=== PATIENT | female | born 1935 | race Caucasian/White ===

== ENCOUNTER 2021-06-10 14:29 | Inpatient (IN) | payer MEDICARE, BC, SELFPAY ==
[2021-06-10] VITALS (9 sets, daily range): BP systolic 130–144; BP diastolic 76–87; PULSE 69–85; RESP 14–18; TEMP 36.4–36.7; O2SAT 89–95; BMI 28.2
--- NOTE | 2021-06-10 14:34 | XR_ITS ---
WS: [id number] Exam: XR hip RT 2-3V wo/w pel* [id number] Date/Time of Exam: 06/10/2021 2:34 PM Reason For Exam: r hip pain There is a comminuted intertrochanteric fracture of the right hip. There is avulsion and medial separ ation of the lesser trochanter. No other fractures. Moderate DJD of the joint compartment. XR/XR hip RT 2-3V wo/w pel* [id number] IMPRESSION: 1. Comminuted intertrochanteric fracture of the right hip. Degenerative changes .
--- NOTE | 2021-06-10 14:45 | ED_ITS ---
HPI - Extremity Problem General: Chief complaint: Fall Stated complaint: FALL R HIP DEFORMITY Time Seen by Provider: 06/10/21 14:34 Source: patient Mode of arrival: EMS Limitations: no limitations History of Present Illness: 86-year-old female presents emergency room after falling at home. She gotten up to get a remote control and fell and she has severe right hip pain is unable to stand EMS was called she has externally rotated right leg. She denies any other injuries at the time of the fall she is on Eliquis for atrial fibrillation and last took it earlier today. She denies any chest pain or shortness of breath she is otherwise awake and alert and oriented. MD Complaint: joint pain Onset (ago): minute(s) Pain Consistency: constant Location: right and upper extremity (Hip) Quality: sharp Radiation: distal Relieving factors: immobilization Exacerbating factors: palpation Associated symptoms: Deny arthralgias, chest pain, fever(s), myalgias, rash or short of breath Review of Systems Const: Denies: fever(s) or chills ENMT: Denies: throat pain, ear or mastoid pain, nasal discharge or nasal congestion Card: Denies: chest pain or palpitations Resp: Denies: dyspnea, productive cough or non-productive cough GI: Denies: abdominal pain, nausea, vomiting, hematemesis, coffee ground emesis, diarrhea, constipation, bloating, hematochezia or melena : Denies: flank pain, difficulty voiding, dysuria, urinary frequency or urinary urgency Skin/Breast: Denies: rash or pruritus [facility] ED PFSH: Medical History (Updated 06/10/21 @ 15:50 by Aristides Alfaro DO) Afib Anemia ASHD (arteriosclerotic heart disease) Chronic anticoagulation COPD (chronic obstructive pulmonary disease) Depression First degree AV block Former smoker Hyperlipidemia Hypertension Hypothyroidism Insomnia Lung cancer Meningioma RLS (restless legs syndrome) Ventricular arrhythmia Surgical History History of lobectomy of lung Hx of CABG x 3 vessel 2010 Social History Smoking and tobacco status: former smoker Alcohol intake: current Alcohol intake frequency: 0-2 Drinks per Day Physical Exam Const: GENERAL APPEARANCE: cooperative ORIENTATION/CONSCIOUSNESS: Yes awake, Yes oriented to person, Yes oriented to place and Yes oriented to time HENMT: COMMON NORMALS: normocephalic, atraumatic and hearing grossly normal bilaterally HEAD & SCALP: normocephalic and atraumatic Neck/C-Spine: COMMON NORMALS: full ROM, no lymphadenopathy, supple and no JVD Resp: COMMON NORMALS: normal respiratory effort, No retractions, No use of accessory muscles and clear to auscultation bilaterally AUSCULTATION: clear to auscultation bilaterally Cardio: COMMON NORMALS: no JVD, regular rate, regular rhythm and No murmurs present (Cardio) RATE: regular rate RHYTHM: regular rhythm GI: COMMON NORMALS: Soft to palpation and No hepatosplenomegaly present AUSCULTATION: Yes normoactive bowel sounds PALPATION: Yes Soft to palpation, No Tenderness to palpation present (GI), No Guarding due to palpation present (GI) and Yes No hepatosplenomegaly present Extremity: OTHER: Right leg externally rotated consistent with hip fracture neurovascularly intact dorsalis pedis pulse easily palpable Neuro: SENSORIUM/ORIENTATION: Yes oriented to person, Yes oriented to place and Yes oriented to time Skin: COMMON NORMALS: no rashes or lesions noted GENERAL SKIN EXAM: no rashes or lesions noted Course Vital Signs: Vital signs: Vital Signs Temperature 98.1 F 06/10/21 14:32 Pulse Rate 73 06/10/21 14:32 Respiratory Rate 14 06/10/21 14:32 Blood Pressure 140/82 06/10/21 14:32 Pulse Oximetry 89 L 06/10/21 14:32 MDM - Extremity (Nontraumatic) Medical Decision Making Right intertrochanteric hip fracture. Patient is on Eliquis did take it this morning. She has a history of atrial fibrillation rate is well controlled this time no other symptoms currently in the emergency room. Discussed with Dr. Jay she will admit I did call Dr. Do he is in surgery message was relayed to him as to a patient without fracture who would be admitted to the hospitalist he would consult he will call back with any questions per the nurse in the OR. Medical Records I reviewed the patient's medical records. Lab Data I reviewed the patient's lab results. : 06/10/21 15:03 06/10/21 15:03 Laboratory Results WBC 7.2 10^3/uL (4.0-10.0) 06/10/21 15:03 RBC 4.60 10^6/uL (4.1-5.3) 06/10/21 15:03 Hgb 12.7 g/dL (11.5-15.3) 06/10/21 15:03 Hct 40.8 % (37.0-47.0) 06/10/21 15:03 MCV 88.7 fl (81-99) 06/10/21 15:03 MCH 27.6 pg (28.0-34.0) L 06/10/21 15:03 MCHC 31.1 g/dL (30.0-36.0) 06/10/21 15:03 RDW 15.4 % (12.1-15.1) H 06/10/21 15:03 Plt Count 148 10^3/cmm (130-400) 06/10/21 15:03 MPV 12.3 fL (7.4-10.4) H 06/10/21 15:03 Neut % (Auto) 77.4 % 06/10/21 15:03 Lymph % (Auto) 15.5 % 06/10/21 15:03 [place] % (Auto) 6.0 % 06/10/21 15:03 Eos % (Auto) 0.6 % 06/10/21 15:03 Baso % (Auto) 0.1 % 06/10/21 15:03 Neut # (Auto) 5.54 10^3/uL (1.8-7.7) 06/10/21 15:03 Lymph # (Auto) 1.1 10^3/uL (0.8-4.8) 06/10/21 15:03 [place] # (Auto) 0.4 10^3/uL (0.2-0.9) 06/10/21 15:03 Eos # (Auto) 0.0 10^3/uL (0.0-0.8) 06/10/21 15:03 Baso # (Auto) 0.0 10^3/uL (0.0-0.1) 06/10/21 15:03 Nucleated RBC % (auto) 0 % 06/10/21 15:03 Nucleated RBCs # 0.0 /100WBC 06/10/21 15:03 Sodium 144 mmol/L (136-145) 06/10/21 15:03 Chloride 102 mmol/L (98-107) 06/10/21 15:03 Anion Gap 13.3 (5-19) 06/10/21 15:03 BUN 15 mg/dL (8-23) 06/10/21 15:03 Creatinine 0.8 mg/dL (0.5-0.9) 06/10/21 15:03 GFR Calculation Not Reportable 06/10/21 15:03 Glucose 97 mg/dL (65-115) 06/10/21 15:03 Total Bilirubin 0.3 mg/dL (0.15-1.2) 06/10/21 15:03 AST 13 U/L (0-32) 06/10/21 15:03 ALT 10 U/L (0-33) 06/10/21 15:03 Alkaline Phosphatase 84 IU/L (35-105) 06/10/21 15:03 Albumin 4.2 g/dL (3.5-5.2) 06/10/21 15:03 Globulin 1.7 g/dL (1.3-4.6) 06/10/21 15:03 Discharge Plan Discharge Patient Disposition: Admitted As Inpatient Admit Provider: Che Ma Clinical Impression: Closed intertrochanteric fracture of right hip, Atrial fibrillation, COPD (chr onic obstructive pulmonary disease), Hyperlipidemia, Coronary artery disease Condition: Stable Coding Level of Care Code ED Academic Hospitalist for Chg Fwd Exam Detailed
--- NOTE | 2021-06-10 14:51 | ECG_ITS ---
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 Measurements Intervals [place] Rate: 79 P: AK: QRS: 161 QRSD: 140 T: 74 QT: 471 QTc: 542 Interpretive Statements ATRIAL FIBRILLATION INTRAVENTRICULAR CONDUCTION DELAY [130+ ms QRS DURATION] POSSIBLE RIGHT VENTRICULAR HYPERTROPHY Compared to ECG 08/24/2018 22:11:06 Intraventricular conduction delay now present ST (T wave) deviation no longer present Electronically Signed On 06-11-2021 7:26:59 CDT by Mariela Arguello M.D. [email or web address]
--- NOTE | 2021-06-10 14:51 | XR_ITS ---
WS: [id number] Exam: XR chest 1V portable [id number] Date/Time of Exam: 06/10/2021 2:51 PM Reason For Exam: dyspnea/cough Comparison 08/27/2018. There is increased density in the left retrocardiac region that may represent infiltrate in the left lower lobe. Prominent left cardiac silhouette noted. The heart is enlarged. Signs of the cardiac valv e replacement and CABG surgery. The right lung is clear. No pneumothorax. Bony structures are intact. Postoperative changes noted in the region of the aortic arch. XR/XR chest 1V portable [id number] IMPRESSION: 1. Increased density in the left retrocardiac region that may indicate infiltra te in the left lower lobe. Prominent left heart border. Pericardial effusion mi ght be of consideration. Cardiac enlargement. 2. Postoperative changes of the heart as noted above.
--- NOTE | 2021-06-10 14:54 | PM.HP ---
Providers/Chief Complaint Admitting Physician: Che Ma MD Primary Care Provider: Had previously seen Jake Bailey, has not established care since he retired though it looks like she has seen Dr. Ashlyn Paiz last January. Chief Complaint: FALL R HIP DEFORMITY History of Present Illness Arelis Abdi is a 86 year old female who presented to the emergency room with chief complaint of right hip pain. Patient had left hip fracture and surgical repair about 3 years ago. She has utilized a walker since that time. She lives at home with her who is currently on hospice. She was reaching to get the TV remote so she could turn up the volume for him. He is blind and relies on the sound from the TV. She leaned too far trying to get the hand gripper to grab the remote and simply lost her balance and fell over landing on a hardwood floor on her right hip. She instantly knew that something was likely broken. She denies any preceding symptoms. She does did not take enough steps to get where she needed to be. Her 's hospice nurse and her stepdaughter/'s daughter were at the house and an ambulance was called immediately. She was brought in. Right lower extremity was externally rotated and shortened. X-ray showed comminuted intratrochanteric fracture. Orthopedics has been consulted and hospitalist were contacted for admission. She reports appropriate discomfort in her right hip with any form of movement. In talking with her she has been a bit more tired lately. She has a stye developing in her right eye. She denies any fever or chills. She has been short of breath. She has a cough that has been intermittently productive but mostly nonproductive. No hemoptysis. She has known COPD. She is not on continuos oxygen at home, but does have nocturnal oxygen for known sleep apnea, did not tolerate that machine . She did receive a couple of doses of fentanyl in route and had some hypoxemia requiring oxygen at 2 L by nasal cannula in ambulance and here. 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 She is a former smoker. Additionally she does have a history of coronary artery disease with prior bypass surgery, 3 vessels back in 2009. At the same time she had a mitral valve repair. Specific details of the repair are not known but is is not a mechanical valve per her report. She is on chronic anticoagulation due to a history of atrial fibrillation. She takes Eliquis. Last dose of Eliquis was this morning not long after she awakened. She denies any recent chest pain. Her activity is limited due to gait instability. Occasionally she will have some lower extremity edema and she does describe nocturia 2-3 times per night. She has received 2 doses of Moderna. No history of known COVID. She recalls what all she went through after her prior hip surgery and is not looking forward to what is to come but knows what to expect. History is obtained from her and review of available records. She has followed with Dr Washington from cardiac standpoint, but not seen him for some time due to cancellations related to pandemic and/or personal/family non-covid illnesses. Review of Systems Const: Reports: fatigue and malaise; Denies: fever(s), chills, change in appetite or change in weight Eyes: Reports: other (Stye is developing on her lower lid on the right eye, increasing discomfort); Denies: change in vision ENMT: Reports: nasal congestion (Mild); Denies: throat pain or post nasal drip Card: Reports: palpitations, edema (Occasional, not currently), lightheadedness (Secondary to pain today but not previously or preceding fall) and dyspnea on exertion; Denies: chest pain or orthopnea Resp: Reports: dyspnea, productive cough and non-productive cough; Denies: pain on inspiration, hemoptysis or chest congestion GI: Reports: nausea (Quite significant after fall, associated with hip pain), heartburn (After taking all of her morning medications/vitamins every day) and other (Last bowel movement was yesterday); Denies: abdominal pain, vomiting, diarrhea, constipation, hematochezia or melena : Reports: dysuria (Sometimes, not currently), nocturia (2-3 times per night) and urinary incontinence; Denies: hematuria Musc: Reports: extremity pain (Right lower extremity) Skin/Breast: Reports: dry skin; Denies: rash or sores Neuro: Reports: weakness in extremities (Chronic, general rather than focal) and difficulty walking (Uses a walker chronically); Denies: headache(s), numbness in extremities, sensory changes or frequent falls Psych: Reports: anxiety and depression; Denies: suicidal ideation Endo: Reports: tired all the time Dain/Lymph: Reports: easy bruising and other (No recent gross bleeding) Medications/Allergies Home Medications Medication Instructions Recorded Confirmed Last Taken Type alprazolam 0.5 mg tablet 0.5 mg PO TID PRN 03/18/21 03/18/21 Unknown History apixaban 5 mg tablet (Eliquis) 5 mg PO BID 03/18/21 03/18/21 Unknown History buspirone 5 mg tablet 5 mg PO BID 03/18/21 03/18/21 Unknown History coenzyme Q10 10 mg capsule (Co 10 mg PO DAILY cap 03/18/21 03/18/21 Unknown History Q-10) gabapentin 100 mg capsule 100 mg PO TID 03/18/21 03/18/21 Unknown History levothyroxine 50 mcg tablet 50 mcg PO DAILY 03/18/21 03/18/21 Unknown History lisinopril 20 mg tablet 20 mg PO DAILY 03/18/21 03/18/21 Unknown History metoprolol succinate 25 mg 25 mg PO DAILY 03/18/21 03/18/21 Unknown History tablet,extended release 24 hr potassium chloride 10 mEq 10 meq PO DAILY 03/18/21 03/18/21 Unknown History tablet,extended release ropinirole 0.25 mg tablet 0.25 mg PO DAILY 03/18/21 03/18/21 Unknown History tiotropium 2.5 mcg-olodaterol 2.5 2 puff INHALATION DAILY 03/18/21 03/18/21 Unknown History mcg/actuation mist for inhalation (Stiolto Respimat) trazodone 50 mg tablet 50 mg PO DAILY 03/18/21 03/18/21 Unknown History acetaminophen 500 mg tablet 500 mg PO Q6H PRN 06/10/21 06/10/21 Unknown History amiodarone 200 mg tablet 200 mg PO DAILY 06/10/21 06/10/21 06/10/21 History amlodipine 10 mg tablet 10 mg PO DAILY 06/10/21 06/10/21 06/10/21 History ascorbic acid (vitamin C) 500 mg 500 mg PO DAILY 06/10/21 06/10/21 06/10/21 History capsule,extended release (Vitamin C) calcium carbonate 600 mg-vitamin 1 tab PO DAILY 06/10/21 06/10/21 06/10/21 History D3 10 mcg (400 unit) chewable tablet (Calcium 600 with Vitamin D3) glucosamine-chondroitin 250 mg-200 2 tab PO TID 06/10/21 06/10/21 06/10/21 History mg tablet (Osteo Bi-Flex) omega 6-fxa-kqo-fish oil 1,000 mg 1 cap PO DAILY 06/10/21 06/10/21 06/10/21 History (120 mg-180 mg) capsule (Fish Oil) sertraline 100 mg tablet 100 mg PO BID 06/10/21 06/10/21 06/10/21 History tumeric 100 mg-rach 150 mg-olive 1 cap PO DAILY 06/10/21 06/10/21 06/10/21 History 50 mg-oreg 150 mg-caprylate capsule Allergies Allergy/AdvReac Type Severity Reaction Status Date / Time Sulfa (Sulfonamide Allergy N/V Verified 05/02/21 09:29 Antibiotics) PFSH Acute PFSH: Medical History (Updated 06/10/21 @ 18:43 by Che Ma MD) Anemia Anxiety ASHD (arteriosclerotic heart disease) Atrial fibrillation CHF (congestive heart failure) Chronic anticoagulation COPD (chronic obstructive pulmonary disease) COVID-19 vaccine administered Moderna 2 doses Depression First degree AV block Former smoker Hyperlipidemia Had been on atorvastatin and zetia in past, last lipid panel in 2019 with HDL 70, LDL 81, total cholesterol 171, TG 176 Hypertension Hypothyroidism Insomnia 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) Meningioma Benign Mitral valve regurgitation Osteoarthritis Osteoporosis RLS (restless legs syndrome) Sleep apnea On nocturnal oxygen, intolerant of other therapies in past Tricuspid valve regurgitation Ventricular arrhythmia Surgical History (Updated 06/10/21 @ 18:35 by Che Ma MD) History of appendectomy History of hemiarthroplasty of left hip (~2019) History of hysterectomy History of lobectomy of lung Left upper lobe, 2007 History of mitral valve repair Per patient, done at time of CABG in 2009, details unknown History of tonsillectomy and adenoidectomy Hx of CABG x 3 vessel 2009 Family History (Updated 06/10/21 @ 16:36 by Che Ma MD) Family/Other Cancer multiple relatives Father Abdominal aneurysm Mother Abdominal aneurysm Denies family history of Clotting disorder Anesthesia complication Bleeding disorder Social History (Updated 06/10/21 @ 16:35 by Che Ma MD) Smoking and tobacco status: former smoker Alcohol intake: current Alcohol use comment: has a drink every 3-4 days, currently drinking [place] Honey Substance/Drug Use: never Household members: spouse and other Details: Spouse on Hospice Care Marital status: Number of children: 3 Female Reproductive History: : 5 Para: 3 Spontaneous abortions: Yes (x2) Vitals/I&O/Wt Last Vital Signs Temp 98.1 F 06/10/21 14:32 Pulse 73 06/10/21 14:32 Resp 14 06/10/21 14:32 BP 140/82 06/10/21 14:32 Pulse Ox 89 L 06/10/21 14:32 Weight last 48 hrs Weight 79.379 kg Physical Exam Narrative: Constitutional: Awake and alert after awakening, oriented to person place and situation, looks uncomfortable with any mild movement HEENT: Normocephalic, atraumatic, extraocular movements are intact, nasopharynx with some clear rhinorrhea, oropharynx with dry membranes Neck: Supple Respiratory: Clear to auscultation bilaterally had any rales rhonchi or wheezes noted Cardiovascular: Irregularly irregular rhythm, no murmurs appreciated Abdomen: Soft, nontender, positive bowel sounds : Normal external genitalia Extremities: Right lower extremity externally rotated and shortened, no bruising noted on visible portions of lateral leg on the right, no pitting edema, 1+ dorsalis pedis bilaterally Skin: Dry, no acute sores or bruising noted, no rashes Neuro: Speech clear, face symmetric, handgrip is equal, sensation is intact and equal to light touch both feet, wiggles toes bilaterally Psych: Normal affect Data : 06/10/21 15:03 06/10/21 15:03 Other Labs: Personal interpretation of right hip films shows comminuted intertrochanteric femur fracture Twelve-lead EKG per my personal interpretation shows atrial fibrillation at 79 bpm without any acute ST segment changes noted Chest x-ray per radiology interpretation shows increased density in the left retrocardiac region that may indicate an infiltrate in the left lower lobe with prominent left heart border. Pericardial effusion might be of consideration. Cardiac enlargement is also noted. Postoperative changes of the heart are noted including valve replacement and CABG surgery as well as postoperative changes in the region of the aortic arch. A&P Assessment and plan (1) Fall as cause of accidental injury in home as place of occurrence: Accidental, occurring while reaching too far while using her walker, landed on right hip Status: Acute Qualifiers: Encounter type: initial encounter Qualified Code(s): W19.XXXA - Unspecified fall, initial encounter; Y92.009 - Unspecified place in unspecified non-institutional (private) residence as the place of occurrence of the external cause (2) Closed intertrochanteric fracture of right hip: Comminuted Status: Acute Qualifiers: Encounter type: initial encounter Fracture alignment: displaced Qualified Code(s): S72.141A - Displaced intertrochanteric fracture of right femur, initial encounter for closed fracture (3) Osteoporosis: Chronically takes once daily calcium plus vitamin D, has had prior hip fracture Status: Chronic Qualifiers: Encounter type: initial encounter Osteoporosis type: age-related Presence of current pathological fracture: with current pathological fracture Qualified Code(s): M80.00XA - Age-related osteoporosis with current pathological fracture, unspecified site, initial encounter for fracture (4) Chronic anticoagulation: Chronically on Eliquis due to known history of atrial fibrillation, last dose was taken on the morning of 06/10/2021 Status: Chronic (5) Atrial fibrillation: Chronic, on beta-blockade and amiodarone Problem list indicates a history of ventricular arrhythmias as well though details unknown Status: Chronic Qualifiers: Atrial fibrillation type: permanent Qualified Code(s): I48.21 - Permanent atrial fibrillation (6) Coronary artery disease: Bypass surgery in 2009, 3 vessels with associated mitral valve repair Follows with Dr. Washington outpatient Status: Chronic Qualifiers: Associated angina: without angina Coronary Disease-Associated Artery/Lesion type: bypass graft [place] vs. transplanted heart: [place] heart Qualified Code(s): I25.810 - Atherosclerosis of coronary artery bypass graft(s) without angina pectoris (7) CHF (congestive heart failure): Last available echocardiogram from 2019 showed an ejection fraction estimated at 38% with mild pulmonary hypertension (right ventricular systolic pressure 43 mmHg), and moderate to severe mitral and tricuspid valve regurgitation. Severe left atrial enlargement was noted. Reports chronic nocturia and intermittent edema. Not on any chronic diuresis. Does take chronic LORNE inhibitor. Status: Chronic (8) Hypertension: Chronically on amlodipine and lisinopril in addition to beta-blockade Status: Chronic Qualifiers: Hypertension type: primary hypertension Qualified Code(s): I10 - Essential (primary) hypertension (9) COPD (chronic obstructive pulmonary disease): Related to former tobacco abuse, chronically on Stiolto Respimat, not on continuos oxygen for her COPD but does wear nocturnal oxygen for sleep apnea Status: Chronic Qualifiers: COPD type: COPD with acute exacerbation Qualified Code(s): J44.1 - Chronic obstructive pulmonary disease with (acute) exacerbation (10) Sleep apnea: Diagnosed via sleep study, intolerant of CPAP/BiPAP, on nocturnal oxygen though admits that she does not necessarily use it every single night Status: Chronic Qualifiers: Sleep apnea type: unspecified type Qualified Code(s): G47.30 - Sleep apnea, unspecified (11) Hypothyroidism: Chronically on levothyroxine with normal TSH levels when last checked by primary care provider Status: Chronic Qualifiers: Hypothyroidism type: acquired Qualified Code(s): E03.9 - Hypothyroidism, unspecified (12) Anxiety and depression: Chronically on sertraline and also takes BuSpar plus as needed alprazolam, admits to having some challenges with current being on hospice and functional decline since her hip fracture a few years ago but reports that medications help Status: Chronic (13) RLS (restless legs syndrome): Chronically on Requip Status: Chronic (14) Osteoarthritis: Status: Chronic Qualifiers: Osteoarthritis location: multiple joints Osteoarthritis type: primary Qualified Code(s): M15.9 - Polyosteoarthritis, unspecified Plan Mild hypokalemia, on chronic potassium History of hyperlipidemia, currently only on fish oil chronically Chronic gabapentin for unclear diagnosis, may have been on an adjunctive for pain after hip surgery a few years ago Increased density in the left retrocardiac region noted on chest x-ray of currently unclear significance in a patient with a known history of atypical carcinoid tumor of the lung status post left upper lobe lobectomy, no recent fever or chills or increase in respiratory symptoms though has not felt well Inpatient admission Orthopedic consultation for planned surgical repair -appreciate Dr. Do's assistance As per discussion with orthopedics, will hold Eliquis for 48 hours before surgery Calcium plus vitamin D at twice daily dosing Pain control Scheduled laxatives Will need to monitor for bleeding postoperatively and resume Eliquis a couple of days after surgery if remains hemodynamically stable Telemetry monitoring Continue home amiodarone and beta-blockade Will continue lisinopril for now although need to hold day of surgery Continue home amlodipine Monitor blood pressures for need to further adjust medication perioperatively Get baseline BNP and troponin level Echocardiogram to evaluate ejection fraction as we have no recent and will impact overall perioperative management Continue current home potassium dosing though may need to increase We will check magnesium and phosphorus Noriega catheter for close monitoring of urine output and volume status Limit IV fluids unless necessary and monitor need for addition of diuretics Check procalcitonin, currently low suspicion for infectious process as cause of density in left retrocardiac region Oxygen therapy with sleep and as needed; on at night at home, not continuously Monitor for apnea, reports history of sleep apnea but intolerant of therapy beyond oxygen Will order Spiriva and Advair plus as needed albuterol, usual inhaler nonformulary Encouraged use of incentive spirometer Continue home levothyroxine Continue home alprazolam and BuSpar along with sertraline Continue home Requip Continue home gabapentin as an adjunctive to pain control Lovenox for DVT prophylaxis with plan to hold prior to surgery Anticipate eventual resumption of Eliquis postoperatively which patient is on for atrial fibrillation SCDs/foot pumps Protonix for GI prophylaxis Urinalysis is pending Supportive care otherwise Anticipate discharge to skilled facility once medically stable for rehabilitation Patient's does have other family who can care for him in the interim, he is on hospice Need to hold Eliquis for couple of days prior to surgery was reviewed with patient as were other concerns and plans as noted above. Patient has familiarity with overall process as she broke her left hip a few years ago. She still uses a walker that she began using after that event. Other concerns and plans were reviewed with patient and she was given an opportunity to ask questions CODE STATUS: Limited resuscitation - patient would NOT want any CPR, defibrillation 1 or 2 times would be acceptable as she has required it in the past and temporary intubation would be acceptable if needed. ICU level care okay short-term. She would not want long-term intubation and in particular indicated that she would not want tracheostomy, feeding tube. Attestations Medical Necessity Statement*: Anticipated stay greater than two midnights and patient is status post an accidental fall with closed hip fracture that will require surgical repair. She is on chronic anticoagulation that will have to be held for at least 48 hours prior to surgery. Plans are as noted above. Coding Level of Care Code Acute [employer] for [employer] Srivastava Diagnoses Fall as cause of accidental injury in home as place of occurrence W19.XXXA; Y92.009 Encounter type: initial encounter Closed intertrochanteric fracture of right hip S72.141A Encounter type: initial encounter Fracture alignment: displaced Chronic anticoagulation Z79.01 Atrial fibrillation I48.21 Atrial fibrillation type: permanent Coronary artery disease I25.810 Associated angina: without angina Coronary Disease-Associated Artery/Lesion type: bypass graft [place] vs. transplanted heart: [place] heart Hypertension I10 Hypertension type: primary hypertension COPD (chronic obstructive pulmonary disease) J44.1 COPD type: COPD with acute exacerbation Hypothyroidism E03.9 Hypothyroidism type: acquired Anxiety and depression F41.9; F32.A CHF (congestive heart failure) I50.9 RLS (restless legs syndrome) G25.81 Osteoarthritis M15.9 Osteoarthritis location: multiple joints Osteoarthritis type: primary Osteoporosis M80.00XA Encounter type: initial encounter Osteoporosis type: age-related Presence of current pathological fracture: with current pathological fracture Sleep apnea G47.30 Sleep apnea type: unspecified type Perioperative Risk Evaluation Type of surgery Procedure risk: elevated risk procedure (intermediate risk procedure) Status of surgery Priority: urgent (neccessary within 6-24 hours) (Although will be delayed secondary to anticoagulation) Sepsis risk Infection criteria present: None SIRS criteria present: None Sepsis screen: No Definite Risk Risk factors Cardiovascular: compensated heart failure, CAD and arrhythmias Pulmonary: COPD/emphysema Medical history Medical history: reviewed and none apply Cardiac Studies: No Data to Display Functional capacity Exercise tolerance: < 4 METS Comment on Functional Capacity: limited by gait instability, use of walker since last hip fracture Medications High priority meds: LORNE inhibitors/ARBs, beta-blockers, anticoagulants and benzodiazepines Assessment Risk of cardiovascular perioperative events: Elevated At this time, there is an elevated risk for cardiovascular perioperative events associated with this urgent elevated risk procedure and the following patient characteristics: functional capacity of < 4 METS, compensated heart failure, CAD, arrhythmias Risk of noncardiovascular perioperative events: Elevated At this time, there is an elevated risk for noncardiovascular perioperative events associated with this urgent elevated risk procedure and the following patient characteristics: COPD/emphysema Recommendations Patient medically optimized for surgery: No Reason for delaying surgery: need to hold anticoagulation Interventions which may reduce cardiovascular risk: Yes echo and other (baseline troponin, bnp, ekg) Interventions which may reduce noncardiovascular risk: Yes Interventions that reduce non cardio risk: incentive spirometry and other (nocturnal and as needed oxygen) Mi-op med management: Currently, there are multiple high priority active medications: LORNE inhibitors/ARBs, beta-blockers, anticoagulants, benzodiazepines. The recommended actions are: Hold LORNE inhibitor day of surgery, continue beta-blockade, hold Eliquis at least 48 to 72 hours depending on planned surgery, continue benzodiazepines for as needed use given significance of anxiety issues chronically.
[2021-06-10 15:20] LABS: Basophils % 0.1 %; Eosinophils % 0.6 %; Hematocrit 40.8 % (37.0-47.0); Hemoglobin 12.7 g/dL (11.5-15.3); Lymphocytes # 1.1 10^3/uL (0.8-4.8); Lymphocytes % 15.5 %; Mean Corpuscular HGB Conc 31.1 g/dL (30.0-36.0); Mean Corpuscular Hemoglobin 27.6 pg (28.0-34.0); Mean Corpuscular Volume 88.7 fl (81-99); Mean Platelet Volume 12.3 fL (7.4-10.4); Monocytes # 0.4 10^3/uL (0.2-0.9); Neutrophils # 5.54 10^3/uL (1.8-7.7); Neutrophils % 77.4 %; Nucleated Red Blood Cells % 0 %; Platelet Count 148 10^3/cmm (130-400); Red Cell Distribution Width 15.4 % (12.1-15.1); White Blood Count 7.2 10^3/uL (4.0-10.0)
--- NOTE | 2021-06-10 15:25 | PC.PHAR ---
pt brought in med list from home. pt states she has atorvistatin and zetia but not sure when she took them last. These two medications are not on her external med list.
[2021-06-10 15:46] LABS: Alanine Aminotransferase 10 U/L (0-33); Albumin Level 4.2 g/dL (3.5-5.2); Alkaline Phosphatase 84 IU/L (35-105); Anion Gap 13.3 (5-19); Aspartate Amino Transferase 13 U/L (0-32); Blood Urea Nitrogen 15 mg/dL (8-23); Calcium 8.1 mg/dL (8.5-10.5); Carbon Dioxide 32 mmol/L (22-29); Chloride 102 mmol/L (98-107); Creatinine Clr Calc Pharmacy 55.6421; Globulin 1.7 g/dL (1.3-4.6); Glucose 97 mg/dL (65-115); Osmolality Calculated 299 mOsm/kg (285-295); Potassium 3.3 mmol/L (3.5-5.1); Sodium 144 mmol/L (136-145); Total Bilirubin 0.3 mg/dL (0.15-1.2); Total Protein 5.9 g/dL (6.6-8.7)
[2021-06-10 15:50] LABS: Partial Thromboplastin Time 31.9 SECONDS (23.9-36.7)
--- NOTE | 2021-06-10 15:53 | PC.NURSE ---
report called to may rn assumed care.
--- NOTE | 2021-06-10 16:26 | PC.NURSE ---
WHILE AT BEDSIDE PT IS IN NAD. PT DENIES ANY FURTHER NEEDS.
--- NOTE | 2021-06-10 17:13 | PM.CONSULT ---
Providers/Reason For Consult Consulting Physician/Specialty*: Esteban Do MD; orthopedic surgery Reason for Consult*: Right intratrochanteric hip fracture Attending Physician: Che Ma MD History of Present Illness History of Present Illness Arelis Abdi is a 86 year old female who sustained a mechanical fall when she is attempting to reach for the remote. She described immediate pain in the right lower extremity. She was transferred here to [facility] where radiographs revealed a right intertrochanteric hip fracture. She states she previously ambulated with a walker. She lives with her and her daughter. Her is on hospice for shortness of breath and is able to provide very little help around the home. She has a previous history of a left hip fracture treated at [facility] 2 years ago requiring residential. Medications/Allergies Home Medications Medication Instructions Recorded Confirmed Last Taken Type alprazolam 0.5 mg tablet 0.5 mg PO TID PRN 03/18/21 06/10/21 06/10/21 History apixaban 5 mg tablet (Eliquis) 5 mg PO BID 03/18/21 06/10/21 06/10/21 History buspirone 5 mg tablet 5 mg PO BID 03/18/21 06/10/21 06/10/21 History coenzyme Q10 10 mg capsule (Co 10 mg PO DAILY cap 03/18/21 06/10/21 06/10/21 History Q-10) gabapentin 100 mg capsule 100 mg PO TID 03/18/21 06/10/21 06/10/21 History levothyroxine 50 mcg tablet 50 mcg PO DAILY 03/18/21 06/10/21 06/10/21 History lisinopril 20 mg tablet 20 mg PO DAILY 03/18/21 06/10/21 06/10/21 History metoprolol succinate 25 mg 25 mg PO DAILY 03/18/21 06/10/21 06/10/21 History tablet,extended release 24 hr potassium chloride 10 mEq 10 meq PO DAILY 03/18/21 06/10/21 06/10/21 History tablet,extended release ropinirole 0.25 mg tablet 0.25 mg PO DAILY 03/18/21 06/10/21 06/10/21 History tiotropium 2.5 mcg-olodaterol 2.5 2 puff INHALATION DAILY 03/18/21 06/10/21 Unknown History mcg/actuation mist for inhalation (Stiolto Respimat) trazodone 50 mg tablet 50 mg PO DAILY 03/18/21 06/10/21 06/10/21 History acetaminophen 500 mg tablet 500 mg PO Q6H PRN 06/10/21 06/10/21 Unknown History amiodarone 200 mg tablet 200 mg PO DAILY 06/10/21 06/10/21 06/10/21 History amlodipine 10 mg tablet 10 mg PO DAILY 06/10/21 06/10/21 06/10/21 History ascorbic acid (vitamin C) 500 mg 500 mg PO DAILY 06/10/21 06/10/21 06/10/21 History capsule,extended release (Vitamin C) calcium carbonate 600 mg-vitamin 1 tab PO DAILY 06/10/21 06/10/21 06/10/21 History D3 10 mcg (400 unit) chewable tablet (Calcium 600 with Vitamin D3) glucosamine-chondroitin 250 mg-200 2 tab PO TID 06/10/21 06/10/21 06/10/21 History mg tablet (Osteo Bi-Flex) omega 8-mmn-rre-fish oil 1,000 mg 1 cap PO DAILY 06/10/21 06/10/21 06/10/21 History (120 mg-180 mg) capsule (Fish Oil) sertraline 100 mg tablet 100 mg PO BID 06/10/21 06/10/21 06/10/21 History tumeric 100 mg-rach 150 mg-olive 1 cap PO DAILY 06/10/21 06/10/21 06/10/21 History 50 mg-oreg 150 mg-caprylate capsule Allergies Allergy/AdvReac Type Severity Reaction Status Date / Time Sulfa (Sulfonamide Allergy N/V Verified 05/02/21 09:29 Antibiotics) PFSH Acute PFSH: Medical History (Updated 06/10/21 @ 17:00 by Che Ma MD) Anemia Anxiety ASHD (arteriosclerotic heart disease) Atrial fibrillation CHF (congestive heart failure) Chronic anticoagulation COPD (chronic obstructive pulmonary disease) Depression First degree AV block Former smoker Hyperlipidemia Had been on atorvastatin and zetia in past, last lipid panel in 2019 with HDL 70, LDL 81, total cholesterol 171, TG 176 Hypertension Hypothyroidism Insomnia 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) Meningioma Benign RLS (restless legs syndrome) Ventricular arrhythmia Surgical History (Updated 06/10/21 @ 16:32 by Che Ma MD) History of appendectomy History of hemiarthroplasty of left hip (~2019) History of hysterectomy History of lobectomy of lung Left upper lobe, 2007 History of mitral valve repair at time of CABG in 2009 History of tonsillectomy and adenoidectomy Hx of CABG x 3 vessel 2009 Family History (Updated 06/10/21 @ 16:36 by Che Ma MD) Family/Other Cancer multiple relatives Father Abdominal aneurysm Mother Abdominal aneurysm Denies family history of Clotting disorder Anesthesia complication Bleeding disorder Social History (Updated 06/10/21 @ 16:35 by Che Ma MD) Smoking and tobacco status: former smoker Alcohol intake: current Alcohol use comment: has a drink every 3-4 days, currently drinking [place] [address] [employer] Substance/Drug Use: never Household members: spouse and other Details: Spouse on Hospice Care Marital status: Number of children: 3 Female Reproductive History: : 5 Para: 3 Spontaneous abortions: Yes (x2) Vitals/I&O/Wt Last Vital Signs Temp 98.1 F 06/10/21 14:32 Pulse 79 06/10/21 16:49 Resp 16 06/10/21 16:49 BP 143/87 06/10/21 16:49 Pulse Ox 93 06/10/21 16:49 Weight last 48 hrs Weight 175 lb Physical Exam Narrative: Ms. Abdi has shortening and external rotation of the right hip. There is exquisite pain with motion of the hip. Palpable right dorsalis pedis pulse. She will flex and extend her toes on the right ankle and foot Right lower extremity sensation is intact to light touch. Data : 06/10/21 15:03 06/10/21 15:03 Xray Ortho: My impression: Radiographs of the right hip are reviewed showing a comminuted right intratrochanteric hip fracture with displacement. A&P Assessment and plan (1) Closed intertrochanteric fracture of right hip: The patient has an unstable right intratrochanteric hip fracture. I discussed options with the patient withher son and [id number] present.I told the patient we could treat this nonoperatively but certainly they would be at risk for medical problems without surgery. Theywould have problems with pain that would require narcotics for pain control. 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 I discussed surgical intervention with the patient. I told them with open reduction internal fixation they should be able to be mobilized and resume ambulatory status. We can eliminate the problems associated with prolonged bed rest and would have better control of pain. Certainly there would be inherent risk with surgery. These would would include the risk of cardiac complications, stroke, infection, and even . I discussed risk of any orthopedic implant including nonunion, malunion, a component failure. I discussed the possible need for component removal. I discussed risk of deep venous thromboses and pulmonary emboli that are present with any treatment and the importance of DVT prophylaxis. Patient is on Eliquis. Will hold it for 48 hours prior to surgery resume this postoperatively. The patient expressed good understanding of alternative treatments, seem to comprehend, and agrees to surgical intervention. He will require residential postoperatively. Status: Acute Qualifiers: Encounter type: initial encounter Fracture alignment: displaced Qualified Code(s): S72.141A - Displaced intertrochanteric fracture of right femur, initial encounter for closed fracture Coding Level of Care Code Acute Naphthalene Still Operator for [facility] Diagnoses Closed intertrochanteric fracture of right hip S72.141A Encounter type: initial encounter Fracture alignment: displaced
--- NOTE | 2021-06-10 17:49 | USCV_ITS ---
Arelis Abdi Age: 86 Gender: F : 1935 Exam Date: 06/10/2021 21:56 Ordering Phys: Che Ma MD Technologist: ANABELA [place] [facility] [place]: DYSPNEA, PREOP, HX CAD, CHF BP: / HR: 105 Rhythm: Sinus Technical Quality: Adequate MEASUREMENTS (Male / Female) Normal Values 2D ECHO LV Diastolic Diameter PLAX 4.5 cm 4.2 - 5.9 / 3.9 - 5.3 cm LV Systolic Diameter PLAX 3.5 cm IVS Diastolic Thickness 1.6 cm 0.6 - 1.0 / 0.6 - 0.9 cm IVS Systolic Thickness 1.9 cm LVPW Diastolic Thickness 2.1 cm 0.6 - 1.0 / 0.6 - 0.9 cm LVPW Systolic Thickness 2.1 cm LVOT Diameter 1.9 cm LV Ejection Fraction 2D Teich 46.7 % LV Ejection Fraction MOD 2C 48.9 % LV Ejection Fraction 2C AL 48.0 % LA Diameter 5.9 cm LA Width 6.5 cm LA Height 6.8 cm RA Width 7.5 cm RA Height 6.0 cm Aorta at Sinotubular Diameter 2.3 cm M-MODE Aortic Annulus Diameter 1.8 cm LA Ao Ratio MM 3.3 MV E Point Septal Separation 1.3 cm DOPPLER AV Peak Velocity 130.0 cm/s LVOT Peak Velocity 78.0 cm/s AV Area Cont Eq vti 1.7 cm squared AV Area Cont Eq pk 1.6 cm squared MV Peak Velocity 136.0 cm/s MV Area PHT 2.1 cm squared MV E' Velocity 136.0 cm/s TR Peak Velocity 209.0 cm/s TR Peak Gradient 17.5 mmHg TR Mean Velocity 139.8 cm/s TR Mean Gradient 10.4 mmHg TR Velocity Time Integral 68.1 cm Right Atrial Pressure 10.0 mmHg Pulmonary Artery Systolic Pressu 27.5 mmHg PV Peak Velocity 68.0 cm/s RV Acceleration Time 0.1 s RV Ejection Time 0.3 s RV AcT/ET 0.2 FINDINGS Left Ventricle Severe diffuse hypokinesia of the septum, anteroseptum and LV apex. LV ejection fraction around 30 to 35% Right Ventricle Diffuse hypokinesia of the right ventricle with moderately depressed ejection fraction Right Atrium Moderately increased right atrial size. Left Atrium Moderately increased left atrial size. Mitral Valve Thickened mitral valve. Moderate mitral annular calcification. Aortic Valve Thickened aortic valve. Tricuspid Valve Mild tricuspid valve regurgitation. Pulmonic Valve Trace pulmonary valve regurgitation. Pericardium No pericardial effusion. Aorta Plaque seen in the ascending aorta. CONCLUSIONS Severe diffuse hypokinesia of the septum, anteroseptum and LV apex. LV ejection fraction around 30 to 35%. Moderate concentric left tubular hypertrophy Moderate biatrial enlargement Thickened mitral valve. Moderate mitral annular calcification. Thickened aortic valve. Mild tricuspid valve regurgitation. Trace pulmonary valve regurgitation. Estimated pulmonary artery peak systolic pressure of 28 mm of Hg (Compared to the study from 08/26/2018, there is some worsening of the LV systolic function. The LVEF was 38% at that time. The RV systolic function has significantly reduced since 08/26/2018. The tricuspid rotation appears to be less severe, but it could be due to technical issues.) Dr Jimmy Washington MD [facility] (Electronically Signed) Final Date: 11 June 2021 16:07 S
--- NOTE | 2021-06-10 17:52 | PC.NURSE ---
Patient arrived to floor via stretcher, AAOx4, right hip pain not requesting medication at this time. Agreeable to repositioning as scheduled. Remains in home jocelyn agrees to change tomorrow. VSS, SCDS applied, will place david when one arrives to floor. No other needs at this time. Room clean and clutter free with call light in reach.
[2021-06-10] MEDS: calcium carb-vit d 600mg/400unit 1 Tablet 1 EACH PO (17:59)
[2021-06-10] MEDS: docusate sodium 100 mg Capsule PO (17:59)
[2021-06-10] MEDS: BuSPIRONE 10 mg Tablet 5 MG PO (17:59)
[2021-06-10] MEDS: sertraline 100 mg Tablet PO (17:59)
[2021-06-10 19:05] LABS: Procalcitonin 0.06 ng/mL (0-0.5)
[2021-06-10 19:09] LABS: Add Urine Culture? Yes; Add Urine Microscopic? YES; Bacteria Urine 4+ /hpf; Bilirubin Urine Neg (Negative); Blood Urine Neg (Negative); Glucose Urine UA Norm (Normal); Ketones Urine 1+ (Negative); Leukocyte Esterase Urine Negative (Negative); Nitrate Urine Negative (Negative); Protein Urine Neg (Negative); Squamous Epithelial Cell Urine RARE /hpf (0-5); Urine Appearance Cloudy (CLEAR); Urine Color Yellow (Yellow); Urobilinogen Urine 1 mg/dL (Negative); WBC Urine RARE /hpf (0-5); pH Urine 6 (5-7)
[2021-06-10] MEDS: gabapentin 100 mg Capsule PO (21:40)
[2021-06-10] MEDS: sennosides 8.6 mg Tablet 17.2 MG PO (21:40)
[2021-06-10] MEDS: ropinirole 0.25 mg Tablet PO (21:40)
[2021-06-11] VITALS (11 sets, daily range): BP systolic 95–144; BP diastolic 60–87; PULSE 71–103; RESP 15–18; TEMP 36.4–37.1; O2SAT 91–93
[2021-06-11 02:07] LABS: Basophils % 0.1 %; Eosinophils % 0.3 %; Hematocrit 39.5 % (37.0-47.0); Hemoglobin 12.2 g/dL (11.5-15.3); Lymphocytes # 0.8 10^3/uL (0.8-4.8); Lymphocytes % 9.3 %; Mean Corpuscular HGB Conc 30.9 g/dL (30.0-36.0); Mean Corpuscular Hemoglobin 27.3 pg (28.0-34.0); Mean Corpuscular Volume 88.4 fl (81-99); Mean Platelet Volume 12.8 fL (7.4-10.4); Monocytes # 0.6 10^3/uL (0.2-0.9); Monocytes % 6.6 %; Neutrophils # 7.24 10^3/uL (1.8-7.7); Neutrophils % 83.5 %; Nucleated Red Blood Cells % 0 %; Platelet Count 136 10^3/cmm (130-400); Red Blood Count 4.47 10^6/uL (4.1-5.3); Red Cell Distribution Width 15.4 % (12.1-15.1); White Blood Count 8.7 10^3/uL (4.0-10.0)
[2021-06-11 02:27] LABS: Troponin T (5th) Once 18 ng/L (0-10)
[2021-06-11 02:36] LABS: Anion Gap 11.8 (5-19); Blood Urea Nitrogen 17 mg/dL (8-23); Calcium 9.4 mg/dL (8.5-10.5); Carbon Dioxide 32 mmol/L (22-29); Chloride 101 mmol/L (98-107); Creatinine Clr Calc Pharmacy 55.6421; Glucose 126 mg/dL (65-115); NT Pro B Type Natriuretic Pept 3618 pg/mL (0-450); Osmolality Calculated 295 mOsm/kg (285-295); Phosphorus 4.9 mg/dL (2.5-4.5); Potassium 3.8 mmol/L (3.5-5.1); Sodium 141 mmol/L (136-145)
[2021-06-11] MEDS: enoxaparin 40 mg/0.4 mL Syringe SUBCUT (06:20)
[2021-06-11] MEDS: calcium carb-vit d 600mg/400unit 1 Tablet 1 EACH PO ×2 (08:41→17:08)
[2021-06-11] MEDS: levothyroxine 50 mcg Tablet PO (08:41)
[2021-06-11] MEDS: metoprolol succinate ER (24 HR) 25 mg Tablet PO (08:41)
[2021-06-11] MEDS: sertraline 100 mg Tablet PO ×2 (08:41→17:08)
[2021-06-11] MEDS: omega-3 fatty acids 1,000 mg Capsule 1000 MG PO (08:42)
[2021-06-11] MEDS: pantoprazole DR 40 mg Tablet PO (08:42)
[2021-06-11] MEDS: BuSPIRONE 10 mg Tablet 5 MG PO ×2 (08:42→17:08)
[2021-06-11] MEDS: amiodarone 200 mg Tablet PO (08:42)
[2021-06-11] MEDS: gabapentin 100 mg Capsule PO ×3 (08:42→20:45)
[2021-06-11] MEDS: potassium chloride ER 10 mEq Tablet PO (08:42)
[2021-06-11] MEDS: amlodipine 10 mg Tablet PO (08:43)
[2021-06-11] MEDS: docusate sodium 100 mg Capsule PO ×2 (08:43→17:08)
[2021-06-11] MEDS: lisinopril 20 mg Tablet PO (08:43)
[2021-06-11 12:20] LABS: Iron 47 ug/dL (37-145); Percent Saturation 14.2 % (20-50); Total Iron Binding Capacity 329 mcg/dl; Unsaturated Iron Binding 282 ug/dL (112-347)
[2021-06-11 12:30] LABS: Thyroid Stimulating Hormone 1.17 uIU/mL (0.27-4.20)
--- NOTE | 2021-06-11 13:44 | PM.PN ---
Subjective Subjective: Admitted yesterday. No acute events overnight. Denies any nausea vomiting, headache. Laying comfortably in bed. States pain is well controlled. Denies any chest pain or difficulty in breathing. Has remained hemodynamically stable and afebrile. Vitals/I&O/Wt Last Vital Signs Temp 97.8 F 06/11/21 11:43 Pulse 88 06/11/21 11:43 Resp 18 06/11/21 11:43 BP 125/77 06/11/21 11:43 Pulse Ox 91 06/11/21 11:43 06/10/21 06/11/21 06/11/21 22:59 06:59 14:59 Intake Total 240 / 240 240 / 240 Output Total 275 / 275 Balance 240 / 240 -275 / -35 240 / 240 Weight last 48 hrs Weight 79.379 kg Weight 79.379 kg Physical Exam Narrative: Constitutional: Awake and alert after awakening, oriented to person place and situation, no acute distress HEENT: Normocephalic, atraumatic, extraocular movements are intact, nasopharynx with some clear rhinorrhea, oropharynx with dry membranes Neck: Supple Respiratory: Clear to auscultation bilaterally had any rales rhonchi or wheezes noted Cardiovascular: Irregularly irregular rhythm, soft ejection systolic murmur at aortic area Abdomen: Soft, nontender, positive bowel sounds : Normal external genitalia Extremities: Right lower extremity externally rotated and shortened, no bruising noted on visible portions of lateral leg on the right, no pitting edema, 1+ dorsalis pedis bilaterally Skin: Dry, no acute sores or bruising noted, no rashes Neuro: Speech clear, face symmetric, handgrip is equal, sensation is intact and equal to light touch both feet, wiggles toes bilaterally Psych: Normal affect Urinary Catheter Management: Noriega: Cath Placed During This Visit: yes Reason for Continuing Indwelling Catheter: Perioperative Use in Selected Surgeries Urinary Catheter Date of Insertion: 06/10/21 Urinary Catheter Time of Insertion: 18:14 Data : 06/11/21 01:30 06/11/21 01:30 A&P Assessment and plan (1) Closed intertrochanteric fracture of right hip: Comminuted. Orthopedics has been consulted. Plan for ORIF tomorrow which is 48 hours since last Eliquis dose. N.p.o. after midnight. Status: Acute Qualifiers: Encounter type: initial encounter Fracture alignment: displaced Qualified Code(s): S72.141A - Displaced intertrochanteric fracture of right femur, initial encounter for closed fracture (2) Fall as cause of accidental injury in home as place of occurrence: Accidental, occurring while reaching too far while using her walker, landed on right hip. Status: Acute Qualifiers: Encounter type: initial encounter Qualified Code(s): W19.XXXA - Unspecified fall, initial encounter; Y92.009 - Unspecified place in unspecified non-institutional (private) residence as the place of occurrence of the external cause (3) Atrial fibrillation: Chronic, on beta-blockade and amiodarone. Currently rate controlled. For now continue with home dose of amiodarone and beta-kacie. Telemetry. Status: Chronic (4) Chronic anticoagulation: Chronically on Eliquis due to known history of atrial fibrillation, last dose was taken on the morning of 06/10/2021. Currently withheld for a possible ORIF tomorrow. Status: Chronic (5) Coronary artery disease: Bypass surgery in 2009, 3 vessels with associated mitral valve repair Follows with Dr. Washington outpatient. Denies any active chest pain. Check A1c, lipid panel. Not on statin as an outpatient. Status: Chronic (6) CHF (congestive heart failure): Last available echocardiogram from 2019 showed an ejection fraction estimated at 38% with mild pulmonary hypertension (right ventricular systolic pressure 43 mmHg), and moderate to severe mitral and tricuspid valve regurgitation. Severe left atrial enlargement was noted. Not on chronic diuretic. Repeat echocardiogram of awaited. Compensated for now. Continue to monitor. Status: Chronic (7) Hypertension: Chronically on amlodipine and lisinopril in addition to beta-blockade. Goal blood pressure less than 140/90 MAG. Blood pressure at goal. Continue with home dose of amlodipine, metoprolol, lisinopril. Status: Chronic (8) COPD (chronic obstructive pulmonary disease): Related to former tobacco abuse, chronically on Stiolto Respimat, not on continuos oxygen for her COPD but does wear nocturnal oxygen for sleep apnea. No acute exacerbation. . Saturation over 88%. Status: Chronic (9) Sleep apnea: Diagnosed via sleep study, intolerant of CPAP/BiPAP, on nocturnal oxygen though admits that she does not necessarily use it every single night Status: Chronic Qualifiers: Sleep apnea type: unspecified type Qualified Code(s): G47.30 - Sleep apnea, unspecified (10) Hypothyroidism: Continue on home dose of levothyroxine. Check TSH. Status: Chronic (11) Anxiety and depression: Chronically on sertraline and also takes BuSpar plus as needed alprazolam, admits to having some challenges with current being on hospice and functional decline since her hip fracture a few years ago but reports that medications help Status: Chronic (12) RLS (restless legs syndrome): Chronically on Requip Status: Chronic (13) Osteoarthritis: Status: Chronic Qualifiers: Osteoarthritis location: multiple joints Osteoarthritis type: primary Qualified Code(s): M15.9 - Polyosteoarthritis, unspecified (14) Osteoporosis: Chronically takes once daily calcium plus vitamin D, has had prior hip fracture. Will continue. Status: Chronic Qualifiers: Osteoporosis type: age-related Presence of current pathological fracture: with current pathological fracture Encounter type: initial encounter Qualified Code(s): M80.00XA - Age-related osteoporosis with current pathological fracture, unspecified site, initial encounter for fracture Plan CODE STATUS: Limited resuscitation - patient would NOT want any CPR, defibrillation 1 or 2 times would be acceptable as she has required it in the past and temporary intubation would be acceptable if needed. ICU level care okay short-term. She would not want long-term intubation and in particular indicated that she would not want tracheostomy, feeding tube. Cardiac diet. N.p.o. after midnight. Hold off anticoagulation for now given need to follow-up tomorrow, SCDs. Protonix for PUD prophylaxis. Attestations Medical Necessity Statement*: Requires further hospitalization for management of hip fracture requiring ORIF Time Spent in Patient Care: Greater than 35 minutes Coding Level of Care Code Acute Phlebotomy Specialist for [facility] Diagnoses Fall as cause of accidental injury in home as place of occurrence W19.XXXA; Y92.009 Encounter type: initial encounter Closed intertrochanteric fracture of right hip S72.141A Encounter type: initial encounter Fracture alignment: displaced Osteoporosis M80.00XA Osteoporosis type: age-related Presence of current pathological fracture: with current pathological fracture Encounter type: initial encounter Chronic anticoagulation Z79.01 Atrial fibrillation I48.91 Coronary artery disease I25.10 CHF (congestive heart failure) I50.9 Hypertension I10 COPD (chronic obstructive pulmonary disease) J44.9 Sleep apnea G47.30 Sleep apnea type: unspecified type Hypothyroidism E03.9 Anxiety and depression F41.9; F32.A RLS (restless legs syndrome) G25.81 Osteoarthritis M15.9 Osteoarthritis location: multiple joints Osteoarthritis type: primary
[2021-06-11] MEDS: ropinirole 0.25 mg Tablet PO (20:45)
[2021-06-11] MEDS: sennosides 8.6 mg Tablet 17.2 MG PO (20:45)
[2021-06-11] MEDS: HYDROcodone-acetaminophen 5-325 mg Tablet 1 TAB PO (20:47)
[2021-06-12] VITALS (50 sets, daily range): BP systolic 70–138; BP diastolic 46–80; PULSE 84–130; RESP 15–31; TEMP 36.4–37.7; O2SAT 73–98
--- NOTE | 2021-06-12 | SCC_ITS ---
Procedure done: Open reduction internal fixation right hip with intramedullary device 47.5 seconds of fluoroscopic guidance, for a cumulative dose of 6.10 mGy, was provided to Dr. Do by the radiology department. C-arm images of the RIGHT hip were saved for the patient's permanent record. [facility]
[2021-06-12 05:06] LABS: Basophils % 0.3 %; Eosinophils # 0.2 10^3/uL (0.0-0.8); Eosinophils % 2.3 %; Hematocrit 37.8 % (37.0-47.0); Hemoglobin 11.6 g/dL (11.5-15.3); Lymphocytes # 0.7 10^3/uL (0.8-4.8); Lymphocytes % 9.9 %; Mean Corpuscular HGB Conc 30.7 g/dL (30.0-36.0); Mean Corpuscular Hemoglobin 27.2 pg (28.0-34.0); Mean Corpuscular Volume 88.7 fl (81-99); Mean Platelet Volume 12.9 fL (7.4-10.4); Monocytes # 0.7 10^3/uL (0.2-0.9); Monocytes % 9.1 %; Neutrophils # 5.82 10^3/uL (1.8-7.7); Neutrophils % 78.1 %; Nucleated Red Blood Cells % 0 %; Platelet Count 138 10^3/cmm (130-400); Red Blood Count 4.26 10^6/uL (4.1-5.3); Red Cell Distribution Width 15.7 % (12.1-15.1); White Blood Count 7.5 10^3/uL (4.0-10.0)
[2021-06-12 05:23] LABS: Alanine Aminotransferase 7 U/L (0-33); Albumin Level 3.9 g/dL (3.5-5.2); Alkaline Phosphatase 68 IU/L (35-105); Anion Gap 13.7 (5-19); Aspartate Amino Transferase 11 U/L (0-32); Blood Urea Nitrogen 16 mg/dL (8-23); Calcium 9.1 mg/dL (8.5-10.5); Carbon Dioxide 30 mmol/L (22-29); Chloride 98 mmol/L (98-107); Chol HDL Ratio 4.02 mg/dL (0.0-4.40); Cholesterol 249 mg/dL (0-200); Creatinine Clr Calc Pharmacy 55.6421; Globulin 1.5 g/dL (1.3-4.6); Glucose 96 mg/dL (65-115); HDL Cholesterol 62 mg/dL (60-100); LDL Cholesterol Calculated 170 mg/dL (50-129); Osmolality Calculated 287 mOsm/kg (285-295); Potassium 3.7 mmol/L (3.5-5.1); Sodium 138 mmol/L (136-145); Total Bilirubin 0.5 mg/dL (0.15-1.2); Total Protein 5.4 g/dL (6.6-8.7); Triglycerides 83 mg/dL (0-150); VLDL Cholestrol Calculation 17 mg/dL (0-30)
[2021-06-12 06:03] LABS: Estmated Average Glucose 108; Hemoglobin A1C 5.4 % (4.0-6.0)
[2021-06-12] MEDS: sertraline 100 mg Tablet PO (08:39)
[2021-06-12] MEDS: calcium carb-vit d 600mg/400unit 1 Tablet 1 EACH PO (08:39)
[2021-06-12] MEDS: docusate sodium 100 mg Capsule PO (08:40)
[2021-06-12] MEDS: amiodarone 200 mg Tablet PO (08:40)
[2021-06-12] MEDS: gabapentin 100 mg Capsule PO ×2 (08:40→20:30)
[2021-06-12] MEDS: pantoprazole DR 40 mg Tablet PO (08:40)
[2021-06-12] MEDS: levothyroxine 50 mcg Tablet PO (08:40)
[2021-06-12] MEDS: potassium chloride ER 10 mEq Tablet PO (08:40)
[2021-06-12] MEDS: BuSPIRONE 10 mg Tablet 5 MG PO (08:41)
[2021-06-12] MEDS: amlodipine 10 mg Tablet PO (08:41)
[2021-06-12] MEDS: FUROsemide 20 mg Tablet PO (12:22)
--- NOTE | 2021-06-12 12:55 | ANES.PREANE2 ---
Pre-Anesthetic Assessment Height/Weight: Height 1.68 m Weight 83.461 kg Temp Pulse Resp BP Pulse Ox 98.2 F 105 H 16 138/78 92 06/12/21 12:00 06/12/21 12:00 06/12/21 12:00 06/12/21 12:00 06/12/21 12:00 Preop Diagnosis: Right intratrochanteric hip fracture Operation Date: 06/12/21 13:30 Proposed Procedures p Trochanteric Femoral Nail(Right) - Esteban Do MD Familial anesthetic complications: PONV in past, not with all surgeries Was Beta Maria De Jesus taken within 24 hours: Yes Was Clonidine taken within 24 hours: N/A Social No alcohol and No tobacco (Former smoker ) Exam alert, oriented x 3 and clear to auscultation bilaterally irregular rate and rhythm Airway Submandibular: within normal limits Cervical ROM: within normal limits Mallampati: Class II Dentition: chipped Pulmonary Exertional Dyspnea, Sleep Apnea and Shortness of Breath Uses O2 at night 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 ?LV ejection fraction around 30 to 35%. ?Moderate concentric left tubular hypertrophy ?Moderate biatrial enlargement ?Thickened mitral valve. Moderate mitral annular calcification. ?Thickened aortic valve. ?Mild tricuspid valve regurgitation. ?Trace pulmonary valve regurgitation. ?Estimated pulmonary artery peak systolic pressure of 28 mm of Hg ?(Compared to the study from 08/26/2018, there is some worsening of ?the LV systolic function.? The LVEF was 38% at that time.? The ?RV systolic function has significantly reduced since 08/26/2018.? ?The tricuspid rotation appears to be less severe, but it could ?be due to technical issues.) EKG 06/10/21 ? Interpretive Statements ATRIAL FIBRILLATION INTRAVENTRICULAR CONDUCTION DELAY? [130+ ms QRS DURATION] POSSIBLE RIGHT VENTRICULAR HYPERTROPHY Compared to ECG 08/24/2018 22:11:06 Intraventricular conduction delay now present ST (T wave) deviation no longer present Electronically Signed On 06-11-2021 7:26:59 CDT by Mariela Arguello M.D. [email or web address] None reported Hepatic None reported GI Gastroesophageal Reflux Disease (Poorly controlled. ) Metabolic Thyroid Disease Musc/sk Osteoarthritis/DJD Acute hip fx right without head injury of LOC Neuropsych RLS Anesthetic Plan ASA status: 4 (86 year old female with CHF, cardiomyopathy, afib on anticoagulation, CAD, s/p upper lobe resection for carcinoid tumor, ) Anesthesia: Anesthesia Evaluation and General Other: I discussed with the patient risks, goals, and benefits of MAC and general anesthesia. We discussed spectrum of MAC anesthesia including conversion to general as well as possibility of recall of intraoperative stimuli including discomfort/pain. Patient agrees to proceed with MAC. Risk of > 500 ml blood loss (7ml/kg in children): No Medications/Allergies Home Medications Medication Instructions Recorded Confirmed Last Taken Type alprazolam 0.5 mg tablet 0.5 mg PO TID PRN 03/18/21 06/10/21 06/10/21 History apixaban 5 mg tablet (Eliquis) 5 mg PO BID 03/18/21 06/10/21 06/10/21 History buspirone 5 mg tablet 5 mg PO BID 03/18/21 06/10/21 06/10/21 History coenzyme Q10 10 mg capsule (Co 10 mg PO DAILY cap 03/18/21 06/10/21 06/10/21 History Q-10) gabapentin 100 mg capsule 100 mg PO TID 03/18/21 06/10/21 06/10/21 History levothyroxine 50 mcg tablet 50 mcg PO DAILY 03/18/21 06/10/21 06/10/21 History lisinopril 20 mg tablet 20 mg PO DAILY 03/18/21 06/10/21 06/10/21 History metoprolol succinate 25 mg 25 mg PO DAILY 03/18/21 06/10/21 06/10/21 History tablet,extended release 24 hr potassium chloride 10 mEq 10 meq PO DAILY 03/18/21 06/10/21 06/10/21 History tablet,extended release ropinirole 0.25 mg tablet 0.25 mg PO DAILY 03/18/21 06/10/2106/09/22 History tiotropium 2.5 mcg-olodaterol 2.5 2 puff INHALATION DAILY 03/18/21 06/10/21 Unknown History mcg/actuation mist for inhalation (Stiolto Respimat) trazodone 50 mg tablet 50 mg PO DAILY 03/18/21 06/10/21 06/09/21 History acetaminophen 500 mg tablet 500 mg PO Q6H PRN 06/10/21 06/10/21 Unknown History amiodarone 200 mg tablet 200 mg PO DAILY 06/10/21 06/10/21 06/10/21 History amlodipine 10 mg tablet 10 mg PO DAILY 06/10/21 06/10/21 06/10/21 History ascorbic acid (vitamin C) 500 mg 500 mg PO DAILY 06/10/21 06/10/21 06/10/21 History capsule,extended release (Vitamin C) calcium carbonate 600 mg-vitamin 1 tab PO DAILY 06/10/21 06/10/21 06/10/21 History D3 10 mcg (400 unit) chewable tablet (Calcium 600 with Vitamin D3) glucosamine-chondroitin 250 mg-200 2 tab PO TID 06/10/21 06/10/21 06/10/21 History mg tablet (Osteo Bi-Flex) omega 2-bro-sjf-fish oil 1,000 mg 1 cap PO DAILY 06/10/21 06/10/21 06/10/21 History (120 mg-180 mg) capsule (Fish Oil) sertraline 100 mg tablet 100 mg PO BID 06/10/21 06/10/21 06/10/21 History tumeric 100 mg-rach 150 mg-olive 1 cap PO DAILY 06/10/21 06/10/21 06/10/21 History 50 mg-oreg 150 mg-caprylate capsule Allergies Allergy/AdvReac Type Severity Reaction Status Date / Time Sulfa (Sulfonamide Allergy N/V Verified 05/02/21 09:29 Antibiotics) Current Medications Generic Name Dose Route Start Last Admin Trade Name Freq PRN Reason Stop Dose Admin Hydrocodone Bitart/Acetaminophen 1 tab 06/10/21 15:54 06/11/21 20:47 Hydrocodone-Acetaminophen 5-325 Mg Tablet PO 1 tab Q4H PRN Administration MODERATE TO SEVERE PAIN Amiodarone HCl 200 mg 06/11/21 09:00 06/12/21 08:40 Amiodarone 200 Mg Tablet PO 200 mg DAILY MINA Administration Amlodipine Besylate 10 mg 06/11/21 09:00 06/12/21 08:41 Amlodipine 10 Mg Tablet PO 10 mg DAILY MINA Administration Buspirone HCl 5 mg 06/10/21 18:00 06/12/21 08:41 Buspirone 10 Mg Tablet PO 5 mg BID MINA Administration Calcium Carbonate 1 each 06/10/21 18:00 06/12/21 08:39 Calcium Carb-Vit D 600mg/400unit 1 Tablet PO 1 each BID MINA Administration Docusate Sodium 100 mg 06/10/21 18:00 06/12/21 08:40 Docusate Sodium 100 Mg Capsule PO 100 mg BID MINA Administration Gabapentin 100 mg 06/10/21 21:00 06/12/21 08:40 Gabapentin 100 Mg Capsule PO 100 mg TID MINA Administration Levothyroxine Sodium 50 mcg 06/11/21 09:00 06/12/21 08:40 Levothyroxine 50 Mcg Tablet PO 50 mcg DAILY MINA Administration Lisinopril 20 mg 06/11/21 09:00 06/11/21 08:43 Lisinopril 20 Mg Tablet PO 20 mg DAILY MINA Administration Metoprolol Succinate 25 mg 06/11/21 09:00 06/12/21 08:42 Metoprolol Succinate Er (24 Hr) 25 Mg Tablet PO Not Given DAILY MINA [place]ugil-3-Mgfz Ethyl Esters 1,000 mg 06/11/21 09:00 06/12/21 08:42 [place]-3 Fatty Acids 1,000 Mg Capsule PO Not Given DAILY MINA Pantoprazole Sodium 40 mg 06/11/21 09:00 06/12/21 08:[address] 40 Mg Tablet PO 40 mg DAILY MINA Administration Potassium Chloride 10 meq 06/11/21 09:00 06/12/21 08:40 Potassium Chloride Er 10 Meq Tablet PO 10 meq DAILY MINA Administration Ropinirole HCl 0.25 mg 06/10/21 21:00 06/11/21 20:45 Ropinirole 0.25 Mg Tablet PO 0.25 mg BEDTIME MINA Administration Fluticasone/Salmeterol 1 puff 06/10/21 20:00 06/12/21 10:24 Fluticasone-Salmeterol 250-50 Diskus INHALATION 1 inhalation BID.RESPIRATORY MINA Administration Senna 17.2 mg 06/10/21 21:00 06/11/21 20:45 Sennosides 8.6 Mg Tablet PO 17.2 mg BEDTIME MINA Administration Sertraline HCl 100 mg 06/10/21 18:00 06/12/21 08:39 Sertraline 100 Mg Tablet PO 100 mg BID MINA Administration Tiotropium [place] 18 mcg 06/11/21 08:00 06/12/21 10:24 Tiotropium 18 Mcg Mdi INHALATION 1 puff DAILY.RESPIRATORY MINA Administration Additional Medication Information Mrs. 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) Meningioma Benign Mitral valve regurgitation Osteoarthritis Osteoporosis RLS (restless legs syndrome) Sleep apnea On nocturnal oxygen, intolerant of other therapies in past Tricuspid valve regurgitation Ventricular arrhythmia Surgical History History of appendectomy History of hemiarthroplasty of left hip (~2019) History of hysterectomy History of lobectomy of lung Left upper lobe, 2007 History of mitral valve repair Per patient, done at time of CABG in 2009, details unknown History of tonsillectomy and adenoidectomy Hx of CABG x 3 vessel 2009 Family History Family/Other Cancer multiple relatives Father Abdominal aneurysm Mother Abdominal aneurysm Denies family history of Clotting disorder Anesthesia complication Bleeding disorder Social History Smoking and tobacco status: former smoker Alcohol intake: current Alcohol use comment: has a drink every 3-4 days, currently drinking [place] [employer] Substance/Drug Use: never Household members: spouse and other Details: Spouse on Hospice Care Marital status: Number of children: 3 Female Reproductive History : 5 Para: 3 Spontaneous abortions: Yes (x2) Data Anesthesia : 06/12/21 04:45 06/12/21 04:45 Short CBC 06/10/21 06/11/21 06/12/21 Range/Units 15:03 01:30 04:45 WBC 7.2 8.7 7.5 (4.0-10.0) 10^3/uL Hgb 12.7 12.2 11.6 (11.5-15.3) g/dL Hct 40.8 39.5 37.8 (37.0-47.0) % MCV 88.7 88.4 88.7 (81-99) fl Plt Count 148 136 138 (130-400) 10^3/cmm Neut % (Auto) 77.4 83.5 78.1 % Neut # (Auto) 5.54 7.24 5.82 (1.8-7.7) 10^3/uL BMP 06/10/21 06/11/21 06/12/21 15:03 01:30 04:45 Sodium 144 141 138 Potassium 3.3 L 3.8 3.7 Chloride 102 101 98 Carbon Dioxide 32 H 32 H 30 H BUN 15 17 16 Creatinine 0.8 0.8 0.8 Glucose 97 126 H 96 Calcium 8.1 L 9.4 9.1 Cardiac Enzymes 06/11/21 06/11/21 Range/Units 01:30 01:30 Troponin T Gen 5 ng/L 18 H (0-10) ng/L NT-Pro-B Natriuret Pep 3618 H (0-450) pg/mL Liver Function 06/10/21 06/12/21 Range/Units 15:03 04:45 Total Bilirubin 0.3 0.5 (0.15-1.2) mg/dL AST 13 11 (0-32) U/L ALT 10 7 (0-33) U/L Alkaline Phosphatase 84 68 (35-105) IU/L Albumin 4.2 3.9 (3.5-5.2) g/dL Urine 06/10/21 Range/Units 18:15 Urine Color Yellow (Yellow) Urine Appearance Cloudy (CLEAR) Urine pH 6 (5-7) Ur Specific [place] 1.030 (1.005-1.030) Urine Protein Neg (Negative) Urine Glucose (UA) Norm (Normal) Urine Ketones 1+ H (Negative) Urine Nitrate Negative (Negative) Urine Bilirubin Neg (Negative) Ur Leukocyte Esterase Negative (Negative) Urine RBC None (0-2) /hpf Urine WBC Rare (0-5) /hpf Coags 06/10/21 15:03 PT 15.60 H INR 1.20 APTT 31.9 Cardiac Studies: Echocardiogram 06/10/21
[2021-06-12] MEDS: sodium chloride 0.9% 1,000 ML 30 ML IV (13:19)
--- NOTE | 2021-06-12 13:21 | P.ANESASSM_ITS ---
Pre-Anesthetic Assessment Height/Weight: Height 1.68 m Weight 83.461 kg Temp Pulse Resp BP Pulse Ox 97.7 F 99 18 103/76 92 06/12/21 13:04 06/12/21 13:04 06/12/21 13:04 06/12/21 13:04 06/12/21 13:04 Preop Diagnosis: Right intratrochanteric hip fracture Operation Date: 06/12/21 13:30 Proposed Procedures p Trochanteric Femoral Nail(Right) - Esteban Do MD Last intake: Intake Last Liquid Date 06/11/21 Last Liquid Time 08:00 Last Solid Date 06/11/21 Last Solid Time 18:00 Medications/Allergies Home Medications Medication Instructions Recorded Confirmed Last Taken Type alprazolam 0.5 mg tablet 0.5 mg PO TID PRN 03/18/21 06/10/21 06/10/21 History apixaban 5 mg tablet (Eliquis) 5 mg PO BID 03/18/21 06/10/21 06/10/21 History buspirone 5 mg tablet 5 mg PO BID 03/18/21 06/10/21 06/10/21 History coenzyme Q10 10 mg capsule (Co 10 mg PO DAILY cap 03/18/21 06/10/21 06/10/21 History Q-10) gabapentin 100 mg capsule 100 mg PO TID 03/18/21 06/10/21 06/10/21 History levothyroxine 50 mcg tablet 50 mcg PO DAILY 03/18/21 06/10/21 06/10/21 History lisinopril 20 mg tablet 20 mg PO DAILY 03/18/21 06/10/21 06/10/21 History metoprolol succinate 25 mg 25 mg PO DAILY 03/18/21 06/10/21 06/10/21 History tablet,extended release 24 hr potassium chloride 10 mEq 10 meq PO DAILY 03/18/21 06/10/21 06/10/21 History tablet,extended release ropinirole 0.25 mg tablet 0.25 mg PO DAILY 03/18/21 06/10/21 06/09/21 History tiotropium 2.5 mcg-olodaterol 2.5 2 puff INHALATION DAILY 03/18/21 06/10/21 Unknown History mcg/actuation mist for inhalation (Stiolto Respimat) trazodone 50 mg tablet 50 mg PO DAILY 03/18/21 06/10/21 06/09/21 History acetaminophen 500 mg tablet 500 mg PO Q6H PRN 06/10/21 06/10/21 Unknown History amiodarone 200 mg tablet 200 mg PO DAILY 06/10/21 06/10/21 06/10/21 History amlodipine 10 mg tablet 10 mg PO DAILY 06/10/21 06/10/21 06/10/21 History ascorbic acid (vitamin C) 500 mg 500 mg PO DAILY 06/10/21 06/10/21 06/10/21 History capsule,extended release (Vitamin C) calcium carbonate 600 mg-vitamin 1 tab PO DAILY 06/10/21 06/10/21 06/10/21 History D3 10 mcg (400 unit) chewable tablet (Calcium 600 with Vitamin D3) glucosamine-chondroitin 250 mg-200 2 tab PO TID 06/10/21 06/10/21 06/10/21 History mg tablet (Osteo Bi-Flex) omega 8-eue-hnj-fish oil 1,000 mg 1 cap PO DAILY 06/10/21 06/10/21 06/10/21 History (120 mg-180 mg) capsule (Fish Oil) sertraline 100 mg tablet 100 mg PO BID 06/10/21 06/10/21 06/10/21 History tumeric 100 mg-rach 150 mg-olive 1 cap PO DAILY 06/10/21 06/10/21 06/10/21 History 50 mg-oreg 150 mg-caprylate capsule Allergies Allergy/AdvReac Type Severity Reaction Status Date / Time Sulfa (Sulfonamide Allergy N/V Verified 05/02/21 09:29 Antibiotics) Current Medications Generic Name Dose Route Start Last Admin Trade Name Freq PRN Reason Stop Dose Admin Hydrocodone Bitart/Acetaminophen 1 tab 06/10/21 15:54 06/11/21 20:47 Hydrocodone-Acetaminophen 5-325 Mg Tablet PO 1 tab Q4H PRN Administration MODERATE TO SEVERE PAIN Amiodarone HCl 200 mg 06/11/21 09:00 06/12/21 08:40 Amiodarone 200 Mg Tablet PO 200 mg DAILY MINA Administration Amlodipine Besylate 10 mg 06/11/21 09:00 06/12/21 08:41 Amlodipine 10 Mg Tablet PO 10 mg DAILY MINA Administration Buspirone HCl 5 mg 06/10/21 18:00 06/12/21 08:41 Buspirone 10 Mg Tablet PO 5 mg BID MINA Administration Calcium Carbonate 1 each 06/10/21 18:00 06/12/21 08:39 Calcium Carb-Vit D 600mg/400unit 1 Tablet PO 1 each BID MINA Administration Docusate Sodium 100 mg 06/10/21 18:00 06/12/21 08:40 Docusate Sodium 100 Mg Capsule PO 100 mg BID MINA Administration Gabapentin 100 mg 06/10/21 21:00 06/12/21 08:40 Gabapentin 100 Mg Capsule PO 100 mg TID MINA Administration Sodium Chloride 1,000 mls @ 30 mls/hr 06/12/21 13:15 06/12/21 13:19 Sodium Chloride 0.9% IV 06/13/21 13:14 30 mls/hr .Q24H MINA Administration Levothyroxine Sodium 50 mcg 06/11/21 09:00 06/12/21 08:40 Levothyroxine 50 Mcg Tablet PO 50 mcg DAILY MINA Administration Lisinopril 20 mg 06/11/21 09:00 06/11/21 08:43 Lisinopril 20 Mg Tablet PO 20 mg DAILY MINA Administration Metoprolol Succinate 25 mg 06/11/21 09:00 06/12/21 08:42 Metoprolol Succinate Er (24 Hr) 25 Mg Tablet PO Not Given DAILY MINA Uyhbn-9-Aohf Ethyl Esters 1,000 mg 06/11/21 09:00 06/12/21 08:42 [place]-3 Fatty Acids 1,000 Mg Capsule PO Not Given DAILY MINA Pantoprazole Sodium 40 mg 06/11/21 09:00 06/12/21 08:[address] 40 Mg Tablet PO 40 mg DAILY MINA Administration Potassium Chloride 10 meq 06/11/21 09:00 06/12/21 08:40 Potassium Chloride Er 10 Meq Tablet PO 10 meq DAILY MINA Administration Ropinirole HCl 0.25 mg 06/10/21 21:00 06/11/21 20:45 Ropinirole 0.25 Mg Tablet PO 0.25 mg BEDTIME MINA Administration Fluticasone/Salmeterol 1 puff 06/10/21 20:00 06/12/21 10:24 Fluticasone-Salmeterol 250-50 Diskus INHALATION 1 inhalation BID.RESPIRATORY MINA Administration Senna 17.2 mg 06/10/21 21:00 06/11/21 20:45 Sennosides 8.6 Mg Tablet PO 17.2 mg BEDTIME MINA Administration Sertraline HCl 100 mg 06/10/21 18:00 06/12/21 08:39 Sertraline 100 Mg Tablet PO 100 mg BID MINA Administration Tiotropium [place] 18 mcg 06/11/21 08:00 06/12/21 10:24 Tiotropium 18 Mcg Mdi INHALATION 1 puff DAILY.RESPIRATORY MINA Administration Additional Medication Information Mrs. 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) Meningioma Benign Mitral valve regurgitation Osteoarthritis Osteoporosis RLS (restless legs syndrome) Sleep apnea On nocturnal oxygen, intolerant of other therapies in past Tricuspid valve regurgitation Ventricular arrhythmia Surgical History History of appendectomy History of hemiarthroplasty of left hip (~2019) History of hysterectomy History of lobectomy of lung Left upper lobe, 2007 History of mitral valve repair Per patient, done at time of CABG in 2009, details unknown History of tonsillectomy and adenoidectomy Hx of CABG x 3 vessel 2009 Family History Family/Other Cancer multiple relatives Father Abdominal aneurysm Mother Abdominal aneurysm Denies family history of Clotting disorder Anesthesia complication Bleeding disorder Social History Smoking and tobacco status: former smoker Alcohol intake: current Alcohol use comment: has a drink every 3-4 days, currently drinking [employer] [place] Honey Substance/Drug Use: never Household members: spouse and other Details: Spouse on Hospice Care Marital status: Number of children: 3 Female Reproductive History : 5 Para: 3 Spontaneous abortions: Yes (x2) Data Anesthesia : 06/12/21 04:45 06/12/21 04:45 Short CBC 06/10/21 06/11/21 06/12/21 Range/Units 15:03 01:30 04:45 WBC 7.2 8.7 7.5 (4.0-10.0) 10^3/uL Hgb 12.7 12.2 11.6 (11.5-15.3) g/dL Hct 40.8 39.5 37.8 (37.0-47.0) % MCV 88.7 88.4 88.7 (81-99) fl Plt Count 148 136 138 (130-400) 10^3/cmm Neut % (Auto) 77.4 83.5 78.1 % Neut # (Auto) 5.54 7.24 5.82 (1.8-7.7) 10^3/uL BMP 06/10/21 06/11/21 06/12/21 15:03 01:30 04:45 Sodium 144 141 138 Potassium 3.3 L 3.8 3.7 Chloride 102 101 98 Carbon Dioxide 32 H 32 H 30 H BUN 15 17 16 Creatinine 0.8 0.8 0.8 Glucose 97 126 H 96 Calcium 8.1 L 9.4 9.1 Cardiac Enzymes 06/11/21 06/11/21 Range/Units 01:30 01:30 Troponin T Gen 5 ng/L 18 H (0-10) ng/L NT-Pro-B Natriuret Pep 3618 H (0-450) pg/mL Liver Function 06/10/21 06/12/21 Range/Units 15:03 04:45 Total Bilirubin 0.3 0.5 (0.15-1.2) mg/dL AST 13 11 (0-32) U/L ALT 10 7 (0-33) U/L Alkaline Phosphatase 84 68 (35-105) IU/L Albumin 4.2 3.9 (3.5-5.2) g/dL Urine 06/10/21 Range/Units 18:15 Urine Color Yellow (Yellow) Urine Appearance Cloudy (CLEAR) Urine pH 6 (5-7) Ur Specific [place] 1.030 (1.005-1.030) Urine Protein Neg (Negative) Urine Glucose (UA) Norm (Normal) Urine Ketones 1+ H (Negative) Urine Nitrate Negative (Negative) Urine Bilirubin Neg (Negative) Ur Leukocyte Esterase Negative (Negative) Urine RBC None (0-2) /hpf Urine WBC Rare (0-5) /hpf Coags 06/10/21 15:03 PT 15.60 H INR 1.20 APTT 31.9 Cardiac Studies: Echocardiogram 06/10/21
--- NOTE | 2021-06-12 13:27 | PC.NURSE ---
May RN notified of Positive MRSA culture of the nare at this time.
--- NOTE | 2021-06-12 15:04 | W.PM.OPSUD ---
Surgery/Procedure H&P Update DATE OF PROCEDURE: June 12, 2021 DATE H&P PERFORMED: 06/10/21 H&P UPDATE INFORMATION: I have reviewed H&P completed within last 30 days PREOP DIAGNOSIS: Right intratrochanteric hip fracture PLANNED PROCEDURE: Operation Date: 06/12/21 13:30 Proposed Procedures p Trochanteric Femoral Nail(Right) - Esteban Do MD
--- NOTE | 2021-06-12 15:49 | XR_ITS ---
WS: [id number] C-ARM RADIOGRAPHS RIGHT HIP; 5 IMAGES HISTORY: OR PICS RT. HIP COMPARISON: 06/10/2021 Intraoperative imaging post ORIF RIGHT hip. Long intramedullary femoral yazmin has been placed. Only an AP projection of the distal yazmin is submitted. XR/XR hip RT 1V wo/w pel [id number] IMPRESSION: Intraoperative imaging during RIGHT hip ORIF.
--- NOTE | 2021-06-12 15:55 | P.OP_ITS ---
Operative Report Date of procedure: June 12, 2021 Pre-op diagnosis: Preop Diagnosis Right intratrochanteric hip fracture Post-op diagnosis: same Post-op diagnosis: Same Procedure done: Open reduction internal fixation right hip with intramedullary device Implants: [place] Gamma nail 11 mm x 380 mm, 10.5mm by 100 lag screw Pathology: none sent Surgeon: Esteban Do Anesthesia: General Estimated blood loss (mL): 100 Findings: The patient had a comminuted right intratrochanteric hip fracture consisting of of 4 fragments with involvement of the greater and lesser trochanters. Condition: stable Disposition: PACU Brief History: Ms. Abdi sustained a fall at home with resulting right intratrochanteric hip fracture. She has significant osteopenia and comminution and open reduction internal fixation was chosen with intramedullary device to allow mobilization of the patient and improve pain Procedure: The patient was taken to the operating room. They were given 1 g of Ancef. They were positioned on the fracture table with the right lower extremity in gentle traction. A timeout was performed. A 2 cm long incision was made proximal to the greater trochanter scalpel blade. Dissection was carried down to tip the greater trochanter. A guidepin was passed manually from the tip of the trochanter down the shaft. The proximal reamer was utilized to open up the proximal canal. An 11 mm by 380 mm Jaimie gamma nail was passed down the canal without difficulty. Under visualization of fluoroscopy a guidepin was driven up into the head and neck at 125? angle. It was measured at 100 mm in length and a lag screw similar length was then placed and locked into place with the proximal locking screw. As there was a reasonable fit with the yazmin in the canal and fixation of the proximal locking bolt in the lateral cortex of the femur a distal locking screw was not placed. imaging was obtained verifying satisfactory position of the hardware and reduction of the fracture. Deep tissues were closed with 0 Vicryl as were subcutaneous tissues. The skin was closed with running 4-0 subcutaneous Monocryl suture. Sterile dressings were applied. The patient was extubated and taken to recovery room in stable condition.
--- NOTE | 2021-06-12 16:07 | P.PN_ITS ---
Subjective Subjective: No events overnight. Patient denies any nausea vomiting, headache. Today morning examination patient is on 4 L of oxygenation to keep saturation over 90%. Family at bedside. Plan for ORIF at 1:30 PM. States pain is well controlled. Vitals/I&O/Wt Last Vital Signs Temp 99.2 F 06/12/21 16:02 Pulse 110 H 06/12/21 16:02 Resp 17 06/12/21 16:02 BP 91/68 06/12/21 16:02 Pulse Ox 91 06/12/21 16:02 06/12/21 06/12/21 06/12/21 06:59 14:59 22:59 Intake Total 0 / 680 0 / 0 0 / 0 Output Total 400 / 400 500 / 500 Balance -400 / 280 0 / 0 -500 / -500 Weight last 48 hrs Weight 83.461 kg Weight 79.379 kg Physical Exam Narrative: Constitutional: Awake and alert after awakening, oriented to person place and situation, no acute distress HEENT: Normocephalic, atraumatic, extraocular movements are intact, nasopharynx with some clear rhinorrhea, oropharynx with dry membranes Neck: Supple Respiratory: Clear to auscultation bilaterally had any rales rhonchi or wheezes noted Cardiovascular: Irregularly irregular rhythm, soft ejection systolic murmur at aortic area Abdomen: Soft, nontender, positive bowel sounds : Normal external genitalia Extremities: Right lower extremity externally rotated and shortened, no bruising noted on visible portions of lateral leg on the right, no pitting edema, 1+ dorsalis pedis bilaterally Skin: Dry, no acute sores or bruising noted, no rashes Neuro: Speech clear, face symmetric, handgrip is equal, sensation is intact and equal to light touch both feet, wiggles toes bilaterally Psych: Normal affect Urinary Catheter Management: Noriega: Cath Placed During This Visit: yes Reason for Continuing Indwelling Catheter: Required Immobilization for Trauma or Surgery or Anesthesia Urinary Catheter Date of Insertion: 06/10/21 Urinary Catheter Time of Insertion: 18:14 Data : 06/12/21 04:45 06/12/21 04:45 Micro: Microbiology 06/10/21 18:15 Urine Culture - Preliminary Urine,Clean Catch Gram positive cocci 06/11/21 Unknown MRSA Culture - Final Nose A&P Assessment and plan (1) Closed intertrochanteric fracture of right hip: Comminuted. Orthopedics has been consulted. Plan for ORIF today. Anticoagulation, physical therapy, perioperative antibiotics as per orthopedics team. Pain medications as below. Monitor hemoglobin. Status: Acute Qualifiers: Encounter type: initial encounter Fracture alignment: displaced Qualified Code(s): S72.141A - Displaced intertrochanteric fracture of right femur, initial encounter for closed fracture (2) Fall as cause of accidental injury in home as place of occurrence: Accidental, occurring while reaching too far while using her walker, landed on right hip. Status: Acute Qualifiers: Encounter type: initial encounter Qualified Code(s): W19.XXXA - Unspecified fall, initial encounter; Y92.009 - Unspecified place in unspecified non-institutional (private) residence as the place of occurrence of the external cause (3) Atrial fibrillation: Chronic, on beta-blockade and amiodarone. Currently rate controlled. For now continue with home dose of amiodarone and beta-kacie. Telemetry. Status: Chronic (4) Chronic anticoagulation: Chronically on Eliquis due to known history of atrial fibrillation, last dose wa s taken on the morning of 06/10/2021. Currently withheld for a possible ORIF tomorrow. Status: Chronic (5) Coronary artery disease: Bypass surgery in 2009, 3 vessels with associated mitral valve repair Follows with Dr. Washington outpatient. Denies any active chest pain. A1c 5.4. Lipid panel appreciated. Will need to be on statin going forward. Atorvastatin 40 mg daily. Status: Chronic (6) CHF (congestive heart failure): Echocardiogram done shows an EF of 2044%, diffuse severe hypokinesis of septum, anteroseptum and LV apex, diffuse hypokinesia of right ventricle and moderate depression of ejection fraction, moderately increased LA and RA size. Looks in mild congestive heart failure today. Give 20 mg of oral Lasix. Status: Chronic (7) Hypertension: Chronically on amlodipine and lisinopril in addition to beta-blockade. Goal blood pressure less than 140/90 mmHg. Blood pressure slightly soft today. For now hold off on amlodipine and lisinopril. Continue with metoprolol 25 mg twice daily. Status: Chronic (8) COPD (chronic obstructive pulmonary disease): Related to former tobacco abuse, chronically on Stiolto Respimat, not on continuos oxygen for her COPD but does wear nocturnal oxygen for sleep apnea. No acute exacerbation. Keep saturation over 88%. Status: Chronic (9) Sleep apnea: Diagnosed via sleep study, intolerant of CPAP/BiPAP, on nocturnal oxygen though admits that she does not necessarily use it every single night Status: Chronic Qualifiers: Sleep apnea type: unspecified type Qualified Code(s): G47.30 - Sleep apnea, unspecified (10) Hypothyroidism: Continue on home dose of levothyroxine. Check TSH. Status: Chronic (11) Anxiety and depression: Chronically on sertraline and also takes BuSpar plus as needed alprazolam, admits to having some challenges with current being on hospice and functional decline since her hip fracture a few years ago but reports that medications help Status: Chronic (12) RLS (restless legs syndrome): Chronically on Requip Status: Chronic (13) Osteoarthritis: Status: Chronic Qualifiers: Osteoarthritis location: multiple joints Osteoarthritis type: primary Qualified Code(s): M15.9 - Polyosteoarthritis, unspecified (14) Osteoporosis: Chronically takes once daily calcium plus vitamin D, has had prior hip fracture. Will continue. Status: Chronic Qualifiers: Osteoporosis type: age-related Presence of current pathological fracture: with current pathological fracture Encounter type: initial encounter Qualified Code(s): M80.00XA - Age-related osteoporosis with current pathological fracture, unspecified site, initial encounter for fracture Plan CODE STATUS: Limited resuscitation - patient would NOT want any CPR, defibrillation 1 or 2 times would be acceptable as she has required it in the past and temporary intubation would be acceptable if needed. ICU level care ok ay short-term. She would not want long-term intubation and in particular indicated that she would not want tracheostomy, feeding tube. Cardiac diet. N.p.o. after midnight. Hold off anticoagulation for now given need to follow-up tomorrow, SCDs. Protonix for PUD prophylaxis. Attestations Medical Necessity Statement*: Requires further hospitalization for management of hip fracture requiring ORIF Time Spent in Patient Care: Greater than 35 minutes Coding Level of Care Code Acute Animal Treatment Investigator for [facility] Fwd Diagnoses Closed intertrochanteric fracture of right hip S72.141A Encounter type: initial encounter Fracture alignment: displaced Fall as cause of accidental injury in home as place of occurrence W19.XXXA; Y92.009 Encounter type: initial encounter Atrial fibrillation I48.91 Chronic anticoagulation Z79.01 Coronary artery disease I25.10 CHF (congestive heart failure) I50.9 Hypertension I10 COPD (chronic obstructive pulmonary disease) J44.9 Sleep apnea G47.30 Sleep apnea type: unspecified type Hypothyroidism E03.9 Anxiety and depression F41.9; F32.A RLS (restless legs syndrome) G25.81 Osteoarthritis M15.9 Osteoarthritis location: multiple joints Osteoarthritis type: primary Osteoporosis M80.00XA Osteoporosis type: age-related Presence of current pathological fracture: with current pathological fracture Encounter type: initial encounter
--- NOTE | 2021-06-12 16:07 | SUR.PHASEI ---
1600 PT TO PACU 5 PT GIVEN WARM BLANKETS, ID BRACELET TO RT WRIST , PT ID'D WITH 2 IDENTIFIERS, PT IV TO LT WRIST #20 WITH NS 300ML UP AT KVO RATE PER GRAVITY, RT HIP THIGH WITH 2 SITES WITH OPSITE ISLAND DRESSING D/I DISTAL RT FOOT COOL WITH CAP REFILL LESS THEN 3 SECONDS AND PULSE MARKED AND PALPATED A +1. BILAT FOOT PUMPS ON AND WORKING
--- NOTE | 2021-06-12 16:19 | SUR.PHASEI ---
PT HUGO CATHETER WITH YELLOW URINE TO TUBING AND BAG, SECURED WITH STATLOCK TO RT INNER THIGH, PT TAKING OCC ICE CHIPS, VSS.
--- NOTE | 2021-06-12 16:41 | SUR.PHASEI ---
1640 PT MUCH MORE ALERT, PT FOLLOWS COMMANDS, TAKING DEEP BREATHES AND COUGHING, LUNGS CLEAR WITH DIMINISHED BILAT BASES PT HAS HX OF COPD, PT ON NC INCREASED TO 6L O2 DR HERRERA AT BEDSIDE, PT STATES SHE USES ALBUTEROL AT HOME, ALBUTEROL NEB GIVEN IN PACU, PT TAKING DEEP BREATHES AND COUGH S T COMMAND, PT RT FOOT WARM PULSE UNCHANGED PT ABLE TO MOVE BILAT TOES TO [place].
--- NOTE | 2021-06-12 16:52 | SUR.PHASEI ---
LUNGS CLEAR BUT STILL DIMINISHED IN BASES, PT VERY AWAKE TALKATIVE PT TAKING ICE CHIPS SATS 90% ON 4LNC, MONITOR REMAINS AFIB, UJNCHANGED FROM ADMIT TO PACU. PT ORIENTED TO SELF , PLACE AND MONTH AND PRESIDENT, NOT YEAR. SATS REMAINS 88-90 DR HERRERA AT BEDSIDE. ORDERED PT TO HAVE INCINTIVE SPIROMETER IN PACU AND FLOOR NOTIFIED.
--- NOTE | 2021-06-12 17:16 | PM.MISC ---
Miscellaneous Note Note: Patient has had low saturations in the PACU. Attempted trial respiratory toilet with coughing, sitting up patient. Initiated incentive spirometry. No paralytic used in case. Sats coming up to 89-90 on 3 LPM NC. Blood gas drawn. Suspect residual atelectasis and weakened pulmonary reserve due to frail state. Will initiate CPAP in effort to promote alveoli opening and improve oxygenation.
--- NOTE | 2021-06-12 17:18 | SUR.PHASEI ---
DR HERRERA AT BEDSIDE, SAT STILL 88% ON 5 LITER NC PT USING INCENTIVE SPIROMETER PT PULLING 500-750 BUT UNABLE TO HOLD MORE THAN A SECOND. ABGS DRAWN FROM LT WRIST BY RESPIRATORY STAFF, DR HERRERA HERE AND ORDERED CPAP FOR PT IN PACU. PT PLACED ON 8L MASK SATS UP TO 92%
--- NOTE | 2021-06-12 17:20 | XRR_ITS ---
PROCEDURE INFORMATION: Exam: XR Chest Exam date and time: 06/12/2021 5:27 PM Age: 86 years old Clinical indication: Shortness of breath; Prior surgery; Surgery date: 6+ months; Surgery type: Open heart; Additional info: Desaturation post op TECHNIQUE: Imaging protocol: XR of the chest. Views: 1 view. COMPARISON: CR XR chest 1V portable [id number] 06/10/2021 2:56 PM FINDINGS: Lungs: Stable hazy opacity in the left lung base. The right lung is clear. Pleural spaces: Unremarkable. No pleural effusion. No pneumothorax. Heart/Mediastinum: Cardiomegaly. Bones/joints: Sternotomy wires. Heart valve prosthesis. XR/XR chest 1V portable [id number] IMPRESSION: Stable hazy opacity in the left lung base. This could represent pulmonary edema or pneumonia.
[2021-06-12 17:22] LABS: ABG PH Result 7.38 (7.35-7.45); Alveolar-Arterial Oxygen Gradi 18.7 mmHg (5-10); Arterial Blood Gas Hematocrit 35.3 % (37-47); Base Excess ABG 3.3 mmol/L (-2.0-2.0); Blood Gas Allen Test Pos; Blood Gas Operator Identificat MONRO; Blood Gas Sample Site Radial, left; Blood Gas Sample Type Arterial; Carboxyhemoglobin 0.9 %THgb (0.4-20.1); HCO3 ABG 29.1 mmol/L (22-26); HGB O2 Sat 83.2 % (95-100); Ionized Calcium Level - ABG 1.1 mmol/L (1.1-1.4); Methemoglobin 1.1 % (0.4-1.5); Oxygen Device NC; Oxygen Saturation ABG 84.8; PO2 ABG 52.2 mmHg (80.0-100.0); Potassium Level - ABG 3.6 mmol/L (3.5-5.0); Total Hemoglobin 11.5 g/dL (12-16)
--- NOTE | 2021-06-12 17:33 | SUR.PHASEI ---
DR HERRERA HERE, PT PLACED ON BIPAP PER RESP 10/12 60% PT SATS QUICKLY UP TO 92% MONITOR STILL AFIB, NO ECTOPY, PT ALERT , BUT OCCASIONLLAY SAYS THINGS OUT OF PLACE, SLIGHTLY CONFUSED BUT ORIENTED TO PLACE AND NAME. PT SMILING APPROPRIATE, ABGS SHOWN TO DR HERRERA EARLIER,PT RESTING QUIELTY WITH BI PAP IN PLACE, DR HERRERA AT BEDSIDE, OK WITH PT GOING TO ROOM ON BIPAP WITH ABOVE SETTING AND RESP TO MANAGE ON FLOOR. VSS.
--- NOTE | 2021-06-12 17:58 | ANE.PACU2 ---
Inpatient post-anesthesia follow up: Airway intact: Yes Vital signs: Temperature 99.8 F Pulse Rate 117 Respiratory Rate 18 Blood Pressure 93/69 Pulse Oximetry 93 Oxygen Delivery Me thod BiPAP Oxygen Flow Rate 60 Fraction of Inspir ed Oxygen 60 Hydration adequate: Yes Nausea and vomiting: No Pain level: 1 Mental status: Baseline Additional Comments: Patient brought to PACU on simple mask O2. In PACU patient continue to have sats in high 80s on NC despite encouraged coughing and pulmonary toilet, incentive spirometry, and albuterol treatement. B/L breath sounds diminished, soft systolic blood pressures, however MAPs > 65. Patient oriented to month, place, and president, but not to date and year. Blood gas shows hypoxia. Review of chart reveals patient sats 73% on RA this AM. CXR ordered. Patient placed on CPAP to BIPAP with improved sats. I discussed patient with Doctor Crum who had initiated diuretic this morning. In discussion with Doctor Crum we decided to transfer patient to ICU for closer observation and monitoring.
--- NOTE | 2021-06-12 18:07 | SUR.PHASEI ---
PT TO GO TO ICU PER DR HERRERA'S VERBAL ORDER AND HOSPITALIST AGREED, DR PORTER IN PACU AND INFORMED PT TO GO TO ICU, PT DAUGHTER KARIE CALLED AND UPDATED THAT PT IS TO GO TO ICU. HOUSE SUPERVISER NOTIFED FOR BED.
[2021-06-12 18:17] LABS: Basophils % 0.2 %; Eosinophils % 0.2 %; Hematocrit 36.5 % (37.0-47.0); Hemoglobin 11.3 g/dL (11.5-15.3); Lymphocytes # 0.4 10^3/uL (0.8-4.8); Lymphocytes % 3.3 %; Mean Corpuscular Hemoglobin 27.2 pg (28.0-34.0); Mean Platelet Volume 11.7 fL (7.4-10.4); Monocytes # 0.5 10^3/uL (0.2-0.9); Monocytes % 4.5 %; Neutrophils # 11.04 10^3/uL (1.8-7.7); Neutrophils % 91.3 %; Nucleated Red Blood Cells % 0 %; Platelet Count 116 10^3/cmm (130-400); Red Blood Count 4.15 10^6/uL (4.1-5.3); Red Cell Distribution Width 15.6 % (12.1-15.1); White Blood Count 12.1 10^3/uL (4.0-10.0)
--- NOTE | 2021-06-12 18:31 | SUR.PHASEI ---
PT AWAKE ALERT, FOLLOWS COMMANDS. RT FOOT PINK WARM CAP REFILL LESS THAN 3 SECONDS, PULSE UNCHANGED, RT HIP SITES X 2 D/I UNCHANGED PT ON BIPAP AT 60% PT MOVED TO ICU 5 PER BED, HANDOFF AT BEDSIDE TO ERMELINDA FOSTER.
--- NOTE | 2021-06-12 19:12 | PC.NURSE ---
To room via bed by OR staff. Patient on BiPAP 60% 16/10, VSS, AAOX4, equal pulses, surgical dressing to RIGHT leg is c/d/i. Belongings placed in drawer. Daughter to bedside.
[2021-06-12] MEDS: sennosides 8.6 mg Tablet 17.2 MG PO (20:30)
[2021-06-12] MEDS: ropinirole 0.25 mg Tablet PO (20:30)
[2021-06-12] MEDS: lactated ringers 1,000 ML 999 ML IV (22:35)
--- NOTE | 2021-06-12 22:49 | PC.NURSE ---
Upon entering room. Patient had gown off, O2 off, BP low, and O2 low. Patient was confused about where she was and what was happening. Placed her O2 back on. Noted she was sweaty. She was complaining it was hot in her room. Explained that she was also hot due to her taking off her O2 and her saturations were in the 70's. Once her O2 returned to normal she was oriented again. Brought her a fan to help her cool off. Called Dr. Nuno and got orders for a bolus and fluids for the hypotension. Orders received.
[2021-06-12] MEDS: sodium chloride 0.9% 1,000 ML 75 ML IV (23:38)
[2021-06-13] VITALS (25 sets, daily range): BP systolic 80–117; BP diastolic 56–77; PULSE 70–125; RESP 15–29; TEMP 36.3–37; O2SAT 73–95
[2021-06-13 03:53] LABS: Basophils % 0.1 %; Eosinophils % 0.1 %; Hematocrit 34.5 % (37.0-47.0); Hemoglobin 10.5 g/dL (11.5-15.3); Lymphocytes # 0.4 10^3/uL (0.8-4.8); Lymphocytes % 3.4 %; Mean Corpuscular HGB Conc 30.4 g/dL (30.0-36.0); Mean Corpuscular Hemoglobin 27.3 pg (28.0-34.0); Mean Corpuscular Volume 89.8 fl (81-99); Mean Platelet Volume 13.3 fL (7.4-10.4); Monocytes # 0.8 10^3/uL (0.2-0.9); Monocytes % 7.1 %; Neutrophils # 9.73 10^3/uL (1.8-7.7); Neutrophils % 88.9 %; Nucleated Red Blood Cells % 0 %; Platelet Count 115 10^3/cmm (130-400); Red Blood Count 3.84 10^6/uL (4.1-5.3); Red Cell Distribution Width 15.9 % (12.1-15.1); White Blood Count 10.9 10^3/uL (4.0-10.0)
[2021-06-13 04:17] LABS: Alanine Aminotransferase 9 U/L (0-33); Albumin Level 3.3 g/dL (3.5-5.2); Alkaline Phosphatase 59 IU/L (35-105); Anion Gap 14.6 (5-19); Aspartate Amino Transferase 16 U/L (0-32); Blood Urea Nitrogen 24 mg/dL (8-23); Calcium 7.9 mg/dL (8.5-10.5); Carbon Dioxide 26 mmol/L (22-29); Chloride 102 mmol/L (98-107); Globulin 2.8 g/dL (1.3-4.6); Glucose 150 mg/dL (65-115); Osmolality Calculated 295 mOsm/kg (285-295); Potassium 3.6 mmol/L (3.5-5.1); Sodium 139 mmol/L (136-145); Total Bilirubin 0.5 mg/dL (0.15-1.2); Total Protein 6.1 g/dL (6.6-8.7)
[2021-06-13 04:32] LABS: Slide Review Slide Review Perform
[2021-06-13] MEDS: apixaban 5 mg Tablet PO ×2 (06:03→17:57)
--- NOTE | 2021-06-13 09:17 | ECG_ITS ---
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 Measurements Intervals [place] Rate: 125 P: [place]: QRS: 147 QRSD: 132 T: -17 QT: 355 QTc: 512 Interpretive Statements ATRIAL FIBRILLATION WITH RAPID VENTRICULAR RESPONSE INTRAVENTRICULAR CONDUCTION DELAY [130+ ms QRS DURATION] POSSIBLE RIGHT VENTRICULAR HYPERTROPHY [SOME/ALL OF: PROMINENT R IN V1, LATE TRANSITION, RAD, TOYIN, SSS] Compared to ECG 06/10/2021 15:22:03 No significant changes Electronically Signed On 06-14-2021 23:30:35 CDT by Jimmy Washington M.D. [email or web address]
[2021-06-13 10:10] LABS: NT Pro B Type Natriuretic Pept 11690 pg/mL (0-450)
--- NOTE | 2021-06-13 10:19 | PC.SOCIAL ---
Pg 2 IMM Explained to pt Pg 2 IMM. No questions voiced. Provided pt a copy. Initialed, dated, & timed a copy & placed in chart.
[2021-06-13] MEDS: sertraline 100 mg Tablet PO ×2 (10:45→17:57)
[2021-06-13] MEDS: calcium carb-vit d 600mg/400unit 1 Tablet 1 EACH PO ×2 (10:45→17:57)
[2021-06-13] MEDS: pantoprazole DR 40 mg Tablet PO (10:45)
--- NOTE | 2021-06-13 10:46 | XR_ITS ---
WS: [id number] Exam: XR chest 1V portable [id number] Date/Time of Exam: 06/13/2021 10:48 AM Reason For Exam: chf Comparison 06/12/2021. Again noted is a left retrocardiac density unchanged. This may represent atelec tasis and/or infiltrate. There is also mild infiltrate in the right lower lung zone. The heart is sli ghtly enlarged. Signs of previous CABG surgery. No pneumothorax. Cardiac valve replacement. Bony stru ctures are intact. XR/XR chest 1V portable [id number] IMPRESSION: 1. Left retrocardiac density that may represent infiltrate or rub atelectasis. No significant change. 2. Mild interstitial infiltrate in the right lower lung zone. 3. Mild cardiac enlargement with postoperative changes.
[2021-06-13] MEDS: gabapentin 100 mg Capsule PO ×3 (10:47→20:52)
[2021-06-13] MEDS: docusate sodium 100 mg Capsule PO ×2 (10:48→17:57)
[2021-06-13] MEDS: levothyroxine 50 mcg Tablet PO (10:49)
[2021-06-13] MEDS: omega-3 fatty acids 1,000 mg Capsule 1000 MG PO (10:51)
[2021-06-13] MEDS: BuSPIRONE 10 mg Tablet 5 MG PO ×2 (10:51→17:57)
[2021-06-13] MEDS: potassium chloride ER 10 mEq Tablet PO (10:52)
[2021-06-13] MEDS: amiodarone 200 mg Tablet PO (10:53)
[2021-06-13] MEDS: metoprolol tartrate 25 mg Tablet PO (10:58)
--- NOTE | 2021-06-13 12:13 | PC.OT ---
OT order received. OT heike held this date d/t low blood pressure and high heart rate. Will attempt tomorrow.
[2021-06-13] MEDS: sodium chloride 0.9% 250 ML 999 ML IV (12:55)
--- NOTE | 2021-06-13 14:04 | PC.OT ---
OT evaluation withheld this date per nursing request. Patient's blood pressure is staying in 70's and 80's. To attempt OT evaluation on a later date.
--- NOTE | 2021-06-13 15:48 | PM.PN ---
Subjective Subjective: Patient underwent ORIF yesterday. Postoperatively patient had mild hypotension and tachycardia so was transferred to ICU. Overnight patient mean arterial pressures have remained between 60-65. Today morning examination heart rate running in the 115's. Patient denies any nausea vomiting, headache. She is on 5 to 6 L of nasal cannula to maintain saturation over 90%. Denies any chest pain. Vitals/I&O/Wt Last Vital Signs Temp 98.6 F 06/13/21 12:00 Pulse 110 H 06/13/21 14:00 Resp 19 H 06/13/21 12:00 BP 90/69 06/13/21 12:00 Pulse Ox 92 06/13/21 08:00 06/13/21 06/13/21 06/13/21 06:59 14:59 22:59 Intake Total 1240 / 1240 1356.75 / 1356.75 60 / 1416.75 Output Total 200 / 850 0 / 0 Balance 1040 / 390 1356.75 / 1356.75 60 / 1416.75 Weight last 48 hrs Weight 83.053 kg Weight 83.461 kg Physical Exam Narrative: Constitutional: Awake and alert after awakening, oriented to person place and situation, no acute distress, sick appearing, pallor present HEENT: Normocephalic, atraumatic, extraocular movements are intact, nasopharynx with some clear rhinorrhea, oropharynx with dry membranes Neck: Supple Respiratory: Bilateral normal Giurgius of breath sounds, fine crackles present in lower zones bilaterally Cardiovascular: Irregularly irregular rhythm, tachycardia, soft ejection systolic murmur at aortic area Abdomen: Soft, nontender, positive bowel sounds : Normal external genitalia Extremities: Right lower extremity externally rotated and shortened, no bruising noted on visible portions of lateral leg on the right, no pitting edema, 1+ dorsalis pedis bilaterally Skin: Dry, no acute sores or bruising noted, no rashes Neuro: Speech clear, face symmetric, handgrip is equal, sensation is intact and equal to light touch both feet, wiggles toes bilaterally Psych: Normal affect Urinary Catheter Management: Noriega: Cath Placed During This Visit: yes Reason for Continuing Indwelling Catheter: Accurate Measurement of Urinary Output in Critically Ill Patients Urinary Catheter Date of Insertion: 06/10/21 Urinary Catheter Time of Insertion: 18:14 Data : 06/13/21 03:21 06/13/21 03:21 Micro: Microbiology 06/10/21 18:15 Urine Culture - Final Urine,Clean Catch Aerococcus urinae 06/11/21 Unknown MRSA Culture - Final Nose A&P Assessment and plan (1) Closed intertrochanteric fracture of right hip: Comminuted. Postoperative day 1. Restarted Eliquis as per orthopedic service. Hold off on physical therapy today given tachycardia and low blood pressure. Pain medication with [place] every 8 hours as needed. Monitor hemoglobin. Status: Acute Qualifiers: Encounter type: initial encounter Fracture alignment: displaced Qualified Code(s): S72.141A - Displaced intertrochanteric fracture of right femur, initial encounter for closed fracture (2) Fall as cause of accidental injury in home as place of occurrence: Accidental, occurring while reaching too far while using her walker, landed on right hip. Status: Acute Qualifiers: Encounter type: initial encounter Qualified Code(s): W19.XXXA - Unspecified fall, initial encounter; Y92.009 - Unspecified place in unspecified non-institutional (private) residence as the place of occurrence of the external cause (3) Atrial fibrillation: Rapid ventricular response currently. Continue with home dose of amiodarone. Beta-kacie with metoprolol at 25 mg twice daily. As patient continues to have rapid ventricular response for now we will start patient on amiodarone drip. If does not improve will start on digoxin load. Status: Chronic (4) Chronic anticoagulation: Started back on Eliquis 5 mg twice daily. Status: Chronic (5) Coronary artery disease: Bypass surgery in 2009, 3 vessels with associated mitral valve repair Follows with Dr. Washington outpatient. Denies any active chest pain. A1c 5.4. Lipid panel appreciated. Will need to be on statin going forward. Atorvastatin 40 mg daily. Status: Chronic (6) CHF (congestive heart failure): Echocardiogram done shows an EF of 30-35%, diffuse severe hypokinesis of septum, anteroseptum and LV apex, diffuse hypokinesia of right ventricle and moderate depression of ejection fraction, moderately increased LA and RA size. proBNP, chest x-ray. Given soft blood pressures for now hold off on diuresis. Status: Chronic (7) Hypertension: Chronically on amlodipine and lisinopril in addition to beta-blockade. Goal blood pressure less than 140/90 mmHg. Blood pressure slightly soft today. For now hold off on amlodipine and lisinopril. Continue with metoprolol 25 mg twice daily. Status: Chronic (8) COPD (chronic obstructive pulmonary disease): Related to former tobacco abuse, chronically on Stiolto Respimat, not on continuos oxygen for her COPD but does wear nocturnal oxygen for sleep apnea. No acute exacerbation. Keep saturation over 88%. Status: Chronic (9) Sleep apnea: Diagnosed via sleep study, intolerant of CPAP/BiPAP, on nocturnal oxygen though admits that she does not necessarily use it every single night Status: Chronic Qualifiers: Sleep apnea type: unspecified type Qualified Code(s): G47.30 - Sleep apnea, unspecified (10) Hypothyroidism: Continue on home dose of levothyroxine. Check TSH. Status: Chronic (11) Anxiety and depression: Chronically on sertraline and also takes BuSpar plus as needed alprazolam, admits to having some challenges with current being on hospice and functional decline since her hip fracture a few years ago but reports that medications help Status: Chronic (12) RLS (restless legs syndrome): Chronically on Requip Status: Chronic (13) Osteoarthritis: Status: Chronic Qualifiers: Osteoarthritis location: multiple joints Osteoarthritis type: primary Qualified Code(s): M15.9 - Polyosteoarthritis, unspecified (14) Osteoporosis: Chronically takes once daily calcium plus vitamin D, has had prior hip fracture. Will continue. Status: Chronic Qualifiers: Osteoporosis type: age-related Presence of current pathological fracture: with current pathological fracture Encounter type: initial encounter Qualified Code(s): M80.00XA - Age-related osteoporosis with current pathological fracture, unspecified site, initial encounter for fracture Plan Hypotension: Most likely postoperative blood loss along with atrial fibrillation with rapid ventricular response. Goal blood pressure less than 140/90 mmHg with mean over 65. Continue to hold off on antihypertensives for now other than beta-kacie. Continue to monitor. If needed will start on Levophed. Given the frailty of the patient with a EF of 30-35 %, age postoperative status will consult cardiology. Continue with ICU care for now. CODE STATUS: Limited resuscitation - patient would NOT want any CPR, defibrillation 1 or 2 times would be acceptable as she has required it in the past and temporary intubation would be acceptable if needed. ICU level care okay short-term. She would not want long-term intubation and in particular indicated that she would not want tracheostomy, feeding tube. Cardiac diet. Eliquis suffice for DVT prophylaxis. Protonix for PUD prophylaxis. Attestations Medical Necessity Statement*: Requires further hospitalization for postoperative care for ORIF, atrial fibrillation with rapid ventricular response, congestive heart failure Coding Level of Care Code Acute Felt Hanger for [facility] Fwd Diagnoses Closed intertrochanteric fracture of right hip S72.141A Encounter type: initial encounter Fracture alignment: displaced Fall as cause of accidental injury in home as place of occurrence W19.XXXA; Y92.009 Encounter type: initial encounter Atrial fibrillation I48.91 Chronic anticoagulation Z79.01 Coronary artery disease I25.10 CHF (congestive heart failure) I50.9 Hypertension I10 COPD (chronic obstructive pulmonary disease) J44.9 Sleep apnea G47.30 Sleep apnea type: unspecified type Hypothyroidism E03.9 Anxiety and depression F41.9; F32.A RLS (restless legs syndrome) G25.81 Osteoarthritis M15.9 Osteoarthritis location: multiple joints Osteoarthritis type: primary Osteoporosis M80.00XA Osteoporosis type: age-related Presence of current pathological fracture: with current pathological fracture Encounter type: initial encounter
[2021-06-13] MEDS: digoxin 250 mcg/ml INJ 2 mL 500 MCG IVP (15:53)
[2021-06-13 16:43] LABS: Basophils % 0.1 %; Eosinophils % 0.1 %; Hematocrit 33.8 % (37.0-47.0); Hemoglobin 10.6 g/dL (11.5-15.3); Lymphocytes # 0.5 10^3/uL (0.8-4.8); Lymphocytes % 2.9 %; Mean Corpuscular HGB Conc 31.4 g/dL (30.0-36.0); Mean Corpuscular Hemoglobin 27.8 pg (28.0-34.0); Mean Corpuscular Volume 88.7 fl (81-99); Mean Platelet Volume 13.6 fL (7.4-10.4); Monocytes # 1.3 10^3/uL (0.2-0.9); Monocytes % 7.3 %; Neutrophils # 16.27 10^3/uL (1.8-7.7); Neutrophils % 88.9 %; Nucleated Red Blood Cells % 0 %; Platelet Count 124 10^3/cmm (130-400); Red Blood Count 3.81 10^6/uL (4.1-5.3); White Blood Count 18.3 10^3/uL (4.0-10.0)
[2021-06-13] MEDS: piperacillin-tazobactam 3.375 GM in sodium chloride 0.9% (plus) 50 ML IV (17:57)
--- NOTE | 2021-06-13 19:07 | PM.CONSULT ---
Providers/Reason For Consult Consulting Physician/Specialty*: BLACK Washington MD/cardiology Reason for Consult*: Patient with atrial fibrillation rapid ventricular rate not responding to amiodarone/AV blocking agents. History of ASHD and open heart surgery Requesting Physician: Dr. Chavis Attending Physician: Micky Crum MD History of Present Illness History of Present Illness Arelis Abdi is a 86 year old female with a history of high risk coronary heart disease, chronic atrial fibrillation, status post three-vessel coronary bypass surgery and mitral valve repair, was admitted to the hospital on the of this month with a right hip fracture. She underwent open reduction and internal fixation of the right hip with intramedullary device. Postoperatively, she went into atrial fibrillation with rapid ventricular rate. She was started on IV amiodarone. She also was given IV metoprolol. The heart rate still remains uncontrolled. Cardiology consult is requested for further cardiac evaluation recommendations. This patient is being followed by Dr. Perez at the [facility] in [place]. Since he is retired, he was trying to get established with our cardiac services. But she had to cancel many of the appointments because of her home situations and also COVID-19. According to the patient, she has been compliant with her medications. She has been on long-term oral anticoagulation with Eliquis. She has not had any chest pain or any specific cardiac symptoms. She had a three-vessel coronary artery bypass surgery at the [facility] in 2009. Since the surgery, she has not had any cardiac catheterization or PCI. She had an echocardiogram done during this hospital admission which revealed an LV ejection fraction of 30 to 35%. Her previous LV ejection fraction is not known. She apparently had a fall while reaching to get a TV remote control at home. She never had any loss of consciousness. No chest pain or palpitations in the recent past. Currently she seems to have no chest pain with a rapid heart rate. Has some shortness of breath. She also has an audible wheeze. No fever or chills. She developed a diarrhea since hospital admission. Etiology is not clear. Review of Systems Narrative: CONSTITUTIONAL: No fever or chills. EYES: No blurring of vision or other visual disturbances lately. ENT: No hoarseness of voice, auditory disturbances or sore throat. CARDIOVASCULAR: As mentioned above. RESPIRATORY: COPD, on bronchodilators GASTROINTESTINAL: Diarrhea in the hospital GENITOURINARY: No dysuria or hematuria. INTEGUMENTARY: No skin rashes or history of skin cancer. NEURO: Remittent confusion PSYCHIATRIC: No history of psychosis or major depression. HEMATOLOGIC: On long-term oral anticoagulation ENDOCRINE: History of hypothyroidism MUSCULOSKELETAL: No recent joint pain or swelling. ALLERGY/IMMUNOLOGY: As mentioned above. Medications/Allergies Home Medications Medication Instructions Recorded Confirmed Last Taken Type alprazolam 0.5 mg tablet 0.5 mg PO TID PRN 03/18/21 06/10/21 06/10/21 History apixaban 5 mg tablet (Eliquis) 5 mg PO BID 03/18/21 06/10/21 06/10/21 History buspirone 5 mg tablet 5 mg PO BID 03/18/21 06/10/21 06/10/21 History coenzyme Q10 10 mg capsule (Co 10 mg PO DAILY cap 03/18/21 06/10/21 06/10/21 History Q-10) gabapentin 100 mg capsule 100 mg PO TID 03/18/21 06/10/21 06/10/21 History levothyroxine 50 mcg tablet 50 mcg PO DAILY 03/18/21 06/10/21 06/10/21 History lisinopril 20 mg tablet 20 mg PO DAILY 03/18/21 06/10/21 06/10/21 History metoprolol succinate 25 mg 25 mg PO DAILY 03/18/21 06/10/21 06/10/21 History tablet,extended release 24 hr potassium chloride 10 mEq 10 meq PO DAILY 03/18/21 06/10/21 06/10/21 History tablet,extended release ropinirole 0.25 mg tablet 0.25 mg PO DAILY 03/18/21 06/10/21 06/09/21 History tiotropium 2.5 mcg-olodaterol 2.5 2 puff INHALATION DAILY 03/18/21 06/10/21 Unknown History mcg/actuation mist for inhalation (Stiolto Respimat) trazodone 50 mg tablet 50 mg PO DAILY 03/18/21 06/10/21 06/09/21 History acetaminophen 500 mg tablet 500 mg PO Q6H PRN 06/10/21 06/10/21 Unknown History amiodarone 200 mg tablet 200 mg PO DAILY 06/10/21 06/10/21 06/10/21 History amlodipine 10 mg tablet 10 mg PO DAILY 06/10/21 06/10/21 06/10/21 History ascorbic acid (vitamin C) 500 mg 500 mg PO DAILY 06/10/21 06/10/21 06/10/21 History capsule,extended release (Vitamin C) calcium carbonate 600 mg-vitamin 1 tab PO DAILY 06/10/21 06/10/21 06/10/21 History D3 10 mcg (400 unit) chewable tablet (Calcium 600 with Vitamin D3) glucosamine-chondroitin 250 mg-200 2 tab PO TID 06/10/21 06/10/21 06/10/21 History mg tablet (Osteo Bi-Flex) omega 5-vyu-epg-fish oil 1,000 mg 1 cap PO DAILY 06/10/21 06/10/21 06/10/21 History (120 mg-180 mg) capsule (Fish Oil) sertraline 100 mg tablet 100 mg PO BID 06/10/21 06/10/21 06/10/21 History tumeric 100 mg-rach 150 mg-olive 1 cap PO DAILY 06/10/21 06/10/21 06/10/21 History 50 mg-oreg 150 mg-caprylate capsule Allergies Allergy/AdvReac Type Severity Reaction Status Date / Time Sulfa (Sulfonamide Allergy N/V Verified 05/02/21 09:29 Antibiotics) Current Medications Generic Name Dose Route Start Last Admin Trade Name Freq PRN Reason Stop Dose Admin Hydrocodone Bitart/Acetaminophen 1 tab 06/10/21 15:54 06/11/21 20:47 Hydrocodone-Acetaminophen 5-325 Mg Tablet PO 1 tab Q4H PRN Administration MODERATE TO SEVERE PAIN Amiodarone HCl 200 mg 06/11/21 09:00 06/13/21 10:53 Amiodarone 200 Mg Tablet PO 200 mg DAILY MINA Administration Apixaban 5 mg 06/13/21 06:10 06/13/21 17:57 Apixaban 5 Mg Tablet PO 5 mg BID MINA Administration Buspirone HCl 5 mg 06/10/21 18:00 06/13/21 17:57 Buspirone 10 Mg Tablet PO 5 mg BID MINA Administration Calcium Carbonate 1 each 06/10/21 18:00 06/13/21 17:57 Calcium Carb-Vit D 600mg/400unit 1 Tablet PO 1 each BID MINA Administration Docusate Sodium 100 mg 06/10/21 18:00 06/13/21 17:57 Docusate Sodium 100 Mg Capsule PO 100 mg BID MINA Administration Gabapentin 100 mg 06/10/21 21:00 06/13/21 15:42 Gabapentin 100 Mg Capsule PO 100 mg TID MINA Administration Amiodarone HCl 900 mg/ 518 mls @ 0 mls/hr 06/13/21 12:30 06/13/21 13:01 Dextrose/ IV Miscellaneous IV 1 mg/min Supplies .Q0M MINA 34.53 mls/hr Administration Protocol Per Protocol Albumin Human 25 gm in 100 mls @ 60 mls/hr 06/13/21 13:45 06/13/21 14:25 Albumin IV 06/14/21 16:00 Infused Q8H MINA Infusion Piperacillin Sod/Tazobactam 50 mls @ 12.5 mls/hr 06/13/21 17:30 06/13/21 17:57 Sod 3.375 gm/ Sodium Chloride IV 12.5 mls/hr Q8H MINA Administration Protocol Levothyroxine Sodium 50 mcg 06/11/21 09:00 06/13/21 10:49 Levothyroxine 50 Mcg Tablet PO 50 mcg DAILY MINA Administration Metoprolol Tartrate 25 mg 06/13/21 11:00 06/13/21 11:05 Metoprolol Tartrate 25 Mg Tablet PO Not Given BID@0900,2100 [facility] Sremk-6-[id number] Ethyl Esters 1,000 mg 06/11/21 09:00 06/13/21 10:51 [place]-3 Fatty Acids 1,000 Mg Capsule PO 1,000 mg DAILY MINA Administration Pantoprazole Sodium 40 mg 06/11/21 09:00 06/13/21 10:[address] 40 Mg Tablet PO 40 mg DAILY MINA Administration Potassium Chloride 10 meq 06/11/21 09:00 06/13/21 10:52 Potassium Chloride Er 10 Meq Tablet PO 10 meq DAILY MINA Administration Ropinirole HCl 0.25 mg 06/10/21 21:00 06/12/21 20:30 Ropinirole 0.25 Mg Tablet PO 0.25 mg BEDTIME MINA Administration Fluticasone/Salmeterol 1 puff 06/10/21 20:00 06/13/21 09:27 Fluticasone-Salmeterol 250-50 Diskus INHALATION 1 inhalation BID.RESPIRATORY MINA Administration Senna 17.2 mg 06/10/21 21:00 06/12/21 20:30 Sennosides 8.6 Mg Tablet PO 17.2 mg BEDTIME MINA Administration Sertraline HCl 100 mg 06/10/21 18:00 06/13/21 17:57 Sertraline 100 Mg Tablet PO 100 mg BID MINA Administration Tiotropium [place] 18 mcg 06/11/21 08:00 06/13/21 09:27 Tiotropium 18 Mcg Mdi INHALATION 1 puff DAILY.RESPIRATORY MINA Administration PFSH Acute PFSH: Medical History Anemia Anxiety ASHD (arteriosclerotic heart disease) Atrial fibrillation CHF (congestive heart failure) Chronic anticoagulation COPD (chronic obstructive pulmonary disease) COVID-19 vaccine administered Moderna 2 doses Depression First degree AV block Former smoker Hyperlipidemia Had been on atorvastatin and zetia in past, last lipid panel in 2019 with HDL 70, LDL 81, total cholesterol 171, TG 176 Hypertension Hypothyroidism Insomnia 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) Meningioma Benign Mitral valve regurgitation Osteoarthritis Osteoporosis RLS (restless legs syndrome) Sleep apnea On nocturnal oxygen, intolerant of other therapies in past Tricuspid valve regurgitation Ventricular arrhythmia Surgical History History of appendectomy History of hemiarthroplasty of left hip (~2019) History of hysterectomy History of lobectomy of lung Left upper lobe, 2007 History of mitral valve repair Per patient, done at time of CABG in 2009, details unknown History of tonsillectomy and adenoidectomy Hx of CABG x 3 vessel 2009 Family History Family/Other Cancer multiple relatives Father Abdominal aneurysm Mother Abdominal aneurysm Denies family history of Clotting disorder Anesthesia complication Bleeding disorder Social History Smoking and tobacco status: former smoker Alcohol intake: current Alcohol use comment: has a drink every 3-4 days, currently drinking [place] [employer] Substance/Drug Use: never Household members: spouse and other Details: Spouse on Hospice Care Marital status: Number of children: 3 Female Reproductive History: : 5 Para: 3 Spontaneous abortions: Yes (x2) Vitals/I&O/Wt Last Vital Signs Temp 98.1 F 06/13/21 18:00 Pulse 98 06/13/21 18:00 Resp 29 H 06/13/21 18:00 BP 97/77 06/13/21 18:00 Pulse Ox 92 06/13/21 18:00 06/13/21 06/13/21 06/13/21 06:59 14:59 22:59 Intake Total 1240 / 1240 1356.75 / 1356.75 120 / 1476.75 Output Total 200 / 850 0 / 0 Balance 1040 / 390 1356.75 / 1356.75 120 / 1476.75 Weight last 48 hrs Weight 183 lb 1.6 oz Weight 184 lb Physical Exam Narrative: GENERAL: The patient is alert and oriented to person and place. Seems to have intermittent confusion. Not in any acute distress. HEENT: Minimal pallor. No, icterus or lymphadenopathy. The pupils are symmetrical. Oral cavity: There are no mucous membrane lesions. Funduscopic examination: The disk margins appear to be sharp with no exudates or hemorrhages. NECK: Trachea appears to be central. No masses noted. No JVD or thyromegaly appreciated. No carotid bruit. RESPIRATORY: Chest is symmetrical. No intercostals muscle retraction or any accessory muscle activation. There is no chest wall tenderness. Breath sounds are heard bilaterally. Bilateral scattered expiratory wheeze. BREASTS: Deferred. HEART: The PMI could not be palpated.. No palpable precordial events. S1 and S2 are normal. No S3 or S4 heard. No pericardial rub or any click heard. ABDOMEN: No vessel pulsations or distention. No tenderness. No organomegaly appreciated. No abdominal bruit. Bowel sounds are normally heard. : Deferred. RECTAL: Deferred. LYMPHATIC: No lymphadenopathy noted in the neck. EXTREMITIES: No edema or cyanosis. No clubbing. The pulses are symmetrical bilaterally. The radial, femoral, dorsalis pedis and the posterior tibial pulses are palpated and found to be in good volume and amplitude. MUSCULOSKELETAL: The right hip mobility is restricted SKIN: There are no significant rashes NEUROPSYCHIATRIC: The patient is alert and oriented x2. No focal motor deficits. No tremors or rigidity noted. Urinary Catheter Management: Noriega: Cath Placed During This Visit: yes Reason for Continuing Indwelling Catheter: Accurate Measurement of Urinary Output in Critically Ill Patients Urinary Catheter Date of Insertion: 06/10/21 Urinary Catheter Time of Insertion: 18:14 Data : 06/13/21 16:12 06/13/21 03:21 Other Labs: Laboratory Last Values WBC 18.3 10^3/uL (4.0-10.0) H 06/13/21 16:12 RBC 3.81 10^6/uL (4.1-5.3) L 06/13/21 16:12 Hgb 10.6 g/dL (11.5-15.3) L 06/13/21 16:12 Hct 33.8 % (37.0-47.0) L 06/13/21 16:12 MCV 88.7 fl (81-99) 06/13/21 16:12 MCH 27.8 pg (28.0-34.0) L 06/13/21 16:12 MCHC 31.4 g/dL (30.0-36.0) 06/13/21 16:12 RDW 16.0 % (12.1-15.1) H 06/13/21 16:12 Plt Count 124 10^3/cmm (130-400) L 06/13/21 16:12 MPV 13.6 fL (7.4-10.4) H 06/13/21 16:12 Neut % (Auto) 88.9 % 06/13/21 16:12 Lymph % (Auto) 2.9 % 06/13/21 16:12 [place] % (Auto) 7.3 % 06/13/21 16:12 Eos % (Auto) 0.1 % 06/13/21 16:12 Baso % (Auto) 0.1 % 06/13/21 16:12 Neut # (Auto) 16.27 10^3/uL (1.8-7.7) H 06/13/21 16:12 Lymph # (Auto) 0.5 10^3/uL (0.8-4.8) L 06/13/21 16:12 [place] # (Auto) 1.3 10^3/uL (0.2-0.9) H 06/13/21 16:12 Eos # (Auto) 0.0 10^3/uL (0.0-0.8) 06/13/21 16:12 Baso # (Auto) 0.0 10^3/uL (0.0-0.1) 06/13/21 16:12 Nucleated RBC % (auto) 0 % 06/13/21 16:12 Nucleated RBCs # 0.0 /100WBC 06/13/21 16:12 PT 15.60 SECONDS (12.1-14.9) H 06/10/21 15:03 INR 1.20 (0.8-1.2) 06/10/21 15:03 APTT 31.9 SECONDS (23.9-36.7) 06/10/21 15:03 Specimen Type Arterial 06/12/21 17:09 Sample Site Radial, left 06/12/21 17:09 ABG pH 7.38 (7.35-7.45) 06/12/21 17:09 ABG pCO2 49.0 mmHg (35-45) H 06/12/21 17:09 ABG pO2 52.2 mmHg (80.0-100.0) L 06/12/21 17:09 ABG HCO3 29.1 mmol/L (22-26) H 06/12/21 17:09 ABG O2 Saturation 84.8 06/12/21 17:09 ABG Base Excess 3.3 mmol/L (-2.0-2.0) H 06/12/21 17:09 Tk Test Pos 06/12/21 17:09 A-a O2 Gradient 18.7 mmHg (5-10) H 06/12/21 17:09 Hematocrit 35.3 % (37-47) L 06/12/21 17:09 Hgb O2 Saturation 83.2 % (95-100) L 06/12/21 17:09 Carboxyhemoglobin 0.9 %THgb (0.4-20.1) 06/12/21 17:09 Methemoglobin 1.1 % (0.4-1.5) 06/12/21 17:09 Total Hemoglobin 11.5 g/dL (12-16) L 06/12/21 17:09 Sodium 141.0 mmol/L (131-143) 06/12/21 17:09 Potassium 3.6 mmol/L (3.5-5.0) 06/12/21 17:09 Glucose 127.0 mg/dL (70-115) H 06/12/21 17:09 Ionized Calcium 1.1 mmol/L (1.1-1.4) 06/12/21 17:09 O2 Delivery Device Nc 06/12/21 17:09 O2 Liters/Min 4.0 % 06/12/21 17:09 FiO2 36.0 % 06/12/21 17:09 Thermocouple Tester ID Fidel 06/12/21 17:09 Sodium 139 mmol/L (136-145) 06/13/21 03:21 Potassium 3.6 mmol/L (3.5-5.1) 06/13/21 03:21 Chloride 102 mmol/L (98-107) 06/13/21 03:21 Carbon Dioxide 26 mmol/L (22-29) 06/13/21 03:21 Anion Gap 14.6 (5-19) 06/13/21 03:21 BUN 24 mg/dL (8-23) H 06/13/21 03:21 Creatinine 1.0 mg/dL (0.5-0.9) H 06/13/21 03:21 GFR Calculation Not Reportable 06/13/21 03:21 Glucose 150 mg/dL (65-115) H 06/13/21 03:21 Estimat Average Glucose 108 06/12/21 04:45 Hemoglobin A1c 5.4 % (4.0-6.0) 06/12/21 04:45 Calculated Osmolality 295 mOsm/kg (285-295) 06/13/21 03:21 Calcium 7.9 mg/dL (8.5-10.5) L 06/13/21 03:21 Phosphorus 4.9 mg/dL (2.5-4.5) H 06/11/21 01:30 Magnesium 2.0 mg/dL (1.7-2.3) 06/11/21 01:30 Iron 47 ug/dL (37-145) 06/11/21 01:30 TIBC 329 mcg/dl 06/11/21 01:30 % Saturation 14.2 % (20-50) L 06/11/21 01:30 Unsat Iron Binding 282 ug/dL (112-347) 06/11/21 01:30 Total Bilirubin 0.5 mg/dL (0.15-1.2) 06/13/21 03:21 AST 16 U/L (0-32) 06/13/21 03:21 ALT 9 U/L (0-33) 06/13/21 03:21 Alkaline Phosphatase 59 IU/L (35-105) 06/13/21 03:21 Troponin T Gen 5 ng/L 18 ng/L (0-10) H 06/11/21 01:30 NT-Pro-B Natriuret Pep 76124 pg/mL (0-450) H 06/13/21 03:21 Total Protein 6.1 g/dL (6.6-8.7) L 06/13/21 03:21 Albumin 3.3 g/dL (3.5-5.2) L 06/13/21 03:21 Globulin 2.8 g/dL (1.3-4.6) 06/13/21 03:21 Triglycerides 83 mg/dL (0-150) 06/12/21 04:45 Cholesterol 249 mg/dL (0-200) H 06/12/21 04:45 LDL Cholesterol, Calc 170 mg/dL (50-129) H 06/12/21 04:45 Total VLDL Cholesterol 17 mg/dL (0-30) 06/12/21 04:45 HDL Cholesterol 62 mg/dL (60-100) 06/12/21 04:45 Cholesterol/HDL Ratio 4.02 mg/dL (0.0-4.40) 06/12/21 04:45 Procalcitonin 0.06 ng/mL (0-0.5) 06/10/21 15:03 TSH 1.17 uIU/mL (0.27-4.20) 06/11/21 01:30 Urine Color Yellow (Yellow) 06/10/21 18:15 Urine Appearance Cloudy (CLEAR) 06/10/21 18:15 Urine pH 6 (5-7) 06/10/21 18:15 Ur Specific [place] 1.030 (1.005-1.030) 06/10/21 18:15 Urine Protein Neg (Negative) 06/10/21 18:15 Urine Glucose (UA) Norm (Normal) 06/10/21 18:15 Urine Ketones 1+ (Negative) H 06/10/21 18:15 Urine Blood Neg (Negative) 06/10/21 18:15 Urine Nitrate Negative (Negative) 06/10/21 18:15 Urine Bilirubin Neg (Negative) 06/10/21 18:15 Urine Urobilinogen 1 mg/dL (Negative) H 06/10/21 18:15 Ur Leukocyte Esterase Negative (Negative) 06/10/21 18:15 Urine RBC None /hpf (0-2) 06/10/21 18:15 Urine WBC Rare /hpf (0-5) 06/10/21 18:15 Ur Squamous Epith Cells Rare /hpf (0-5) 06/10/21 18:15 Amorphous Sediment Not Reportable 06/10/21 18:15 Urine Bacteria 4+ /hpf (NONE) H 06/10/21 18:15 Micro: Microbiology 06/10/21 18:15 Urine Culture - Final Urine,Clean Catch Aerococcus urinae Echo: My impression: Severe diffuse hypokinesia of the septum, anteroseptum and LV ?apex.? ?LV ejection fraction around 30 to 35%. ?Moderate concentric left tubular hypertrophy ?Moderate biatrial enlargement ?Thickened mitral valve. Moderate mitral annular calcification. ?Thickened aortic valve. ?Mild tricuspid valve regurgitation. ?Trace pulmonary valve regurgitation. ?Estimated pulmonary artery peak systolic pressure of 28 mm of Hg ?(Compared to the study from 08/26/2018, there is some worsening of ?the LV systolic function.? The LVEF was 38% at that time.? The ?RV systolic function has significantly reduced since 08/26/2018.? ?The tricuspid rotation appears to be less severe, but it could ?be due to technical issues.) A&P Assessment and plan (1) Chronic atrial fibrillation with rapid ventricular response: I may increase the dose of metoprolol to 50 mg p.o. twice daily, if the blood pressure tolerates. May continue on the IV amiodarone. Because of the LV dysfunction, diarrhea and the postop state, it may be appropriate to keep the heart rate around 100. Status: Acute (2) Atherosclerosis of coronary artery of augustine heart without angina pectoris: Patient had a three-vessel coronary bypass surgery in 2009. The her previous LV ejection fraction is not known. May need to consider a myocardial perfusion imaging, to evaluate for any underlying coronary ischemia causing the LV dysfunction. Since he is stable at this point, we may consider at this point her medical condition is stable. Status: Acute (3) CHF (congestive heart failure): She may be carefully treated with IV diuretics. I may start her on IV Lasix 40 mg now along with potassium 20 mEq p.o. we will be closely monitoring her vitals. Status: Chronic (4) COPD (chronic obstructive pulmonary disease): Management as per the primary. Status: Chronic Plan Other problems are S/p open reduction internal fixation of the right hip Diarrhea Intermittent confusion Mild anemia Based on her clinical progress, further recommendations will be made. Thank for the opportunity to evaluate this patient and make these recommendations Consult Attestations Medical Necessity Statement: Patient requires continued hospital stay for close monitoring and further management Coding Level of Care Code Acute Automatic Fabric Cutter for Hannahg Fwd History Detailed Exam Detailed Medical Decision Making Moderate Complexity Diagnoses Chronic atrial fibrillation with rapid ventricular response I48.20 Atherosclerosis of coronary artery of augustine heart without angina pectoris I25.10 CHF (congestive heart failure) I50.9 COPD (chronic obstructive pulmonary disease) J44.9
--- NOTE | 2021-06-13 20:13 | XRR_ITS ---
PROCEDURE INFORMATION: Exam: XR Chest Exam date and time: 06/13/2021 8:33 PM Age: 86 years old Clinical indication: Other: Hypoxia TECHNIQUE: Imaging protocol: XR of the chest. Views: 1 view. COMPARISON: CR XR chest 1V portable [id number] 06/13/2021 10:51 AM FINDINGS: Lungs: The lung bases are suboptimally assessed due to technique however the upper lungs are clear of focal consolidation. Diffuse right-sided interstitial opacity and central peribronchial thickening is again noted with slight interval worsening and may be related to mild interstitial edema versus pneumonitis. Persistent left upper lung zone lucency may be related to emphysematous disease. Probable retrocardiac opacity suggesting atelectasis versus pneumonia and probable small left pleural effusion with slight interval improvement. Continued follow-up should be obtained. Pleural spaces: See Lungs finding. Heart/Mediastinum: Cardiac silhouette remains enlarged, stable.. No obvious vascular congestion. Bones/joints: Sternotomy wires and CABG clips. No acute osseous findings. Other findings: Single view was submitted. XR/XR chest 1V portable [id number] IMPRESSION: 1. Slight worsening of interstitial opacities throughout the right lung as described. 2. Probable slight interval improvement of retrocardiac opacity. Other findings as above. Continued follow-up should be obtained.
[2021-06-13] MEDS: FUROsemide 10 mg/mL SDV 4mL 40 MG IVP (20:52)
[2021-06-13] MEDS: potassium chloride ER 20 mEq Tablet PO (20:52)
[2021-06-13] MEDS: ropinirole 0.25 mg Tablet PO (20:52)
[2021-06-13 21:03] LABS: Arterial Blood Gas Hematocrit 35.9 % (37-47); Base Excess ABG 0.5 mmol/L (-2.0-2.0); Blood Gas Allen Test Pos; Blood Gas Operator Identificat JB; Blood Gas Sample Site Radial, right; Blood Gas Sample Type Arterial; HCO3 ABG 25.3 mmol/L (22-26); Oxygen Device BIPAP; PO2 ABG 70.4 mmHg (80.0-100.0)
[2021-06-13] MEDS: FUROsemide 10 mg/mL SDV 2mL 20 MG IVP (21:43)
[2021-06-13] MEDS: ALPRAZolam 0.5 mg Tablet PO (23:14)
[2021-06-14] VITALS (36 sets, daily range): BP systolic 86–128; BP diastolic 52–98; PULSE 83–142; RESP 20–31; TEMP 36.6–37.4; O2SAT 89–97; BMI 29.7
[2021-06-14] MEDS: ipratropium-albuterol 3 mL Neb INHALATION ×3 (00:13→15:12)
[2021-06-14] MEDS: acetylcysteine 200 mg/mL SDV 4 mL 100 MG INHALATION ×7 (00:13→23:39)
[2021-06-14] MEDS: piperacillin-tazobactam 3.375 GM in sodium chloride 0.9% (plus) 50 ML IV ×2 (01:40→09:06)
[2021-06-14 03:14] LABS: Basophils % 0.1 %; Hematocrit 36.8 % (37.0-47.0); Hemoglobin 11.1 g/dL (11.5-15.3); Lymphocytes # 0.6 10^3/uL (0.8-4.8); Lymphocytes % 4.2 %; Mean Corpuscular HGB Conc 30.2 g/dL (30.0-36.0); Mean Corpuscular Hemoglobin 28.2 pg (28.0-34.0); Mean Corpuscular Volume 93.4 fl (81-99); Mean Platelet Volume 13.4 fL (7.4-10.4); Monocytes % 6.4 %; Neutrophils # 13.25 10^3/uL (1.8-7.7); Neutrophils % 88.1 %; Nucleated Red Blood Cells % 0 %; Platelet Count 122 10^3/cmm (130-400); Red Blood Count 3.94 10^6/uL (4.1-5.3); Red Cell Distribution Width 15.9 % (12.1-15.1); White Blood Count 15.1 10^3/uL (4.0-10.0)
[2021-06-14 03:28] LABS: D Dimer 2.23 ug/mIFEU (0-0.59)
[2021-06-14 03:32] LABS: Slide Review Slide Review Perform
[2021-06-14 03:34] LABS: Alanine Aminotransferase 15 U/L (0-33); Albumin Level 3.6 g/dL (3.5-5.2); Alkaline Phosphatase 81 IU/L (35-105); Aspartate Amino Transferase 47 U/L (0-32); Blood Urea Nitrogen 38 mg/dL (8-23); Calcium 8.7 mg/dL (8.5-10.5); Carbon Dioxide 23 mmol/L (22-29); Chloride 100 mmol/L (98-107); Glucose 135 mg/dL (65-115); Osmolality Calculated 297 mOsm/kg (285-295); Sodium 138 mmol/L (136-145); Total Bilirubin 0.6 mg/dL (0.15-1.2); Total Protein 5.6 g/dL (6.6-8.7)
[2021-06-14 03:35] LABS: Anion Gap 18.7 (5-19); Potassium 3.7 mmol/L (3.5-5.1)
[2021-06-14 03:36] LABS: Digoxin 1.1 ng/mL (0.6-1.2)
--- NOTE | 2021-06-14 08:10 | PM.PN ---
Subjective Subjective: Still requiring bipap. No complaints of hip pain Vitals/I&O/Wt Last Vital Signs Temp 98 F 06/14/21 07:56 Pulse 86 06/14/21 07:56 Resp 23 H 06/14/21 07:56 BP 128/89 06/14/21 07:56 Pulse Ox 91 06/14/21 07:56 06/13/21 06/14/21 06/14/21 22:59 06:59 14:59 Intake Total 676.741 / 2033.491 150 / 150 Output Total 300 / 300 150 / 450 Balance 376.741 / 1733.491 -150 / 1583.491 150 / 150 Weight last 48 hrs Weight 184 lb Weight 183 lb 1.6 oz Physical Exam Narrative: R hip dressing clean and dry. Urinary Catheter Management: Noriega: Cath Placed During This Visit: yes Reason for Continuing Indwelling Catheter: Accurate Measurement of Urinary Output in Critically Ill Patients Urinary Catheter Date of Insertion: 06/10/21 Urinary Catheter Time of Insertion: 18:14 Data : 06/14/21 02:48 06/14/21 02:48 Micro: Microbiology 06/10/21 18:15 Urine Culture - Final Urine,Clean Catch Aerococcus urinae A&P Assessment and plan (1) Status post open reduction and internal fixation (ORIF) of fracture: Continue supportive care. No acute ortopedic issues. Status: Acute Attestations Medical Necessity Statement*: As per medicine Coding Level of Care Code Acute Route Delivery Manager for amara Srivastava Diagnoses Status post open reduction and internal fixation (ORIF) of fracture Z98.890; Z87.81
[2021-06-14] MEDS: omega-3 fatty acids 1,000 mg Capsule 1000 MG PO (08:57)
[2021-06-14] MEDS: pantoprazole DR 40 mg Tablet PO (08:57)
[2021-06-14] MEDS: sertraline 100 mg Tablet PO ×2 (08:59→18:30)
[2021-06-14] MEDS: potassium chloride ER 10 mEq Tablet PO (09:00)
[2021-06-14] MEDS: levothyroxine 50 mcg Tablet PO (09:00)
[2021-06-14] MEDS: amiodarone 200 mg Tablet PO ×2 (09:01→18:32)
[2021-06-14] MEDS: BuSPIRONE 10 mg Tablet 5 MG PO ×2 (09:02→18:31)
[2021-06-14] MEDS: metoprolol tartrate 25 mg Tablet PO ×2 (09:02→20:23)
[2021-06-14] MEDS: potassium chloride ER 20 mEq Tablet PO (09:04)
[2021-06-14] MEDS: gabapentin 100 mg Capsule PO ×3 (09:04→20:23)
[2021-06-14] MEDS: calcium carb-vit d 600mg/400unit 1 Tablet 1 EACH PO ×2 (09:08→18:30)
--- NOTE | 2021-06-14 09:17 | USCV_ITS ---
Arelis Abdi Age: 86 Gender: F : 1935 Exam Date: 06/14/2021 10:50 Ordering Phys: Micky Crum MD Technologist: FRANCISCO [place] [facility] [place]: Elevated d-dimer HISTORY: Lower extremity swelling. PROCEDURES: Venous duplex imaging was performed in bilateral lower extremities. The following venous structures were evaluated: common femoral vein, profunda vein, proximal portion of the greater saphenous vein, superficial femoral vein, and the popliteal vein. In addition, the posterior tibial and peroneal trunk were evaluated. FINDINGS: TDS pt unable to flex knees or roll legs to improve imaging. Small, nonobstructive thrombus present at the Rt GSV/CFV junction. All other veins appear compressible and free of thrombus at this time. No left DVT. CONCLUSIONS Nonocclusive DVT junction right CFV/GSV. No additional DVT. Dr. Jolynn Ray DO (Electronically Signed) Final Date: 14 June 2021 12:52 S
[2021-06-14 09:31] LABS: ABG PCO2 43.8 mmHg (35-45); ABG PH Result 7.38 (7.35-7.45); Arterial Blood Gas Hematocrit 32.7 % (37-47); Base Excess ABG 0.8 mmol/L (-2.0-2.0); Blood Gas Allen Test Pos; Blood Gas Sample Site Radial, left; Blood Gas Sample Type Arterial; HCO3 ABG 26.1 mmol/L (22-26); Oxygen Device BIPAP; PO2 ABG 60.2 mmHg (80.0-100.0)
--- NOTE | 2021-06-14 09:49 | PC.NURSE ---
Patient placed on Heated High-Flow and is tolerating well. sp02 holding 92-93%.
--- NOTE | 2021-06-14 10:04 | PC.CHAP ---
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 [] Patient/Family/Request visit [] Outpatient visit [] Follow-up visit [] Physician referral [] Code/Alert [x] Routine visit [] Staff referral [] Actively dying [x] Patient sleeping [] Family support [] [] Out of room [] Palliative care [] [] Receiving care in room [] Pre-surgical visit [] Trauma [] Long length of stay [x] ICU visit [x] Other: oxyg Relational/Emotional Strength [] Patient feels connected with others/family/visitors/staff [] Distress [] Loneliness/isolation [] Abandonment Spirituality of Patient [] Person of Dina [] Attends Roman Catholic of their Dina [] Believes in Prayer [] Reads Bible or Taoism materials [] There are Spiritual issues to be addressed Site Worker Interventions [x] Prayer [] Active listening [] Non-anxious presence [] Spiritual/emotional support [] Crisis/trauma care [] Spiritual counseling [] Bereavement support [] Provided bereavement packet [] Provided Bible/devotional materials [] Provided toy/stuffed animal, coloring book to patient or family member [] Provided Communion [] Anointing/[place] [] Salvation [x] Completed spiritual assessment [] Other: Impact on Illness or Injury [] Angry [] Fearful [] Anxious [] Often cries [] Exhaustion [] Unable to work [] Unable to attend oriental orthodox [] Unable to walk/stand [] Unable to read [] Unable to drive [] Unable to eat/drink [] Unable to sleep [] Unable to be with family [] Patient intubated [] Other: Summary Time spent with patient
[2021-06-14] MEDS: FUROsemide 40 mg Tablet PO (10:30)
[2021-06-14] MEDS: enoxaparin 80 mg/0.8 mL Syringe SUBCUT (10:31)
--- NOTE | 2021-06-14 10:31 | USCV_ITS ---
Arelis Abdi Age: 86 Gender: F : 1935 Exam Date: 06/14/2021 11:17 Ordering Phys: Jimmy Washington MD ([email or web address]) Technologist: FRANCISCO Exam Location: [facility] [place] Indication: Murmur BP: 105 / 62 HR: 88 Rhythm: Sinus Technical Quality: Adequate MEASUREMENTS (Male / Female) Normal Values 2D ECHO LV Diastolic Diameter PLAX 4.4 cm 4.2 - 5.9 / 3.9 - 5.3 cm LV Systolic Diameter PLAX 3.7 cm IVS Diastolic Thickness 1.8 cm 0.6 - 1.0 / 0.6 - 0.9 cm IVS Systolic Thickness 1.8 cm LVPW Diastolic Thickness 1.3 cm 0.6 - 1.0 / 0.6 - 0.9 cm LVPW Systolic Thickness 1.8 cm LVOT Diameter 1.3 cm LV Ejection Fraction 2D Teich 33.1 % LA Diameter 5.1 cm Aorta at Sinotubular Diameter 2.3 cm M-MODE Aortic Annulus Diameter 2.3 cm LA Ao Ratio MM 2.3 MV E Point Septal Separation 1.3 cm DOPPLER AV Peak Velocity 57.3 cm/s LVOT Peak Velocity 97.0 cm/s AV Area Cont Eq vti 1.8 cm squared AV Area Cont Eq pk 2.1 cm squared TR Peak Velocity 391.6 cm/s TR Peak Gradient 61.3 mmHg TR Mean Velocity 243.3 cm/s TR Mean Gradient 27.0 mmHg TR Velocity Time Integral 109.5 cm TV Peak E Velocity 243.0 cm/s FINDINGS Left Ventricle Normal LV size with diminished ejection fraction of around 35%. Dyskinetic interventricular septum. Right Ventricle Normal size and ejection fraction Right Atrium Moderately increased right atrial size. Left Atrium Moderately increased left atrial size. Mitral Valve Thickened mitral valve. Moderate mitral annular calcification. Aortic Valve Thickened aortic valve. Normal velocity across aortic valve Tricuspid Valve Moderately severe eccentric tricuspid regurgitation. Estimated pulmonary artery peak systolic pressure of 71 mmHg Pulmonic Valve No gross abnormalities noted Pericardium No pericardial effusion. Patient have moderate left pleural effusion Aorta Normal aortic annulus size. CONCLUSIONS This is a follow-up study to concentrate on the valve Doppler Normal LV size with diminished ejection fraction of around 35%. Dyskinetic interventricular septum. Moderately severe eccentric tricuspid regurgitation. Moderately severe pulmonary hypertension-estimated PA pressure of 71 mmHg. Thickened mitral valve. Moderate mitral annular calcification. Moderate left-sided pleural effusion. Moderate biatrial enlargement There is no pericardial effusion. There are no intracardiac masses. Dr Jimmy Washington MD [facility] (Electronically Signed) Final Date: 14 June 2021 15:33 S
--- NOTE | 2021-06-14 12:15 | P.PN_ITS ---
Subjective Subjective: Overnight patient has remained on BiPAP. With significant desaturation down to low 80s on removal of BiPAP. Today morning on examination patient is on 50% BiPAP. Awake and alert. Able to have complete conversation. Denies any nausea, vomiting, headache. Otherwise has remained hemodynamically stable and afebrile. Heart rate better controlled. Currently on amiodarone drip of 0.5. Vitals/I&O/Wt Last Vital Signs Temp 98 F 06/14/21 07:56 Pulse 89 06/14/21 11:35 Resp 20 H 06/14/21 11:14 BP 128/89 06/14/21 07:56 Pulse Ox 95 06/14/21 11:14 06/13/21 06/14/21 06/14/21 22:59 06:59 14:59 Intake Total 676.741 / 2033.491 601.259 / 601.259 Output Total 300 / 300 150 / 450 Balance 376.741 / 1733.491 -150 / 1583.491 601.259 / 601.259 Weight last 48 hrs Weight 83.461 kg Weight 83.053 kg Physical Exam Narrative: Constitutional: Awake and alert after awakening, oriented to person place and situation, no acute distress, sick appearing, pallor present HEENT: Normocephalic, atraumatic, extraocular movements are intact, nasopharynx with some clear rhinorrhea, oropharynx with dry membranes Neck: Supple Respiratory: Bilateral normal Giurgius of breath sounds, fine crackles present in lower zones bilaterally Cardiovascular: Irregularly irregular rhythm, tachycardia, soft ejection systolic murmur at aortic area Abdomen: Soft, nontender, positive bowel sounds : Normal external genitalia Extremities: Right lower extremity externally rotated and shortened, no bruising noted on visible portions of lateral leg on the right, no pitting edema, 1+ dorsalis pedis bilaterally Skin: Dry, no acute sores or bruising noted, no rashes Neuro: Speech clear, face symmetric, handgrip is equal, sensation is intact and equal to light touch both feet, wiggles toes bilaterally Psych: Normal affect Urinary Catheter Management: Noriega: Cath Placed During This Visit: yes Reason for Continuing Indwelling Catheter: Accurate Measurement of Urinary Output in Critically Ill Patients Urinary Catheter Date of Insertion: 06/10/21 Urinary Catheter Time of Insertion: 18:14 Data : 06/14/21 02:48 06/14/21 02:48 Micro: Microbiology 06/10/21 18:15 Urine Culture - Final Urine,Clean Catch Aerococcus urinae A&P Assessment and plan (1) Acute respiratory failure with hypoxia: Most likely secondary to a combination of decompensated congestive heart failure in setting of sleep apnea and COPD. Cannot rule out pulmonary embolism. D-dimer elevated. Cannot do CTA as creatinine elevated to 1.6 today. Lower limb Dopplers consistent with DVT. Check ABG. Switch from BiPAP to heated high flow. Ox supplementation keeping saturation over 88%. For COPD: Budesonide twice daily, DuoNebs every 6 hour. Prednisone 40 mg daily for 5 days. For congestive heart failure: Echocardiogram done shows an EF of 30 to 35%, severe diffuse hypokinesis of septum, anteroseptum and LV apex, diffuse hypokinesia of right ventricular and moderate depression of ejection fraction, moderately increased LA and RA size. Received 40 mg of IV Lasix yesterday. Creatinine elevated. Clinically looks dehydrated. Switch to oral Lasix. 40 mg once daily. Strict input output charting, daily weights. Status: Acute (2) DVT (deep venous thrombosis): Stop Eliquis. Switch to full dose Lovenox and 1 mg/kg body weight daily as per creatinine clearance. Will monitor hemoglobin. Status: Acute (3) Atrial fibrillation: Rate better controlled. Given amiodarone drip and digoxin 500 mcg IV yesterday. Continue with amiodarone drip and discontinue as per protocol. Increase amiodarone to 200 mg twice daily. Continue with metoprolol 25 mg twice daily for now. Digoxin levels appreciated. Rapid ventricular response currently. Appreciate cardiology recommendations. Status: Chronic (4) CHF (congestive heart failure): Treatment as above. Appreciate cardiology recommendations. Status: Chronic (5) Status post open reduction and internal fixation (ORIF) of fracture: Status: Acute (6) Closed intertrochanteric fracture of right hip: Comminuted. Postoperative day 2. Restarted Eliquis as per orthopedic service. Hold off on physical therapy today given tachycardia and low blood pressure. Pain medication with [place] every 8 hours as needed. Monitor hemoglobin. Status: Acute Qualifiers: Encounter type: initial encounter Fracture alignment: displaced Qualified Code(s): S72.141A - Displaced intertrochanteric fracture of right femur, initial encounter for closed fracture (7) Fall as cause of accidental injury in home as place of occurrence: Accidental, occurring while reaching too far while using her walker, landed on right hip. Status: Acute Qualifiers: Encounter type: initial encounter Qualified Code(s): W19.XXXA - Unspecified fall, initial encounter; Y92.009 - Unspecified place in unspecified non-institutional (private) residence as the place of occurrence of the external cause (8) Chronic anticoagulation: Hold off on Eliquis for now. Switched over to full dose Lovenox 1 mg/kg body weight daily as per creatinine clearance. Status: Chronic (9) Coronary artery disease: Bypass surgery in 2010, 3 vessels with associated mitral valve repair Follows with Dr. Felix lombardo. Denies any active chest pain. A1c 5.4. Lipid panel appreciated. Will need to be on statin going forward. Atorvastatin 40 mg daily. Status: Chronic (10) Hypertension: Chronically on amlodipine and lisinopril in addition to beta-blockade. Goal blood pressure less than 140/90 mmHg. Blood pressure slightly soft today. For now hold off on amlodipine and lisinopril. Continue with metoprolol 25 mg twice daily. Status: Chronic (11) COPD (chronic obstructive pulmonary disease): Related to former tobacco abuse, chronically on Stiolto Respimat, not on continuos oxygen for her COPD but does wear nocturnal oxygen for sleep apnea. No acute exacerbation. Keep saturation over 88%. Status: Chronic (12) Sleep apnea: Diagnosed via sleep study, intolerant of CPAP/BiPAP, on nocturnal oxygen though admits that she does not necessarily use it every single night Status: Chronic Qualifiers: Sleep apnea type: unspecified type Qualified Code(s): G47.30 - Sleep apnea, unspecified (13) Hypothyroidism: Continue on home dose of levothyroxine. Check TSH. Status: Chronic (14) Anxiety and depression: Chronically on sertraline and also takes BuSpar plus as needed alprazolam, admits to having some challenges with current being on hospice and functional decline since her hip fracture a few years ago but reports that medications help Status: Chronic (15) Osteoarthritis: Status: Chronic Qualifiers: Osteoarthritis location: multiple joints Osteoarthritis type: primary Qualified Code(s): M15.9 - Polyosteoarthritis, unspecified (16) Atherosclerosis of coronary artery of [place] heart without angina pectoris: Status: Acute Plan Hypotension: Resolved. Blood pressure is better. Continue to monitor. Appreciate cardiology recommendations. CODE STATUS: Limited resuscitation - patient would NOT want any CPR, defibrillation 1 or 2 times would be acceptable as she has required it in the past and temporary intubation would be acceptable if needed. ICU level care okay short-term. She would not want long-term intubation and in particular indicated that she would not want tracheostomy, feeding tube. Cardiac diet. Eliquis suffice for DVT prophylaxis. Protonix for PUD prophylaxis. Patient's care discussed in detail with daughter over the phone. All the questions were answered. Discharge planning: Plan to discharge to SNF once stable. Attestations Medical Necessity Statement*: Requires further hospitalization for management of A. fib with RVR, or hypoxic respiratory failure most likely secondary to pulmonary embolism, congestive heart failure and COPD exacerbation, pos toperative care for ORIF Critical Care Time: The high probability of a clinically significant, sudden or life threatening deterioration of the patient's [cardiac, pulmonary, orthopedic system(s) required my full and direct attention, intervention and personal management. The critical care time is as shown. 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[facility] Fwd Diagnoses Closed intertrochanteric fracture of right hip S72.141A Encounter type: initial encounter Fracture alignment: displaced Fall as cause of accidental injury in home as place of occurrence W19.XXXA; Y92.009 Encounter type: initial encounter Atrial fibrillation I48.91 Chronic anticoagulation Z79.01 Coronary artery disease I25.10 CHF (congestive heart failure) I50.9 Hypertension I10 COPD (chronic obstructive pulmonary disease) J44.9 Sleep apnea G47.30 Sleep apnea type: unspecified type Hypothyroidism E03.9 Anxiety and depression F41.9; F32.A Osteoarthritis M15.9 Osteoarthritis location: multiple joints Osteoarthritis type: primary Status post open reduction and internal fixation (ORIF) of fracture Z98.890; Z87.81 Atherosclerosis of coronary artery of [place] heart without angina pectoris I25.10 DVT (deep venous thrombosis) I82.409 Acute respiratory failure with hypoxia J96.01
[2021-06-14] MEDS: predniSONE 20 mg Tablet 40 MG PO (13:15)
--- NOTE | 2021-06-14 13:56 | P.PN_ITS ---
Subjective Subjective: Patient apparently developed respiratory distress last night. She was placed on a BiPAP. She was given diuretics. She seems to be improving. Currently she is on high flow oxygen. Oxygenation seems to be stable. Denies any chest pain. Remains afebrile. Medications: Medication Review Details: Current Medications Acetaminophen (Acetaminophen 325 Mg Tablet) 650 mg PO Q6H PRN PRN Reason: Mild/Mod Pain Or Temp >/= 101 Hydrocodone Bitart/Acetaminophen (Hydrocodone-Acetaminophen 5-325 Mg Tablet) 1 tab PO Q4H PRN PRN Reason: MODERATE TO SEVERE PAIN Last Admin: 06/11/21 20:47 Dose: 1 tab Documented by: Acetylcysteine (Acetylcysteine 200 Mg/Ml Sdv 4 Ml) 100 mg INHALATION Q4H.RESPIRATORY MINA Last Admin: 06/14/21 11:13 Dose: 100 mg Documented by: Albuterol Sulfate (Albuterol 2.5 Mg/0.5 Ml Neb) 2.5 mg INHALATION Q4H.RESPIRATORY PRN PRN Reason: SHORTNESS OF BREATH Last Admin: 06/14/21 11:13 Dose: 2.5 mg Documented by: Albuterol/Ipratropium (Ipratropium-Albuterol 3 Ml Neb) 3 ml INHALATION Q6H .RESPIRATORY MINA Alprazolam (Alprazolam 0.5 Mg Tablet) 0.5 mg PO TID PRN PRN Reason: anxiety Last Admin: 06/13/21 23:14 Dose: 0.5 mg Documented by: Amiodarone HCl (Amiodarone 200 Mg Tablet) 200 mg PO BID MINA Bisacodyl (Bisacodyl 5 Mg Tablet) 10 mg PO DAILY PRN; Protocol PRN Reason: Constipation (see protocol) Budesonide (Budesonide 0.5 Mg/2 Ml Neb) 0.5 mg INHALATION BID.RESPIRATORY MINA Buspirone HCl (Buspirone 10 Mg Tablet) 5 mg PO BID MINA Last Admin: 06/14/21 09:02 Dose: 5 mg Documented by: Calcium Carbonate (Calcium Carbonate 500 Mg Chew Tablet) 1,000 mg PO Q4H PRN PRN Reason: DYSPEPSI Calcium Carbonate (Calcium Carb-Vit D 600mg/400unit 1 Tablet) 1 each PO BID [facility] Last Admin: 06/14/21 09:08 Dose: 1 each Documented by: Docusate Sodium (Docusate Sodium 100 Mg Capsule) 100 mg PO BID [facility] Last Admin: 06/14/21 09:58 Dose: Not Given Documented by: Enoxaparin Sodium (Enoxaparin 80 Mg/0.8 Ml Syringe) 80 mg SUBCUT Q24H [facility] Last Admin: 06/14/21 10:31 Dose: 80 mg Documented by: Gabapentin (Gabapentin 100 Mg Capsule) 100 mg PO TID [facility] Last Admin: 06/14/21 09:04 Dose: 100 mg Documented by: Amiodarone HCl 900 mg/Dextrose/ IV Miscellaneous Supplies 518 mls @ 0 mls/hr IV .Q0M [facility]; Protocol Last Titration: 06/14/21 11:16 Dose: Infused Documented by: Albumin Human (Albumin) 25 gm in 100 mls @ 60 mls/hr IV Q8H [facility] Stop: 06/14/21 16:00 Last Admin: 06/14/21 13:16 Dose: 60 mls/hr Documented by: Piperacillin Sod/Tazobactam (Sod 3.375 gm/ Sodium Chloride) 50 mls @ 12.5 mls/hr IV Q8H [facility]; Protocol Last Admin: 06/14/21 09:06 Dose: 12.5 mls/hr Documented by: Levothyroxine Sodium (Levothyroxine 50 Mcg Tablet) 50 mcg PO DAILY [facility] Last Admin: 06/14/21 09:00 Dose: 50 mcg Documented by: Metoclopramide HCl (Metoclopramide 5 Mg/Ml Sdv 2 Ml) 10 mg IVP ONCE PRN PRN Reason: N/V unrelieved by ryan Metoprolol Tartrate (Metoprolol Tartrate 25 Mg Tablet) 25 mg PO BID@0900,2100 [facility] Last Admin: 06/14/21 09:02 Dose: 25 mg Documented by: Naloxone HCl (Naloxone 0.4 Mg/Ml Sdv) 0.1 mg IVP Q2M PRN PRN Reason: Respiratory rate less than 8. Atxpo-9-Xthy Ethyl Esters ([place]-3 Fatty Acids 1,000 Mg Capsule) 1,000 mg PO DAILY [facility] Last Admin: 06/14/21 08:57 Dose: 1,000 mg Documented by: Ondansetron HCl (Ondansetron 2 Mg/Ml Sdv 2 Ml) 4 mg IVP Q4H PRN PRN Reason: vomiting, or N/V if npo Pantoprazole Sodium (Pantoprazole Dr 40 Mg Tablet) 40 mg PO DAILY [facility] Last Admin: 06/14/21 08:57 Dose: 40 mg Documented by: Prednisone (Prednisone 20 Mg Tablet) 40 mg PO DAILY [facility] Stop: 06/19/21 12:29 Last Admin: 06/14/21 13:15 Dose: 40 mg Documented by: Ropinirole HCl (Ropinirole 0.25 Mg Tablet) 0.25 mg PO BEDTIME [facility] Last Admin: 06/13/21 20:52 Dose: 0.25 mg Documented by: Senna (Sennosides 8.6 Mg Tablet) 17.2 mg PO BEDTIME [facility] Last Admin: 06/13/21 20:51 Dose: Not Given Documented by: Sertraline HCl (Sertraline 100 Mg Tablet) 100 mg PO BID [facility] Last Admin: 06/14/21 08:59 Dose: 100 mg Documented by: Trazodone HCl (Trazodone 50 Mg Tablet) 50 mg PO BEDTIME PRN PRN Reason: INSOMNIA Vitals/I&O/Wt Last Vital Signs Temp 99.3 F 06/14/21 12:00 Pulse 105 H 06/14/21 12:00 Resp 20 H 06/14/21 12:00 BP 112/61 06/14/21 12:00 Pulse Ox 93 06/14/21 12:00 06/13/21 06/14/21 06/14/21 22:59 06:59 14:59 Intake Total 676.741 / 2033.491 901.259 / 901.259 Output Total 300 / 300 150 / 450 200 / 200 Balance 376.741 / 1733.491 -150 / 1583.491 701.259 / 701.259 Weight last 48 hrs Weight 184 lb Weight 183 lb 1.6 oz Physical Exam Narrative: GENERAL: The patient is alert and oriented to person and place.? Seems to have intermittent confusion. Not in any acute distress. HEENT: Minimal pallor.? No, icterus or lymphadenopathy. The pupils are symmetrical.? Oral cavity: There are no mucous membrane lesions. NECK: Trachea appears to be central. No masses noted. No JVD or thyromegaly appreciated. No carotid bruit. RESPIRATORY: Chest is symmetrical. No intercostals muscle retraction or any accessory muscle activation. There is no chest wall tenderness. Breath sounds are heard bilaterally.? Bilateral scattered expiratory wheeze. BREASTS: Deferred. HEART: The PMI could not be palpated.. No palpable precordial events. The first heart sound is variable. Second heart sound is normal. Pansystolic murmur in the left sternal border. No diastolic murmurs. ABDOMEN: No vessel pulsations or distention. No tenderness. No organomegaly appreciated. No abdominal bruit. Bowel sounds are normally heard. : Deferred. RECTAL: Deferred. LYMPHATIC: No lymphadenopathy noted in the neck. EXTREMITIES: No edema or cyanosis. No clubbing. The pulses are symmetrical bilaterally. The radial, femoral, dorsalis pedis and the posterior tibial pulses are palpated and found to be in good volume and amplitude. MUSCULOSKELETAL: The right hip mobility is restricted SKIN: There are no significant rashes NEUROPSYCHIATRIC: The patient is alert and oriented x2.? No focal motor deficits.? No tremors or rigidity noted. Urinary Catheter Management: Noriega: Cath Placed During This Visit: yes Reason for Continuing Indwelling Catheter: Accurate Measurement of Urinary Output in Critically Ill Patients Urinary Catheter Date of Insertion: 06/10/21 Urinary Catheter Time of Insertion: 18:14 Data : 06/14/21 02:48 06/14/21 02:48 Micro: Microbiology 06/10/21 18:15 Urine Culture - Final Urine,Clean Catch Aerococcus urinae EKG 1: My Interpretation: Atrial fibrillation rapid ventricular rate. EKG computer-generated impression: Hip/Pelvis X-Ray 06/10/21 14:34 IMPRESSION: 1. Comminuted intertrochanteric fracture of the right hip. Degenerative changes. Hip X-Ray 06/12/21 15:49 IMPRESSION: Intraoperative imaging during RIGHT hip ORIF. Chest X-Ray 06/13/21 20:13 IMPRESSION: 1. Slight worsening of interstitial opacities throughout the right lung as described. 2. Probable slight interval improvement of retrocardiac opacity. Other findings as above. Continued follow-up should be obtained. A&P Assessment and plan (1) Chronic atrial fibrillation with rapid ventricular response: The ventricular rate seems to be getting under control. At this point, I may continue on the current medication. Once the IV amiodarone is finished, may start on p.o. amiodarone 400 mg twice daily. Metoprolol dose may be continued at 25 twice daily Status: Acute (2) Atherosclerosis of coronary artery of [place] heart without angina pectoris: Patient had a three-vessel coronary bypass surgery in 2009. The her previous LV ejection fraction is not known. May need to consider a myocardial perfusion imaging, to evaluate for any underlying coronary ischemia causing the LV dysfunction. Since he is stable at this point, we may consider at this point her medical condition is stable. Status: Acute (3) CHF (congestive heart failure): She may be carefully treated with IV diuretics. I may start her on IV Lasix 40 mg now along with potassium 20 mEq p.o. we will be closely monitoring her vitals. Status: Chronic (4) COPD (chronic obstructive pulmonary disease): Management as per the primary. Status: Chronic (5) Heart murmur: She has a very prominent systolic murmur. I may repeat the Doppler exam of the valves Status: Acute Plan Other problems are S/p open reduction internal fixation of the right hip Diarrhea Intermittent confusion Mild anemia Status post hypertension, currently normotensive Patient may be closely monitored on the telemetry. 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
[2021-06-14] MEDS: FUROsemide 10 mg/mL SDV 4mL 40 MG IVP (15:46)
--- NOTE | 2021-06-14 15:46 | PC.OT ---
OT eval order received. Per RN, pt placed on biPAP. RN held OT eval this date. Will attempt tomorrow.
[2021-06-14] MEDS: piperacillin-tazobactam 3.375 GM in sodium chloride 0.9% (plus) 100 ML IV (18:59)
[2021-06-14] MEDS: budesonide 0.5 mg/2 mL Neb INHALATION (19:53)
[2021-06-14] MEDS: ropinirole 0.25 mg Tablet PO (20:23)
[2021-06-14] MEDS: HYDROcodone-acetaminophen 5-325 mg Tablet 1 TAB PO (22:23)
[2021-06-15] VITALS (61 sets, daily range): BP systolic 90–148; BP diastolic 58–98; PULSE 79–111; RESP 15–33; TEMP 36.2–37.1; O2SAT 79–97; BMI 29.7
[2021-06-15] MEDS: piperacillin-tazobactam 3.375 GM in sodium chloride 0.9% (plus) 100 ML IV ×3 (01:30→17:46)
[2021-06-15] MEDS: ipratropium-albuterol 3 mL Neb INHALATION ×4 (03:20→20:03)
[2021-06-15] MEDS: acetylcysteine 200 mg/mL SDV 4 mL 100 MG INHALATION ×5 (03:22→20:03)
[2021-06-15 04:59] LABS: Basophils % 0.1 %; Hematocrit 30.2 % (37.0-47.0); Hemoglobin 9.4 g/dL (11.5-15.3); Lymphocytes # 0.4 10^3/uL (0.8-4.8); Lymphocytes % 3.9 %; Mean Corpuscular HGB Conc 31.1 g/dL (30.0-36.0); Mean Corpuscular Hemoglobin 27.5 pg (28.0-34.0); Mean Corpuscular Volume 88.3 fl (81-99); Mean Platelet Volume 14.2 fL (7.4-10.4); Monocytes # 0.5 10^3/uL (0.2-0.9); Monocytes % 4.8 %; Neutrophils # 9.82 10^3/uL (1.8-7.7); Neutrophils % 90.6 %; Nucleated Red Blood Cells % 0 %; Platelet Count 110 10^3/cmm (130-400); Red Blood Count 3.42 10^6/uL (4.1-5.3); Red Cell Distribution Width 15.9 % (12.1-15.1); White Blood Count 10.8 10^3/uL (4.0-10.0)
[2021-06-15 05:16] LABS: Alanine Aminotransferase 6 U/L (0-33); Albumin Level 3.6 g/dL (3.5-5.2); Alkaline Phosphatase 62 IU/L (35-105); Anion Gap 16.2 (5-19); Aspartate Amino Transferase 23 U/L (0-32); Blood Urea Nitrogen 48 mg/dL (8-23); Calcium 8.1 mg/dL (8.5-10.5); Carbon Dioxide 24 mmol/L (22-29); Chloride 99 mmol/L (98-107); Glucose 150 mg/dL (65-115); Osmolality Calculated 297 mOsm/kg (285-295); Potassium 3.2 mmol/L (3.5-5.1); Sodium 136 mmol/L (136-145); Total Bilirubin 0.6 mg/dL (0.15-1.2); Total Protein 5.6 g/dL (6.6-8.7)
[2021-06-15] MEDS: HYDROcodone-acetaminophen 5-325 mg Tablet 1 TAB PO (06:06)
[2021-06-15] MEDS: budesonide 0.5 mg/2 mL Neb INHALATION ×2 (07:54→20:03)
--- NOTE | 2021-06-15 09:09 | PC.NURSE ---
[facility]. SVI change is +21.6%. NUrse alerted Dr leong
--- NOTE | 2021-06-15 09:16 | P.PN_ITS ---
Subjective Subjective: Patient is feeling better compared to yesterday. Still is short of breath. No chest pain Vitals/I&O/Wt Last Vital Signs Temp 98.2 F 06/15/21 04:00 Pulse 89 06/15/21 08:01 Resp 24 H 06/15/21 07:00 BP 111/71 06/15/21 06:30 Pulse Ox 95 06/15/21 07:59 06/14/21 06/15/21 06/15/21 22:59 06:59 14:59 Intake Total 475 / 1376.259 200 / 1576.259 Balance 475 / 1176.259 200 / 1376.259 Weight last 48 hrs Weight 184 lb Weight 184 lb Physical Exam Narrative: GENERAL: The patient is alert and oriented HEENT: Minimal pallor.? RESPIRATORY: Shallow breathing , no significant crackles. Has mild wheezing Breath sounds are heard bilaterally.? HEART: Regular, S1, S2, has holosystolic murmur, grade 4/6 EXTREMITIES: No edema MUSCULOSKELETAL: The right hip mobility is restricted SKIN: There are no significant rashes Urinary Catheter Management: Noriega: Cath Placed During This Visit: yes Reason for Continuing Indwelling Catheter: Accurate Measurement of Urinary Output in Critically Ill Patients Urinary Catheter Date of Insertion: 06/10/21 Urinary Catheter Time of Insertion: 18:14 Data : 06/15/21 03:45 06/15/21 03:45 Micro: Microbiology 06/14/21 10:25 C.difficile Toxin B Gene (PCR) - Final Stool A&P Assessment and plan (1) Chronic atrial fibrillation with rapid ventricular response: Heart rate is better controlled. Continue PO amiodarone and metoprolol Status: Acute (2) Atherosclerosis of coronary artery of [place] heart without angina pectoris: Patient had a three-vessel coronary bypass surgery in 2009. LV function is low with EF of 35%. May need to consider a myocardial perfusion imaging, to evaluate for any underlying coronary ischemia causing the LV dysfunction. Status: Acute (3) CHF (congestive heart failure): Creatinine worsening significantly, will hold off on diuretics for now as appears euvolemic today on exam. Respiratory distress is multifactorial with possiblity of PE as has DVT. However CTA can not be done because of renal dysfunction Status: Chronic (4) COPD (chronic obstructive pulmonary disease): Management as per the primary. Status: Chronic (5) Heart murmur: ECHO shows moderate to severe tricuspid regurgitation Status: Acute Plan Other problems are S/p open reduction internal fixation of the right hip Diarrhea Intermittent confusion Mild anemia Status post hypertension, currently normotensive Patient may be closely monitored on the telemetry. Based on the clinical progress, further management decisions will be made Attestations Medical Necessity Statement*: Care expected to cross 2 midnights. Coding Level of Care Code Acute Respiratory Therapy Director for g Fwd Diagnoses Chronic atrial fibrillation with rapid ventricular response I48.20 Atherosclerosis of coronary artery of [place] heart without angina pectoris I25.10 CHF (congestive heart failure) I50.9 COPD (chronic obstructive pulmonary disease) J44.9 Heart murmur R01.1
[2021-06-15] MEDS: BuSPIRONE 10 mg Tablet 5 MG PO ×2 (09:47→17:46)
[2021-06-15] MEDS: calcium carb-vit d 600mg/400unit 1 Tablet 1 EACH PO ×2 (10:01→17:44)
[2021-06-15] MEDS: levothyroxine 50 mcg Tablet PO (10:01)
[2021-06-15] MEDS: omega-3 fatty acids 1,000 mg Capsule 1000 MG PO (10:02)
[2021-06-15] MEDS: predniSONE 20 mg Tablet 40 MG PO (10:02)
[2021-06-15] MEDS: sertraline 100 mg Tablet PO ×2 (10:02→17:46)
[2021-06-15] MEDS: gabapentin 100 mg Capsule PO ×3 (10:03→20:34)
[2021-06-15] MEDS: amiodarone 200 mg Tablet PO ×2 (10:03→17:46)
[2021-06-15] MEDS: enoxaparin 80 mg/0.8 mL Syringe SUBCUT (10:04)
[2021-06-15] MEDS: pantoprazole DR 40 mg Tablet PO (10:06)
[2021-06-15] MEDS: potassium chloride ER 20 mEq Tablet 40 MEQ PO (10:19)
--- NOTE | 2021-06-15 10:20 | DCPLANNER ---
IMM completed on 06/15/21 @ 0047. Pt was given a copy of rights and stated she understood her rights.
[2021-06-15] MEDS: sodium chloride 0.9% 1,000 ML 50 ML IV (10:47)
[2021-06-15] MEDS: metoprolol tartrate 25 mg Tablet PO ×2 (10:56→20:34)
[2021-06-15 10:59] LABS: ABG PCO2 43.6 mmHg (35-45); ABG PH Result 7.37 (7.35-7.45); Alveolar-Arterial Oxygen Gradi 76.5 mmHg (5-10); Arterial Blood Gas Hematocrit 29.9 % (37-47); Base Excess ABG -0.3 mmol/L (-2.0-2.0); Blood Gas Allen Test Pos; Blood Gas Operator Identificat CAK; Blood Gas Sample Site Radial, left; Blood Gas Sample Type Arterial; Carboxyhemoglobin 0.2 %THgb (0.4-20.1); HCO3 ABG 25.1 mmol/L (22-26); HGB O2 Sat 88.8 % (95-100); Ionized Calcium Level - ABG 1.2 mmol/L (1.1-1.4); Methemoglobin 1.2 % (0.4-1.5); Oxygen Device HAG; Oxygen Saturation ABG 90.1; PO2 ABG 62.3 mmHg (80.0-100.0); Potassium Level - ABG 3.3 mmol/L (3.5-5.0); Total Hemoglobin 9.8 g/dL (12-16)
--- NOTE | 2021-06-15 12:16 | CTR_ITS ---
PROCEDURE INFORMATION: Exam: CT Chest Without Contrast; Diagnostic Exam date and time: 06/15/2021 4:19 PM Age: 86 years old Clinical indication: Shortness of breath; Prior surgery; Surgery date: 6+ months; Surgery type: Mitral valve/cabg beltran lobectomy shoulder; Patient HX: Worsening hypoxia post op hip surgery TECHNIQUE: Imaging protocol: Diagnostic computed tomography of the chest without contrast. Radiation optimization: All CT scans at this facility use at least one of these dose optimization techniques: automated exposure control; mA and/or kV adjustment per patient size (includes targeted exams where dose is matched to clinical indication); or iterative reconstruction. COMPARISON: CR (CHEST, ) 06/13/2021 8:33 PM RADIATION DOSE METRICS: Total DLP (mGy-cm): 765.81 FINDINGS: Tubes, catheters and devices: Mitral valve prosthesis. Thyroid: Subcentimeter nodules in the thyroid gland. No follow-up imaging is recommended. Lungs: Diffuse ground-glass opacities in all lobes of the right lung. Patchy ground-glass opacity in the posteroinferior left lung. Left partial pneumonectomy. Interlobular septal thickening in the right upper lobe. 3 mm left upper lung nodule. Pleural spaces: Small simple appearing right pleural effusion. Heart: Coronary artery calcifications. Cardiomegaly. Lymph nodes: Prominent mediastinal and hilar lymph nodes are most likely reactive. Aorta: Unremarkable. No aortic aneurysm. Diaphragm: Large hiatal hernia. Bones/joints: Median sternotomy changes. Mild degenerative changes of the thoracic spine. No fracture. Mild scoliosis. Soft tissues: Unremarkable. CT/CT chest [facility] [id number] IMPRESSION: 1. Ground-glass opacities throughout the right lung and in the inferior left lung. This could represent pneumonia, pulmonary edema, or hypersensitivity pneumonitis. 2. Small right pleural effusion. 3. Left partial pneumonectomy changes. 4. 3 mm left pulmonary nodule. For patients at low risk (minimal or absent history of smoking and of other known risk factors), no routine follow-up is indicated. For patients at high risk (history of smoking or of other known risk factors), consider optional CT Chest at 12 months. (Reference: Kevan) References: Kevan Umaña et al. Guidelines for Management of Incidental Pulmonary Nodules Detected on CT Images: From the Fleischner Society 2017. Radiology. 2017;284(1):228-243. COMMENTS: Consistent with the [employer]'s Incidental Findings Committee white paper (J Am Maria Luisa Radiol 2015): In patients aged 35 years and older with an incidental thyroid nodule equal to or greater than 1.[address], MRI or extrathyroidal US, further evaluation with dedicated thyroid US is recommended for patients with normal life expectancy and without comorbidities. For smaller nodules without suspicious features, no further evaluation or follow up is recommended.
--- NOTE | 2021-06-15 12:18 | P.PN_ITS ---
Subjective Subjective: No acute events overnight. Patient denies any nausea, vomiting, headache. Awake and alert sitting in bed. On heated high flow 100%. As per the patient she has not had any further diarrheal bowel movement since today morning. Reported that she is lactose intolerant after which the diet was bernadine nged accordingly. Vitals/I&O/Wt Last Vital Signs Temp 98.1 F 06/15/21 10:00 Pulse 80 06/15/21 12:06 Resp 18 06/15/21 12:06 BP 99/67 06/15/21 10:00 Pulse Ox 89 L 06/15/21 12:06 06/14/21 06/15/21 06/15/21 22:59 06:59 14:59 Intake Total 475 / 1376.259 200 / 1576.259 680 / 680 Balance 475 / 1176.259 200 / 1376.259 680 / 680 Weight last 48 hrs Weight 83.461 kg Weight 83.461 kg Physical Exam Narrative: Constitutional: Awake and alert after awakening, oriented to person place and situation, no acute distress, sick appearing, pallor present HEENT: Normocephalic, atraumatic, extraocular movements are intact, nasopharynx with some clear rhinorrhea, oropharynx with dry membranes Neck: Supple Respiratory: Bilateral normal Giurgius of breath sounds, fine crackles present in lower zones bilaterally Cardiovascular: Irregularly irregular rhythm, tachycardia, soft ejection systolic murmur at aortic area Abdomen: Soft, nontender, positive bowel sounds : Normal external genitalia Extremities: Right lower extremity externally rotated and shortened, no bruising noted on visible portions of lateral leg on the right, no pitting edema, 1+ dorsalis pedis bilaterally Skin: Dry, no acute sores or bruising noted, no rashes Neuro: Speech clear, face symmetric, handgrip is equal, sensation is intact and equal to light touch both feet, wiggles toes bilaterally Psych: Normal affect Urinary Catheter Management: Noriega: Cath Placed During This Visit: yes Reason for Continuing Indwelling Catheter: Accurate Measurement of Urinary Output in Critically Ill Patients Urinary Catheter Date of Insertion: 06/10/21 Urinary Catheter Time of Insertion: 18:14 Data : 06/15/21 03:45 06/15/21 03:45 Micro: Microbiology 06/14/21 10:25 C.difficile Toxin B Gene (PCR) - Final Stool A&P Assessment and plan (1) Acute respiratory failure with hypoxia: Most likely secondary to a combination of decompensated congestive heart failure in setting of sleep apnea and COPD. Cannot rule out pulmonary embolism. D-dimer elevated. Cannot do CTA as creatinine elevated to 1.6 today. Lower limb Dopplers consistent with DVT. Switch from BiPAP to heated high flow. Ox supplementation keeping saturation over 88%. For COPD: Budesonide twice daily, DuoNebs every 6 hour. Switch to Solu-Medrol 40 mg IV every 12 hourly. For congestive heart failure: Echocardiogram done shows an EF of 30 to 35%, severe diffuse hypokinesis of septum, anteroseptum and LV apex, diffuse hypokin esia of right ventricular and moderate depression of ejection fraction, moderately increased LA and RA size. Patient intravascularly depleted. Creatinine continues to worsen. Hold off on further dialysis. Start on gentle IV hydration with normal saline at 50 cc/h. Strict input output charting, daily weights. Check CT chest without contrast to evaluate for possible consolidation Check COVID-19 swab, flu swab. Sputum culture. Anticoagulation as below. Even though suspicion is low but because patient oxygenation is getting worse and is critically sick for now we will start patient on vancomycin as he is MRSA positive. Continue with Zosyn. Status: Acute (2) DVT (deep venous thrombosis): Given worsening oxygenation, slight drop in hemoglobin and persistent mild thrombocytopenia we will switch from full dose Lovenox to heparin drip. We will plan to start heparin drip by evening which will be 12 hours after her last dose of Lovenox. Status: Acute (3) Atrial fibrillation: Rate better controlled. Given amiodarone drip and digoxin 500 mcg IV yesterday. Continue with amiodarone 200 mg twice daily. Continue with metoprolol 25 mg twice daily for now. Digoxin levels appreciated. Rapid ventricular response currently. Appreciate cardiology recommendations. Status: Chronic (4) CHF (congestive heart failure): Treatment as above. Appreciate cardiology recommendations. Status: Chronic (5) Status post open reduction and internal fixation (ORIF) of fracture: Status: Acute (6) Closed intertrochanteric fracture of right hip: Comminuted. Postoperative day 3. Restarted Eliquis as per orthopedic service. Hold off on physical therapy today given tachycardia and low blood pressure. Pain medication with [place] every 8 hours as needed. Monitor hemoglobin. Status: Acute Qualifiers: Encounter type: initial encounter Fracture alignment: displaced Qualified Code(s): S72.141A - Displaced intertrochanteric fracture of right femur, initial encounter for closed fracture (7) Fall as cause of accidental injury in home as place of occurrence: Accidental, occurring while reaching too far while using her walker, landed on right hip. Status: Acute Qualifiers: Encounter type: initial encounter Qualified Code(s): W19.XXXA - Unspecified fall, initial encounter; Y92.009 - Unspecified place in unspecified non-institutional (private) residence as the place of occurrence of the external cause (8) Chronic anticoagulation: Hold off on Eliquis for now. Switched over to heparin drip. Status: Chronic (9) Coronary artery disease: Bypass surgery in 2009, 3 vessels with associated mitral valve repair Follows with Dr. Washington outpatient. Denies any active chest pain. A1c 5.4. Lipid panel appreciated. Will need to be on statin going forward. Atorvastatin 40 mg daily. Status: Chronic (10) Hypertension: Chronically on amlodipine and lisinopril in addition to beta-blockade. Goal blood pressure less than 140/90 mmHg. Blood pressure slightly soft today. For now hold off on amlodipine and lisinopril. Continue with metoprolol 25 mg twice daily. Status: Chronic (11) COPD (chronic obstructive pulmonary disease): Related to former tobacco abuse, chronically on Stiolto Respimat, not on continuos oxygen for her COPD but does wear nocturnal oxygen for sleep apnea. No acute exacerbation. Keep saturation over 88%. Status: Chronic (12) Sleep apnea: Diagnosed via sleep study, intolerant of CPAP/BiPAP, on nocturnal oxygen though admits that she does not necessarily use it every single night Status: Chronic Qualifiers: Sleep apnea type: unspecified type Qualified Code(s): G47.30 - Sleep apnea, unspecified (13) Hypothyroidism: Continue on home dose of levothyroxine. Check TSH. Status: Chronic (14) Anxiety and depression: Chronically on sertraline and also takes BuSpar plus as needed alprazolam, admits to having some challenges with current being on hospice and functional decline since her hip fracture a few years ago but reports that medications help Status: Chronic (15) Osteoarthritis: Status: Chronic Qualifiers: Osteoarthritis location: multiple joints Osteoarthritis type: primary Qualified Code(s): M15.9 - Polyosteoarthritis, unspecified (16) Atherosclerosis of coronary artery of [place] heart without angina pectoris: Status: Acute Plan Hypotension: Resolved. Blood pressure is better. Continue to monitor. Appreciate cardiology recommendations. CODE STATUS: With patient in detail. Patient would not want CPR or intubation. She is okay with ICU admission. CODE STATUS changed to DNR/DNI. Regular lactose-free diet. Heparin drip will suffice for DVT prophylaxis. Protonix for PUD prophylaxis. Patient's care discussed in detail with daughter over the phone. All the questions were answered. Discharge planning: Plan to discharge to SNF once stable. Attestations Medical Necessity Statement*: Requested hospitalization for management of acute hypoxic respiratory failure secondary to possible pulmonary embolism, congestive heart failure in post-ORIF patient. Critical Care Time: The high probability of a clinically significant, sudden or life threatening deterioration of the patient's [cardiac, pulmonary system(s) required my full and direct attention, intervention and personal management. The critical care time is as shown. This time is in addition to time spent performing any reported procedures but includes the following: [x] Data and vital sign review and interpretation [x] Patient assessment, examination and intervention [x] Documentation [x] Medication orders and management Coding Level of Care Code Acute Screen Making Technician for [facility] Fwd Diagnoses Acute respiratory failure with hypoxia J96.01 DVT (deep venous thrombosis) I82.409 Atrial fibrillation I48.91 CHF (congestive heart failure) I50.9 Status post open reduction and internal fixation (ORIF) of fracture Z98.890; Z87.81 Closed intertrochanteric fracture of right hip S72.141A Encounter type: initial encounter Fracture alignment: displaced Fall as cause of accidental injury in home as place of occurrence W19.XXXA; Y92.009 Encounter type: initial encounter Chronic anticoagulation Z79.01 Coronary artery disease I25.10 Hypertension I10 COPD (chronic obstructive pulmonary disease) J44.9 Sleep apnea G47.30 Sleep apnea type: unspecified type Hypothyroidism E03.9 Anxiety and depression F41.9; F32.A Osteoarthritis M15.9 Osteoarthritis location: multiple joints Osteoarthritis type: primary Atherosclerosis of coronary artery of [place] heart without angina pectoris I25. 10
[2021-06-15] MEDS: vancomycin 1,250 MG/250 ML PIGGYBACK 200 MG IV (13:59)
[2021-06-15 17:14] LABS: Adenovirus Not Detected (NOT DETECT); Chlamydia Pneumoniae Not Detected (NOT DETECT); Coronavirus 229E,HKU1,NL63,OC4 Not Detected (NOT DETECT); Human Metapneumovirus Not Detected (NOT DETECT); Human Rhinovirus/Enterovirus Not Detected (NOT DETECT); Influenza A Not Detected (NOT DETECT); Influenza A H1 Not Detected (NOT DETECT); Influenza A H1-2009 Not Detected (NOT DETECT); Influenza A H3 Not Detected (NOT DETECT); Influenza B Not Detected (NOT DETECT); Mycoplasma Pneumoniae Not Detected (NOT DETECT); Parainfluenza Virus Type 1 Not Detected (NOT DETECT); Parainfluenza Virus Type 2 Not Detected (NOT DETECT); Parainfluenza Virus Type 3 Not Detected (NOT DETECT); Parainfluenza Virus Type 4 Not Detected (NOT DETECT); Respiratory Syncytial Virus A Not Detected (NOT DETECT); Respiratory Syncytial Virus B Not Detected (NOT DETECT); SARS-COV-2 Not Detected (NOT DETECT)
[2021-06-15 17:19] LABS: Influenza A Not Detected (NOT DETECT); Influenza A H1 Not Detected (NOT DETECT); Influenza A H1-2009 Not Detected (NOT DETECT); Influenza A H3 Not Detected (NOT DETECT); Influenza B Not Detected (NOT DETECT); Results from Genmark
[2021-06-15] MEDS: docusate sodium 100 mg Capsule PO (17:43)
--- NOTE | 2021-06-15 19:13 | PC.NURSE ---
Shift Summary: Uneventful shift. Patient was in bed for most of the day, Did get up to the side of the bed with PT, but was very weak. Bipap is now at 90% and patient desaturates quickly when taken off. Urine output during day shift was 0.39mL/Kg/hr. no bowel movement.
[2021-06-15] MEDS: heparin drip 25,000 UNIT/500 ML PREMIX 23 UNIT IV (19:46)
[2021-06-15] MEDS: heparin 5,000 unit/mL INJ 1 mL IV (19:51)
--- NOTE | 2021-06-15 20:00 | PC.NURSE ---
Family at bedside Patient's daughters at bedside during nurse bedside shift report. Family stated had no questions.
[2021-06-15] MEDS: ropinirole 0.25 mg Tablet PO (20:34)
[2021-06-16] VITALS (59 sets, daily range): BP systolic 103–147; BP diastolic 56–100; PULSE 75–107; RESP 14–33; TEMP 36.4–37.1; O2SAT 70–98; BMI 30.3
[2021-06-16] MEDS: piperacillin-tazobactam 3.375 GM in sodium chloride 0.9% (plus) 100 ML IV ×3 (02:09→18:20)
[2021-06-16 02:34] LABS: Basophils % 0.1 %; Hematocrit 29.6 % (37.0-47.0); Hemoglobin 9.2 g/dL (11.5-15.3); Lymphocytes # 0.3 10^3/uL (0.8-4.8); Lymphocytes % 2.8 %; Mean Corpuscular HGB Conc 31.1 g/dL (30.0-36.0); Mean Corpuscular Hemoglobin 27.5 pg (28.0-34.0); Mean Corpuscular Volume 88.6 fl (81-99); Monocytes # 0.2 10^3/uL (0.2-0.9); Monocytes % 2.2 %; Neutrophils % 93.9 %; Nucleated Red Blood Cells % 0 %; Platelet Count 109 10^3/cmm (130-400); Red Blood Count 3.34 10^6/uL (4.1-5.3); Red Cell Distribution Width 16.1 % (12.1-15.1); White Blood Count 10.4 10^3/uL (4.0-10.0)
[2021-06-16 02:56] LABS: Alanine Aminotransferase 7 U/L (0-33); Albumin Level 3.5 g/dL (3.5-5.2); Alkaline Phosphatase 56 IU/L (35-105); Anion Gap 18.8 (5-19); Aspartate Amino Transferase 21 U/L (0-32); Blood Urea Nitrogen 56 mg/dL (8-23); Calcium 8.1 mg/dL (8.5-10.5); Carbon Dioxide 22 mmol/L (22-29); Chloride 102 mmol/L (98-107); Globulin 2.1 g/dL (1.3-4.6); Glucose 128 mg/dL (65-115); Osmolality Calculated 305 mOsm/kg (285-295); Potassium 3.8 mmol/L (3.5-5.1); Sodium 139 mmol/L (136-145); Total Bilirubin 0.6 mg/dL (0.15-1.2); Total Protein 5.6 g/dL (6.6-8.7)
[2021-06-16 02:58] LABS: Vancomycin Random 12.3 ug/mL (20.0-40.0)
[2021-06-16 03:03] LABS: Partial Thromboplastin Time 65.2 SECONDS (23.9-36.7)
[2021-06-16] MEDS: acetylcysteine 200 mg/mL SDV 4 mL 100 MG INHALATION ×4 (03:08→20:15)
[2021-06-16] MEDS: ipratropium-albuterol 3 mL Neb INHALATION ×4 (03:09→20:15)
[2021-06-16] MEDS: budesonide 0.5 mg/2 mL Neb INHALATION ×2 (07:20→20:16)
[2021-06-16] MEDS: pantoprazole DR 40 mg Tablet PO (08:57)
[2021-06-16] MEDS: levothyroxine 50 mcg Tablet PO (08:57)
[2021-06-16] MEDS: amiodarone 200 mg Tablet PO ×2 (08:57→18:20)
[2021-06-16] MEDS: BuSPIRONE 10 mg Tablet 5 MG PO ×2 (08:57→18:20)
[2021-06-16] MEDS: gabapentin 100 mg Capsule PO ×3 (08:57→20:17)
[2021-06-16] MEDS: sertraline 100 mg Tablet PO ×2 (08:57→18:20)
[2021-06-16] MEDS: docusate sodium 100 mg Capsule PO (08:58)
[2021-06-16] MEDS: metoprolol tartrate 25 mg Tablet PO ×2 (09:01→20:18)
[2021-06-16 09:06] LABS: Partial Thromboplastin Time 61.7 SECONDS (23.9-36.7)
--- NOTE | 2021-06-16 09:30 | P.PN_ITS ---
Subjective Subjective: Patient says feeling better. Vitals/I&O/Wt Last Vital Signs Temp 98.5 F 06/16/21 04:00 Pulse 80 06/16/21 07:23 Resp 17 06/16/21 07:00 BP 118/78 06/16/21 07:00 Pulse Ox 98 06/16/21 07:23 06/15/21 06/16/21 06/16/21 22:59 06:59 14:59 Intake Total 510 / 1690 222 / 1912 Output Total 325 / 325 650 / 975 Balance 185 / 1365 -428 / 937 Weight last 48 hrs Weight 187 lb 12.8 oz Weight 184 lb Physical Exam Narrative: GENERAL: The patient is alert and oriented HEENT: Minimal pallor.? RESPIRATORY: Shallow breathing , no significant crackles. Has mild wheezing Breath sounds are heard bilaterally.? HEART: Regular, S1, S2, has holosystolic murmur, grade 4/6 EXTREMITIES: No edema MUSCULOSKELETAL: The right hip mobility is restricted SKIN: There are no significant rashes Urinary Catheter Management: Noriega: Cath Placed During This Visit: yes Reason for Continuing Indwelling Catheter: Accurate Measurement of Urinary Output in Critically Ill Patients Urinary Catheter Date of Insertion: 06/10/21 Urinary Catheter Time of Insertion: 18:14 Data : 06/16/21 02:05 06/16/21 02:05 A&P Assessment and plan (1) Chronic atrial fibrillation with rapid ventricular response: Heart rate is better controlled. Continue PO amiodarone and metoprolol Status: Acute (2) Atherosclerosis of coronary artery of [place] heart without angina pectoris: Patient had a three-vessel coronary bypass surgery in 2009. LV function is low with EF of 35%. May need to consider a myocardial perfusion imaging, to evaluate for any underlying coronary ischemia causing the LV dysfunction. Status: Acute (3) CHF (congestive heart failure): Creatinine improving now. Off diuretics for now. Respiratory distress is multifactorial with possiblity of PE as has DVT. However CTA can not be done because of renal dysfunction. On anticoagulation Status: Chronic (4) COPD (chronic obstructive pulmonary disease): Management as per the primary. Status: Chronic (5) Heart murmur: ECHO shows moderate to severe tricuspid regurgitation Status: Acute Plan Other problems are S/p open reduction internal fixation of the right hip Diarrhea Intermittent confusion Mild anemia Status post hypertension, currently normotensive Patient may be closely monitored on the telemetry. Based on the clinical progress, further management decisions will be made Attestations Medical Necessity Statement*: Care expected to cross 2 midnights. Coding Level of Care Code Acute Machinist Brake for [facility] Fwd Diagnoses Chronic atrial fibrillation with rapid ventricular response I48.20 Atherosclerosis of coronary artery of [place] heart without angina pectoris I25.10 CHF (congestive heart failure) I50.9 COPD (chronic obstructive pulmonary disease) J44.9 Heart murmur R01.1
--- NOTE | 2021-06-16 09:40 | PC.NURSE ---
Nurse called patient's daughter named Enriqueta. Gave an update on patient condition. They will be in later today to visit.
[2021-06-16] MEDS: sodium chloride 0.9% 1,000 ML 50 ML IV (10:21)
[2021-06-16] MEDS: calcium carb-vit d 600mg/400unit 1 Tablet 1 EACH PO ×2 (12:01→18:20)
--- NOTE | 2021-06-16 13:13 | P.PN_ITS ---
Subjective Subjective: No acute vents overnight. Patient is awake and alert. Coming down slightly on FiO2 requirements on BiPAP. Currently on heated high flow. Able to have complete conversation. Denies any chest pain. States less short of breath. Hemodynamically has remained stable. Heart rate well controlled. Continues to remain on heated high flow currently. Medications: Medication Review Details: Mrs. Abdi previously took atorvastatin and Zetia but is no longer on these Vitals/I&O/Wt Last Vital Signs Temp 98.5 F 06/16/21 04:00 Pulse 89 06/16/21 11:25 Resp 18 06/16/21 11:25 BP 118/78 06/16/21 07:00 Pulse Ox 90 06/16/21 11:25 06/15/21 06/16/21 06/16/21 22:59 06:59 14:59 Intake Total 510 / 1690 2011 Output Total 325 / 325 650 / 975 Balance 185 / 1365 -328 / 1037 Weight last 48 hrs Weight 85.185 kg Weight 83.461 kg Physical Exam Narrative: Constitutional: Awake and alert after awakening, oriented to person place and situation, no acute distress, sick appearing, pallor present HEENT: Normocephalic, atraumatic, extraocular movements are intact, nasopharynx with some clear rhinorrhea, oropharynx with dry membranes Neck: Supple Respiratory: Bilateral normal Giurgius of breath sounds, fine crackles present in lower zones bilaterally Cardiovascular: Irregularly irregular rhythm, tachycardia, soft ejection systolic murmur at aortic area Abdomen: Soft, nontender, positive bowel sounds : Normal external genitalia Extremities: Right lower extremity externally rotated and shortened, no bruising noted on visible portions of lateral leg on the right, no pitting edema, 1+ dorsalis pedis bilaterally Skin: Dry, no acute sores or bruising noted, no rashes Neuro: Speech clear, face symmetric, handgrip is equal, sensation is intact and equal to light touch both feet, wiggles toes bilaterally Psych: Normal affect Urinary Catheter Management: Noriega: Cath Placed During This Visit: yes Reason for Continuing Indwelling Catheter: Accurate Measurement of Urinary Output in Critically Ill Patients Urinary Catheter Date of Insertion: 06/10/21 Urinary Catheter Time of Insertion: 18:14 Data : 06/16/21 02:05 06/16/21 02:05 A&P Assessment and plan (1) Acute respiratory failure with hypoxia: Most likely secondary to a combination of decompensated congestive heart failure in setting of sleep apnea and COPD. Cannot rule out pulmonary embolism. D-dimer elevated. Cannot do CTA as creatinine elevated to 1.6 today. Lower limb Dopplers consistent with DVT. Switch from BiPAP to heated high flow. Ox supplementation keeping saturation over 88%. For COPD: Budesonide twice daily, DuoNebs every 6 hour. Switch to Solu-Medrol 40 mg IV every 12 hourly. For congestive heart failure: Echocardiogram done shows an EF of 30 to 35%, se iglesia diffuse hypokinesis of septum, anteroseptum and LV apex, diffuse hypokinesia of right ventricular and moderate depression of ejection fraction, moderately increased LA and RA size. Patient intravascularly depleted. Creatinine continues to worsen. Hold off on further dialysis. Start on gentle IV hydration with normal saline at 50 cc/h. Strict input output charting, daily weights. CT chest results appreciated. Consistent with right-sided pneumonitis infectious versus allergic. Steroids as above. Continue vancomycin, Zosyn. Flu swab, COVID-19 antigen negative. Status: Acute (2) DVT (deep venous thrombosis): Given worsening oxygenation, slight drop in hemoglobin and persistent mild thrombocytopenia we will switch from full dose Lovenox to heparin drip. We will plan to start heparin drip by evening which will be 12 hours after her last dose of Lovenox. Status: Acute (3) Atrial fibrillation: Rate better controlled. Given amiodarone drip and digoxin 500 mcg IV yesterday. Continue with amiodarone 200 mg twice daily. Continue with metoprolol 25 mg twice daily for now. Digoxin levels appreciated. Rapid ventricular response currently. Appreciate cardiology recommendations. Status: Chronic (4) CHF (congestive heart failure): Treatment as above. Appreciate cardiology recommendations. Status: Chronic (5) Status post open reduction and internal fixation (ORIF) of fracture: Status: Acute (6) Closed intertrochanteric fracture of right hip: Comminuted. Postoperative day 3. Restarted Eliquis as per orthopedic service. Hold off on physical therapy today given tachycardia and low blood pressure. Pain medication with [place] every 8 hours as needed. Monitor hemoglobin. Status: Acute Qualifiers: Encounter type: initial encounter Fracture alignment: displaced Qualified Code(s): S72.141A - Displaced intertrochanteric fracture of right femur, initial encounter for closed fracture (7) Fall as cause of accidental injury in home as place of occurrence: Accidental, occurring while reaching too far while using her walker, landed on right hip. Status: Acute Qualifiers: Encounter type: initial encounter Qualified Code(s): W19.XXXA - Unspecified fall, initial encounter; Y92.009 - Unspecified place in unspecified non-institutional (private) residence as the place of occurrence of the external cause (8) Chronic anticoagulation: Hold off on Eliquis for now. Switched over to heparin drip. Status: Chronic (9) Coronary artery disease: Bypass surgery in 2009, 3 vessels with associated mitral valve repair Follows with Dr. Washington outpatient. Denies any active chest pain. A1c 5.4. Lipid panel appreciated. Will need to be on statin going forward. Atorvastatin 40 mg daily. Status: Chronic (10) Hypertension: Chronically on amlodipine and lisinopril in addition to beta-blockade. Goal blood pressure less than 140/90 mmHg. Blood pressure slightly soft today. For now hold off on amlodipine and lisinopril. Continue with metoprolol 25 mg twice daily. Status: Chronic (11) COPD (chronic obstructive pulmonary disease): Related to former tobacco abuse, chronically on Stiolto Respimat, not on continuos oxygen for her COPD but does wear nocturnal oxygen for sleep apnea. No acute exacerbation. Keep saturation over 88%. Status: Chronic (12) Sleep apnea: Diagnosed via sleep study, intolerant of CPAP/BiPAP, on nocturnal oxygen though admits that she does not necessarily use it every single night Status: Chronic Qualifiers: Sleep apnea type: unspecified type Qualified Code(s): G47.30 - Sleep apnea, unspecified (13) Hypothyroidism: Continue on home dose of levothyroxine. Check TSH. Status: Chronic (14) Anxiety and depression: Chronically on sertraline and also takes BuSpar plus as needed alprazolam, admits to having some challenges with current being on hospice and functional decline since her hip fracture a few years ago but reports that medications help Status: Chronic (15) Osteoarthritis: Status: Chronic Qualifiers: Osteoarthritis location: multiple joints Osteoarthritis type: primary Qualified Code(s): M15.9 - Polyosteoarthritis, unspecified (16) Atherosclerosis of coronary artery of [place] heart without angina pectoris: Status: Acute Plan Hypotension: Resolved. Blood pressure is better. Continue to monitor. Appreciate cardiology recommendations. CODE STATUS: With patient in detail. Patient would not want CPR or intubation. She is okay with ICU admission. CODE STATUS changed to DNR/DNI. Regular lactose-free diet. Heparin drip will suffice for DVT prophylaxis. Protonix for PUD prophylaxis. Plan for day: Continue vancomycin, Zosyn, steroids, heparin drip. Continue with normal saline 50 cc/h. Monitor BMP daily. Out of bed to chair. Physical therapy. Attestations Medical Necessity Statement*: Requires further hospitalization for acute hypoxic respiratory failure in setting of aspiration pneumonitis, possible pulmonary embolism, postoperative care for ORIF Critical Care Time: The high probability of a clinically significant, sudden or life threatening deterioration of the patient's [cardiac, pulmonary] system(s) required my full and direct attention, intervention and personal management. The critical care time is as shown. This time is in addition to time spent performing any reported procedures but includes the following: [x] Data and vital sign review and interpretation [x] Patient assessment, examination and intervention [x] Documentation [x] Medication orders and management Critical Care Time (min): 60 Coding Level of Care Code Acute Paraffiner for [facility] Fwd Diagnoses Acute respiratory failure with hypoxia J96.01 DVT (deep venous thrombosis) I82.409 Atrial fibrillation I48.91 CHF (congestive heart failure) I50.9 Status post open reduction and internal fixation (ORIF) of fracture Z98.890; Z87.81 Closed intertrochanteric fracture of right hip S72.141A Encounter type: initial encounter Fracture alignment: displaced Fall as cause of accidental injury in home as place of occurrence W19.XXXA; Y92.009 Encounter type: initial encounter Chronic anticoagulation Z79.01 Coronary artery disease I25.10 Hypertension I10 COPD (chronic obstructive pulmonary disease) J44.9 Sleep apnea G47.30 Sleep apnea type: unspecified type Hypothyroidism E03.9 Anxiety and depression F41.9; F32.A Osteoarthritis M15.9 Osteoarthritis location: multiple joints Osteoarthritis type: primary Atherosclerosis of coronary artery of [place] heart without angina pectoris I25 .10
[2021-06-16 16:04] LABS: Partial Thromboplastin Time 46.5 SECONDS (23.9-36.7)
[2021-06-16] MEDS: heparin 5,000 unit/mL INJ 1 mL IV (16:44)
--- NOTE | 2021-06-16 19:00 | PC.NURSE ---
Heparin Drip In bedside report, heparin drip reported to be running at 25 ml/hr; upon assessment of patient, Heparin noted to be administering at this rate, while MAR displayed 23 ml/hr. MAR updated to show actual administration at this time.
--- NOTE | 2021-06-16 19:26 | PC.NURSE ---
late note... Patient was up to the chair today, when getting her back from the chair to bed, using a sit to stand the patient lost consciousness for about 5 seconds shortly after straining to stand up. Vitals were within normal limits: BP: 119/89, heart rate of 72, Respiratory rate 20, O2 saturation was 84% during movement. Patient was unaware of event. Dr leong was notified. no new orders received.
--- NOTE | 2021-06-16 19:28 | PC.NURSE ---
Shift Summary: Besides patient briefly losing conciousness while up to the sit to stand, uneventful shift Patient was up to the chair for about 5 hours today and spent the rest of the time in bed. Patient is extremely weak when transferring and requires at least 2 nurses and a sit to stand to transfer. Patient was changed form Bipap to rneate flow at 90% and is oxygenating better oferall, frequently saturating in the low 90's. Patient is more compliant with the high flow than bi pap and is saturating better on it. patient has 1 bowel movement and a total of 525 mL of urine output (0.52mL/KG/hr).
[2021-06-16] MEDS: ropinirole 0.25 mg Tablet PO (20:18)
[2021-06-16] MEDS: heparin drip 25,000 UNIT/500 ML PREMIX 25 UNIT IV (21:56)
[2021-06-16 22:35] LABS: Partial Thromboplastin Time 73.3 SECONDS (23.9-36.7)
[2021-06-17] VITALS (54 sets, daily range): BP systolic 108–198; BP diastolic 61–154; PULSE 67–91; RESP 16–36; TEMP 36.8–37.1; O2SAT 62–99; BMI 31.1
[2021-06-17] MEDS: trazodone 50 mg Tablet PO ×2 (00:29→22:54)
[2021-06-17] MEDS: piperacillin-tazobactam 3.375 GM in sodium chloride 0.9% (plus) 100 ML IV ×2 (01:46→10:13)
[2021-06-17] MEDS: ipratropium-albuterol 3 mL Neb INHALATION ×4 (03:07→20:04)
[2021-06-17] MEDS: acetylcysteine 200 mg/mL SDV 4 mL 100 MG INHALATION ×3 (03:07→20:03)
[2021-06-17 05:04] LABS: Hematocrit 28.9 % (37.0-47.0); Hemoglobin 8.9 g/dL (11.5-15.3); Lymphocytes # 0.3 10^3/uL (0.8-4.8); Mean Corpuscular HGB Conc 30.8 g/dL (30.0-36.0); Mean Corpuscular Hemoglobin 27.6 pg (28.0-34.0); Mean Corpuscular Volume 89.5 fl (81-99); Mean Platelet Volume 13.6 fL (7.4-10.4); Monocytes # 0.4 10^3/uL (0.2-0.9); Monocytes % 4.5 %; Neutrophils # 8.84 10^3/uL (1.8-7.7); Neutrophils % 90.9 %; Nucleated Red Blood Cells % 0.4 %; Platelet Count 149 10^3/cmm (130-400); Red Blood Count 3.23 10^6/uL (4.1-5.3); Red Cell Distribution Width 16.1 % (12.1-15.1); White Blood Count 9.7 10^3/uL (4.0-10.0)
[2021-06-17 05:21] LABS: Vancomycin Random 6.2 ug/mL (20.0-40.0)
[2021-06-17 05:26] LABS: Alanine Aminotransferase 9 U/L (0-33); Albumin Level 3.2 g/dL (3.5-5.2); Alkaline Phosphatase 62 IU/L (35-105); Anion Gap 17.5 (5-19); Aspartate Amino Transferase 18 U/L (0-32); Blood Urea Nitrogen 66 mg/dL (8-23); Calcium 8.1 mg/dL (8.5-10.5); Carbon Dioxide 21 mmol/L (22-29); Chloride 104 mmol/L (98-107); Globulin 2.5 g/dL (1.3-4.6); Glucose 144 mg/dL (65-115); Osmolality Calculated 310 mOsm/kg (285-295); Potassium 3.5 mmol/L (3.5-5.1); Sodium 139 mmol/L (136-145); Total Bilirubin 0.4 mg/dL (0.15-1.2); Total Protein 5.7 g/dL (6.6-8.7)
[2021-06-17 05:28] LABS: Partial Thromboplastin Time 77.2 SECONDS (23.9-36.7)
[2021-06-17] MEDS: budesonide 0.5 mg/2 mL Neb INHALATION ×2 (07:48→20:04)
--- NOTE | 2021-06-17 08:41 | PC.NURSE ---
patient keeps taking oxygen out of nose, o2 sat drops to 50s
--- NOTE | 2021-06-17 09:08 | PC.NURSE ---
physician rounding Dr. Yusuf at bedside and is to place orders to stop fluids, stop heparin and switch to Lovenox
[2021-06-17] MEDS: metoprolol tartrate 25 mg Tablet PO ×3 (09:25→22:53)
[2021-06-17] MEDS: sertraline 100 mg Tablet PO (09:26)
--- NOTE | 2021-06-17 09:27 | PC.CHAP ---
Pastoral Care Encounter/Spiritual Assessment Type of Contact [] Declined swimmer visit [] Patient/Family/Request visit [] Outpatient visit [] Follow-up visit [] Physician referral [] Code/Alert [x] Routine visit [] Staff referral [] Actively dying [] Patient sleeping [] Family support [] [] Out of room [] Palliative care [] [x] Receiving care in room [] Pre-surgical visit [] Trauma [] Long length of stay [x] ICU visit [] Other: Relational/Emotional Strength [] Patient feels connected with others/family/visitors/staff [] Distress [] Loneliness/isolation [] Abandonment Spirituality of Patient [] Person of Dina [] Attends Yarsanism of their Dina [] Believes in Prayer [] Reads Bible or Bahai materials [] There are Spiritual issues to be addressed Topography Technician Interventions [x] Prayer [] Active listening [] Non-anxious presence [] Spiritual/emotional support [] Crisis/trauma care [] Spiritual counseling [] Bereavement support [] Provided bereavement packet [] Provided Bible/devotional materials [] Provided toy/stuffed animal, coloring book to patient or family member [] Provided Communion [] Anointing/[place] [] Salvation [x] Completed spiritual assessment [] Other: Impact on Illness or Injury [] Angry [] Fearful [] Anxious [] Often cries [] Exhaustion [] Unable to work [] Unable to attend christian [] Unable to walk/stand [] Unable to read [] Unable to drive [] Unable to eat/drink [] Unable to sleep [] Unable to be with family [] Patient intubated [] Other: Summary Time spent with patient
--- NOTE | 2021-06-17 09:52 | PC.NURSE ---
this nurse notified Dr. Yusuf that patient is still taking out HHF and is refusing medicine, Dr. Yusuf gave t.o. for medical restraints and precedex david
[2021-06-17] MEDS: dexmedeTOMIDine 0.9 % NaCL 400 MCG/100 ML PREMIX IV ×2 (10:13→19:04)
--- NOTE | 2021-06-17 10:20 | PC.NURSE ---
patient using mouth to take HHF tubing off since hands are restrained. patient reported understanding that o2 sat drops dangerously low but reported not caring. family notified and is to come in
--- NOTE | 2021-06-17 10:36 | PC.NURSE ---
Family at bedside at this time
--- NOTE | 2021-06-17 10:38 | XR_ITS ---
WS: [id number] PORTABLE CHEST HISTORY: SOB COMPARISON: 06/13/2021 and 06/12/2021 Volume loss and lucency in the LEFT lung. Status post partial LEFT pneumonectomy. Increased consolida tion posterior to the LEFT heart probably an area of atelectasis and pneumonia. Mild improvement in t he opacification since 06/12/2021. Worsening interstitial thickening throughout the entire RIGHT lung over the past several days. Very s mall bilateral pleural effusions. No pneumothorax. Cardiac size: Moderately enlarged. Heart is partially obscured by the consolidation in the LEFT lower lung. Mediastinum/Aorta: No mediastinal shift. Atherosclerotic changes within the aorta. Pulmonary artery s ize is enlarged. Prior CABG. Osteopenia. XR/XR chest 1V portable [id number] IMPRESSION: 1. Worsening of opacification throughout the RIGHT lung over the past several days. Most likely due to unilateral CHF or pneumonitis. 2. Partial LEFT pneumonectomy. The consolidation posterior to LEFT heart has s lightly improved since 06/12/2021.
--- NOTE | 2021-06-17 10:45 | PM.PN ---
Subjective Medications: Medication Review Details: Generic Name Dose Route Start Last Admin Trade Name Freq PRN Reason Stop Dose Admin Hydrocodone Bitart /Acetaminophen 1 tab 06/10/21 15:54 06/15/21 06:06 Hydrocodone-Acet aminophen 5-325 Mg Tablet PO 1 tab Q4H PRN Administration MODERATE TO SEVER E PAIN Acetylcysteine 100 mg 06/14/21 00:00 06/17/21 07:48 Acetylcysteine 2 00 Mg/Ml Sdv 4 Ml INHALATION 100 mg Q4H.RESPIRATORY S CH Administration Albuterol Sulfate 2.5 mg 06/10/21 17:04 06/15/21 12:10 Albuterol 2.5 Mg /0.5 Ml Neb INHALATION 2.5 mg Q4H.RESPIRATORY P RN Administration SHORTNESS OF [place] TH Albuterol/Ipratrop ium 3 ml 06/14/21 15:00 06/17/21 08:00 Ipratropium-Albu terol 3 Ml Neb INHALATION 3 ml Q6H.RESPIRATORY S CH Administration Alprazolam 0.5 mg 06/10/21 17:02 06/13/21 23:14 Alprazolam 0.5 M g Tablet PO 0.5 mg TID PRN Administration anxiety Amiodarone HCl 200 mg 06/14/21 18:00 06/17/21 09:39 Amiodarone 200 M g Tablet PO Not Given BID MINA Budesonide 0.5 mg 06/14/21 20:00 06/17/21 07:48 Budesonide 0.5 M g/2 Ml Neb INHALATION 0.5 mg BID.RESPIRATORY S CH Administration Buspirone HCl 5 mg 06/10/21 18:00 06/17/21 09:38 Buspirone 10 Mg Tablet PO Not Given BID MINA Calcium Carbonate 1 each 06/10/21 18:00 06/17/21 09:39 Calcium Carb-Vit D 600mg/400unit 1 Tablet PO Not Given BID MINA Gabapentin 100 mg 06/10/21 21:00 06/17/21 09:39 Gabapentin 100 M g Capsule PO Not Given TID MINA Heparin Sodium (Po rcine) 0 unit 06/15/21 18:00 06/16/21 16:44 Heparin 5,000 Un it/Ml Inj 1 Ml IV 1,700 unit PRN PRN Administration Heparin weight-ba se protocol Protocol Vancomycin/PEG/NAD A/Lysine/Water 1,250 mg in 250 m ls @ 200 mls/hr 06/15/21 13:30 06/15/21 13:59 Vancocin IV 200 mls/hr Q48H MINA Administration dexmedeTOMIDine 0. 9 % NaCL 400 mcg in 100 ml s @ 0 mls/hr 06/17/21 10:00 06/17/21 10:13 Precedex IV 0.1 mcg/kg/hr .Q0M MINA 2.19 mls/hr Administration Protocol Per Protocol Imipenem/Cilastati n Sodium 250 100 mls @ 200 mls /hr 06/17/21 11:00 06/17/21 10:45 mg/ Sodium Chlor prasad IV 200 mls/hr Q6H MINA Administration Protocol Levothyroxine Sodi um 50 mcg 06/11/21 09:00 06/17/21 09:39 Levothyroxine 50 Mcg Tablet PO Not Given DAILY MINA Metoprolol Tartrat e 25 mg 06/13/21 11:00 06/17/21 09:25 Metoprolol Tartr ate 25 Mg Tablet PO 25 mg BID@0900,2100 MINA Administration Sorts-9-Dkej Ethyl Esters 1,000 mg 06/11/21 09:00 06/17/21 09:39 [place]-3 Fatty Ac ids 1,000 Mg Capsu le PO Not Given DAILY MINA Pantoprazole Sodiu m 40 mg 06/11/21 09:00 06/17/21 09:[address] 40 Mg Tablet PO Not Given DAILY MINA Pantoprazole Sodiu m 40 mg 06/17/21 10:45 06/17/21 10:46 Pantoprazole 40 Mg Sdv IVP 40 mg DAILY MINA Administration Ropinirole HCl 0.25 mg 06/10/21 21:00 06/16/21 20:18 Ropinirole 0.25 Mg Tablet PO 0.25 mg BEDTIME MINA Administration Senna 17.2 mg 06/10/21 21:00 06/16/21 20:26 Sennosides 8.6 M g Tablet PO Not Given BEDTIME MINA Sertraline HCl 100 mg 06/10/21 18:00 06/17/21 09:26 Sertraline 100 M g Tablet PO 100 mg BID MINA Administration Trazodone HCl 50 mg 06/10/21 17:02 06/17/21 00:29 Trazodone 50 Mg Tablet PO 50 mg BEDTIME PRN Administration INSOMNIA Vitals/I&O/Wt Last Vital Signs Temp 98.2 F 06/17/21 04:00 Pulse 73 06/17/21 10:00 Resp 18 06/17/21 07:55 BP 179/154 06/17/21 10:00 Pulse Ox 99 06/17/21 10:00 06/16/21 06/17/21 06/17/21 22:59 06:59 14:59 Intake Total 1000 / 1500 1215.833 / 2715.833 109.633 / 109.633 Output Total 525 / 850 525 / 1375 Balance 475 / 650 690.833 / 1340.833 109.633 / 109.633 Weight last 48 hrs Weight 87.543 kg Weight 85.185 kg Physical Exam HENMT: COMMON NORMALS: normocephalic and atraumatic HEAD & SCALP: normocephalic and atraumatic Chest: COMMONS NORMALS: normal inspection of the chest and normal palpation of entire chest wall CHEST: Yes Symmetrical chest wall rise Resp: EFFORT & INSPECTION: Yes symmetric chest movement OTHER: Coarse Breath Sound with b/l crackles present in both lungs connelly Cardio: COMMON NORMALS: regular rate, regular rhythm, S1 normal heart sound present, S2 normal heart sound present, No gallops present (Cardio), No murmurs present (Cardio), No rub (Cardio) and Peripheral pulses 2+ throughout RATE: regular rate RHYTHM: regular rhythm HEART SOUNDS: S1 normal heart sound present and S2 normal heart sound present PERIPHERAL PULSES: Peripheral pulses 2+ throughout GI: COMMON NORMALS: Normal to inspection, nondistended, normoactive bowel sounds present, Soft to palpation, non-tender, No hepatosplenomegaly present and no masses AUSCULTATION: Yes normoactive bowel sounds PALPATION: Yes Soft to palpation and Yes No hepatosplenomegaly present RECTAL EXAM: deferred Extremity: COMMON NORMALS: no clubbing, cyanosis or edema and no pedal edema Urinary Catheter Management: Noriega: Cath Placed During This Visit: yes Reason for Continuing Indwelling Catheter: Accurate Measurement of Urinary Output in Critically Ill Patients Urinary Catheter Date of Insertion: 06/10/21 Urinary Catheter Time of Insertion: 18:14 Data : 06/17/21 04:45 04/25/22 04:45 A&P Assessment and plan (1) Acute respiratory failure with hypoxia: Assessment Status: Acute (2) DVT (deep venous thrombosis): Given worsening oxygenation, slight drop in hemoglobin and persistent mild thrombocytopenia we will switch from full dose Lovenox to heparin drip. We will plan to start heparin drip by evening which will be 12 hours after her last dose of Lovenox. Status: Acute (3) Atrial fibrillation: Rate better controlled. Given amiodarone drip and digoxin 500 mcg IV yesterday. Continue with amiodarone 200 mg twice daily. Continue with metoprolol 25 mg twice daily for now. Digoxin levels appreciated. Rapid ventricular response currently. Appreciate cardiology recommendations. Status: Chronic (4) CHF (congestive heart failure): Treatment as above. Appreciate cardiology recommendations. Status: Chronic (5) Status post open reduction and internal fixation (ORIF) of fracture: Status: Acute (6) Closed intertrochanteric fracture of right hip: Comminuted. Postoperative day 3. Restarted Eliquis as per orthopedic service. Hold off on physical therapy today given tachycardia and low blood pressure. Pain medication with [place] every 8 hours as needed. Monitor hemoglobin. Status: Acute Qualifiers: Encounter type: initial encounter Fracture alignment: displaced Qualified Code(s): S72.141A - Displaced intertrochanteric fracture of right femur, initial encounter for closed fracture (7) Fall as cause of accidental injury in home as place of occurrence: Accidental, occurring while reaching too far while using her walker, landed on right hip. Status: Acute Qualifiers: Encounter type: initial encounter Qualified Code(s): W19.XXXA - Unspecified fall, initial encounter; Y92.009 - Unspecified place in unspecified non-institutional (private) residence as the place of occurrence of the external cause (8) Chronic anticoagulation: Hold off on Eliquis for now. Switched over to heparin drip. Status: Chronic (9) Coronary artery disease: Bypass surgery in 2009, 3 vessels with associated mitral valve repair Follows with Dr. Felix lombardo. Denies any active chest pain. A1c 5.4. Lipid panel appreciated. Will need to be on statin going forward. Atorvastatin 40 mg daily. Status: Chronic (10) Hypertension: Chronically on amlodipine and lisinopril in addition to beta-blockade. Goal blood pressure less than 140/90 mmHg. Blood pressure slightly soft today. For now hold off on amlodipine and lisinopril. Continue with metoprolol 25 mg twice daily. Status: Chronic (11) COPD (chronic obstructive pulmonary disease): Related to former tobacco abuse, chronically on Stiolto Respimat, not on continuos oxygen for her COPD but does wear nocturnal oxygen for sleep apnea. No acute exacerbation. Keep saturation over 88%. Status: Chronic (12) Sleep apnea: Diagnosed via sleep study, intolerant of CPAP/BiPAP, on nocturnal oxygen though admits that she does not necessarily use it every single night Status: Chronic Qualifiers: Sleep apnea type: unspecified type Qualified Code(s): G47.30 - Sleep apnea, unspecified (13) Hypothyroidism: Continue on home dose of levothyroxine. Check TSH. Status: Chronic (14) Anxiety and depression: Chronically on sertraline and also takes BuSpar plus as needed alprazolam, admits to having some challenges with current being on hospice and functional decline since her hip fracture a few years ago but reports that medications help Status: Chronic (15) Osteoarthritis: Status: Chronic Qualifiers: Osteoarthritis location: multiple joints Osteoarthritis type: primary Qualified Code(s): M15.9 - Polyosteoarthritis, unspecified (16) Atherosclerosis of coronary artery of [place] heart without angina pectoris: Status: Acute Plan Acute hypoxic respiratory failure likely secondary to: Pneumonia decompensated heart failure COPD, cannot conclusively rule out possible PE. CT chest without contrast: Ground-glass opacities throughout the right lung and in the inferior left lung.?? Small right pleural effusion. X-ray chest: D-dimer: elevated. Blood culture Gram stain and culture MRSA PCR positive Flu swab, COVID-19 antigen negative. Continue vancomycin She was on Zosyn, given worsening x-ray chest, has been switched to Primaxin. Continue Precedex #Newly diagnosed HFrEF : Currently compensated 2D echo: EF of 30 to 35%, severe diffuse hypokinesis of septum, anteroseptum and LV apex, diffuse hypokinesia of right ventricular.moderately increased LA and RA size. Currently compensated Continue to hold Lasix Intake output charting Daily weight K>4,MG>2 Continue HHFONC #Right lower extremity DVT: Continue Lovenox #COPD: Continue Solu-Medrol Budesonide inhaler DuoNebs #History of atrial fibrillation: Continue amiodarone as well as metoprolol On therapeutic Lovenox #Hypothyroidism: TSH : 1.17 Continue levothyroxine #Closed intertrochanteric fracture of right hip: S/p ORIF #CODE STATUS:AND #DVT prophylaxis on Lovenox Attestations Medical Necessity Statement*: Patient is still in hospital for management of acute hypoxic respiratory failure. Time Spent in Patient Care: Greater than 35 minutes (>than 50% of time spent in counselling and/or direct pt care on unit). Critical Care Time: The high probability of a clinically significant, sudden or life threatening deterioration of the patient's [] system(s) required my full and direct attention, intervention and personal management. The critical care time is as shown. 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 [facility] Fwd Exam Detailed Diagnoses Acute respiratory failure with hypoxia J96.01 DVT (deep venous thrombosis) I82.409 Atrial fibrillation I48.91 CHF (congestive heart failure) I50.9 Status post open reduction and internal fixation (ORIF) of fracture Z98.890; Z87.81 Closed intertrochanteric fracture of right hip S72.141A Encounter type: initial encounter Fracture alignment: displaced Fall as cause of accidental injury in home as place of occurrence W19.XXXA; Y92.009 Encounter type: initial encounter Chronic anticoagulation Z79.01 Coronary artery disease I25.10 Hypertension I10 COPD (chronic obstructive pulmonary disease) J44.9 Sleep apnea G47.30 Sleep apnea type: unspecified type Hypothyroidism E03.9 Anxiety and depression F41.9; F32.A Osteoarthritis M15.9 Osteoarthritis location: multiple joints Osteoarthritis type: primary Atherosclerosis of coronary artery of [place] heart without angina pectoris I25.10
[2021-06-17] MEDS: pantoprazole 40 mg SDV IVP (10:46)
[2021-06-17] MEDS: amiodarone 200 mg Tablet PO (11:10)
[2021-06-17 11:56] LABS: ABG PCO2 45.7 mmHg (35-45); ABG PH Result 7.32 (7.35-7.45); Arterial Blood Gas Hematocrit 28.6 % (37-47); Base Excess ABG -2.5 mmol/L (-2.0-2.0); Blood Gas Allen Test Pos; Blood Gas Sample Type Arterial; Carboxyhemoglobin 0.8 %THgb (0.4-20.1); HCO3 ABG 23.6 mmol/L (22-26); HGB O2 Sat 94.1 % (95-100); Ionized Calcium Level - ABG 1.3 mmol/L (1.1-1.4); Methemoglobin 1.4 % (0.4-1.5); Oxygen Saturation ABG 96.3; PO2 ABG 87.5 mmHg (80.0-100.0); Potassium Level - ABG 3.3 mmol/L (3.5-5.0); Total Hemoglobin 9.3 g/dL (12-16)
[2021-06-17 11:57] LABS: Alveolar-Arterial Oxygen Gradi 74.4 mmHg (5-10); Blood Gas Operator Identificat BD
[2021-06-17] MEDS: vancomycin 1,250 MG/250 ML PIGGYBACK 200 MG IV (14:00)
--- NOTE | 2021-06-17 14:52 | PC.SOCIAL ---
IMM update IMM updated with patient. Verbalized an understanding. Copy Pg 2 provided. Initialled, dated, timed, and placed in chart.
--- NOTE | 2021-06-17 15:08 | PM.PN ---
Subjective Subjective: Patient was put on precedex today. Still has high O2 requirement Vitals/I&O/Wt Last Vital Signs Temp 98.2 F 06/17/21 04:00 Pulse 70 06/17/21 14:42 Resp 16 06/17/21 14:42 BP 179/154 06/17/21 10:00 Pulse Ox 91 06/17/21 14:42 06/17/21 06/17/21 06/17/21 06:59 14:59 22:59 Intake Total 1215.833 / 2715.833 109.633 / 109.633 Output Total 525 / 1375 Balance 690.833 / 1340.833 109.633 / 109.633 Weight last 48 hrs Weight 193 lb Weight 187 lb 12.8 oz Physical Exam Narrative: GENERAL: Patient is drowsy, on precedex HEENT: Minimal pallor.? RESPIRATORY: Shallow breathing , no significant crackles. Has mild wheezing Breath sounds are heard bilaterally.? HEART: Regular, S1, S2, has holosystolic murmur, grade 4/6 EXTREMITIES: No edema MUSCULOSKELETAL: The right hip mobility is restricted SKIN: There are no significant rashes Urinary Catheter Management: Noriega: Cath Placed During This Visit: yes Reason for Continuing Indwelling Catheter: Accurate Measurement of Urinary Output in Critically Ill Patients Urinary Catheter Date of Insertion: 06/10/21 Urinary Catheter Time of Insertion: 18:14 Data : 06/17/21 04:45 06/17/21 04:45 Micro: Microbiology 06/17/21 11:35 Blood Culture - Preliminary Blood SPECIMEN COLLECTED 06/17/21 11:34 Blood Culture - Preliminary Blood SPECIMEN COLLECTED A&P Assessment and plan (1) Chronic atrial fibrillation with rapid ventricular response: Heart rate is better controlled. Continue PO amiodarone and metoprolol Status: Acute (2) Atherosclerosis of coronary artery of [place] heart without angina pectoris: Patient had a three-vessel coronary bypass surgery in 2009. LV function is low with EF of 35%. May need to consider a myocardial perfusion imaging, to evaluate for any underlying coronary ischemia causing the LV dysfunction however patient is not stable at this time. Status: Acute (3) CHF (congestive heart failure): Creatinine improving now. Off diuretics for now. Respiratory distress is multifactorial with possiblity of PE as has DVT. However CTA can not be done because of renal dysfunction. On anticoagulation Status: Chronic (4) COPD (chronic obstructive pulmonary disease): Management as per the primary. Status: Chronic (5) Heart murmur: ECHO shows moderate to severe tricuspid regurgitation Status: Acute Plan Other problems are S/p open reduction internal fixation of the right hip Diarrhea Intermittent confusion Mild anemia Status post hypertension, currently normotensive Patient may be closely monitored on the telemetry. Based on the clinical progress, further management decisions will be made Attestations Medical Necessity Statement*: Care expected to cross 2 midnights. Coding Level of Care Code Acute Route Delivery Supervisor for [facility] Fwd Diagnoses Chronic atrial fibrillation with rapid ventricular response I48.20 Atherosclerosis of coronary artery of [place] heart without angina pectoris I25.10 CHF (congestive heart failure) I50.9 COPD (chronic obstructive pulmonary disease) J44.9 Heart murmur R01.1
[2021-06-17] MEDS: enoxaparin 80 mg/0.8 mL Syringe SUBCUT (17:05)
[2021-06-17] MEDS: gabapentin 100 mg Capsule PO (22:53)
[2021-06-17] MEDS: ropinirole 0.25 mg Tablet PO (22:54)
[2021-06-18] VITALS (56 sets, daily range): BP systolic 99–165; BP diastolic 53–119; PULSE 66–87; RESP 16–37; TEMP 37.1; O2SAT 86–97
[2021-06-18] MEDS: ipratropium-albuterol 3 mL Neb INHALATION ×4 (03:19→20:04)
[2021-06-18] MEDS: acetylcysteine 200 mg/mL SDV 4 mL 100 MG INHALATION ×2 (03:19→07:46)
[2021-06-18 03:39] LABS: Basophils % 0.1 %; Hematocrit 31.9 % (37.0-47.0); Hemoglobin 9.8 g/dL (11.5-15.3); Lymphocytes # 0.3 10^3/uL (0.8-4.8); Lymphocytes % 3.1 %; Mean Corpuscular HGB Conc 30.7 g/dL (30.0-36.0); Mean Corpuscular Hemoglobin 27.4 pg (28.0-34.0); Mean Corpuscular Volume 89.1 fl (81-99); Mean Platelet Volume 13.8 fL (7.4-10.4); Monocytes # 0.5 10^3/uL (0.2-0.9); Monocytes % 6.1 %; Neutrophils # 7.72 10^3/uL (1.8-7.7); Neutrophils % 88.7 %; Nucleated Red Blood Cells % 0.2 %; Platelet Count 162 10^3/cmm (130-400); Red Blood Count 3.58 10^6/uL (4.1-5.3); Red Cell Distribution Width 15.7 % (12.1-15.1); White Blood Count 8.7 10^3/uL (4.0-10.0)
[2021-06-18 03:56] LABS: Slide Review Slide Review Perform
[2021-06-18 04:00] LABS: Vancomycin Random 5.3 ug/mL (20.0-40.0)
[2021-06-18 04:02] LABS: Anion Gap 15.4 (5-19); Blood Urea Nitrogen 62 mg/dL (8-23); Calcium 8.5 mg/dL (8.5-10.5); Carbon Dioxide 23 mmol/L (22-29); Chloride 107 mmol/L (98-107); Glucose 137 mg/dL (65-115); Osmolality Calculated 314 mOsm/kg (285-295); Potassium 3.4 mmol/L (3.5-5.1); Sodium 142 mmol/L (136-145)
[2021-06-18] MEDS: enoxaparin 80 mg/0.8 mL Syringe SUBCUT ×2 (06:25→17:27)
[2021-06-18] MEDS: dexmedeTOMIDine 0.9 % NaCL 400 MCG/100 ML PREMIX IV (06:32)
[2021-06-18] MEDS: budesonide 0.5 mg/2 mL Neb INHALATION ×2 (07:46→20:04)
[2021-06-18] MEDS: metoprolol tartrate 25 mg Tablet PO ×2 (08:58→20:41)
[2021-06-18] MEDS: levothyroxine 50 mcg Tablet PO (08:58)
[2021-06-18] MEDS: gabapentin 100 mg Capsule PO ×3 (08:58→20:41)
[2021-06-18] MEDS: pantoprazole 40 mg SDV IVP (08:59)
[2021-06-18] MEDS: BuSPIRONE 10 mg Tablet 5 MG PO ×2 (08:59→17:27)
[2021-06-18] MEDS: sertraline 100 mg Tablet PO ×2 (08:59→17:27)
[2021-06-18] MEDS: amiodarone 200 mg Tablet PO ×2 (08:59→17:27)
[2021-06-18] MEDS: lidocaine 1% 5 ML in potassium chloride premix 100 ML 50 ML IV (11:11)
--- NOTE | 2021-06-18 12:44 | P.PN_ITS ---
Subjective Subjective: Patient was seen and examined this morning, serum creatinine is improving, continue to have good urine output, supplemental oxygen requirement slowly going down, continues to require Precedex, Speech and swallow evaluation done, currently good for dysphagia diet. Medications: Medication Review Details: Generic Name Dose Route Start Last Admin Trade Name Freq PRN Reason Stop Dose Admin Hydrocodone Bitart /Acetaminophen 1 tab 06/10/21 15:54 06/15/21 06:06 Hydrocodone-Acet aminophen 5-325 Mg Tablet PO 1 tab Q4H PRN Administration MODERATE TO SEVER E PAIN Acetylcysteine 100 mg 06/14/21 00:00 06/17/21 07:48 Acetylcysteine 2 00 Mg/Ml Sdv 4 Ml INHALATION 100 mg Q4H.RESPIRATORY S CH Administration Albuterol Sulfate 2.5 mg 06/10/21 17:04 06/15/21 12:10 Albuterol 2.5 Mg /0.5 Ml Neb INHALATION 2.5 mg Q4H.RESPIRATORY P RN Administration SHORTNESS OF GUA[place] TH Albuterol/Ipratrop ium 3 ml 06/14/21 15:00 06/17/21 08:00 Ipratropium-Albu terol 3 Ml Neb INHALATION 3 ml Q6H.RESPIRATORY S CH Administration Alprazolam 0.5 mg 06/10/21 17:02 06/13/21 23:14 Alprazolam 0.5 M g Tablet PO 0.5 mg TID PRN Administration anxiety Amiodarone HCl 200 mg 06/14/21 18:00 06/17/21 09:39 Amiodarone 200 M g Tablet PO Not Given BID MINA Budesonide 0.5 mg 06/14/21 20:00 06/17/21 07:48 Budesonide 0.5 M g/2 Ml Neb INHALATION 0.5 mg BID.RESPIRATORY S CH Administration Buspirone HCl 5 mg 06/10/21 18:00 06/17/21 09:38 Buspirone 10 Mg Tablet PO Not Given BID [facility] Calcium Carbonate 1 each 06/10/21 18:00 06/17/21 09:39 Calcium Carb-Vit D 600mg/400unit 1 Tablet PO Not Given BID MINA Gabapentin 100 mg 06/10/21 21:00 06/17/21 09:39 Gabapentin 100 M g Capsule PO Not Given TID MINA Heparin Sodium (Po rcine) 0 unit 06/15/21 18:00 06/16/21 16:44 Heparin 5,000 Un it/Ml Inj 1 Ml IV 1,700 unit PRN PRN Administration Heparin weight-ba se protocol Protocol Vancomycin/PEG/NAD A/Lysine/Water 1,250 mg in 250 m ls @ 200 mls/hr 06/15/21 13:30 06/15/21 13:59 Vancocin IV 200 mls/hr Q48H MINA Administration dexmedeTOMIDine 0. 9 % NaCL 400 mcg in 100 ml s @ 0 mls/hr 06/17/21 10:00 06/17/21 10:13 Precedex IV 0.1 mcg/kg/hr .Q0M MINA 2.19 mls/hr Administration Protocol Per Protocol Imipenem/Cilastati n Sodium 250 100 mls @ 200 mls /hr 06/17/21 11:00 06/17/21 10:45 mg/ Sodium Chlor prasad IV 200 mls/hr Q6H MINA Administration Protocol Levothyroxine Sodi um 50 mcg 06/11/21 09:00 06/17/21 09:39 Levothyroxine 50 Mcg Tablet PO Not Given DAILY MINA Metoprolol Tartrat e 25 mg 06/13/21 11:00 06/17/21 09:25 Metoprolol Tartr ate 25 Mg Tablet PO 25 mg BID@0900,2100 MINA Administration Lqsvw-2-Clre Ethyl Esters 1,000 mg 06/11/21 09:00 06/17/21 09:39 [place]-3 Fatty Ac ids 1,000 Mg Capsu le PO Not Given DAILY MINA Pantoprazole Sodiu m 40 mg 06/11/21 09:00 06/17/21 09:[address] 40 Mg Tablet PO Not Given DAILY MINA Pantoprazole Sodiu m 40 mg 06/17/21 10:45 06/17/21 10:46 Pantoprazole 40 Mg Sdv IVP 40 mg DAILY MINA Administration Ropinirole HCl 0.25 mg 06/10/21 21:00 06/16/21 20:18 Ropinirole 0.25 Mg Tablet PO 0.25 mg BEDTIME MINA Administration Senna 17.2 mg 06/10/21 21:00 06/16/21 20:26 Sennosides 8.6 M g Tablet PO Not Given BEDTIME MINA Sertraline HCl 100 mg 06/10/21 18:00 06/17/21 09:26 Sertraline 100 M g Tablet PO 100 mg BID MINA Administration Trazodone HCl 50 mg 06/10/21 17:02 06/17/21 00:29 Trazodone 50 Mg Tablet PO 50 mg BEDTIME PRN Administration INSOMNIA Vitals/I&O/Wt Last Vital Signs Temp 98.7 F 06/18/21 07:00 Pulse 84 06/18/21 12:00 Resp 19 H 06/18/21 12:00 BP 142/84 06/18/21 12:00 Pulse Ox 96 06/18/21 12:00 06/17/21 06/18/21 06/18/21 22:59 06:59 14:59 Intake Total 1469.382 / 1679.015 207.568 / 1886.583 100 / 100 Output Total 600 / 600 825 / 1425 Balance 869.382 / 1079.015 -617.432 / 461.583 100 / 100 Weight last 48 hrs Weight 87.679 kg Weight 87.543 kg Physical Exam Narrative: Not in acute distress HENMT: COMMON NORMALS: normocephalic and atraumatic HEAD & SCALP: normocephalic and atraumatic Chest: COMMONS NORMALS: normal inspection of the chest and normal palpation of entire chest wall CHEST: Yes Symmetrical chest wall rise Resp: EFFORT & INSPECTION: Yes symmetric chest movement OTHER: Coarse Breath Sound with b/l crackles present in both lungs connelly Cardio: COMMON NORMALS: regular rate, regular rhythm, S1 normal heart sound present, S2 normal heart sound present, No gallops present (Cardio), No murmurs present (Cardio), No rub (Cardio) and Peripheral pulses 2+ throughout RATE: regular rate RHYTHM: regular rhythm HEART SOUNDS: S1 normal heart sound present and S2 normal heart sound present PERIPHERAL PULSES: Peripheral pulses 2+ throughout GI: COMMON NORMALS: Normal to inspection, nondistended, normoactive bowel sounds present, Soft to palpation, non-tender, No hepatosplenomegaly present and no masses AUSCULTATION: Yes normoactive bowel sounds PALPATION: Yes Soft to palpation and Yes No hepatosplenomegaly present RECTAL EXAM: deferred Extremity: COMMON NORMALS: no clubbing, cyanosis or edema and no pedal edema Urinary Catheter Management: Noriega: Cath Placed During This Visit: yes Reason for Continuing Indwelling Catheter: Accurate Measurement of Urinary Output in Critically Ill Patients Urinary Catheter Date of Insertion: 06/10/21 Urinary Catheter Time of Insertion: 18:14 Data : 06/18/21 03:07 06/18/21 03:07 Micro: Microbiology 06/17/21 11:35 Blood Culture - Preliminary Blood NEGATIVE TO DATE 06/17/21 11:34 Blood Culture - Preliminary Blood NEGATIVE TO DATE A&P Assessment and plan (1) Acute respiratory failure with hypoxia: Assessment Status: Acute (2) DVT (deep venous thrombosis): Given worsening oxygenation, slight drop in hemoglobin and persistent mild thrombocytopenia we will switch from full dose Lovenox to heparin drip. We will plan to start heparin drip by evening which will be 12 hours after her last dose of Lovenox. Status: Acute (3) Atrial fibrillation: Rate better controlled. Given amiodarone drip and digoxin 500 mcg IV yesterday. Continue with amiodarone 200 mg twice daily. Continue with metoprolol 25 mg tw ice daily for now. Digoxin levels appreciated. Rapid ventricular response currently. Appreciate cardiology recommendations. Status: Chronic (4) CHF (congestive heart failure): Treatment as above. Appreciate cardiology recommendations. Status: Chronic (5) Status post open reduction and internal fixation (ORIF) of fracture: Status: Acute (6) Closed intertrochanteric fracture of right hip: Comminuted. Postoperative day 3. Restarted Eliquis as per orthopedic service. Hold off on physical therapy today given tachycardia and low blood pressure. Pain medication with Aldrich every 8 hours as needed. Monitor hemoglobin. Status: Acute Qualifiers: Encounter type: initial encounter Fracture alignment: displaced Qualified Code(s): S72.141A - Displaced intertrochanteric fracture of right femur, initial encounter for closed fracture (7) Fall as cause of accidental injury in home as place of occurrence: Accidental, occurring while reaching too far while using her walker, landed on right hip. Status: Acute Qualifiers: Encounter type: initial encounter Qualified Code(s): W19.XXXA - Unspecified fall, initial encounter; Y92.009 - Unspecified place in unspecified non-institutional (private) residence as the place of occurrence of the external cause (8) Chronic anticoagulation: Hold off on Eliquis for now. Switched over to heparin drip. Status: Chronic (9) Coronary artery disease: Bypass surgery in 2010, 3 vessels with associated mitral valve repair Follows with Dr. Washington outpatient. Denies any active chest pain. A1c 5.4. Lipid panel appreciated. Will need to be on statin going forward. Atorvastatin 40 mg daily. Status: Chronic (10) Hypertension: Chronically on amlodipine and lisinopril in addition to beta-blockade. Goal blood pressure less than 140/90 mmHg. Blood pressure slightly soft today. For now hold off on amlodipine and lisinopril. Continue with metoprolol 25 mg twice daily. Status: Chronic (11) COPD (chronic obstructive pulmonary disease): Related to former tobacco abuse, chronically on Stiolto Respimat, not on continuos oxygen for her COPD but does wear nocturnal oxygen for sleep apnea. No acute exacerbation. Keep saturation over 88%. Status: Chronic (12) Sleep apnea: Diagnosed via sleep study, intolerant of CPAP/BiPAP, on nocturnal oxygen though admits that she does not necessarily use it every single night Status: Chronic Qualifiers: Sleep apnea type: unspecified type Qualified Code(s): G47.30 - Sleep apnea, unspecified (13) Hypothyroidism: Continue on home dose of levothyroxine. Check TSH. Status: Chronic (14) Anxiety and depression: Chronically on sertraline and also takes BuSpar plus as needed alprazolam, admits to having some challenges with current being on hospice and functional decline since her hip fracture a few years ago but reports that medications help Status: Chronic (15) Osteoarthritis: Status: Chronic Qualifiers: Osteoarthritis location: multiple joints Osteoarthritis type: primary Qualified Code(s): M15.9 - Polyosteoarthritis, unspecified (16) Atherosclerosis of coronary artery of [place] heart without angina pectoris: Status: Acute Plan Acute hypoxic respiratory failure likely secondary to: Pneumonia decompensated heart failure COPD, cannot conclusively rule out possible PE. CT chest without contrast: Ground-glass opacities throughout the right lung and in the inferior left lung.?? Small right pleural effusion. X-ray chest: D-dimer: elevated. Blood culture Gram stain and culture MRSA PCR positive Flu swab, COVID-19 antigen negative. Continue vancomycin She was on Zosyn, given worsening x-ray chest, has been switched to Primaxin. Continue Precedex #Newly diagnosed HFrEF : Currently compensated 2D echo: EF of 30 to 35%, severe diffuse hypokinesis of septum, anteroseptum and LV apex, diffuse hypokinesia of right ventricular.moderately increased LA and RA size. Currently compensated Continue to hold Lasix Intake output charting Daily weight K>4,MG>2 Continue HHFONC #PENG on CKD stage III: Likely secondary to overdiuresis Baseline serum creatinine 0.8-1 Random urine sodium Random urine creatinine FENA/FEUREA Monitor intake output charting Avoid nephrotoxic Continue to monitor BMP #Right lower extremity DVT: Continue Lovenox #COPD: Continue Solu-Medrol Budesonide inhaler DuoNebs #History of atrial fibrillation: Continue amiodarone as well as metoprolol On therapeutic Lovenox #Hypothyroidism: TSH : 1.17 Continue levothyroxine #Closed intertrochanteric fracture of right hip: S/p ORIF #CODE STATUS:AND #DVT prophylaxis on Lovenox Attestations Medical Necessity Statement*: Patient is still in hospital for management of hypoxic respiratory failure, PENG. Time Spent in Patient Care: Greater than 35 minutes (>than 50% of time spent in counselling and/or direct pt care on unit) . Critical Care Time: The high probability of a clinically significant, sudden or life threatening deterioration of the patient's [] system(s) required my full and direct attention, intervention and personal management. The critical care time is as shown. This time is in addition to time spent performing any reported procedures but includes the following: [x] Data and vital sign review and interpretation [x] Patient assessment, examination and intervention [x] Documentation [x] Medication orders and management Critical Care Time (min): 40 Coding Level of Care Code Acute [employer] for [facility] Fwd Diagnoses Acute respiratory failure with hypoxia J96.01 DVT (deep venous thrombosis) I82.409 Atrial fibrillation I48.91 CHF (congestive heart failure) I50.9 Status post open reduction and internal fixation (ORIF) of fracture Z98.890; Z87.81 Closed intertrochanteric fracture of right hip S72.141A Encounter type: initial encounter Fracture alignment: displaced Fall as cause of accidental injury in home as place of occurrence W19.XXXA; Y92.009 Encounter type: initial encounter Chronic anticoagulation Z79.01 Coronary artery disease I25.10 Hypertension I10 COPD (chronic obstructive pulmonary disease) J44.9 Sleep apnea G47.30 Sleep apnea type: unspecified type Hypothyroidism E03.9 Anxiety and depression F41.9; F32.A Osteoarthritis M15.9 Osteoarthritis location: multiple joints Osteoarthritis type: primary Atherosclerosis of coronary artery of [place] heart without angina pectoris I25.10
--- NOTE | 2021-06-18 14:09 | P.PN_ITS ---
Subjective Subjective: Patient is sleepy and drowsy. On Precedex Vitals/I&O/Wt Last Vital Signs Temp 98.7 F 06/18/21 07:00 Pulse 84 06/18/21 12:00 Resp 19 H 06/18/21 12:00 BP 142/84 06/18/21 12:00 Pulse Ox 96 06/18/21 12:00 06/17/21 06/18/21 06/18/21 22:59 06:59 14:59 Intake Total 1469.382 / 1679.015 207.568 / 1886.583 209.477 / 209.477 Output Total 600 / 600 825 / 1425 Balance 869.382 / 1079.015 -617.432 / 461.583 209.477 / 209.477 Weight last 48 hrs Weight 193 lb 4.8 oz Weight 193 lb Physical Exam Narrative: GENERAL: Patient is drowsy, on precedex HEENT: Minimal pallor.? RESPIRATORY: Shallow breathing , no significant crackles. Has mild wheezing Breath sounds are heard bilaterally.? HEART: Regular, S1, S2, has holosystolic murmur, grade 4/6 EXTREMITIES: No edema MUSCULOSKELETAL: The right hip mobility is restricted SKIN: There are no significant rashes Urinary Catheter Management: Noriega: Cath Placed During This Visit: yes Reason for Continuing Indwelling Catheter: Accurate Measurement of Urinary Output in Critically Ill Patients Urinary Catheter Date of Insertion: 06/10/21 Urinary Catheter Time of Insertion: 18:14 Data : 06/20/21 04:28 06/20/21 04:28 Micro: Microbiology 06/17/21 11:35 Blood Culture - Preliminary Blood NEGATIVE TO DATE 06/17/21 11:34 Blood Culture - Preliminary Blood NEGATIVE TO DATE A&P Assessment and plan (1) Chronic atrial fibrillation with rapid ventricular response: Heart rate is better controlled. Continue PO amiodarone and metoprolol Status: Acute (2) Atherosclerosis of coronary artery of [place] heart without angina pectoris: Patient had a three-vessel coronary bypass surgery in 2009. LV function is low with EF of 35%. May need to consider a myocardial perfusion imaging, to evaluate for any underlying coronary ischemia causing the LV dysfunction however patient is not stable at this time. Can be considered as outpatient Status: Acute (3) CHF (congestive heart failure): Creatinine improving now. Off diuretics for now. Respiratory distress is multifactorial with penumonia and possiblity of PE as has DVT. On anticoagu lation Status: Chronic (4) COPD (chronic obstructive pulmonary disease): Management as per the primary. Status: Chronic (5) Heart murmur: ECHO shows moderate to severe tricuspid regurgitation Status: Acute Plan Other problems are S/p open reduction internal fixation of the right hip Diarrhea Intermittent confusion Mild anemia Status post hypertension, currently normotensive Patient may be closely monitored on the telemetry. Based on the clinical progress, further management decisions will be made Attestations Medical Necessity Statement*: Care expected to cross 2 midnights. Coding Level of Care Code Acute [employer] for [facility] Fwd Diagnoses Chronic atrial fibrillation with rapid ventricular response I48.20 Atherosclerosis of coronary artery of [place] heart without angina pectoris I25. 10 CHF (congestive heart failure) I50.9 COPD (chronic obstructive pulmonary disease) J44.9 Heart murmur R01.1
[2021-06-18] MEDS: calcium carb-vit d 600mg/400unit 1 Tablet 1 EACH PO (17:29)
[2021-06-18] MEDS: trazodone 50 mg Tablet PO (20:40)
[2021-06-18] MEDS: dexmedeTOMIDine 0.9 % NaCL 400 MCG/100 ML PREMIX 8.75 MCG IV (20:40)
[2021-06-18] MEDS: sennosides 8.6 mg Tablet 17.2 MG PO (20:40)
[2021-06-18] MEDS: ropinirole 0.25 mg Tablet PO (20:41)
[2021-06-19] VITALS (52 sets, daily range): BP systolic 109–161; BP diastolic 69–116; PULSE 68–89; RESP 16–36; TEMP 36.8–37.2; O2SAT 85–94
[2021-06-19] MEDS: ipratropium-albuterol 3 mL Neb INHALATION ×4 (03:32→20:25)
[2021-06-19 03:46] LABS: Basophils % 0.2 %; Hematocrit 32.7 % (37.0-47.0); Lymphocytes # 0.3 10^3/uL (0.8-4.8); Lymphocytes % 2.5 %; Mean Corpuscular HGB Conc 30.6 g/dL (30.0-36.0); Mean Corpuscular Hemoglobin 27.2 pg (28.0-34.0); Mean Corpuscular Volume 89.1 fl (81-99); Mean Platelet Volume 13.2 fL (7.4-10.4); Monocytes # 0.6 10^3/uL (0.2-0.9); Monocytes % 5.8 %; Neutrophils # 9.18 10^3/uL (1.8-7.7); Neutrophils % 88.5 %; Nucleated Red Blood Cells % 0.2 %; Platelet Count 178 10^3/cmm (130-400); Red Blood Count 3.67 10^6/uL (4.1-5.3); Red Cell Distribution Width 15.9 % (12.1-15.1); White Blood Count 10.4 10^3/uL (4.0-10.0)
[2021-06-19 04:05] LABS: Anion Gap 12.8 (5-19); Blood Urea Nitrogen 51 mg/dL (8-23); Calcium 8.5 mg/dL (8.5-10.5); Carbon Dioxide 25 mmol/L (22-29); Chloride 109 mmol/L (98-107); Glucose 141 mg/dL (65-115); Osmolality Calculated 312 mOsm/kg (285-295); Potassium 3.8 mmol/L (3.5-5.1); Sodium 143 mmol/L (136-145)
[2021-06-19 04:17] LABS: Slide Review Slide Review Perform
[2021-06-19] MEDS: enoxaparin 80 mg/0.8 mL Syringe SUBCUT ×2 (05:06→17:05)
[2021-06-19] MEDS: dexmedeTOMIDine 0.9 % NaCL 400 MCG/100 ML PREMIX 8.75 MCG IV ×2 (06:52→18:23)
[2021-06-19] MEDS: budesonide 0.5 mg/2 mL Neb INHALATION ×2 (08:20→20:25)
[2021-06-19] MEDS: levothyroxine 50 mcg Tablet PO (08:32)
[2021-06-19] MEDS: BuSPIRONE 10 mg Tablet 5 MG PO ×2 (08:32→17:06)
[2021-06-19] MEDS: amiodarone 200 mg Tablet PO ×2 (08:32→17:05)
[2021-06-19] MEDS: pantoprazole 40 mg SDV IVP (08:32)
[2021-06-19] MEDS: sertraline 100 mg Tablet PO ×2 (08:32→17:05)
[2021-06-19] MEDS: calcium carb-vit d 600mg/400unit 1 Tablet 1 EACH PO ×2 (08:32→17:05)
[2021-06-19] MEDS: gabapentin 100 mg Capsule PO ×3 (08:32→20:38)
[2021-06-19] MEDS: metoprolol tartrate 25 mg Tablet PO ×2 (08:34→20:38)
--- NOTE | 2021-06-19 08:55 | PM.PN ---
Subjective Subjective: Patient was seen and examined this morning, serum creatinine is improving, continue to have good urine output. Working with physical therapy, still requiring 60 % fio2 @ 40Ls/min Flow. Medications: Medication Review Details: Generic Name Dose Route Start Last Admin Trade Name Freq PRN Reason Stop Dose Admin Hydrocodone Bitart /Acetaminophen 1 tab 06/10/21 15:54 06/15/21 06:06 Hydrocodone-Acet aminophen 5-325 Mg Tablet PO 1 tab Q4H PRN Administration MODERATE TO SEVER E PAIN Acetylcysteine 100 mg 06/14/21 00:00 06/17/21 07:48 Acetylcysteine 2 00 Mg/Ml Sdv 4 Ml INHALATION 100 mg Q4H.RESPIRATORY S CH Administration Albuterol Sulfate 2.5 mg 06/10/21 17:04 06/15/21 12:10 Albuterol 2.5 Mg /0.5 Ml Neb INHALATION 2.5 mg Q4H.RESPIRATORY P RN Administration SHORTNESS OF [place] TH Albuterol/Ipratrop ium 3 ml 06/14/21 15:00 06/17/21 08:00 Ipratropium-Albu terol 3 Ml Neb INHALATION 3 ml Q6H.RESPIRATORY S CH Administration Alprazolam 0.5 mg 06/10/21 17:02 06/13/21 23:14 Alprazolam 0.5 M g Tablet PO 0.5 mg TID PRN Administration anxiety Amiodarone HCl 200 mg 06/14/21 18:00 06/17/21 09:39 Amiodarone 200 M g Tablet PO Not Given BID MINA Budesonide 0.5 mg 06/14/21 20:00 06/17/21 07:48 Budesonide 0.5 M g/2 Ml Neb INHALATION 0.5 mg BID.RESPIRATORY S CH Administration Buspirone HCl 5 mg 06/10/21 18:00 06/17/21 09:38 Buspirone 10 Mg Tablet PO Not Given BID [facility] Calcium Carbonate 1 each 06/10/21 18:00 06/17/21 09:39 Calcium Carb-Vit D 600mg/400unit 1 Tablet PO Not Given BID MINA Gabapentin 100 mg 06/10/21 21:00 06/17/21 09:39 Gabapentin 100 M g Capsule PO Not Given TID MINA Heparin Sodium (Po rcine) 0 unit 06/15/21 18:00 06/16/21 16:44 Heparin 5,000 Un it/Ml Inj 1 Ml IV 1,700 unit PRN PRN Administration Heparin weight-ba se protocol Protocol Vancomycin/PEG/NAD A/Lysine/Water 1,250 mg in 250 m ls @ 200 mls/hr 06/15/21 13:30 06/15/21 13:59 Vancocin IV 200 mls/hr Q48H MINA Administration dexmedeTOMIDine 0. 9 % NaCL 400 mcg in 100 ml s @ 0 mls/hr 06/17/21 10:00 06/17/21 10:13 Precedex IV 0.1 mcg/kg/hr .Q0M MINA 2.19 mls/hr Administration Protocol Per Protocol Imipenem/Cilastati n Sodium 250 100 mls @ 200 mls /hr 06/17/21 11:00 06/17/21 10:45 mg/ Sodium Chlor prasad IV 200 mls/hr Q6H MINA Administration Protocol Levothyroxine Sodi um 50 mcg 06/11/21 09:00 06/17/21 09:39 Levothyroxine 50 Mcg Tablet PO Not Given DAILY MINA Metoprolol Tartrat e 25 mg 06/13/21 11:00 06/17/21 09:25 Metoprolol Tartr ate 25 Mg Tablet PO 25 mg BID@0900,2100 MINA Administration [id number] Ethyl Esters 1,000 mg 06/11/21 09:00 06/17/21 09:39 Polaris-3 Fatty Ac ids 1,000 Mg Capsu le PO Not Given DAILY MINA Pantoprazole Sodiu m 40 mg 06/11/21 09:00 06/17/21 09:[address] 40 Mg Tablet PO Not Given DAILY MINA Pantoprazole Sodiu m 40 mg 06/17/21 10:45 06/17/21 10:46 Pantoprazole 40 Mg Sdv IVP 40 mg DAILY MINA Administration Ropinirole HCl 0.25 mg 06/10/21 21:00 06/16/21 20:18 Ropinirole 0.25 Mg Tablet PO 0.25 mg BEDTIME MINA Administration Senna 17.2 mg 06/10/21 21:00 06/16/21 20:26 Sennosides 8.6 M g Tablet PO Not Given BEDTIME MINA Sertraline HCl 100 mg 06/10/21 18:00 06/17/21 09:26 Sertraline 100 M g Tablet PO 100 mg BID MINA Administration Trazodone HCl 50 mg 06/10/21 17:02 06/17/21 00:29 Trazodone 50 Mg Tablet PO 50 mg BEDTIME PRN Administration INSOMNIA Vitals/I&O/Wt Last Vital Signs Temp 98.7 F 06/19/21 07:47 Pulse 89 06/19/21 08:00 Resp 21 H 06/19/21 08:00 BP 151/91 06/19/21 07:47 Pulse Ox 92 06/19/21 08:00 06/18/21 06/19/21 06/19/21 22:59 06:59 14:59 Intake Total 622.048 / 839.838 289.25 / 1129.088 Output Total 875 / 875 275 / 1150 Balance -252.952 / -35.162 14.25 / -20.912 Weight last 48 hrs Weight 88.632 kg Weight 87.679 kg Physical Exam Narrative: Not in acute distress Const: COMMON NORMALS: patient oriented x3 HENMT: COMMON NORMALS: normocephalic and atraumatic HEAD & SCALP: normocephalic and atraumatic Chest: COMMONS NORMALS: normal inspection of the chest and normal palpation of entire chest wall CHEST: Yes Symmetrical chest wall rise Resp: EFFORT & INSPECTION: Yes symmetric chest movement OTHER: Coarse Breath Sound with b/l crackles present in both lungs connelly Cardio: COMMON NORMALS: regular rate, regular rhythm, S1 normal heart sound present, S2 normal heart sound present, No gallops present (Cardio), No murmurs present (Cardio), No rub (Cardio) and Peripheral pulses 2+ throughout RATE: regular rate RHYTHM: regular rhythm HEART SOUNDS: S1 normal heart sound present and S2 normal heart sound present PERIPHERAL PULSES: Peripheral pulses 2+ throughout GI: COMMON NORMALS: Normal to inspection, nondistended, normoactive bowel sounds present, Soft to palpation, non-tender, No hepatosplenomegaly present and no masses AUSCULTATION: Yes normoactive bowel sounds PALPATION: Yes Soft to palpation and Yes No hepatosplenomegaly present RECTAL EXAM: deferred Extremity: COMMON NORMALS: no clubbing, cyanosis or edema and no pedal edema Neuro: COMMON NORMALS: patient oriented x3 Urinary Catheter Management: Noriega: Cath Placed During This Visit: yes Reason for Continuing Indwelling Catheter: Accurate Measurement of Urinary Output in Critically Ill Patients Urinary Catheter Date of Insertion: 06/10/21 Urinary Catheter Time of Insertion: 18:14 Data : 06/19/21 03:17 06/19/21 03:17 Micro: Microbiology 06/17/21 11:35 Blood Culture - Preliminary Blood NEGATIVE TO DATE 06/17/21 11:34 Blood Culture - Preliminary Blood NEGATIVE TO DATE A&P Assessment and plan (1) Acute respiratory failure with hypoxia: Assessment Status: Acute (2) DVT (deep venous thrombosis): Given worsening oxygenation, slight drop in hemoglobin and persistent mild thrombocytopenia we will switch from full dose Lovenox to heparin drip. We will plan to start heparin drip by evening which will be 12 hours after her last dose of Lovenox. Status: Acute (3) Atrial fibrillation: Rate better controlled. Given amiodarone drip and digoxin 500 mcg IV yesterday. Continue with amiodarone 200 mg twice daily. Continue with metoprolol 25 mg twice daily for now. Digoxin levels appreciated. Rapid ventricular response currently. Appreciate cardiology recommendations. Status: Chronic (4) CHF (congestive heart failure): Treatment as above. Appreciate cardiology recommendations. Status: Chronic (5) Status post open reduction and internal fixation (ORIF) of fracture: Status: Acute (6) Closed intertrochanteric fracture of right hip: Comminuted. Postoperative day 3. Restarted Eliquis as per orthopedic service. Hold off on physical therapy today given tachycardia and low blood pressure. Pain medication with [place] every 8 hours as needed. Monitor hemoglobin. Status: Acute Qualifiers: Encounter type: initial encounter Fracture alignment: displaced Qualified Code(s): S72.141A - Displaced intertrochanteric fracture of right femur, initial encounter for closed fracture (7) Fall as cause of accidental injury in home as place of occurrence: Accidental, occurring while reaching too far while using her walker, landed on right hip. Status: Acute Qualifiers: Encounter type: initial encounter Qualified Code(s): W19.XXXA - Unspecified fall, initial encounter; Y92.009 - Unspecified place in unspecified non-institutional (private) residence as the place of occurrence of the external cause (8) Chronic anticoagulation: Hold off on Eliquis for now. Switched over to heparin drip. Status: Chronic (9) Coronary artery disease: Bypass surgery in 2010, 3 vessels with associated mitral valve repair Follows with Dr. [place] outpatient. Denies any active chest pain. A1c 5.4. Lipid panel appreciated. Will need to be on statin going forward. Atorvastatin 40 mg daily. Status: Chronic (10) Hypertension: Chronically on amlodipine and lisinopril in addition to beta-blockade. Goal blood pressure less than 140/90 mmHg. Blood pressure slightly soft today. For now hold off on amlodipine and lisinopril. Continue with metoprolol 25 mg twice daily. Status: Chronic (11) COPD (chronic obstructive pulmonary disease): Related to former tobacco abuse, chronically on Stiolto Respimat, not on continuos oxygen for her COPD but does wear nocturnal oxygen for sleep apnea. No acute exacerbation. Keep saturation over 88%. Status: Chronic (12) Sleep apnea: Diagnosed via sleep study, intolerant of CPAP/BiPAP, on nocturnal oxygen though admits that she does not necessarily use it every single night Status: Chronic Qualifiers: Sleep apnea type: unspecified type Qualified Code(s): G47.30 - Sleep apnea, unspecified (13) Hypothyroidism: Continue on home dose of levothyroxine. Check TSH. Status: Chronic (14) Anxiety and depression: Chronically on sertraline and also takes BuSpar plus as needed alprazolam, admits to having some challenges with current being on hospice and functional decline since her hip fracture a few years ago but reports that medications help Status: Chronic (15) Osteoarthritis: Status: Chronic Qualifiers: Osteoarthritis location: multiple joints Osteoarthritis type: primary Qualified Code(s): M15.9 - Polyosteoarthritis, unspecified (16) Atherosclerosis of coronary artery of [place] heart without angina pectoris: Status: Acute Plan Acute hypoxic respiratory failure likely secondary to: Pneumonia decompensated heart failure COPD, cannot conclusively rule out possible PE. CT chest without contrast: Ground-glass opacities throughout the right lung and in the inferior left lung.?? Small right pleural effusion. X-ray chest: D-dimer: elevated. Blood culture: NTD Sputum Gram stain and culture MRSA PCR positive Flu swab, COVID-19 antigen negative. Continue vancomycin She was on Zosyn, given worsening x-ray chest, has been switched to Primaxin. Continue Precedex #Newly diagnosed HFrEF : Currently compensated 2D echo: EF of 30 to 35%, severe diffuse hypokinesis of septum, anteroseptum and LV apex, diffuse hypokinesia of right ventricular.moderately increased LA and RA size. Currently compensated Continue to hold Lasix Intake output charting Daily weight K>4,MG>2 Continue HHFONC #PENG on CKD stage III: Likely secondary to overdiuresis Baseline serum creatinine 0.8-1 Random urine sodium Random urine creatinine FENA/FEUREA Monitor intake output charting Avoid nephrotoxic Continue to monitor BMP #Right lower extremity DVT: Continue Lovenox #COPD: Continue Solu-Medrol Budesonide inhaler DuoNebs #History of atrial fibrillation: Continue amiodarone as well as metoprolol On therapeutic Lovenox #Hypothyroidism: TSH : 1.17 Continue levothyroxine #Closed intertrochanteric fracture of right hip: S/p ORIF #CODE STATUS:AND #DVT prophylaxis on Lovenox Attestations Medical Necessity Statement*: Patient needs to be in hospital for the management of respiratory failure. Time Spent in Patient Care: Greater than 35 minutes (>than 50% of time spent in counselling and/or direct pt care on unit). Critical Care Time: The high probability of a clinically significant, sudden or life threatening deterioration of the patient's [] system(s) required my full and direct attention, intervention and personal management. The critical care time is as shown. This time is in addition to time spent performing any reported procedures but includes the following: [x] Data and vital sign review and interpretation [x] Patient assessment, examination and intervention [x] Documentation [x] Medication orders and management Critical Care Time (min): 35 Coding Level of Care Code Acute Masticator for [facility] Fwd Exam Detailed Diagnoses Acute respiratory failure with hypoxia J96.01 DVT (deep venous thrombosis) I82.409 Atrial fibrillation I48.91 CHF (congestive heart failure) I50.9 Status post open reduction and internal fixation (ORIF) of fracture Z98.890; Z87.81 Closed intertrochanteric fracture of right hip S72.141A Encounter type: initial encounter Fracture alignment: displaced Fall as cause of accidental injury in home as place of occurrence W19.XXXA; Y92.009 Encounter type: initial encounter Chronic anticoagulation Z79.01 Coronary artery disease I25.10 Hypertension I10 COPD (chronic obstructive pulmonary disease) J44.9 Sleep apnea G47.30 Sleep apnea type: unspecified type Hypothyroidism E03.9 Anxiety and depression F41.9; F32.A Osteoarthritis M15.9 Osteoarthritis location: multiple joints Osteoarthritis type: primary Atherosclerosis of coronary artery of [place] heart without angina pectoris I25.10
--- NOTE | 2021-06-19 09:56 | PC.CHAP ---
Pastoral Care Encounter/Spiritual Assessment Type of Contact [] Declined senior investigator visit [] Patient/Family/Request visit [] Outpatient visit [] Follow-up visit [] Physician referral [] Code/Alert [x] Routine visit [] Staff referral [] Actively dying [] Patient sleeping [] Family support [] [] Out of room [] Palliative care [] [] Receiving care in room [] Pre-surgical visit [] Trauma [] Long length of stay [x] ICU visit [] Other: Relational/Emotional Strength [] Patient feels connected with others/family/visitors/staff [] Distress [] Loneliness/isolation [] Abandonment Spirituality of Patient [] Person of Dina [] Attends Gnosticist of their Dina [] Believes in Prayer [] Reads Bible or Jehovah'S Witness materials [] There are Spiritual issues to be addressed Personnel Director Interventions [x] Prayer [x] Active listening [x] Non-anxious presence [x] Spiritual/emotional support [] Crisis/trauma care [] Spiritual counseling [] Bereavement support [] Provided bereavement packet [] Provided Bible/devotional materials [] Provided toy/stuffed animal, coloring book to patient or family member [] Provided Communion [] Anointing/[place] [] Salvation [x] Completed spiritual assessment [] Other: Impact on Illness or Injury [] Angry [] Fearful [] Anxious [] Often cries [] Exhaustion [] Unable to work [] Unable to attend advent [] Unable to walk/stand [] Unable to read [] Unable to drive [] Unable to eat/drink [] Unable to sleep [] Unable to be with family [] Patient intubated [] Other: Summary patient has arm restraints... has to be fed... there is improvement Time spent with patient 5 min
--- NOTE | 2021-06-19 11:02 | PC.SOCIAL ---
IMM update IMM updated with patient. Copy Pg 2 provided. Initialled, dated, timed, and placed in chart.
--- NOTE | 2021-06-19 12:23 | XR_ITS ---
WS: [id number] Portable AP upright chest, 06/19/2021 Clinical Data: sob Comparison: Portable chest, 06/17/2021. Findings: The patchy opacity throughout the right lung and also in the retrocardiac region has not ch anged. There is relative lucency in the left upper lobe in the patient's head a lobectomy on the left . The heart remains enlarged. The patient's head cardiac surgery with valve replacement. There may be small bilateral pleural effusions. Monitor leads are on the chest wall. XR/XR chest 1V portable [id number] Impression: 1. Bilateral patchy opacity which may represent pulmonary edema, diffuse pneumo nel or interstitial fibrosis remains the same. 2. Lucent left upper thorax unchanged. 3. Cardiomegaly and artificial heart valve replacement.
[2021-06-19] MEDS: vancomycin 1,250 MG/250 ML PIGGYBACK 200 MG IV (14:15)
[2021-06-19] MEDS: lanolin oint 7 gm 1 APPLIC TOPICAL (15:59)
--- NOTE | 2021-06-19 17:35 | PM.PN ---
Subjective Subjective: Patient is sleepy. However says feeling well. Still on high flow NC Vitals/I&O/Wt Last Vital Signs Temp 98.7 F 06/19/21 07:47 Pulse 73 06/19/21 16:00 Resp 18 06/19/21 16:00 BP 156/101 06/19/21 16:00 Pulse Ox 90 06/19/21 16:00 06/19/21 06/19/21 06/19/21 06:59 14:59 22:59 Intake Total 289.25 / 1129.088 820 / 820 250 / 1070 Output Total 275 / 1150 Balance 14.25 / -20.912 820 / 820 250 / 1070 Weight last 48 hrs Weight 195 lb 6.4 oz Weight 193 lb 4.8 oz Physical Exam Narrative: GENERAL: Patient is drowsy, on precedex HEENT: Minimal pallor.? RESPIRATORY: Shallow breathing , no significant crackles. Has mild wheezing Breath sounds are heard bilaterally.? HEART: Regular, S1, S2, has holosystolic murmur, grade 4/6 EXTREMITIES: No edema MUSCULOSKELETAL: The right hip mobility is restricted SKIN: There are no significant rashes Urinary Catheter Management: Noriega: Cath Placed During This Visit: yes Reason for Continuing Indwelling Catheter: Accurate Measurement of Urinary Output in Critically Ill Patients Urinary Catheter Date of Insertion: 06/10/21 Urinary Catheter Time of Insertion: 18:14 Data : 06/20/21 04:28 06/20/21 04:28 A&P Assessment and plan (1) Chronic atrial fibrillation with rapid ventricular response: Heart rate is controlled. Continue PO amiodarone and metoprolol. Status: Acute (2) Atherosclerosis of coronary artery of [place] heart without angina pectoris: Patient had a three-vessel coronary bypass surgery in 2009. LV function is low with EF of 35%. May need to consider a myocardial perfusion imaging, to evaluate for any underlying coronary ischemia causing the LV dysfunction however patient is not stable at this time. Can be considered as outpatient Blood pressure has been staying elevated. Can uptitrate metoprolol and add lisinopril 5 mg daily. Status: Acute (3) CHF (congestive heart failure): Creatinine improving now. Off diuretics for now. Respiratory distress is multifactorial with penumonia and possiblity of PE as has DVT. On anticoagulation Status: Chronic (4) COPD (chronic obstructive pulmonary disease): Management as per the primary. Status: Chronic (5) Heart murmur: ECHO shows moderate to severe tricuspid regurgitation Status: Acute Plan Other problems are S/p open reduction internal fixation of the right hip Diarrhea Intermittent confusion Mild anemia Status post hypertension, currently normotensive Patient may be closely monitored on the telemetry. Based on the clinical progress, further management decisions will be made Attestations Medical Necessity Statement*: Care expected to cross 2 midnights Coding Level of Care Code Acute Filter Bed Placer for [facility] Fwd Diagnoses Chronic atrial fibrillation with rapid ventricular response I48.20 Atherosclerosis of coronary artery of [place] heart without angina pectoris I25.10 CHF (congestive heart failure) I50.9 COPD (chronic obstructive pulmonary disease) J44.9 Heart murmur R01.1
[2021-06-19] MEDS: ropinirole 0.25 mg Tablet PO (20:38)
[2021-06-19] MEDS: sennosides 8.6 mg Tablet 17.2 MG PO (20:38)
[2021-06-20] VITALS (38 sets, daily range): BP systolic 111–182; BP diastolic 73–116; PULSE 68–113; RESP 16–35; TEMP 36.1–36.9; O2SAT 85–97
[2021-06-20] MEDS: ipratropium-albuterol 3 mL Neb INHALATION ×4 (02:38→20:02)
[2021-06-20 04:35] LABS: Basophils % 0.2 %; Eosinophils % 0.1 %; Hematocrit 32.9 % (37.0-47.0); Hemoglobin 10.1 g/dL (11.5-15.3); Lymphocytes # 0.5 10^3/uL (0.8-4.8); Lymphocytes % 3.5 %; Mean Corpuscular HGB Conc 30.7 g/dL (30.0-36.0); Mean Corpuscular Hemoglobin 27.1 pg (28.0-34.0); Mean Corpuscular Volume 88.2 fl (81-99); Mean Platelet Volume 13.2 fL (7.4-10.4); Monocytes # 0.6 10^3/uL (0.2-0.9); Monocytes % 4.5 %; Neutrophils # 11.27 10^3/uL (1.8-7.7); Neutrophils % 86.9 %; Nucleated Red Blood Cells % 0.2 %; Platelet Count 180 10^3/cmm (130-400); Red Blood Count 3.73 10^6/uL (4.1-5.3); Red Cell Distribution Width 15.9 % (12.1-15.1)
[2021-06-20 04:49] LABS: Slide Review Slide Review Perform
[2021-06-20 04:55] LABS: Anion Gap 12.8 (5-19); Blood Urea Nitrogen 34 mg/dL (8-23); Calcium 8.5 mg/dL (8.5-10.5); Carbon Dioxide 26 mmol/L (22-29); Chloride 106 mmol/L (98-107); Glucose 120 mg/dL (65-115); Osmolality Calculated 301 mOsm/kg (285-295); Potassium 3.8 mmol/L (3.5-5.1); Sodium 141 mmol/L (136-145)
[2021-06-20] MEDS: enoxaparin 80 mg/0.8 mL Syringe SUBCUT ×2 (05:45→17:27)
[2021-06-20] MEDS: dexmedeTOMIDine 0.9 % NaCL 400 MCG/100 ML PREMIX 8.75 MCG IV (06:43)
[2021-06-20] MEDS: calcium carb-vit d 600mg/400unit 1 Tablet 1 EACH PO ×2 (08:47→17:32)
[2021-06-20] MEDS: gabapentin 100 mg Capsule PO ×3 (08:47→21:47)
[2021-06-20] MEDS: amiodarone 200 mg Tablet PO ×2 (08:47→17:32)
[2021-06-20] MEDS: BuSPIRONE 10 mg Tablet 5 MG PO ×2 (08:47→17:32)
[2021-06-20] MEDS: sertraline 100 mg Tablet PO ×2 (08:47→17:32)
[2021-06-20] MEDS: levothyroxine 50 mcg Tablet PO (08:47)
[2021-06-20] MEDS: amlodipine 5 mg Tablet PO (08:47)
[2021-06-20] MEDS: acetaminophen 325 mg Tablet 650 MG PO (08:48)
[2021-06-20] MEDS: FUROsemide 10 mg/mL SDV 2mL 20 MG IVP (08:48)
[2021-06-20] MEDS: pantoprazole 40 mg SDV IVP (08:48)
[2021-06-20] MEDS: metoprolol tartrate 25 mg Tablet PO ×2 (08:50→21:47)
[2021-06-20] MEDS: budesonide 0.5 mg/2 mL Neb INHALATION ×2 (09:14→20:02)
--- NOTE | 2021-06-20 10:56 | PM.PN ---
Subjective Subjective: Patient was seen and examined this morning, kidney function has normalized.Continue to be on HHFONC Xray chest done yesterday has shown some improvement rt lung patchy opacity. Currently Her LOS is + 7ls will give her lasix 20 mg I.V Today, as well as try BIPAP, as well as alternating HHFONC as tolerated. Medications: Medication Review Details: Generic Name Dose Route Start Last Admin Trade Name Freq PRN Reason Stop Dose Admin Hydrocodone Bitart /Acetaminophen 1 tab 06/10/21 15:54 06/15/21 06:06 Hydrocodone-Acet aminophen 5-325 Mg Tablet PO 1 tab Q4H PRN Administration MODERATE TO SEVER E PAIN Acetylcysteine 100 mg 06/14/21 00:00 06/17/21 07:48 Acetylcysteine 2 00 Mg/Ml Sdv 4 Ml INHALATION 100 mg Q4H.RESPIRATORY S CH Administration Albuterol Sulfate 2.5 mg 06/10/21 17:04 06/15/21 12:10 Albuterol 2.5 Mg /0.5 Ml Neb INHALATION 2.5 mg Q4H.RESPIRATORY P RN Administration SHORTNESS OF GUA[place] TH Albuterol/Ipratrop ium 3 ml 06/14/21 15:00 06/17/21 08:00 Ipratropium-Albu terol 3 Ml Neb INHALATION 3 ml Q6H.RESPIRATORY S CH Administration Alprazolam 0.5 mg 06/10/21 17:02 06/13/21 23:14 Alprazolam 0.5 M g Tablet PO 0.5 mg TID PRN Administration anxiety Amiodarone HCl 200 mg 06/14/21 18:00 06/17/21 09:39 Amiodarone 200 M g Tablet PO Not Given BID MINA Budesonide 0.5 mg 06/14/21 20:00 06/17/21 07:48 Budesonide 0.5 M g/2 Ml Neb INHALATION 0.5 mg BID.RESPIRATORY S CH Administration Buspirone HCl 5 mg 06/10/21 18:00 06/17/21 09:38 Buspirone 10 Mg Tablet PO Not Given BID MINA Calcium Carbonate 1 each 06/10/21 18:00 06/17/21 09:39 Calcium Carb-Vit D 600mg/400unit 1 Tablet PO Not Given BID MINA Gabapentin 100 mg 06/10/21 21:00 06/17/21 09:39 Gabapentin 100 M g Capsule PO Not Given TID MINA Heparin Sodium (Po rcine) 0 unit 06/15/21 18:00 06/16/21 16:44 Heparin 5,000 Un it/Ml Inj 1 Ml IV 1,700 unit PRN PRN Administration Heparin weight-ba se protocol Protocol Vancomycin/PEG/NAD A/Lysine/Water 1,250 mg in 250 m ls @ 200 mls/hr 06/15/21 13:30 06/15/21 13:59 Vancocin IV 200 mls/hr Q48H MINA Administration dexmedeTOMIDine 0. 9 % NaCL 400 mcg in 100 ml s @ 0 mls/hr 06/17/21 10:00 06/17/21 10:13 Precedex IV 0.1 mcg/kg/hr .Q0M MINA 2.19 mls/hr Administration Protocol Per Protocol Imipenem/Cilastati n Sodium 250 100 mls @ 200 mls /hr 06/17/21 11:00 06/17/21 10:45 mg/ Sodium Chlor prasad IV 200 mls/hr Q6H MINA Administration Protocol Levothyroxine Sodi um 50 mcg 06/11/21 09:00 06/17/21 09:39 Levothyroxine 50 Mcg Tablet PO Not Given DAILY MINA Metoprolol Tartrat e 25 mg 06/13/21 11:00 06/17/21 09:25 Metoprolol Tartr ate 25 Mg Tablet PO 25 mg BID@0900,2100 MINA Administration Bxxxt-6-Lpec Ethyl Esters 1,000 mg 06/11/21 09:00 06/17/21 09:39 [place]-3 Fatty Ac ids 1,000 Mg Capsu le PO Not Given DAILY MINA Pantoprazole Sodiu m 40 mg 06/11/21 09:00 06/17/21 09:[address] 40 Mg Tablet PO Not Given DAILY MINA Pantoprazole Sodiu m 40 mg 06/17/21 10:45 06/17/21 10:46 Pantoprazole 40 Mg Sdv IVP 40 mg DAILY MINA Administration Ropinirole HCl 0.25 mg 06/10/21 21:00 06/16/21 20:18 Ropinirole 0.25 Mg Tablet PO 0.25 mg BEDTIME MINA Administration Senna 17.2 mg 06/10/21 21:00 06/16/21 20:26 Sennosides 8.6 M g Tablet PO Not Given BEDTIME MINA Sertraline HCl 100 mg 06/10/21 18:00 06/17/21 09:26 Sertraline 100 M g Tablet PO 100 mg BID MINA Administration Trazodone HCl 50 mg 06/10/21 17:02 06/17/21 00:29 Trazodone 50 Mg Tablet PO 50 mg BEDTIME PRN Administration INSOMNIA Vitals/I&O/Wt Last Vital Signs Temp 98.5 F 06/20/21 08:00 Pulse 82 06/20/21 09:21 Resp 23 H 06/20/21 09:21 BP 156/88 06/20/21 09:00 Pulse Ox 93 06/20/21 09:21 06/19/21 06/20/21 06/20/21 22:59 06:59 14:59 Intake Total 672 / 1492 300 / 1792 390 / 390 Output Total 1100 / 1100 300 / 1400 Balance -428 / 392 0 / 392 390 / 390 Weight last 48 hrs Weight 91.036 kg Weight 88.632 kg Physical Exam Narrative: Not in acute distress Const: COMMON NORMALS: patient oriented x3 HENMT: COMMON NORMALS: normocephalic and atraumatic HEAD & SCALP: normocephalic and atraumatic Chest: COMMONS NORMALS: normal inspection of the chest and normal palpation of entire chest wall CHEST: Yes Symmetrical chest wall rise Resp: EFFORT & INSPECTION: Yes symmetric chest movement OTHER: Coarse Breath Sound with b/l crackles present in both lungs connelly Cardio: COMMON NORMALS: regular rate, regular rhythm, S1 normal heart sound present, S2 normal heart sound present, No gallops present (Cardio), No murmurs present (Cardio), No rub (Cardio) and Peripheral pulses 2+ throughout RATE: regular rate RHYTHM: regular rhythm HEART SOUNDS: S1 normal heart sound present and S2 normal heart sound present PERIPHERAL PULSES: Peripheral pulses 2+ throughout GI: COMMON NORMALS: Normal to inspection, nondistended, normoactive bowel sounds present, Soft to palpation, non-tender, No hepatosplenomegaly present and no masses AUSCULTATION: Yes normoactive bowel sounds PALPATION: Yes Soft to palpation and Yes No hepatosplenomegaly present RECTAL EXAM: deferred Extremity: COMMON NORMALS: no clubbing, cyanosis or edema and no pedal edema Neuro: COMMON NORMALS: patient oriented x3 Urinary Catheter Management: Noriega: Cath Placed During This Visit: yes Reason for Continuing Indwelling Catheter: Accurate Measurement of Urinary Output in Critically Ill Patients Urinary Catheter Date of Insertion: 06/10/21 Urinary Catheter Time of Insertion: 18:14 Data : 06/20/21 04:28 06/20/21 04:28 A&P Assessment and plan (1) Acute respiratory failure with hypoxia: Assessment Status: Acute (2) DVT (deep venous thrombosis): Given worsening oxygenation, slight drop in hemoglobin and persistent mild thrombocytopenia we will switch from full dose Lovenox to heparin drip. We will plan to start heparin drip by evening which will be 12 hours after her last dose of Lovenox. Status: Acute (3) Atrial fibrillation: Rate better controlled. Given amiodarone drip and digoxin 500 mcg IV yesterday. Continue with amiodarone 200 mg twice daily. Continue with metoprolol 25 mg twice daily for now. Digoxin levels appreciated. Rapid ventricular response currently. Appreciate cardiology recommendations. Status: Chronic (4) CHF (congestive heart failure): Treatment as above. Appreciate cardiology recommendations. Status: Chronic (5) Status post open reduction and internal fixation (ORIF) of fracture: Status: Acute (6) Closed intertrochanteric fracture of right hip: Comminuted. Postoperative day 3. Restarted Eliquis as per orthopedic service. Hold off on physical therapy today given tachycardia and low blood pressure. Pain medication with [place] every 8 hours as needed. Monitor hemoglobin. Status: Acute Qualifiers: Encounter type: initial encounter Fracture alignment: displaced Qualified Code(s): S72.141A - Displaced intertrochanteric fracture of right femur, initial encounter for closed fracture (7) Fall as cause of accidental injury in home as place of occurrence: Accidental, occurring while reaching too far while using her walker, landed on right hip. Status: Acute Qualifiers: Encounter type: initial encounter Qualified Code(s): W19.XXXA - Unspecified fall, initial encounter; Y92.009 - Unspecified place in unspecified non-institutional (private) residence as the place of occurrence of the external cause (8) Chronic anticoagulation: Hold off on Eliquis for now. Switched over to heparin drip. Status: Chronic (9) Coronary artery disease: Bypass surgery in 2009, 3 vessels with associated mitral valve repair Follows with Dr. [place] outpatient. Denies any active chest pain. A1c 5.4. Lipid panel appreciated. Will need to be on statin going forward. Atorvastatin 40 mg daily. Status: Chronic (10) Hypertension: Chronically on amlodipine and lisinopril in addition to beta-blockade. Goal blood pressure less than 140/90 mmHg. Blood pressure slightly soft today. For now hold off on amlodipine and lisinopril. Continue with metoprolol 25 mg twice daily. Status: Chronic (11) COPD (chronic obstructive pulmonary disease): Related to former tobacco abuse, chronically on Stiolto Respimat, not on continuos oxygen for her COPD but does wear nocturnal oxygen for sleep apnea. No acute exacerbation. Keep saturation over 88%. Status: Chronic (12) Sleep apnea: Diagnosed via sleep study, intolerant of CPAP/BiPAP, on nocturnal oxygen though admits that she does not necessarily use it every single night Status: Chronic Qualifiers: Sleep apnea type: unspecified type Qualified Code(s): G47.30 - Sleep apnea, unspecified (13) Hypothyroidism: Continue on home dose of levothyroxine. Check TSH. Status: Chronic (14) Anxiety and depression: Chronically on sertraline and also takes BuSpar plus as needed alprazolam, admits to having some challenges with current being on hospice and functional decline since her hip fracture a few years ago but reports that medications help Status: Chronic (15) Osteoarthritis: Status: Chronic Qualifiers: Osteoarthritis location: multiple joints Osteoarthritis type: primary Qualified Code(s): M15.9 - Polyosteoarthritis, unspecified (16) Atherosclerosis of coronary artery of [place] heart without angina pectoris: Status: Acute Plan Acute hypoxic respiratory failure likely secondary to: Pneumonia decompensated heart failure COPD, cannot conclusively rule out possible PE. CT chest without contrast: Ground-glass opacities throughout the right lung and in the inferior left lung.?? Small right pleural effusion. X-ray chest: D-dimer: elevated. Blood culture: NTD Sputum Gram stain and culture MRSA PCR positive Flu swab, COVID-19 antigen negative. Continue vancomycin She was on Zosyn, given worsening x-ray chest, has been switched to Primaxin. Continue Precedex #Newly diagnosed HFrEF : Currently compensated 2D echo: EF of 30 to 35%, severe diffuse hypokinesis of septum, anteroseptum and LV apex, diffuse hypokinesia of right ventricular.moderately increased LA and RA size. Currently compensated Continue to hold Lasix Intake output charting Daily weight K>4,MG>2 Continue HHFONC #PENG on CKD stage III: Likely secondary to overdiuresis Baseline serum creatinine 0.8-1 Random urine sodium Random urine creatinine FENA/FEUREA Monitor intake output charting Avoid nephrotoxic Continue to monitor BMP #Right lower extremity DVT: Continue Lovenox #COPD: Continue Solu-Medrol Budesonide inhaler DuoNebs #History of atrial fibrillation: Continue amiodarone as well as metoprolol On therapeutic Lovenox #Hypertension : Amlodipine 5 Mg po daily #Hypothyroidism: TSH : 1.17 Continue levothyroxine #Closed intertrochanteric fracture of right hip: S/p ORIF #CODE STATUS:AND #DVT prophylaxis on Lovenox Attestations Medical Necessity Statement*: Patient needs to be in hospital for the management of respiratory failure. Time Spent in Patient Care: Greater than 35 minutes (>than 50% of time spent in counselling and/or direct pt care on unit). Critical Care Time: The high probability of a clinically significant, sudden or life threatening deterioration of the patient's [] system(s) required my full and direct attention, intervention and personal management. The critical care time is as shown. This time is in addition to time spent performing any reported procedures but includes the following: [x] Data and vital sign review and interpretation [x] Patient assessment, examination and intervention [x] Documentation [x] Medication orders and management Critical Care Time (min): 30 Coding Level of Care Code Acute Data Systems Manager for [facility] Fwd Diagnoses Acute respiratory failure with hypoxia J96.01 DVT (deep venous thrombosis) I82.409 Atrial fibrillation I48.91 CHF (congestive heart failure) I50.9 Status post open reduction and internal fixation (ORIF) of fracture Z98.890; Z87.81 Closed intertrochanteric fracture of right hip S72.141A Encounter type: initial encounter Fracture alignment: displaced Fall as cause of accidental injury in home as place of occurrence W19.XXXA; Y92.009 Encounter type: initial encounter Chronic anticoagulation Z79.01 Coronary artery disease I25.10 Hypertension I10 COPD (chronic obstructive pulmonary disease) J44.9 Sleep apnea G47.30 Sleep apnea type: unspecified type Hypothyroidism E03.9 Anxiety and depression F41.9; F32.A Osteoarthritis M15.9 Osteoarthritis location: multiple joints Osteoarthritis type: primary Atherosclerosis of coronary artery of [place] heart without angina pectoris I25.10
--- NOTE | 2021-06-20 11:20 | PC.NURSE ---
Pt out of bed with PT, [id number] assistive device utilized. Patient tolerated very well.
--- NOTE | 2021-06-20 13:59 | PC.NURSE ---
Pt stated she wanted to stay in chair. Reclined chair fully back at this time.
[2021-06-20] MEDS: vancomycin 1,250 MG/250 ML PIGGYBACK 200 MG IV (14:42)
--- NOTE | 2021-06-20 15:56 | P.PN_ITS ---
Subjective Subjective: Patient has shortness of breath. No chest pain Vitals/I&O/Wt Last Vital Signs Temp 97 F L 06/20/21 14:00 Pulse 75 06/20/21 15:07 Resp 20 H 06/20/21 15:05 BP 140/86 06/20/21 14:00 Pulse Ox 92 06/20/21 15:07 06/20/21 06/20/21 06/20/21 06:59 14:59 22:59 Intake Total 300 / 1792 767.771 / 767.771 Output Total 300 / 1400 Balance 0 / 392 767.771 / 767.771 Weight last 48 hrs Weight 200 lb 11.2 oz Weight 195 lb 6.4 oz Physical Exam Narrative: GENERAL: Patient is drowsy, on precedex HEENT: Minimal pallor.? RESPIRATORY: Shallow breathing , no significant crackles. Has mild wheezing Breath sounds are heard bilaterally.? HEART: Regular, S1, S2, has holosystolic murmur, grade 4/6 EXTREMITIES: No edema MUSCULOSKELETAL: The right hip mobility is restricted SKIN: There are no significant rashes Urinary Catheter Management: Noriega: Cath Placed During This Visit: yes Reason for Continuing Indwelling Catheter: Accurate Measurement of Urinary Output in Critically Ill Patients Urinary Catheter Date of Insertion: 06/10/21 Urinary Catheter Time of Insertion: 18:14 Data : 06/21/21 03:41 06/21/21 03:41 A&P Assessment and plan (1) Chronic atrial fibrillation with rapid ventricular response: Heart rate is controlled. Continue PO amiodarone and metoprolol. Status: Acute (2) Atherosclerosis of coronary artery of [place] heart without angina pectoris: Patient had a three-vessel coronary bypass surgery in 2009. LV function is low with EF of 35%. May need to consider a myocardial perfusion imaging, to evaluate for any underlying coronary ischemia causing the LV dysfunction however patient is not stable at this time. Can be considered as outpatient Blood pressure has been staying elevated. Uptitrate metoprolol to 50mg BID Status: Acute (3) CHF (congestive heart failure): Creatinine normal now. Can be started back on low dose lasix. Respiratory d istress is multifactorial with penumonia and possiblity of PE as has DVT. On anticoagulation Status: Chronic (4) COPD (chronic obstructive pulmonary disease): Management as per the primary. Status: Chronic (5) Heart murmur: ECHO shows moderate to severe tricuspid regurgitation Status: Acute Plan Other problems are S/p open reduction internal fixation of the right hip Diarrhea Intermittent confusion Mild anemia Status post hypertension, currently normotensive Patient may be closely monitored on the telemetry. Based on the clinical progress, further management decisions will be made Attestations Medical Necessity Statement*: Care expected to cross 2 midnights. Coding Level of Care Code Acute Inpatient Nursing Aide for [facility] Fwd Diagnoses Chronic atrial fibrillation with rapid ventricular response I48.20 Atherosclerosis of coronary artery of [place] heart without angina pectoris I25.10 CHF (congestive heart failure) I50.9 COPD (chronic obstructive pulmonary disease) J44.9 Heart murmur R01.1
--- NOTE | 2021-06-20 16:12 | PC.NURSE ---
Bedside report completed with KRISTIN Garcia.
[2021-06-20] MEDS: ropinirole 0.25 mg Tablet PO (21:47)
[2021-06-21] VITALS (38 sets, daily range): BP systolic 130–165; BP diastolic 66–113; PULSE 73–97; RESP 10–43; TEMP 36.6; O2SAT 86–97
[2021-06-21] MEDS: ipratropium-albuterol 3 mL Neb INHALATION ×5 (02:27→20:07)
[2021-06-21 04:08] LABS: Anion Gap 13.3 (5-19); Blood Urea Nitrogen 28 mg/dL (8-23); Calcium 8.8 mg/dL (8.5-10.5); Carbon Dioxide 27 mmol/L (22-29); Chloride 106 mmol/L (98-107); Glucose 103 mg/dL (65-115); Osmolality Calculated 302 mOsm/kg (285-295); Potassium 3.3 mmol/L (3.5-5.1); Sodium 143 mmol/L (136-145)
[2021-06-21 04:22] LABS: Basophils % 0.2 %; Eosinophils % 0.1 %; Hematocrit 32.4 % (37.0-47.0); Hemoglobin 9.9 g/dL (11.5-15.3); Lymphocytes # 0.4 10^3/uL (0.8-4.8); Lymphocytes % 2.5 %; Mean Corpuscular HGB Conc 30.6 g/dL (30.0-36.0); Mean Corpuscular Hemoglobin 26.9 pg (28.0-34.0); Mean Platelet Volume 12.8 fL (7.4-10.4); Monocytes # 0.6 10^3/uL (0.2-0.9); Monocytes % 3.4 %; Neutrophils # 15.32 10^3/uL (1.8-7.7); Neutrophils % 88.8 %; Nucleated Red Blood Cells % 0.1 %; Platelet Count 225 10^3/cmm (130-400); Red Blood Count 3.68 10^6/uL (4.1-5.3); Red Cell Distribution Width 16.2 % (12.1-15.1); White Blood Count 17.2 10^3/uL (4.0-10.0)
[2021-06-21] MEDS: enoxaparin 80 mg/0.8 mL Syringe SUBCUT ×2 (06:27→17:15)
[2021-06-21] MEDS: budesonide 0.5 mg/2 mL Neb INHALATION ×2 (08:16→20:07)
--- NOTE | 2021-06-21 08:57 | P.PN_ITS ---
Subjective Subjective: Patient is still short of breath. On BiPAP today Vitals/I&O/Wt Last Vital Signs Temp 97.8 F 06/21/21 04:00 Pulse 81 06/21/21 08:12 Resp 27 H 06/21/21 08:12 BP 149/92 06/21/21 08:00 Pulse Ox 88 L 06/21/21 08:12 06/20/21 06/21/21 06/21/21 22:59 06:59 14:59 Intake Total 520.699 / 1788.470 100 / 100 Output Total 500 / 1600 900 / 2500 Balance 20.699 / 188.470 -900 / -711.530 100 / 100 Weight last 48 hrs Weight 196 lb Weight 200 lb 11.2 oz Physical Exam Narrative: GENERAL: Patient is awake and alert HEENT: Minimal pallor.? RESPIRATORY: Shallow breathing , no significant crackles. Has mild wheezing Breath sounds are heard bilaterally.? HEART: Regular, S1, S2, has holosystolic murmur, grade 4/6 EXTREMITIES: No edema MUSCULOSKELETAL: The right hip mobility is restricted SKIN: There are no significant rashes Urinary Catheter Management: Noriega: Cath Placed During This Visit: yes Reason for Continuing Indwelling Catheter: Accurate Measurement of Urinary Output in Critically Ill Patients Urinary Catheter Date of Insertion: 06/10/21 Urinary Catheter Time of Insertion: 18:14 Data : 06/21/21 03:41 06/21/21 03:41 A&P Assessment and plan (1) Chronic atrial fibrillation with rapid ventricular response: Heart rate is controlled. Continue PO amiodarone and metoprolol. Status: Acute (2) Atherosclerosis of coronary artery of [place] heart without angina pectoris: Patient had a three-vessel coronary bypass surgery in 2009. LV function is low with EF of 35%. May need to consider a myocardial perfusion imaging, to evaluate for any underlying coronary ischemia causing the LV dysfunction however patient is not stable at this time. Can be considered as outpatient Blood pressure has been staying elevated. We are uptitrating metoprolol to 50mg BID as patient is tachycardic this AM and blood pressure is elevated Status: Acute (3) CHF (congestive heart failure): Creatinine normal now. Can be started back on low dose lasix. Respiratory d istress is multifactorial with penumonia and possiblity of PE as has DVT. On anticoagulation Status: Chronic (4) COPD (chronic obstructive pulmonary disease): Management as per the primary. Status: Chronic (5) Heart murmur: ECHO shows moderate to severe tricuspid regurgitation Status: Acute Plan Other problems are S/p open reduction internal fixation of the right hip Diarrhea Intermittent confusion Mild anemia Status post hypertension, currently normotensive Patient may be closely monitored on the telemetry. Based on the clinical progress, further management decisions will be made Attestations Medical Necessity Statement*: Care expected to cross 2 midnights. Coding Level of Care Code Acute Monotype Keyboard Operator for g Fwd Diagnoses Chronic atrial fibrillation with rapid ventricular response I48.20 Atherosclerosis of coronary artery of [place] heart without angina pectoris I25.10 CHF (congestive heart failure) I50.9 COPD (chronic obstructive pulmonary disease) J44.9 Heart murmur R01.1
[2021-06-21] MEDS: calcium carb-vit d 600mg/400unit 1 Tablet 1 EACH PO ×2 (09:04→17:32)
[2021-06-21] MEDS: metoprolol tartrate 50 mg Tablet PO ×2 (09:04→21:22)
[2021-06-21] MEDS: amiodarone 200 mg Tablet PO ×2 (09:04→17:18)
[2021-06-21] MEDS: sertraline 100 mg Tablet PO ×2 (09:04→17:18)
[2021-06-21] MEDS: levothyroxine 50 mcg Tablet PO (09:04)
[2021-06-21] MEDS: amlodipine 5 mg Tablet PO (09:05)
[2021-06-21] MEDS: gabapentin 100 mg Capsule PO ×3 (09:05→21:22)
[2021-06-21] MEDS: BuSPIRONE 10 mg Tablet 5 MG PO ×2 (09:05→17:18)
[2021-06-21] MEDS: pantoprazole 40 mg SDV IVP (09:06)
--- NOTE | 2021-06-21 09:10 | PC.OT ---
OT tx attempted at this time. Student nurse and nurse attempting to give pt her medications. Will attempt at later time if possible.
--- NOTE | 2021-06-21 09:28 | PC.CHAP ---
Pastoral Care Encounter/Spiritual Assessment Type of Contact [] Declined home care and home health aides teacher visit [] Patient/Family/Request visit [] Outpatient visit [] Follow-up visit [] Physician referral [] Code/Alert [x] Routine visit [] Staff referral [] Actively dying [] Patient sleeping [] Family support [] [] Out of room [] Palliative care [] [x] Receiving care in room [] Pre-surgical visit [] Trauma [] Long length of stay [x] ICU visit [x] Other: oxy Relational/Emotional Strength [] Patient feels connected with others/family/visitors/staff [] Distress [] Loneliness/isolation [] Abandonment Spirituality of Patient [] Person of Dina [] Attends Taoist of their Dina [] Believes in Prayer [] Reads Bible or Alevism materials [] There are Spiritual issues to be addressed Employment Interviewer Interventions [x] Prayer [] Active listening [] Non-anxious presence [] Spiritual/emotional support [] Crisis/trauma care [] Spiritual counseling [] Bereavement support [] Provided bereavement packet [] Provided Bible/devotional materials [] Provided toy/stuffed animal, coloring book to patient or family member [] Provided Communion [] Anointing/[place] [] Salvation [x] Completed spiritual assessment [] Other: Impact on Illness or Injury [] Angry [] Fearful [] Anxious [] Often cries [] Exhaustion [] Unable to work [] Unable to attend episcopalian [] Unable to walk/stand [] Unable to read [] Unable to drive [] Unable to eat/drink [] Unable to sleep [] Unable to be with family [] Patient intubated [] Other: Summary Time spent with patient
[2021-06-21] MEDS: lidocaine 1% 5 ML in potassium chloride premix 100 ML 25 ML IV (10:54)
[2021-06-21] MEDS: guaiFENesin-dextromethorphan UDC 10 mL PO (10:55)
[2021-06-21] MEDS: FUROsemide 10 mg/mL SDV 2mL 20 MG IVP (10:55)
--- NOTE | 2021-06-21 11:22 | PC.SOCIAL ---
IMM update IMM not updated as patient is expected to dc in the next 24-48 hours.
[2021-06-21 13:14] LABS: Vancomycin Trough 8.9 ug/mL (10-15)
[2021-06-21] MEDS: vancomycin 1,250 MG/250 ML PIGGYBACK 200 MG IV (15:12)
--- NOTE | 2021-06-21 15:39 | PM.PN ---
Subjective Subjective: Patient was seen and examined this morning, currently she is requiring 50% FiO2 on BiPAP, Good urine output overnight. Her other vitals and labs have been reviewed. Will give Lasix 20 IV one-time dose today. Medications: Medication Review Details: Generic Name Dose Route Start Last Admin Trade Name [place] PRN Reason Stop Dose Admin Hydrocodone Bitart /Acetaminophen 1 tab 06/10/21 15:54 06/15/21 06:06 Hydrocodone-Acet aminophen 5-325 Mg Tablet PO 1 tab Q4H PRN Administration MODERATE TO SEVER E PAIN Acetylcysteine 100 mg 06/14/21 00:00 06/17/21 07:48 Acetylcysteine 2 00 Mg/Ml Sdv 4 Ml INHALATION 100 mg Q4H.RESPIRATORY S CH Administration Albuterol Sulfate 2.5 mg 06/10/21 17:04 06/15/21 12:10 Albuterol 2.5 Mg /0.5 Ml Neb INHALATION 2.5 mg Q4H.RESPIRATORY P RN Administration SHORTNESS OF [place] TH Albuterol/Ipratrop ium 3 ml 06/14/21 15:00 06/17/21 08:00 Ipratropium-Albu terol 3 Ml Neb INHALATION 3 ml Q6H.RESPIRATORY S CH Administration Alprazolam 0.5 mg 06/10/21 17:02 06/13/21 23:14 Alprazolam 0.5 M g Tablet PO 0.5 mg TID PRN Administration anxiety Amiodarone HCl 200 mg 06/14/21 18:00 06/17/21 09:39 Amiodarone 200 M g Tablet PO Not Given BID MINA Budesonide 0.5 mg 06/14/21 20:00 06/17/21 07:48 Budesonide 0.5 M g/2 Ml Neb INHALATION 0.5 mg BID.RESPIRATORY S CH Administration Buspirone HCl 5 mg 06/10/21 18:00 06/17/21 09:38 Buspirone 10 Mg Tablet PO Not Given BID [facility] Calcium Carbonate 1 each 06/10/21 18:00 06/17/21 09:39 Calcium Carb-Vit D 600mg/400unit 1 Tablet PO Not Given BID MINA Gabapentin 100 mg 06/10/21 21:00 06/17/21 09:39 Gabapentin 100 M g Capsule PO Not Given TID MINA Heparin Sodium (Po rcine) 0 unit 06/15/21 18:00 06/16/21 16:44 Heparin 5,000 Un it/Ml Inj 1 Ml IV 1,700 unit PRN PRN Administration Heparin weight-ba se protocol Protocol Vancomycin/PEG/NAD A/Lysine/Water 1,250 mg in 250 m ls @ 200 mls/hr 06/15/21 13:30 06/15/21 13:59 Vancocin IV 200 mls/hr Q48H MINA Administration dexmedeTOMIDine 0. 9 % NaCL 400 mcg in 100 ml s @ 0 mls/hr 06/17/21 10:00 06/17/21 10:13 Precedex IV 0.1 mcg/kg/hr .Q0M MINA 2.19 mls/hr Administration Protocol Per Protocol Imipenem/Cilastati n Sodium 250 100 mls @ 200 mls /hr 06/17/21 11:00 06/17/21 10:45 mg/ Sodium Chlor prasad IV 200 mls/hr Q6H MINA Administration Protocol Levothyroxine Sodi um 50 mcg 06/11/21 09:00 06/17/21 09:39 Levothyroxine 50 Mcg Tablet PO Not Given DAILY MINA Metoprolol Tartrat e 25 mg 06/13/21 11:00 06/17/21 09:25 Metoprolol Tartr ate 25 Mg Tablet PO 25 mg BID@0900,2100 MINA Administration [id number] Ethyl Esters 1,000 mg 06/11/21 09:00 06/17/21 09:39 [place]-3 Fatty Ac ids 1,000 Mg Capsu le PO Not Given DAILY MINA Pantoprazole Sodiu m 40 mg 06/11/21 09:00 06/17/21 09:[address] 40 Mg Tablet PO Not Given DAILY MINA Pantoprazole Sodiu m 40 mg 06/17/21 10:45 06/17/21 10:46 Pantoprazole 40 Mg Sdv IVP 40 mg DAILY MINA Administration Ropinirole HCl 0.25 mg 06/10/21 21:00 06/16/21 20:18 Ropinirole 0.25 Mg Tablet PO 0.25 mg BEDTIME MINA Administration Senna 17.2 mg 06/10/21 21:00 06/16/21 20:26 Sennosides 8.6 M g Tablet PO Not Given BEDTIME MINA Sertraline HCl 100 mg 06/10/21 18:00 06/17/21 09:26 Sertraline 100 M g Tablet PO 100 mg BID MINA Administration Trazodone HCl 50 mg 06/10/21 17:02 06/17/21 00:29 Trazodone 50 Mg Tablet PO 50 mg BEDTIME PRN Administration INSOMNIA Vitals/I&O/Wt Last Vital Signs Temp 97.8 F 06/21/21 04:00 Pulse 84 06/21/21 15:30 Resp 22 H 06/21/21 15:30 BP 142/89 06/21/21 15:00 Pulse Ox 91 06/21/21 15:30 06/21/21 06/21/21 06/21/21 06:59 14:59 22:59 Intake Total 200 / 200 Output Total 900 / 2500 1000 / 1000 Balance -900 / -711.530 200 / 200 -1000 / -800 Weight last 48 hrs Weight 88.904 kg Weight 91.036 kg Physical Exam Const: COMMON NORMALS: patient oriented x3 HENMT: COMMON NORMALS: normocephalic and atraumatic HEAD & SCALP: normocephalic and atraumatic Chest: COMMONS NORMALS: normal inspection of the chest and normal palpation of entire chest wall CHEST: Yes Symmetrical chest wall rise Resp: EFFORT & INSPECTION: Yes symmetric chest movement OTHER: Coarse Breath Sound with b/l crackles present in both lungs connelly Cardio: COMMON NORMALS: regular rate, regular rhythm, S1 normal heart sound present, S2 normal heart sound present, No gallops present (Cardio), No murmurs present (Cardio), No rub (Cardio) and Peripheral pulses 2+ throughout RATE: regular rate RHYTHM: regular rhythm HEART SOUNDS: S1 normal heart sound present and S2 normal heart sound present PERIPHERAL PULSES: Peripheral pulses 2+ throughout GI: COMMON NORMALS: Normal to inspection, nondistended, normoactive bowel sounds present, Soft to palpation, non-tender, No hepatosplenomegaly present and no masses AUSCULTATION: Yes normoactive bowel sounds PALPATION: Yes Soft to palpation and Yes No hepatosplenomegaly present RECTAL EXAM: deferred Extremity: COMMON NORMALS: no clubbing, cyanosis or edema and no pedal edema Neuro: COMMON NORMALS: patient oriented x3 Urinary Catheter Management: Noriega: Cath Placed During This Visit: yes Reason for Continuing Indwelling Catheter: Accurate Measurement of Urinary Output in Critically Ill Patients Urinary Catheter Date of Insertion: 06/10/21 Urinary Catheter Time of Insertion: 18:14 Data : 06/21/21 03:41 06/21/21 03:41 A&P Assessment and plan (1) Acute respiratory failure with hypoxia: Assessment Status: Acute (2) DVT (deep venous thrombosis): Given worsening oxygenation, slight drop in hemoglobin and persistent mild thrombocytopenia we will switch from full dose Lovenox to heparin drip. We will plan to start heparin drip by evening which will be 12 hours after her last dose of Lovenox. Status: Acute (3) Atrial fibrillation: Rate better controlled. Given amiodarone drip and digoxin 500 mcg IV yesterday. Continue with amiodarone 200 mg twice daily. Continue with metoprolol 25 mg twice daily for now. Digoxin levels appreciated. Rapid ventricular response currently. Appreciate cardiology recommendations. Status: Chronic (4) CHF (congestive heart failure): Treatment as above. Appreciate cardiology recommendations. Status: Chronic (5) Status post open reduction and internal fixation (ORIF) of fracture: Status: Acute (6) Closed intertrochanteric fracture of right hip: Comminuted. Postoperative day 3. Restarted Eliquis as per orthopedic service. Hold off on physical therapy today given tachycardia and low blood pressure. Pain medication with Melba every 8 hours as needed. Monitor hemoglobin. Status: Acute Qualifiers: Encounter type: initial encounter Fracture alignment: displaced Qualified Code(s): S72.141A - Displaced intertrochanteric fracture of right femur, initial encounter for closed fracture (7) Fall as cause of accidental injury in home as place of occurrence: Accidental, occurring while reaching too far while using her walker, landed on right hip. Status: Acute Qualifiers: Encounter type: initial encounter Qualified Code(s): W19.XXXA - Unspecified fall, initial encounter; Y92.009 - Unspecified place in unspecified non-institutional (private) residence as the place of occurrence of the external cause (8) Chronic anticoagulation: Hold off on Eliquis for now. Switched over to heparin drip. Status: Chronic (9) Coronary artery disease: Bypass surgery in 2009, 3 vessels with associated mitral valve repair Follows with Dr. Washington outpatient. Denies any active chest pain. A1c 5.4. Lipid panel appreciated. Will need to be on statin going forward. Atorvastatin 40 mg daily. Status: Chronic (10) Hypertension: Chronically on amlodipine and lisinopril in addition to beta-blockade. Goal blood pressure less than 140/90 mmHg. Blood pressure slightly soft today. For now hold off on amlodipine and lisinopril. Continue with metoprolol 25 mg twice daily. Status: Chronic (11) COPD (chronic obstructive pulmonary disease): Related to former tobacco abuse, chronically on Stiolto Respimat, not on continuos oxygen for her COPD but does wear nocturnal oxygen for sleep apnea. No acute exacerbation. Keep saturation over 88%. Status: Chronic (12) Sleep apnea: Diagnosed via sleep study, intolerant of CPAP/BiPAP, on nocturnal oxygen though admits that she does not necessarily use it every single night Status: Chronic Qualifiers: Sleep apnea type: unspecified type Qualified Code(s): G47.30 - Sleep apnea, unspecified (13) Hypothyroidism: Continue on home dose of levothyroxine. Check TSH. Status: Chronic (14) Anxiety and depression: Chronically on sertraline and also takes BuSpar plus as needed alprazolam, admits to having some challenges with current being on hospice and functional decline since her hip fracture a few years ago but reports that medications help Status: Chronic (15) Osteoarthritis: Status: Chronic Qualifiers: Osteoarthritis location: multiple joints Osteoarthritis type: primary Qualified Code(s): M15.9 - Polyosteoarthritis, unspecified (16) Atherosclerosis of coronary artery of [place] heart without angina pectoris: Status: Acute Plan Acute hypoxic respiratory failure likely secondary to: Pneumonia decompensated heart failure COPD, cannot conclusively rule out possible PE. CT chest without contrast: Ground-glass opacities throughout the right lung and in the inferior left lung.?? Small right pleural effusion. X-ray chest: D-dimer: elevated. Blood culture: NTD Sputum Gram stain and culture MRSA PCR positive Flu swab, COVID-19 antigen negative. Was on vancomycin was discontinued on 06/21 She was on Zosyn, given worsening x-ray chest, has been switched to Primaxin. Continue Precedex as needed #Newly diagnosed HFrEF : Currently compensated 2D echo: EF of 30 to 35%, severe diffuse hypokinesis of septum, anteroseptum and LV apex, diffuse hypokinesia of right ventricular.moderately increased LA and RA size. Currently compensated Lasix as needed Intake output charting Daily weight K>4,MG>2 Continue HHFONC/BIPAP #PENG on CKD stage III: Likely secondary to overdiuresis Baseline serum creatinine 0.8-1 Random urine sodium Random urine creatinine FENA/FEUREA Monitor intake output charting Avoid nephrotoxic Continue to monitor BMP #Right lower extremity DVT: Continue Lovenox #COPD: Continue Solu-Medrol Budesonide inhaler DuoNebs #History of atrial fibrillation: Continue amiodarone as well as metoprolol On therapeutic Lovenox #Hypertension : Amlodipine 5 Mg po daily #Hypothyroidism: TSH : 1.17 Continue levothyroxine #Closed intertrochanteric fracture of right hip: S/p ORIF #CODE STATUS:AND #DVT prophylaxis on Lovenox Attestations Medical Necessity Statement*: Patient needs to be in hospital for management of hypoxic respiratory failure Time Spent in Patient Care: Greater than 35 minutes (>than 50% of time spent in counselling and/or direct pt care on unit). Coding Level of Care Code Acute [employer] Counterperson for Osiel Srivastava Diagnoses Acute respiratory failure with hypoxia J96.01 DVT (deep venous thrombosis) I82.409 Atrial fibrillation I48.91 CHF (congestive heart failure) I50.9 Status post open reduction and internal fixation (ORIF) of fracture Z98.890; Z87.81 Closed intertrochanteric fracture of right hip S72.141A Encounter type: initial encounter Fracture alignment: displaced Fall as cause of accidental injury in home as place of occurrence W19.XXXA; Y92.009 Encounter type: initial encounter Chronic anticoagulation Z79.01 Coronary artery disease I25.10 Hypertension I10 COPD (chronic obstructive pulmonary disease) J44.9 Sleep apnea G47.30 Sleep apnea type: unspecified type Hypothyroidism E03.9 Anxiety and depression F41.9; F32.A Osteoarthritis M15.9 Osteoarthritis location: multiple joints Osteoarthritis type: primary Atherosclerosis of coronary artery of [place] heart without angina pectoris I25.10
[2021-06-21] MEDS: trazodone 50 mg Tablet PO (21:22)
[2021-06-21] MEDS: ropinirole 0.25 mg Tablet PO (21:22)
[2021-06-22] VITALS (43 sets, daily range): BP systolic 121–168; BP diastolic 65–102; PULSE 72–104; RESP 15–32; TEMP 36.4–36.6; O2SAT 75–95
[2021-06-22] MEDS: ipratropium-albuterol 3 mL Neb INHALATION ×7 (00:48→23:15)
[2021-06-22 03:53] LABS: Basophils % 0.1 %; Eosinophils % 0.1 %; Hematocrit 32.6 % (37.0-47.0); Hemoglobin 9.9 g/dL (11.5-15.3); Lymphocytes # 0.4 10^3/uL (0.8-4.8); Lymphocytes % 2.6 %; Mean Corpuscular HGB Conc 30.4 g/dL (30.0-36.0); Mean Corpuscular Hemoglobin 27.5 pg (28.0-34.0); Mean Corpuscular Volume 90.6 fl (81-99); Mean Platelet Volume 12.7 fL (7.4-10.4); Monocytes # 0.5 10^3/uL (0.2-0.9); Monocytes % 3.2 %; Neutrophils # 12.65 10^3/uL (1.8-7.7); Neutrophils % 89.9 %; Nucleated Red Blood Cells % 0 %; Platelet Count 167 10^3/cmm (130-400); Red Cell Distribution Width 16.8 % (12.1-15.1); White Blood Count 14.1 10^3/uL (4.0-10.0)
[2021-06-22 04:08] LABS: Anion Gap 12.6 (5-19); Blood Urea Nitrogen 24 mg/dL (8-23); Calcium 8.1 mg/dL (8.5-10.5); Carbon Dioxide 29 mmol/L (22-29); Chloride 107 mmol/L (98-107); Glucose 118 mg/dL (65-115); Osmolality Calculated 305 mOsm/kg (285-295); Potassium 3.6 mmol/L (3.5-5.1); Sodium 145 mmol/L (136-145)
[2021-06-22] MEDS: enoxaparin 80 mg/0.8 mL Syringe SUBCUT ×2 (05:49→17:05)
[2021-06-22] MEDS: budesonide 0.5 mg/2 mL Neb INHALATION ×2 (07:34→20:00)
[2021-06-22] MEDS: pantoprazole 40 mg SDV IVP (08:12)
[2021-06-22] MEDS: gabapentin 100 mg Capsule PO ×3 (08:24→21:01)
[2021-06-22] MEDS: BuSPIRONE 10 mg Tablet 5 MG PO ×2 (08:24→17:04)
[2021-06-22] MEDS: omega-3 fatty acids 1,000 mg Capsule 1000 MG PO (08:24)
[2021-06-22] MEDS: amlodipine 5 mg Tablet PO (08:24)
[2021-06-22] MEDS: levothyroxine 50 mcg Tablet PO (08:24)
[2021-06-22] MEDS: amiodarone 200 mg Tablet PO ×2 (08:24→17:04)
[2021-06-22] MEDS: sertraline 100 mg Tablet PO ×2 (08:24→17:04)
[2021-06-22] MEDS: metoprolol tartrate 50 mg Tablet PO ×2 (08:27→21:01)
[2021-06-22] MEDS: calcium carb-vit d 600mg/400unit 1 Tablet 1 EACH PO ×2 (08:58→17:08)
--- NOTE | 2021-06-22 10:02 | XRR_ITS ---
PROCEDURE INFORMATION: Exam: XR Chest Exam date and time: 06/22/2021 11:49 AM Age: 86 years old Clinical indication: Shortness of breath; Additional info: SOB TECHNIQUE: Imaging protocol: XR of the chest. Views: 1 view. COMPARISON: CR XR chest 1V portable [id number] 06/19/2021 1:00 PM FINDINGS: Lungs: Bilateral perihilar and lower lobe interstitial congestion is seen these findings have increased since prior examination. No consolidation. Pleural spaces: Unremarkable. No pleural effusion. No pneumothorax. Heart/Mediastinum: There is moderate cardiomegaly for projection. A cardiac valve prosthesis is seen.. Bones/joints: Metallic sternotomy wires are present. XR/XR chest 1V portable [id number] IMPRESSION: 1. Bilateral perihilar and lower lobe interstitial congestion increased since prior 2. Cardiomegaly for projection 3. A cardiac valve prosthesis is in place 4. Status post sternotomy
--- NOTE | 2021-06-22 10:35 | P.PN_ITS ---
Subjective Subjective: Patient was seen and examined this morning, currently she is requiring 50% FiO2 on BiPAP, Good urine output overnight. Working with physical therapy, x-ray chest suggestive of: Interstitial congestion. Medications: Medication Review Details: Generic Name Dose Route Start Last Admin Trade Name Freq PRN Reason Stop Dose Admin Acetaminophen 650 mg 06/10/21 15:54 06/20/21 08:48 Acetaminophen 32 5 Mg Tablet PO 650 mg Q6H PRN Administration Mild/Mod Pain Or Temp >/= 101 Albuterol Sulfate 2.5 mg 06/10/21 17:04 06/18/21 07:46 Albuterol 2.5 Mg /0.5 Ml Neb INHALATION 2.5 mg Q4H.RESPIRATORY P RN Administration SHORTNESS OF [place] TH Albuterol/Ipratrop ium 3 ml 06/21/21 12:00 06/22/21 07:34 Ipratropium-Albu terol 3 Ml Neb INHALATION 3 ml Q4H.RESPIRATORY S CH Administration Amiodarone HCl 200 mg 06/14/21 18:00 06/22/21 08:24 Amiodarone 200 M g Tablet PO 200 mg BID MINA Administration Budesonide 0.5 mg 06/14/21 20:00 06/22/21 07:34 Budesonide 0.5 M g/2 Ml Neb INHALATION 0.5 mg BID.RESPIRATORY S CH Administration Buspirone HCl 5 mg 06/10/21 18:00 06/22/21 08:24 Buspirone 10 Mg Tablet PO 5 mg BID MINA Administration Calcium Carbonate 1 each 06/10/21 18:00 06/22/21 08:58 Calcium Carb-Vit D 600mg/400unit 1 Tablet PO 1 each BID MINA Administration Enoxaparin Sodium 80 mg 06/17/21 18:00 06/22/21 05:49 Enoxaparin 80 Mg /0.8 Ml Syringe SUBCUT 80 mg Q12H MINA Administration Gabapentin 100 mg 06/10/21 21:00 06/22/21 08:24 Gabapentin 100 M g Capsule PO 100 mg TID MINA Administration Guaifenesin/Dextro methorphan 10 ml 06/21/21 10:39 06/21/21 10:55 Guaifenesin-Dext romethorphan Udc 1 0 Ml PO 10 ml Q4H PRN Administration COUGH Heparin Sodium (Po rcine) 0 unit 06/15/21 18:00 06/16/21 16:44 Heparin 5,000 Un it/Ml Inj 1 Ml IV 1,700 unit PRN PRN Administration Heparin weight-ba se protocol Protocol dexmedeTOMIDine 0. 9 % NaCL 400 mcg in 100 ml s @ 0 mls/hr 06/17/21 10:00 06/20/21 18:45 Precedex IV 0 mcg/kg/hr .Q0M MINA 0 mls/hr Titration Protocol Per Protocol Imipenem/Cilastati n Sodium 500 100 mls @ 200 mls /hr 06/21/21 17:00 06/22/21 08:42 mg/ Sodium Chlor prasad IV Infused Q8H MINA Infusion Protocol Lanolin 1 applic 06/19/21 15:32 06/19/21 15:59 Lanolin Oint 7 G m TOPICAL 1 applic PRN PRN Administration DRYNESS Levothyroxine Sodi um 50 mcg 06/11/21 09:00 06/22/21 08:24 Levothyroxine 50 Mcg Tablet PO 50 mcg DAILY MINA Administration Methylprednisolone Sodium Succinate 40 mg 06/17/21 18:00 06/22/21 05:50 Methylprednisolo ne Sod Succ 40 Mg/ Ml Inj IVP 40 mg Q12H MINA Administration Metoprolol Tartrat e 50 mg 06/21/21 09:00 06/22/21 08:27 Metoprolol Tartr ate 50 Mg Tablet PO 50 mg BID@0900,2100 MINA Administration Dwsdy-2-Jvni Ethyl Esters 1,000 mg 06/11/21 09:00 06/22/21 08:24 [place]-3 Fatty Ac ids 1,000 Mg Capsu le PO 1,000 mg DAILY MINA Administration Pantoprazole Sodiu m 40 mg 06/17/21 10:45 06/22/21 08:12 Pantoprazole 40 Mg Sdv IVP 40 mg DAILY MINA Administration Ropinirole HCl 0.25 mg 06/10/21 21:00 06/21/21 21:22 Ropinirole 0.25 Mg Tablet PO 0.25 mg BEDTIME MINA Administration Senna 17.2 mg 06/10/21 21:00 06/21/21 21:22 Sennosides 8.6 M g Tablet PO Not Given BEDTIME MINA Sertraline HCl 100 mg 06/10/21 18:00 04/30/22 08:24 Sertraline 100 M g Tablet PO 100 mg BID MINA Administration Trazodone HCl 50 mg 06/10/21 17:02 06/21/21 21:22 Trazodone 50 Mg Tablet PO 50 mg BEDTIME PRN Administration INSOMNIA Vitals/I&O/Wt Last Vital Signs Temp 97.5 F L 06/22/21 08:00 Pulse 100 06/22/21 10:14 Resp 32 H 06/22/21 10:14 BP 163/97 06/22/21 08:00 Pulse Ox 89 L 06/22/21 10:14 06/21/21 06/22/21 06/22/21 22:59 06:59 14:59 Intake Total 695 / 895 100 / 995 460 / 460 Output Total 1550 / 1550 400 / 1950 Balance -855 / -655 -300 / -955 460 / 460 Weight last 48 hrs Weight 86.636 kg Weight 88.904 kg Physical Exam Narrative: Const: COMMON NORMALS: patient oriented x3 HENMT: COMMON NORMALS: normocephalic and atraumatic HEAD & SCALP: normocephalic and atraumatic Chest: COMMONS NORMALS: normal inspection of the chest and normal palpation of entire chest wall CHEST: Yes Symmetrical chest wall rise Resp: EFFORT & INSPECTION: Yes symmetric chest movement OTHER: Coarse Breath Sound Cardio: COMMON NORMALS: regular rate, regular rhythm, S1 normal heart sound present, S2 normal heart sound present, No gallops present (Cardio), No murmurs present (Cardio), No rub (Cardio) and Peripheral pulses 2+ throughout RATE: regular rate RHYTHM: regular rhythm HEART SOUNDS: S1 normal heart sound present and S2 normal heart sound present PERIPHERAL PULSES: Peripheral pulses 2+ throughout GI: COMMON NORMALS: Normal to inspection, nondistended, normoactive bowel sounds present, Soft to palpation, non-tender, No hepatosplenomegaly present and no masses AUSCULTATION: Yes normoactive bowel sounds PALPATION: Yes Soft to palpation and Yes No hepatosplenomegaly present RECTAL EXAM: deferred Extremity: COMMON NORMALS: no clubbing, cyanosis or edema and no pedal edema Neuro: COMMON NORMALS: patient oriented x3 Urinary Catheter Management: Noriega: Cath Placed During This Visit: yes Reason for Continuing Indwelling Catheter: Accurate Measurement of Urinary Output in Critically Ill Patients Urinary Catheter Date of Insertion: 06/10/21 Urinary Catheter Time of Insertion: 18:14 Data : 06/22/21 03:33 06/22/21 03:33 A&P Assessment and plan (1) Acute respiratory failure with hypoxia: Assessment Status: Acute (2) DVT (deep venous thrombosis): Given worsening oxygenation, slight drop in hemoglobin and persistent mild thrombocytopenia we will switch from full dose Lovenox to heparin drip. We will plan to start heparin drip by evening which will be 12 hours after her last dose of Lovenox. Status: Acute (3) Atrial fibrillation: Rate better controlled. Given amiodarone drip and digoxin 500 mcg IV yesterday. Continue with amiodarone 200 mg twice daily. Continue with metoprolol 25 mg twice daily for now. Digoxin levels appreciated. Rapid ventricular response currently. Appreciate cardiology recommendations. Status: Chronic (4) CHF (congestive heart failure): Treatment as above. Appreciate cardiology recommendations. Status: Chronic (5) Status post open reduction and internal fixation (ORIF) of fracture: Status: Acute (6) Closed intertrochanteric fracture of right hip: Comminuted. Postoperative day 3. Restarted Eliquis as per orthopedic service. Hold off on physical therapy today given tachycardia and low blood pressure. Pain medication with [place] every 8 hours as needed. Monitor hemoglobin. Status: Acute Qualifiers: Encounter type: initial encounter Fracture alignment: displaced Qualified Code(s): S72.141A - Displaced intertrochanteric fracture of right femur, initial encounter for closed fracture (7) Fall as cause of accidental injury in home as place of occurrence: Accidental, occurring while reaching too far while using her walker, landed on right hip. Status: Acute Qualifiers: Encounter type: initial encounter Qualified Code(s): W19.XXXA - Unspecified fall, initial encounter; Y92.009 - Unspecified place in unspecified non-institutional (private) residence as the place of occurrence of the external cause (8) Chronic anticoagulation: Hold off on Eliquis for now. Switched over to heparin drip. Status: Chronic (9) Coronary artery disease: Bypass surgery in 2009, 3 vessels with associated mitral valve repair Follows with Dr. Washington outpatient. Denies any active chest pain. A1c 5.4. Lipid panel appreciated. Will need to be on statin going forward. Atorvastatin 40 mg daily. Status: Chronic (10) Hypertension: Chronically on amlodipine and lisinopril in addition to beta-blockade. Goal blood pressure less than 140/90 mmHg. Blood pressure slightly soft today. For now hold off on amlodipine and lisinopril. Continue with metoprolol 25 mg twice daily. Status: Chronic (11) COPD (chronic obstructive pulmonary disease): Related to former tobacco abuse, chronically on Stiolto Respimat, not on continuos oxygen for her COPD but does wear nocturnal oxygen for sleep apnea. No acute exacerbation. Keep saturation over 88%. Status: Chronic (12) Sleep apnea: Diagnosed via sleep study, intolerant of CPAP/BiPAP, on nocturnal oxygen though admits that she does not necessarily use it every single night Status: Chronic Qualifiers: Sleep apnea type: unspecified type Qualified Code(s): G47.30 - Sleep apnea, unspecified (13) Hypothyroidism: Continue on home dose of levothyroxine. Check TSH. Status: Chronic (14) Anxiety and depression: Chronically on sertraline and also takes BuSpar plus as needed alprazolam, admits to having some challenges with current being on hospice and functional decline since her hip fracture a few years ago but reports that medications help Status: Chronic (15) Osteoarthritis: Status: Chronic Qualifiers: Osteoarthritis location: multiple joints Osteoarthritis type: primary Qualified Code(s): M15.9 - Polyosteoarthritis, unspecified (16) Atherosclerosis of coronary artery of [place] heart without angina pectoris: Status: Acute Plan Acute hypoxic respiratory failure likely secondary to: Pneumonia decompensated heart failure COPD, cannot conclusively rule out possible PE. CT chest without contrast: Ground-glass opacities throughout the right lung and in the inferior left lung.?? Small right pleural effusion. X-ray chest: D-dimer: elevated. Blood culture: NTD Sputum Gram stain and culture MRSA PCR positive Flu swab, COVID-19 antigen negative. Was on vancomycin was discontinued on 06/21 She was on Zosyn, given worsening x-ray chest, has been switched to Primaxin. Continue Precedex as needed #Newly diagnosed HFrEF : 2D echo: EF of 30 to 35%, severe diffuse hypokinesis of septum, anteroseptum and LV apex, diffuse hypokinesia of right ventricular.moderately increased LA and RA size. Currently compensated Lasix 20 mg IV twice daily Intake output charting Daily weight K>4,MG>2 Continue HHFONC/BIPAP #PENG on CKD stage III: Likely secondary to overdiuresis Baseline serum creatinine 0.8-1 Random urine sodium Random urine creatinine FENA/FEUREA Monitor intake output charting Avoid nephrotoxic Continue to monitor BMP #Right lower extremity DVT: Continue Lovenox #COPD: Continue Solu-Medrol Budesonide inhaler DuoNebs #History of atrial fibrillation: Continue amiodarone as well as metoprolol On therapeutic Lovenox #Hypertension : Amlodipine 5 Mg po daily #Hypothyroidism: TSH : 1.17 Continue levothyroxine #Closed intertrochanteric fracture of right hip: S/p ORIF #CODE STATUS:AND #DVT prophylaxis on Lovenox Attestations Medical Necessity Statement*: Patient is in hospital management acute hypoxic respiratory failure. Time Spent in Patient Care: Greater than 35 minutes (>than 50% of time spent in counselling and/or direct pt care on unit) . Critical Care Time: The high probability of a clinically significant, sudden or life threatening deterioration of the patient's [] system(s) required my full and direct attention, intervention and personal management. The critical care time is as shown. 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 Fwd Exam Detailed Diagnoses Acute respiratory failure with hypoxia J96.01 DVT (deep venous thrombosis) I82.409 Atrial fibrillation I48.91 CHF (congestive heart failure) I50.9 Status post open reduction and internal fixation (ORIF) of fracture Z98.890; Z87.81 Closed intertrochanteric fracture of right hip S72.141A Encounter type: initial encounter Fracture alignment: displaced Fall as cause of accidental injury in home as place of occurrence W19.XXXA; Y92.009 Encounter type: initial encounter Chronic anticoagulation Z79.01 Coronary artery disease I25.10 Hypertension I10 COPD (chronic obstructive pulmonary disease) J44.9 Sleep apnea G47.30 Sleep apnea type: unspecified type Hypothyroidism E03.9 Anxiety and depression F41.9; F32.A Osteoarthritis M15.9 Osteoarthritis location: multiple joints Osteoarthritis type: primary Atherosclerosis of coronary artery of [place] heart without angina pectoris I25.10
[2021-06-22] MEDS: ALPRAZolam 0.5 mg Tablet PO (11:00)
[2021-06-22] MEDS: FUROsemide 10 mg/mL SDV 2mL 20 MG IVP ×2 (13:08→23:59)
[2021-06-22] MEDS: ropinirole 0.25 mg Tablet PO (21:01)
[2021-06-22] MEDS: trazodone 50 mg Tablet PO (21:01)
[2021-06-23] VITALS (39 sets, daily range): BP systolic 116–168; BP diastolic 61–104; PULSE 64–106; RESP 15–32; TEMP 36.6–36.8; O2SAT 72–96
[2021-06-23] MEDS: ipratropium-albuterol 3 mL Neb INHALATION ×6 (03:07→23:12)
[2021-06-23 05:35] LABS: Basophils % 0.1 %; Eosinophils % 0.1 %; Hematocrit 32.4 % (37.0-47.0); Hemoglobin 9.8 g/dL (11.5-15.3); Lymphocytes # 0.3 10^3/uL (0.8-4.8); Lymphocytes % 2.3 %; Mean Corpuscular HGB Conc 30.2 g/dL (30.0-36.0); Mean Corpuscular Hemoglobin 26.9 pg (28.0-34.0); Mean Platelet Volume 12.2 fL (7.4-10.4); Monocytes # 0.5 10^3/uL (0.2-0.9); Monocytes % 3.4 %; Neutrophils # 13.36 10^3/uL (1.8-7.7); Neutrophils % 91.7 %; Nucleated Red Blood Cells % 0 %; Platelet Count 176 10^3/cmm (130-400); Red Blood Count 3.64 10^6/uL (4.1-5.3); Red Cell Distribution Width 16.9 % (12.1-15.1); White Blood Count 14.6 10^3/uL (4.0-10.0)
[2021-06-23 05:55] LABS: Alanine Aminotransferase 8 U/L (0-33); Albumin Level 3.1 g/dL (3.5-5.2); Alkaline Phosphatase 157 IU/L (35-105); Anion Gap 10.2 (5-19); Aspartate Amino Transferase 16 U/L (0-32); Blood Urea Nitrogen 27 mg/dL (8-23); Calcium 7.8 mg/dL (8.5-10.5); Carbon Dioxide 34 mmol/L (22-29); Chloride 106 mmol/L (98-107); Creatinine Clr Calc Pharmacy 58.0409; Globulin 1.8 g/dL (1.3-4.6); Glucose 114 mg/dL (65-115); Osmolality Calculated 310 mOsm/kg (285-295); Potassium 3.2 mmol/L (3.5-5.1); Sodium 147 mmol/L (136-145); Total Bilirubin 0.5 mg/dL (0.15-1.2); Total Protein 4.9 g/dL (6.6-8.7)
[2021-06-23] MEDS: enoxaparin 80 mg/0.8 mL Syringe SUBCUT ×2 (06:15→18:06)
[2021-06-23] MEDS: budesonide 0.5 mg/2 mL Neb INHALATION ×2 (07:30→20:13)
[2021-06-23] MEDS: metoprolol tartrate 50 mg Tablet PO ×2 (08:06→20:11)
[2021-06-23] MEDS: levothyroxine 50 mcg Tablet PO (08:06)
[2021-06-23] MEDS: omega-3 fatty acids 1,000 mg Capsule 1000 MG PO (08:06)
[2021-06-23] MEDS: sertraline 100 mg Tablet PO ×2 (08:06→18:05)
[2021-06-23] MEDS: gabapentin 100 mg Capsule PO ×3 (08:06→20:11)
[2021-06-23] MEDS: ALPRAZolam 0.5 mg Tablet PO (08:06)
[2021-06-23] MEDS: pantoprazole 40 mg SDV IVP (08:07)
[2021-06-23] MEDS: amlodipine 5 mg Tablet 10 MG PO (08:07)
[2021-06-23] MEDS: amiodarone 200 mg Tablet PO ×2 (08:07→18:05)
[2021-06-23] MEDS: BuSPIRONE 10 mg Tablet 5 MG PO ×2 (08:07→18:05)
[2021-06-23] MEDS: calcium carb-vit d 600mg/400unit 1 Tablet 1 EACH PO ×2 (08:08→18:05)
[2021-06-23] MEDS: lidocaine 1% 5 ML in potassium chloride premix 100 ML 25 ML IV (08:35)
[2021-06-23] MEDS: dexmedeTOMIDine 0.9 % NaCL 400 MCG/100 ML PREMIX IV (09:09)
[2021-06-23 09:47] LABS: ABG PCO2 48.5 mmHg (35-45); ABG PH Result 7.46 (7.35-7.45); Alveolar-Arterial Oxygen Gradi 62.8 mmHg (5-10); Arterial Blood Gas Hematocrit 33.2 % (37-47); Base Excess ABG 9.2 mmol/L (-2.0-2.0); Blood Gas Allen Test Pos; Blood Gas Operator Identificat MONRO; Blood Gas Sample Site Radial, left; Blood Gas Sample Type Arterial; Carboxyhemoglobin 0.4 %THgb (0.4-20.1); HCO3 ABG 34.3 mmol/L (22-26); HGB O2 Sat 90.9 % (95-100); Ionized Calcium Level - ABG 1.2 mmol/L (1.1-1.4); Methemoglobin 0.7 % (0.4-1.5); Oxygen Device NC; Oxygen Saturation ABG 91.8; PO2 ABG 64.3 mmHg (80.0-100.0); Potassium Level - ABG 3.2 mmol/L (3.5-5.0); Total Hemoglobin 10.8 g/dL (12-16)
--- NOTE | 2021-06-23 12:35 | PC.SOCIAL ---
IMM Updated Updated pt & family on IMM. No questions voiced. Provided pt a copy. Initialed, dated & timed copy in chart.
[2021-06-23] MEDS: FUROsemide 10 mg/mL SDV 2mL 20 MG IVP ×2 (12:57→22:51)
[2021-06-23] MEDS: dextrose 5% 1,000 ML 30 ML IV (12:58)
--- NOTE | 2021-06-23 14:36 | P.PN_ITS ---
Subjective Subjective: Patient was seen and examined this morning, patient has significant anxiety component, when she is compliant with noninvasive ventilation, she is saturating fine, given the fact that she continuously Try to remove nasal cannula, as well as BiPAP, she had to be placed on Precedex, as her antianxiety medicines currently are not helping a lot , post Precedex, she has been resting comfortably and is, Very compliant with noninvasive modes of ventilation, which is reflecting in her o2 saturations. daughter wants diet to be changed, from dysphagia level 1 diet, it is not possible to yield as the patient is at risk for aspiration. Medications: Medication Review Details: Generic Name Dose Route Start Last Admin Trade Name Freq PRN Reason Stop Dose Admin Acetaminophen 650 mg 06/10/21 15:54 06/20/21 08:48 Acetaminophen 32 5 Mg Tablet PO 650 mg Q6H PRN Administration Mild/Mod Pain Or Temp >/= 101 Albuterol Sulfate 2.5 mg 06/10/21 17:04 06/18/21 07:46 Albuterol 2.5 Mg /0.5 Ml Neb INHALATION 2.5 mg Q4H.RESPIRATORY P RN Administration SHORTNESS OF GUANA[place] TH Albuterol/Ipratrop ium 3 ml 06/21/21 12:00 06/23/21 11:16 Ipratropium-Albu terol 3 Ml Neb INHALATION 3 ml Q4H.RESPIRATORY S CH Administration Alprazolam 0.5 mg 06/22/21 11:00 06/23/21 08:06 Alprazolam 0.5 M g Tablet PO 0.5 mg TID PRN Administration ANXIETY Amiodarone HCl 200 mg 06/14/21 18:00 06/23/21 08:07 Amiodarone 200 M g Tablet PO 200 mg BID MINA Administration Amlodipine Besylat e 10 mg 06/23/21 09:00 06/23/21 08:07 Amlodipine 5 Mg Tablet PO 10 mg DAILY MINA Administration Budesonide 0.5 mg 06/14/21 20:00 06/23/21 07:30 Budesonide 0.5 M g/2 Ml Neb INHALATION 0.5 mg BID.RESPIRATORY S CH Administration Buspirone HCl 5 mg 06/10/21 18:00 06/23/21 08:07 Buspirone 10 Mg Tablet PO 5 mg BID MINA Administration Calcium Carbonate 1 each 06/10/21 18:00 06/23/21 08:08 Calcium Carb-Vit D 600mg/400unit 1 Tablet PO 1 each BID MINA Administration Enoxaparin Sodium 80 mg 06/17/21 18:00 06/23/21 06:15 Enoxaparin 80 Mg /0.8 Ml Syringe SUBCUT 80 mg Q12H MINA Administration Furosemide 20 mg 06/22/21 11:30 06/23/21 12:57 Furosemide 10 Mg /Ml Sdv 2ml IVP 20 mg Q12H MINA Administration Gabapentin 100 mg 06/10/21 21:00 06/23/21 08:06 Gabapentin 100 M g Capsule PO 100 mg TID MINA Administration Guaifenesin/Dextro methorphan 10 ml 06/21/21 10:39 06/21/21 10:55 Guaifenesin-Dext romethorphan Udc 1 0 Ml PO 10 ml Q4H PRN Administration COUGH Heparin Sodium (Po rcine) 0 unit 06/15/21 18:00 06/16/21 16:44 Heparin 5,000 Un it/Ml Inj 1 Ml IV 1,700 unit PRN PRN Administration Heparin weight-ba se protocol Protocol dexmedeTOMIDine 0. 9 % NaCL 400 mcg in 100 ml s @ 0 mls/hr 06/17/21 10:00 06/23/21 10:37 Precedex IV 0.2 mcg/kg/hr .Q0M MINA 4.38 mls/hr Titration Protocol Per Protocol Dextrose 1,000 mls @ 30 ml s/hr 06/23/21 08:00 06/23/21 12:58 D5w IV 30 mls/hr .Q24H MINA Administration Lanolin 1 applic 06/19/21 15:32 06/19/21 15:59 Lanolin Oint 7 G m TOPICAL 1 applic PRN PRN Administration DRYNESS Levothyroxine Sodi um 50 mcg 06/11/21 09:00 06/23/21 08:06 Levothyroxine 50 Mcg Tablet PO 50 mcg DAILY MINA Administration Methylprednisolone Sodium Succinate 40 mg 06/17/21 18:00 06/23/21 06:15 Methylprednisolo ne Sod Succ 40 Mg/ Ml Inj IVP 40 mg Q12H MINA Administration Metoprolol Tartrat e 50 mg 06/21/21 09:00 06/23/21 08:06 Metoprolol Tartr ate 50 Mg Tablet PO 50 mg BID@0900,2100 MINA Administration Redjg-4-Tbsc Ethyl Esters 1,000 mg 06/11/21 09:00 06/23/21 08:06 [place]-3 Fatty Ac ids 1,000 Mg Capsu le PO 1,000 mg DAILY MINA Administration Pantoprazole Sodiu m 40 mg 06/17/21 10:45 06/23/21 08:07 Pantoprazole 40 Mg Sdv IVP 40 mg DAILY MINA Administration Ropinirole HCl 0.25 mg 06/10/21 21:00 06/22/21 21:01 Ropinirole 0.25 Mg Tablet PO 0.25 mg BEDTIME MINA Administration Senna 17.2 mg 06/10/21 21:00 06/22/21 21:01 Sennosides 8.6 M g Tablet PO Not Given BEDTIME MINA Sertraline HCl 100 mg 06/10/21 18:00 06/23/21 08:06 Sertraline 100 M g Tablet PO 100 mg BID MINA Administration Trazodone HCl 50 mg 06/10/21 17:02 06/22/21 21:01 Trazodone 50 Mg Tablet PO 50 mg BEDTIME PRN Administration INSOMNIA Vitals/I&O/Wt Last Vital Signs Temp 98.3 F 06/23/21 09:00 Pulse 69 06/23/21 13:11 Resp 25 H 06/23/21 13:11 BP 129/75 06/23/21 12:00 Pulse Ox 94 06/23/21 13:11 06/22/21 06/23/21 06/23/21 22:59 06:59 14:59 Intake Total 100 / 800 100 / 900 348.212 / 348.212 Output Total 1100 / 1100 1500 / 2600 Balance -1000 / -300 -1400 / -1700 348.212 / 348.212 Weight last 48 hrs Weight 83.915 kg Weight 86.636 kg Physical Exam Narrative: Const: COMMON NORMALS: patient oriented x3 HENMT: COMMON NORMALS: normocephalic and atraumatic HEAD & SCALP: normocephalic and atraumatic Chest: COMMONS NORMALS: normal inspection of the chest and normal palpation of entire chest wall CHEST: Yes Symmetrical chest wall rise Resp: EFFORT & INSPECTION: Yes symmetric chest movement OTHER: Coarse Breath Sound Cardio: COMMON NORMALS: regular rate, regular rhythm, S1 normal heart sound present, S2 normal heart sound present, No gallops present (Cardio), No murmurs present (Cardio), No rub (Cardio) and Peripheral pulses 2+ throughout RATE: regular rate RHYTHM: regular rhythm HEART SOUNDS: S1 normal heart sound present and S2 normal heart sound present PERIPHERAL PULSES: Peripheral pulses 2+ throughout GI: COMMON NORMALS: Normal to inspection, nondistended, normoactive bowel sounds present, Soft to palpation, non-tender, No hepatosplenomegaly present and no masses AUSCULTATION: Yes normoactive bowel sounds PALPATION: Yes Soft to palpation and Yes No hepatosplenomegaly present RECTAL EXAM: deferred Extremity: COMMON NORMALS: no clubbing, cyanosis or edema and no pedal edema Neuro: COMMON NORMALS: patient oriented x3 Urinary Catheter Management: Noriega: Cath Placed During This Visit: yes Reason for Continuing Indwelling Catheter: Accurate Measurement of Urinary Output in Critically Ill Patients Urinary Catheter Date of Insertion: 06/10/21 Urinary Catheter Time of Insertion: 18:14 Data : 06/23/21 05:13 06/23/21 05:13 Micro: Microbiology 06/17/21 11:35 Blood Culture - Final Blood NO GROWTH AFTER 5 DAYS 06/17/21 11:34 Blood Culture - Final Blood NO GROWTH AFTER 5 DAYS A&P Assessment and plan (1) Acute respiratory failure with hypoxia: Assessment Status: Acute (2) DVT (deep venous thrombosis): Given worsening oxygenation, slight drop in hemoglobin and persistent mild thrombocytopenia we will switch from full dose Lovenox to heparin drip. We will plan to start heparin drip by evening which will be 12 hours after her last dose of Lovenox. Status: Acute (3) Atrial fibrillation: Rate better controlled. Given amiodarone drip and digoxin 500 mcg IV yesterday. Continue with amiodarone 200 mg twice daily. Continue with metoprolol 25 mg twice daily for now. Digoxin levels appreciated. Rapid ventricular response currently. Appreciate cardiology recommendations. Status: Chronic (4) CHF (congestive heart failure): Treatment as above. Appreciate cardiology recommendations. Status: Chronic (5) Status post open reduction and internal fixation (ORIF) of fracture: Status: Acute (6) Closed intertrochanteric fracture of right hip: Comminuted. Postoperative day 3. Restarted Eliquis as per orthopedic service. Hold off on physical therapy today given tachycardia and low blood pressure. Pain medication with [place] every 8 hours as needed. Monitor hemoglobin. Status: Acute Qualifiers: Encounter type: initial encounter Fracture alignment: displaced Qualified Code(s): S72.141A - Displaced intertrochanteric fracture of right femur, initial encounter for closed fracture (7) Fall as cause of accidental injury in home as place of occurrence: Accidental, occurring while reaching too far while using her walker, landed on right hip. Status: Acute Qualifiers: Encounter type: initial encounter Qualified Code(s): W19.XXXA - Unspecified fall, initial encounter; Y92.009 - Unspecified place in unspecified non-institutional (private) residence as the place of occurrence of the external cause (8) Chronic anticoagulation: Hold off on Eliquis for now. Switched over to heparin drip. Status: Chronic (9) Coronary artery disease: Bypass surgery in 2009, 3 vessels with associated mitral valve repair Follows with Dr. Felix lombardo. Denies any active chest pain. A1c 5.4. Lipid panel appreciated. Will need to be on statin going forward. Atorvastatin 40 mg daily. Status: Chronic (10) Hypertension: Chronically on amlodipine and lisinopril in addition to beta-blockade. Goal blood pressure less than 140/90 mmHg. Blood pressure slightly soft today. For now hold off on amlodipine and lisinopril. Continue with metoprolol 25 mg twice daily. Status: Chronic (11) COPD (chronic obstructive pulmonary disease): Related to former tobacco abuse, chronically on Stiolto Respimat, not on continuos oxygen for her COPD but does wear nocturnal oxygen for sleep apnea. No acute exacerbation. Keep saturation over 88%. Status: Chronic (12) Sleep apnea: Diagnosed via sleep study, intolerant of CPAP/BiPAP, on nocturnal oxygen though admits that she does not necessarily use it every single night Status: Chronic Qualifiers: Sleep apnea type: unspecified type Qualified Code(s): G47.30 - Sleep apnea, unspecified (13) Hypothyroidism: Continue on home dose of levothyroxine. Check TSH. Status: Chronic (14) Anxiety and depression: Chronically on sertraline and also takes BuSpar plus as needed alprazolam, admits to having some challenges with current being on hospice and functional decline since her hip fracture a few years ago but reports that me dications help Status: Chronic (15) Osteoarthritis: Status: Chronic Qualifiers: Osteoarthritis location: multiple joints Osteoarthritis type: primary Qualified Code(s): M15.9 - Polyosteoarthritis, unspecified (16) Atherosclerosis of coronary artery of [place] heart without angina pectoris: Status: Acute Plan Acute hypoxic respiratory failure likely secondary to: Pneumonia , heart failure COPD, cannot conclusively rule out possible PE. CT chest without contrast: Ground-glass opacities throughout the right lung and in the inferior left lung.?? Small right pleural effusion. X-ray chest: D-dimer: elevated. Blood culture: NTD Sputum Gram stain and culture: Was not able to be obtained. MRSA PCR positive Flu swab, COVID-19 antigen negative. Was on vancomycin was discontinued on 06/21 She has been on Zosyn as well as Primaxin and has completed the antibiotic course. Antibiotics has been discontinued. Continue Precedex as needed #Newly diagnosed HFrEF : 2D echo: EF of 30 to 35%, severe diffuse hypokinesis of septum, anteroseptum and LV apex, diffuse hypokinesia of right ventricular.moderately increased LA and RA size. Currently compensated Lasix 20 mg IV twice daily Intake output charting Daily weight K>4,MG>2 Continue HHFONC/BIPAP #PENG on CKD stage III: Likely secondary to overdiuresis: Resolved Baseline serum creatinine 0.8-1 Random urine sodium Random urine creatinine FENA/FEUREA Monitor intake output charting Avoid nephrotoxic Continue to monitor BMP #Right lower extremity DVT: Continue Lovenox #COPD: Continue Solu-Medrol Budesonide inhaler DuoNebs #Hypernatremia : Likely secondary intravascular depletion secondary to diuresis. D5 water 30 cc an hour Monitor BMP #History of atrial fibrillation: Continue amiodarone as well as metoprolol On therapeutic Lovenox #Hypertension : Amlodipine 5 Mg po daily Metoprolol #Hypothyroidism: TSH : 1.17 Continue levothyroxine #Closed intertrochanteric fracture of right hip: S/p ORIF #CODE STATUS:AND #DVT prophylaxis on Lovenox Attestations Medical Necessity Statement*: Patient is to be in hospital for management of above defined problems. Time Spent in Patient Care: Greater than 35 minutes (>than 50% of time spent in counselling and/or direct pt care on unit) . Critical Care Time: The high probability of a clinically significant, sudden or life threatening deterioration of the patient's [] system(s) required my full and direct attention, intervention and personal management. The critical care time is as shown. This time is in addition to time spent performing any reported procedures but includes the following: [x] Data and vital sign review and interpretation [x] Patient assessment, examination and intervention [x] Documentation [x] Medication orders and management Critical Care Time (min): 35 Coding Level of Care Code Acute Mat Inspector for [facility] Fwd Diagnoses Acute respiratory failure with hypoxia J96.01 DVT (deep venous thrombosis) I82.409 Atrial fibrillation I48.91 CHF (congestive heart failure) I50.9 Status post open reduction and internal fixation (ORIF) of fracture Z98.890; Z87.81 Closed intertrochanteric fracture of right hip S72.141A Encounter type: initial encounter Fracture alignment: displaced Fall as cause of accidental injury in home as place of occurrence W19.XXXA; Y92.009 Encounter type: initial encounter Chronic anticoagulation Z79.01 Coronary artery disease I25.10 Hypertension I10 COPD (chronic obstructive pulmonary disease) J44.9 Sleep apnea G47.30 Sleep apnea type: unspecified type Hypothyroidism E03.9 Anxiety and depression F41.9; F32.A Osteoarthritis M15.9 Osteoarthritis location: multiple joints Osteoarthritis type: primary Atherosclerosis of coronary artery of [place] heart without angina pectoris I25.10
[2021-06-23] MEDS: ropinirole 0.25 mg Tablet PO (20:10)
[2021-06-23] MEDS: sennosides 8.6 mg Tablet 17.2 MG PO (20:10)
[2021-06-24] VITALS (32 sets, daily range): BP systolic 99–140; BP diastolic 58–95; PULSE 71–102; RESP 9–44; TEMP 36.6–36.7; O2SAT 86–100
[2021-06-24] MEDS: ipratropium-albuterol 3 mL Neb INHALATION ×6 (03:45→23:19)
[2021-06-24 05:47] LABS: Eosinophils % 0.1 %; Hematocrit 32.8 % (37.0-47.0); Hemoglobin 10.2 g/dL (11.5-15.3); Lymphocytes # 0.3 10^3/uL (0.8-4.8); Lymphocytes % 2.3 %; Mean Corpuscular HGB Conc 31.1 g/dL (30.0-36.0); Mean Corpuscular Hemoglobin 27.6 pg (28.0-34.0); Mean Corpuscular Volume 88.9 fl (81-99); Mean Platelet Volume 12.3 fL (7.4-10.4); Monocytes # 0.3 10^3/uL (0.2-0.9); Neutrophils # 10.34 10^3/uL (1.8-7.7); Neutrophils % 93.2 %; Nucleated Red Blood Cells % 0 %; Platelet Count 157 10^3/cmm (130-400); Red Blood Count 3.69 10^6/uL (4.1-5.3); Red Cell Distribution Width 16.5 % (12.1-15.1); White Blood Count 11.1 10^3/uL (4.0-10.0)
[2021-06-24] MEDS: enoxaparin 80 mg/0.8 mL Syringe SUBCUT ×2 (06:05→17:40)
[2021-06-24 06:13] LABS: Alanine Aminotransferase 9 U/L (0-33); Albumin Level 3.3 g/dL (3.5-5.2); Alkaline Phosphatase 166 IU/L (35-105); Anion Gap 13.5 (5-19); Aspartate Amino Transferase 15 U/L (0-32); Blood Urea Nitrogen 25 mg/dL (8-23); Calcium 7.7 mg/dL (8.5-10.5); Carbon Dioxide 36 mmol/L (22-29); Chloride 101 mmol/L (98-107); Globulin 1.7 g/dL (1.3-4.6); Glucose 131 mg/dL (65-115); Osmolality Calculated 310 mOsm/kg (285-295); Potassium 3.5 mmol/L (3.5-5.1); Sodium 147 mmol/L (136-145); Total Bilirubin 0.5 mg/dL (0.15-1.2)
[2021-06-24] MEDS: budesonide 0.5 mg/2 mL Neb INHALATION ×2 (07:41→20:07)
[2021-06-24] MEDS: dextrose 5% 1,000 ML 30 ML IV ×2 (08:25→23:42)
[2021-06-24] MEDS: pantoprazole 40 mg SDV IVP (08:25)
[2021-06-24] MEDS: levothyroxine 50 mcg Tablet PO (08:26)
[2021-06-24] MEDS: gabapentin 100 mg Capsule PO ×3 (08:26→20:11)
[2021-06-24] MEDS: BuSPIRONE 10 mg Tablet 5 MG PO ×2 (08:26→17:40)
[2021-06-24] MEDS: amlodipine 5 mg Tablet 10 MG PO (08:26)
[2021-06-24] MEDS: sertraline 100 mg Tablet PO ×2 (08:26→17:40)
[2021-06-24] MEDS: calcium carb-vit d 600mg/400unit 1 Tablet 1 EACH PO ×2 (08:26→17:40)
[2021-06-24] MEDS: amiodarone 200 mg Tablet PO ×2 (08:26→17:40)
[2021-06-24] MEDS: metoprolol tartrate 50 mg Tablet PO ×2 (08:31→20:13)
--- NOTE | 2021-06-24 09:05 | PC.CHAP ---
Pastoral Care Encounter/Spiritual Assessment Type of Contact [] Declined rn support services visit [] Patient/Family/Request visit [] Outpatient visit [] Follow-up visit [] Physician referral [] Code/Alert [x] Routine visit [] Staff referral [] Actively dying [] Patient sleeping [] Family support [] [] Out of room [] Palliative care [] [] Receiving care in room [] Pre-surgical visit [] Trauma [] Long length of stay [x] ICU visit [] Other: Relational/Emotional Strength [] Patient feels connected with others/family/visitors/staff [] Distress [] Loneliness/isolation [] Abandonment Spirituality of Patient [] Person of Dina [] Attends Sabianism of their Dina [] Believes in Prayer [] Reads Bible or Holiness materials [] There are Spiritual issues to be addressed [employer] Vice President Interventions [x] Prayer [] Active listening [] Non-anxious presence [] Spiritual/emotional support [] Crisis/trauma care [] Spiritual counseling [] Bereavement support [] Provided bereavement packet [] Provided Bible/devotional materials [] Provided toy/stuffed animal, coloring book to patient or family member [] Provided Communion [] Anointing/[place] [] Salvation [x] Completed spiritual assessment [] Other: Impact on Illness or Injury [] Angry [] Fearful [] Anxious [] Often cries [] Exhaustion [] Unable to work [] Unable to attend adventism [] Unable to walk/stand [] Unable to read [] Unable to drive [] Unable to eat/drink [] Unable to sleep [] Unable to be with family [] Patient intubated [] Other: Summary Time spent with patient
--- NOTE | 2021-06-24 10:49 | CT_ITS ---
WS: [id number] CT CHEST TECHNIQUE: Noncontrast CT of the chest with coronal and sagittal reformatted images. CLINICAL INFORMATION: pna COMPARISON: CT June 15, 2021 DLP: 679.[address] scans at [facility] use at least one of these dose optimization techniques: automated e xposure control; mA and/or kV adjustment per patient size (includes targeted exams where dose is matc hed to clinical indication); or iterative reconstruction. FINDINGS: Diffuse hazy ground glass infiltrates throughout the RIGHT lung are slightly progressed compared to A pril 2021 with increased parenchymal density today. Small RIGHT pleural effusion appears stable. Similar-appearing groundglass infiltrates in the LEFT lower lobe appear slightly improved. New develo ping hazy groundglass infiltrates LEFT upper lobe along the fissure. Chronic emphysematous changes. Stable marked cardiomegaly. Aortic calcification. Coronary calcification. Normal caliber thoracic aor ta. Small thyroid nodules. A few reactive mediastinal and hilar lymph nodes. No axillary lymphadenopa thy. Moderate esophageal hiatal hernia. Adrenal glands are normal. Splenic artery calcification. Mild thor acic curve with thoracic kyphosis. IMPRESSION: 1. Diffuse hazy pulmonary infiltrates throughout the RIGHT lung are slightly progressed and slightly more dense today. Differential considerations are unchanged. 2. Small RIGHT pleural effusion is stable. 3. Groundglass infiltrates in the LEFT lower lobe are slightly improved. New developing groundglass infiltrates LEFT upper lobe along the fissure 4. Prior partial LEFT pneumonectomy 5. Unchanged moderate esophageal hiatal hernia. 6. Stable marked cardiomegaly.
[2021-06-24 11:55] LABS: D Dimer 2.63 ug/mIFEU (0-0.59)
[2021-06-24 12:15] LABS: Magnesium 1.9 mg/dL (1.7-2.3)
[2021-06-24] MEDS: FUROsemide 10 mg/mL SDV 2mL 20 MG IVP ×2 (12:55→23:43)
[2021-06-24] MEDS: piperacillin-tazobactam 3.375 GM in sodium chloride 0.9% (plus) 50 ML IV ×2 (12:55→20:11)
--- NOTE | 2021-06-24 13:11 | P.CONIM_ITS ---
Providers/Reason For Consult Consulting Physician/Specialty*: Yared Mccain MD/Pulmonary Critical care Reason for Consult*: Acute respiratory failure Requesting Physician: Micky Crum MD Attending Physician: Micky Crum MD History of Present Illness History of Present Illness Arelis Abdi is a 86 year old female with PMH hypertension, hyperlipidemia, hypothyroidism, atrial fibrillation on chronic anticoagulation, systolic CHF with EF 35%, moderate to severe pulmonary hypertension, COPD, KYLEE(cannot tolerate CPAP), former smoker, s/p left upper lobectomy for atypical carcinoid 2007, history of of arthroplasty of left hip 2018, history of mitral valve repair and CABG 2009, on 06/10/2021 for right hip pain due to sustained ?comminuted intratrochanteric fracture s/p mechanical fall underwent s/p open reduction internal fixation right hip with intramedullary device on 06/12/2021. Postoperatively-she was monitored in the ICU for worsening events-her oxygen requirements went up-initially requiring 2 to 3 L and gradually was placed on BiPAP-currently she is on high flow nasal cannula 40 L 70% saturating 92%. Due to PENG able to perform CTA but was started on heparin drip which was later transitioned to full dose Lovenox. Pulmonary requested for worsening advair to require history of COPD/CHF/KYLEE. Patient seen at bedside today morning Currently on high flow nasal cannula 40 L 95% No fever spikes. Net -2.4 L since admission on Lasix 20 mg twice daily MRSA nares were positive. Aspiration aspiration pneumonia. Recommended to start vancomycin and Zosyn Atrial fibrillation rate controlled with amiodarone and metoprolol -CT chest today showed diffuse hazy pulmonary infiltrates slightly more dense and slightly progressed; left lower lobe GGO's improved but new developing GGO's in her upper lobe along the fissure was noted -Other labs and imaging reviewed Medications/Allergies Home Medications Medication Instructions Recorded Confirmed Last Taken Type alprazolam 0.5 mg tablet 0.5 mg PO TID PRN 03/18/21 06/10/21 06/10/21 History apixaban 5 mg tablet (Eliquis) 5 mg PO BID 03/18/21 06/10/21 06/10/21 History buspirone 5 mg tablet 5 mg PO BID 03/18/21 06/10/21 06/10/21 History coenzyme Q10 10 mg capsule (Co 10 mg PO DAILY cap 03/18/21 06/10/21 06/10/21 History Q-10) gabapentin 100 mg capsule 100 mg PO TID 03/18/21 06/10/21 06/10/21 History levothyroxine 50 mcg tablet 50 mcg PO DAILY 03/18/21 06/10/21 06/10/21 History lisinopril 20 mg tablet 20 mg PO DAILY 03/18/21 06/10/21 06/10/21 History metoprolol succinate 25 mg 25 mg PO DAILY 03/18/21 06/10/21 06/10/21 History tablet,extended release 24 hr potassium chloride 10 mEq 10 meq PO DAILY 03/18/21 06/10/21 06/10/21 History tablet,extended release ropinirole 0.25 mg tablet 0.25 mg PO DAILY 03/18/21 06/10/21 06/09/21 History tiotropium 2.5 mcg-olodaterol 2.5 2 puff INHALATION DAILY 03/18/21 06/10/21 Unknown History mcg/actuation mist for inhalation (Stiolto Respimat) trazodone 50 mg tablet 50 mg PO DAILY 03/18/21 06/10/21 06/09/21 History acetaminophen 500 mg tablet 500 mg PO Q6H PRN 06/10/21 06/10/21 Unknown History amiodarone 200 mg tablet 200 mg PO DAILY 06/10/21 06/10/21 06/10/21 History amlodipine 10 mg tablet 10 mg PO DAILY 06/10/21 06/10/21 06/10/21 History ascorbic acid (vitamin C) 500 mg 500 mg PO DAILY 06/10/21 06/10/21 06/10/21 History capsule,extended release (Vitamin C) calcium carbonate 600 mg-vitamin 1 tab PO DAILY 06/10/21 06/10/21 06/10/21 History D3 10 mcg (400 unit) chewable tablet (Calcium 600 with Vitamin D3) glucosamine-chondroitin 250 mg-200 2 tab PO TID 06/10/21 06/10/21 06/10/21 H istory mg tablet (Osteo Bi-Flex) omega 6-ioe-yvq-fish oil 1,000 mg 1 cap PO DAILY 06/10/21 06/10/21 06/10/21 History (120 mg-180 mg) capsule (Fish Oil) sertraline 100 mg tablet 100 mg PO BID 06/10/21 06/10/21 06/10/21 History tumeric 100 mg-rach 150 mg-olive 1 cap PO DAILY 06/10/21 06/10/21 06/10/21 History 50 mg-oreg 150 mg-caprylate capsule Allergies Allergy/AdvReac Type Severity Reaction Status Date / Time Sulfa (Sulfonamide Allergy N/V Verified 05/02/21 09:29 Antibiotics) Current Medications Generic Name Dose Route Start Last Admin Trade Name Freq PRN Reason Stop Dose Admin Acetaminophen 650 mg 06/10/21 15:54 06/20/21 08:48 Acetaminophen 325 Mg Tablet PO 650 mg Q6H PRN Administration Mild/Mod Pain Or Temp >/= 101 Albuterol Sulfate 2.5 mg 06/10/21 17:04 06/18/21 07:46 Albuterol 2.5 Mg/0.5 Ml Neb INHALATION 2.5 mg Q4H.RESPIRATORY PRN Administration SHORTNESS OF BREATH Albuterol/Ipratropium 3 ml 06/21/21 12:00 06/24/21 11:33 Ipratropium-Albuterol 3 Ml Neb INHALATION 3 ml Q4H.RESPIRATORY MINA Administration Alprazolam 0.5 mg 06/22/21 11:00 06/23/21 08:06 Alprazolam 0.5 Mg Tablet PO 0.5 mg TID PRN Administration ANXIETY Amiodarone HCl 200 mg 06/14/21 18:00 06/24/21 08:26 Amiodarone 200 Mg Tablet PO 200 mg BID MINA Administration Amlodipine Besylate 10 mg 06/23/21 09:00 06/24/21 08:26 Amlodipine 5 Mg Tablet PO 10 mg DAILY MINA Administration Budesonide 0.5 mg 06/14/21 20:00 06/24/21 07:41 Budesonide 0.5 Mg/2 Ml Neb INHALATION 0.5 mg BID.RESPIRATORY MINA Administration Buspirone HCl 5 mg 06/10/21 18:00 06/24/21 08:26 Buspirone 10 Mg Tablet PO 5 mg BID MINA Administration Calcium Carbonate 1 each 06/10/21 18:00 06/24/21 08:26 Calcium Carb-Vit D 600mg/400unit 1 Tablet PO 1 each BID MINA Administration Enoxaparin Sodium 80 mg 06/17/21 18:00 06/24/21 06:05 Enoxaparin 80 Mg/0.8 Ml Syringe SUBCUT 80 mg Q12H MINA Administration Furosemide 20 mg 06/22/21 11:30 06/24/21 12:55 Furosemide 10 Mg/Ml Sdv 2ml IVP 20 mg Q12H MINA Administration Gabapentin 100 mg 06/10/21 21:00 06/24/21 08:26 Gabapentin 100 Mg Capsule PO 100 mg TID MINA Administration Guaifenesin/Dextromethorphan 10 ml 06/21/21 10:39 06/21/21 10:55 Guaifenesin-Dextromethorphan Udc 10 Ml PO 10 ml Q4H PRN Administration COUGH Heparin Sodium (Porcine) 0 unit 06/15/21 18:00 06/16/21 16:44 Heparin 5,000 Unit/Ml Inj 1 Ml IV 1,700 unit PRN PRN Administration Heparin weight-base protocol Protocol dexmedeTOMIDine 0.9 % NaCL 400 mcg in 100 mls @ 0 mls/hr 06/17/21 10:00 06/24/21 07:00 Precedex IV 0 mcg/kg/hr .Q0M MINA 0 mls/hr Titration Protocol Per Protocol Dextrose 1,000 mls @ 30 mls/hr 06/23/21 08:00 06/24/21 08:25 D5w IV 30 mls/hr .Q24H MINA Administration Piperacillin Sod/Tazobactam 50 mls @ 12.5 mls/hr 06/24/21 11:30 06/24/21 12:55 Sod 3.375 gm/ Sodium Chloride IV 12.5 mls/hr Q8H MINA Administration Protocol Lanolin 1 applic 06/19/21 15:32 06/19/21 15:59 Lanolin Oint 7 Gm TOPICAL 1 applic PRN PRN Administration DRYNESS Levothyroxine Sodium 50 mcg 06/11/21 09:00 06/24/21 08:26 Levothyroxine 50 Mcg Tablet PO 50 mcg DAILY MINA Administration Metoprolol Tartrate 50 mg 06/21/21 09:00 06/24/21 08:31 Metoprolol Tartrate 50 Mg Tablet PO 50 mg BID@0900,2100 MINA Administration [id number] Ethyl Esters 1,000 mg 06/11/21 09:00 06/24/21 08:27 [place]-3 Fatty Acids 1,000 Mg Capsule PO Not Given DAILY MINA Ropinirole HCl 0.25 mg 06/10/21 21:00 06/23/21 20:10 Ropinirole 0.25 Mg Tablet PO 0.25 mg BEDTIME MINA Administration Senna 17.2 mg 06/10/21 21:00 06/23/21 20:10 Sennosides 8.6 Mg Tablet PO 17.2 mg BEDTIME MINA Administration Sertraline HCl 100 mg 06/10/21 18:00 06/24/21 08:26 Sertraline 100 Mg Tablet PO 100 mg BID MINA Administration Trazodone HCl 50 mg 06/10/21 17:02 06/22/21 21:01 Trazodone 50 Mg Tablet PO 50 mg BEDTIME PRN Administration INSOMNIA PFSH Acute PFSH: Medical History (Updated 06/24/21 @ 15:54 by Yared Mccain MD) Adult night terrors Anemia Anxiety ASHD (arteriosclerotic heart disease) Atrial fibrillation CHF (congestive heart failure) Chronic anticoagulation COPD (chronic obstructive pulmonary disease) COVID-19 vaccine administered Moderna 2 doses Depression First degree AV block Former smoker Heart valve regurgitation Hyperlipidemia Had been on atorvastatin and zetia in past, last lipid panel in 2019 with HDL 70, LDL 81, total cholesterol 171, TG 176 Hypertension Hypothyroidism Insomnia 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) Meningioma Benign Mitral valve regurgitation Osteoarthritis Osteoporosis RLS (restless legs syndrome) Sleep apnea On nocturnal oxygen, intolerant of other therapies in past Tricuspid valve regurgitation Ventricular arrhythmia Surgical History (Updated 06/14/21 @ 08:10 by Esteban Do MD) History of appendectomy History of hemiarthroplasty of left hip (~2019) History of hysterectomy History of lobectomy of lung Left upper lobe, 2007 History of mitral valve repair Per patient, done at time of CABG in 2009, details unknown History of tonsillectomy and adenoidectomy Hx of CABG x 3 vessel 2009 Family History Family/Other Cancer multiple relatives Father Abdominal aneurysm Mother Abdominal aneurysm Denies family history of Clotting disorder Anesthesia complication Bleeding disorder Social History Smoking and tobacco status: former smoker Alcohol intake: current Alcohol use comment: has a drink every 3-4 days, currently drinking [place] [employer] Substance/Drug Use: never Household members: spouse and other Details: Spouse on [facility]osp[facility] Marital status: Number of children: 3 Female Reproductive History: : 5 Para: 3 Spontaneous abortions: Yes (x2) Vitals/I&O/Wt Last Vital Signs Temp 98.0 F 06/24/21 02:00 Pulse 82 06/24/21 11:33 Resp 18 06/24/21 11:33 BP 138/83 06/24/21 08:00 Pulse Ox 92 06/24/21 11:33 06/23/21 06/24/21 06/24/21 22:59 06:59 14:59 Intake Total 95.624 / 443.836 757.155 / 757.155 Output Total 1100 / 1100 1200 / 2300 Balance -1004.376 / -656.164 -1200 / -1856.164 757.155 / 757.155 Weight last 48 hrs Weight 180 lb Weight 185 lb Physical Exam Narrative: General: alert, NAD HEENT: conj clear, EOMI, PERRL, mmm, Neck: supple, no meningismus Heme: no cervical LAP Pulmonary: CTAB, no wheezing, rhonchi, crackles Cardiovascular: rrr, nl s1s2, no mrg Abdomen: soft, nt, nd, no r/g, bs+ Extremities: pulses +, no edema, no c/c : no CVA tenderness Skin: intact, no rash MSK: no back or neck pain Neurologic: grossly intact Urinary Catheter Management: Noriega: Cath Placed During This Visit: yes Reason for Continuing Indwelling Catheter: Accurate Measurement of Urinary Output in Critically Ill Patients Urinary Catheter Date of Insertion: 06/10/21 Urinary Catheter Time of Insertion: 18:14 Data : 06/24/21 05:00 06/24/21 05:00 Other Labs: Radiology Impressions Hip/Pelvis X-Ray 06/10/21 14:34 IMPRESSION: 1. Comminuted intertrochanteric fracture of the right hip. Degenerative changes. Hip X-Ray 06/12/21 15:49 IMPRESSION: Intraoperative imaging during RIGHT hip ORIF. Chest CT 06/15/21 12:16 IMPRESSION: 1. Ground-glass opacities throughout the right lung and in the inferior left lung. This could represent pneumonia, pulmonary edema, or hypersensitivity pneumonitis. 2. Small right pleural effusion. 3. Left partial pneumonectomy changes. 4. 3 mm left pulmonary nodule. For patients at low risk (minimal or absent history of smoking and of other known risk factors), no routine follow-up is indicated. For patients at high risk (history of smoking or of other known risk factors), consider optional CT Chest at 12 months. (Reference: Kevan) References: Kevan Umaña et al. Guidelines for Management of Incidental Pulmonary Nodules Detected on CT Images: From the Fleischner Society 2017. Radiology. 2017;284(1):228-243. COMMENTS: Consistent with the [employer] [employer]'s Incidental Findings Committee white paper (J Am Maria Luisa Radiol 2015): In patients aged 35 years and older with an incidental thyroid nodule equal to or greater than 1.[address], MRI or extrathyroidal US, further evaluation with dedicated thyroid US is recommended for patients with normal life expectancy and without comorbidities. For smaller nodules without suspicious features, no further evaluation or follow up is recommended. Chest X-Ray 06/22/21 10:02 IMPRESSION: 1. Bilateral perihilar and lower lobe interstitial congestion increased since prior 2. Cardiomegaly for projection 3. A cardiac valve prosthesis is in place 4. Status post sternotomy Laboratory Results WBC 11.1 10^3/uL (4.0-10.0) H 06/24/21 05:00 RBC 3.69 10^6/uL (4.1-5.3) L 06/24/21 05:00 Hgb 10.2 g/dL (11.5-15.3) L 06/24/21 05:00 Hct 32.8 % (37.0-47.0) L 06/24/21 05:00 MCV 88.9 fl (81-99) 06/24/21 05:00 MCH 27.6 pg (28.0-34.0) L 06/24/21 05:00 MCHC 31.1 g/dL (30.0-36.0) 06/24/21 05:00 RDW 16.5 % (12.1-15.1) H 06/24/21 05:00 Plt Count 157 10^3/cmm (130-400) 06/24/21 05:00 MPV 12.3 fL (7.4-10.4) H 06/24/21 05:00 Neut % (Auto) 93.2 % 06/24/21 05:00 Lymph % (Auto) 2.3 % 06/24/21 05:00 [place] % (Auto) 3.0 % 06/24/21 05:00 Eos % (Auto) 0.1 % 06/24/21 05:00 Baso % (Auto) 0.0 % 06/24/21 05:00 Neut # (Auto) 10.34 10^3/uL (1.8-7.7) H 06/24/21 05:00 Lymph # (Auto) 0.3 10^3/uL (0.8-4.8) L 06/24/21 05:00 [place] # (Auto) 0.3 10^3/uL (0.2-0.9) 06/24/21 05:00 Eos # (Auto) 0.0 10^3/uL (0.0-0.8) 06/24/21 05:00 Baso # (Auto) 0.0 10^3/uL (0.0-0.1) 06/24/21 05:00 Nucleated RBC % (auto) 0 % 06/24/21 05:00 Nucleated RBCs # 0.0 /100WBC 06/24/21 05:00 PT 15.60 SECONDS (12.1-14.9) H 06/10/21 15:03 INR 1.20 (0.8-1.2) 06/10/21 15:03 APTT 44.0 SECONDS (23.9-36.7) H 06/17/21 11:34 D-Dimer 2.63 ug/mIFEU (0-0.59) H 06/24/21 11:25 Specimen Type Arterial 06/23/21 09:34 Sample Site Radial, left 06/23/21 09:34 ABG pH 7.46 (7.35-7.45) H 06/23/21 09:34 ABG pCO2 48.5 mmHg (35-45) H 06/23/21 09:34 ABG pO2 64.3 mmHg (80.0-100.0) L 06/23/21 09:34 ABG HCO3 34.3 mmol/L (22-26) H 06/23/21 09:34 ABG O2 Saturation 91.8 06/23/21 09:34 ABG Base Excess 9.2 mmol/L (-2.0-2.0) H 06/23/21 09:34 Tk Test Pos 06/23/21 09:34 A-a O2 Gradient 62.8 mmHg (5-10) H 06/23/21 09:34 Hematocrit 33.2 % (37-47) L 06/23/21 09:34 Hgb O2 Saturation 90.9 % (95-100) L 06/23/21 09:34 Carboxyhemoglobin 0.4 %THgb (0.4-20.1) 06/23/21 09:34 Methemoglobin 0.7 % (0.4-1.5) 06/23/21 09:34 Total Hemoglobin 10.8 g/dL (12-16) L 06/23/21 09:34 Sodium 148.0 mmol/L (131-143) H 06/23/21 09:34 Potassium 3.2 mmol/L (3.5-5.0) L 06/23/21 09:34 Glucose 152.0 mg/dL (70-115) H 06/23/21 09:34 Ionized Calcium 1.2 mmol/L (1.1-1.4) 06/23/21 09:34 O2 Delivery Device Nc 06/23/21 09:34 O2 Liters/Min 50.0 % 06/23/21 09:34 FiO2 85.0 % 06/23/21 09:34 Account Development Representative ID Monro 06/23/21 09:34 Sodium 147 mmol/L (136-145) H 06/24/21 05:00 Potassium 3.5 mmol/L (3.5-5.1) 06/24/21 05:00 Chloride 101 mmol/L (98-107) 06/24/21 05:00 Carbon Dioxide 36 mmol/L (22-29) H 06/24/21 05:00 Anion Gap 13.5 (5-19) 06/24/21 05:00 BUN 25 mg/dL (8-23) H 06/24/21 05:00 Creatinine 0.7 mg/dL (0.5-0.9) 06/24/21 05:00 GFR Calculation Not Reportable 06/24/21 05:00 Glucose 131 mg/dL (65-115) H 06/24/21 05:00 Estimat Average Glucose 108 06/12/21 04:45 Hemoglobin A1c 5.4 % (4.0-6.0) 06/12/21 04:45 Calculated Osmolality 310 mOsm/kg (285-295) H 06/24/21 05:00 Calcium 7.7 mg/dL (8.5-10.5) L 06/24/21 05:00 Phosphorus 4.9 mg/dL (2.5-4.5) H 06/11/21 01:30 Magnesium 1.9 mg/dL (1.7-2.3) 06/24/21 11:25 Iron 47 ug/dL (37-145) 06/11/21 01:30 TIBC 329 mcg/dl 06/11/21 01:30 % Saturation 14.2 % (20-50) L 06/11/21 01:30 Unsat Iron Binding 282 ug/dL (112-347) 06/11/21 01:30 Total Bilirubin 0.5 mg/dL (0.15-1.2) 06/24/21 05:00 AST 15 U/L (0-32) 06/24/21 05:00 ALT 9 U/L (0-33) 06/24/21 05:00 Alkaline Phosphatase 166 IU/L (35-105) H 06/24/21 05:00 Troponin T Gen 5 ng/L 18 ng/L (0-10) H 06/11/21 01:30 NT-Pro-B Natriuret Pep 86125 pg/mL (0-450) H 06/13/21 03:21 Total Protein 5.0 g/dL (6.6-8.7) L 06/24/21 05:00 Albumin 3.3 g/dL (3.5-5.2) L 06/24/21 05:00 Globulin 1.7 g/dL (1.3-4.6) 06/24/21 05:00 Triglycerides 83 mg/dL (0-150) 06/12/21 04:45 Cholesterol 249 mg/dL (0-200) H 06/12/21 04:45 LDL Cholesterol, Calc 170 mg/dL (50-129) H 06/12/21 04:45 Total VLDL Cholesterol 17 mg/dL (0-30) 06/12/21 04:45 HDL Cholesterol 62 mg/dL (60-100) 06/12/21 04:45 Cholesterol/HDL Ratio 4.02 mg/dL (0.0-4.40) 06/12/21 04:45 Procalcitonin 0.06 ng/mL (0-0.5) 06/10/21 15:03 TSH 1.17 uIU/mL (0.27-4.20) 06/11/21 01:30 Urine Color Yellow (Yellow) 06/10/21 18:15 Urine Appearance Cloudy (CLEAR) 06/10/21 18:15 Urine pH 6 (5-7) 06/10/21 18:15 Ur Specific [place] 1.030 (1.005-1.030) 06/10/21 18:15 Urine Protein Neg (Negative) 06/10/21 18:15 Urine Glucose (UA) Norm (Normal) 06/10/21 18:15 Urine Ketones 1+ (Negative) H 06/10/21 18:15 Urine Blood Neg (Negative) 06/10/21 18:15 Urine Nitrate Negative (Negative) 06/10/21 18:15 Urine Bilirubin Neg (Negative) 06/10/21 18:15 Urine Urobilinogen 1 mg/dL (Negative) H 06/10/21 18:15 Ur Leukocyte Esterase Negative (Negative) 06/10/21 18:15 Urine RBC None /hpf (0-2) 06/10/21 18:15 Urine WBC Rare /hpf (0-5) 06/10/21 18:15 Ur Squamous Epith Cells Rare /hpf (0-5) 06/10/21 18:15 Amorphous Sediment Not Reportable 06/10/21 18:15 Urine Bacteria 4+ /hpf (NONE) H 06/10/21 18:15 Nasal Influ A H1 2008 PCR Not detected (NOT DETECT) 06/15/21 15:15 Vancomycin Trough 8.9 ug/mL (10-15) L 06/21/21 12:28 Random Vancomycin 5.3 ug/mL (20.0-40.0) L 06/18/21 03:07 Digoxin 1.1 ng/mL (0.6-1.2) 06/14/21 02:48 Coronavirus 229E (PCR) Not detected (NOT DETECT) 06/15/21 15:15 Influenza A (H1) PCR Not detected (NOT DETECT) 06/15/21 15:15 Influenza A (H3) PCR Not detected (NOT DETECT) 06/15/21 15:15 Influenza Type A Ag Cancelled 06/15/21 15:15 Influenza Type A (PCR) Not detected (NOT DETECT) 06/15/21 15:15 Influenza Type B Ag Cancelled 06/15/21 15:15 Influenza Type B (PCR) Not detected (NOT DETECT) 06/15/21 15:15 SARS-CoV-2 (PCR) Not detected (NOT DETECT) 06/15/21 15:15 Echo: My impression: Severe diffuse hypokinesia of the septum, anteroseptum and LV ?apex.? ?LV ejection fraction around 30 to 35%. ?Moderate concentric left tubular hypertrophy ?Moderate biatrial enlargement ?Thickened mitral valve. Moderate mitral annular calcification. ?Thickened aortic valve. ?Mild tricuspid valve regurgitation. ?Trace pulmonary valve regurgitation. ?Estimated pulmonary artery peak systolic pressure of 28 mm of Hg ?(Compared to the study from 08/26/2018, there is some worsening of ?the LV systolic function.? The LVEF was 38% at that time.? The ?RV systolic function has significantly reduced since 08/26/2018.? ?The tricuspid rotation appears to be less severe, but it could ?be due to technical issues.) A&P Assessment and plan (1) Acute respiratory failure with hypoxia: Status: Acute (2) DVT (deep venous thrombosis): Status: Acute (3) Chronic anticoagulation: Status: Chronic (4) Chronic atrial fibrillation with rapid ventricular response: Status: Acute (5) COPD (chronic obstructive pulmonary disease): Status: Chronic (6) Coronary artery disease: Status: Chronic (7) Sleep apnea: Status: Chronic Qualifiers: Sleep apnea type: unspecified type Qualified Code(s): G47.30 - Sleep apnea, unspecified (8) Closed intertrochanteric fracture of right hip: Status: Acute Qualifiers: Encounter type: initial encounter Fracture alignment: displaced Qualified Code(s): S72.141A - Displaced intertrochanteric fracture of right femur, initial encounter for closed fracture (9) Aspiration pneumonia: Status: Acute (10) Nose colonized with MRSA: Status: Acute (11) Pulmonary hyperinflation: Status: Acute (12) Goals of care, counseling/discussion: Status: Acute Plan # Acute hypoxic respiratory failure-postoperatively patient with with history of COPD/systolic CHF/KYLEE #CHF-patient with underlying CAD s/p three-vessel CABG and mitral valve repair in 2009 #Chronic atrial fibrillation #Group 2 and group 3 pulmonary hypertension #history of left upper lobectomy for carcinoid in 2018 #COPD and former smoker #KYLEE-intolerant to therapies #MRSA nares positive & suspect Aspiration pneumonia -Currently on high flow nasal cannula requiring 70 to 80% FiO2; desaturates even on slight movement -Scheduled DuoNeb every 4 hours and IV steroids for COPD; PFTs as outpatient and discharged with Trelegy 1 puff daily -Patient at risk for aspiration pneumonia-started on Zosyn and continue aspiration precautions and dysphagia diet;-MRSA nares positive-started on vancomycin -Encouraged incentive spirometry/pulmonary toileting/Physical therapy as tolerated -On amiodarone and metoprolol for atrial fibrillation -Recommended CPAP at nighttime for KYLEE -Maintain net negative to even fluid balance; Lasix 20 mg twice daily monitor renal functions and electrolytes -Sodium 147-on D5@ 30 cc -Venous Doppler 06/14/2021: Nonocclusive DVT junction? right CFV/GSV.on Lovenox- monitor signs and symptoms of bleeding Medical condition, imaging, labs-everything explained in detail with the patient and her daughter at bedside. Answered all the questions patient's daughter had. She verbalized understanding that currently patient is on full dose anticoagulation for DVT, on antibiotics for suspected aspiration pneumonia, on Lasix for her CHF and fluid overload currently being monitored for electrolytes and her FiO2 requirements. She understands that takes 24 to 48 hours to assess if patient is responding to antibiotics or not and once she makes good progress and FiO2 down to 60%-we can send to LTAC for further rehabilitation. Recommendations conveyed to hospitalist, RN, RT, taking care of the patient Consult Attestations Medical Necessity Statement: Acute hypoxic respiratory failure in patient with history of COPD/CHF/KYLEE-suspected aspiration pneumonia/MRSA pneumonia/postoperative atelectasis-currently being treated with antibiotics- requiring high flow nasal needs close ICU monitoring Time Spent in Patient Care: Greater than 35 minutes (>than 50% of time spent in counselling and/or direct pt care on unit) . Critical Care Time: The high probability of a clinically significant, sudden or life threatening deterioration of the patient's [respiratory/cardiac system(s), goals of care] required my full and direct attention, intervention and personal management. The critical care time is as shown. This time is in addition to time spent performing any reported procedures but includes the following: [x] Data and vital sign review and interpretation [x] Patient assessment, examination and intervention [x] Documentation [x] Medication orders and management Critical Care Time (min): 65 Coding Level of Care Code New Pt Acute Assistant Sales Center Manager for Chg Fwd Patient Type New History Comprehensive Exam Comprehensive Medical Decision Making High Complexity Diagnoses Acute respiratory failure with hypoxia J96.01 DVT (deep venous thrombosis) I82.409 Chronic anticoagulation Z79.01 Chronic atrial fibrillation with rapid ventricular response I48.20 COPD (chronic obstructive pulmonary disease) J44.9 Coronary artery disease I25.10 Sleep apnea G47.30 Sleep apnea type: unspecified type Closed intertrochanteric fracture of right hip S72.141A Encounter type: initial encounter Fracture alignment: displaced Aspiration pneumonia J69.0 Nose colonized with MRSA Z22.322 Pulmonary hyperinflation R09.89 Goals of care, counseling/discussion Z71.89 Time Spent (min) 65
[2021-06-24] MEDS: vancomycin 1,250 MG/250 ML PIGGYBACK 200 MG IV (13:41)
--- NOTE | 2021-06-24 15:11 | PM.PN ---
Subjective Subjective: hospital course, labs appreciated. Examination patient is on 45 L 85% saturating 90%. Desaturating on minimal ambulation. Awake and alert laying comfortably in bed. Currently her name, place, reason for being in the hospital. Remembers me from a week ago. Overall 2 L net positive since admission. Off Precedex. Vitals/I&O/Wt Last Vital Signs Temp 98.0 F 06/24/21 02:00 Pulse 85 06/24/21 13:00 Resp 23 H 06/24/21 13:00 BP 136/78 06/24/21 13:00 Pulse Ox 86 L 06/24/21 13:00 06/24/21 06/24/21 06/24/21 06:59 14:59 22:59 Intake Total 757.155 / 757.155 Output Total 1200 / 2300 500 / 500 Balance -1200 / -1856.164 257.155 / 257.155 Weight last 48 hrs Weight 81.647 kg Weight 83.915 kg Physical Exam Narrative: General: No acute distress, AO x3, sick appearing on heated high flow HEENT: PERRLA, pupils bilaterally equal and reactive Chest: Bilateral bronchial breath sounds, expiratory wheeze present, coarse crackles present on the right lung, decreased air entry right lung CVS: S1-S2 irregularly irregular, no murmurs, no tachycardia, no gallops, no rubs Abdomen: Soft, nontender, no organomegaly, bowel sounds present Neuro: No focal deficits, no facial deformity, AO x3, power 5/5 in all limbs, physically deconditioned Urinary Catheter Management: Noriega: Cath Placed During This Visit: yes Reason for Continuing Indwelling Catheter: Accurate Measurement of Urinary Output in Critically Ill Patients Urinary Catheter Date of Insertion: 06/10/21 Urinary Catheter Time of Insertion: 18:14 Data : 06/24/21 05:00 06/24/21 05:00 A&P Assessment and plan (1) Acute respiratory failure with hypoxia: Multifactorial. Most likely combination of aspiration pneumonia in setting of decompensated congestive heart failure, COPD exacerbation and obstructive sleep apnea. Cannot rule out pulmonary embolism given nonocclusive mobile DVTs bilaterally. Patient still requiring high oxygen supplementation with significant desaturation on minimal ambulation. Will restart vancomycin and Zosyn for now. Sputum culture. Will ask for sputum sample to be induced. Keep sats over 88%. Start on nystatin QID, fluconazole 200 mg QDx 7 days. For COPD: Budesonide twice daily, DuoNebs every 4 hour. Been on Solu-Medrol for over 10 days. Wean to Solu-Medrol 40 mg IV daily for now. For congestive heart failure: Echocardiogram done shows an EF of 30 to 35%, severe diffuse hypokinesis of septum, anteroseptum and LV apex, diffuse hypokinesia of right ventricular and moderate depression of ejection fraction, moderately increased LA and RA size. Overall 2 L positive since admission. IV Lasix 20 mg twice daily. Strict input output charting, daily weights. Repeat CT chest without contrast for further evaluation of consolidation. Given significant respiratory failure will consult pulmonology for further recommendations. Severely guarded prognosis. Status: Acute (2) Aspiration pneumonia: Status: Acute (3) Nose colonized with MRSA: Status: Acute (4) CHF (congestive heart failure): Treatment as above. Appreciate cardiology recommendations. Status: Chronic (5) Pulmonary hyperinflation: Status: Acute (6) COPD (chronic obstructive pulmonary disease): Related to former tobacco abuse, chronically on Stiolto Respimat, not on continuos oxygen for her COPD but does wear nocturnal oxygen for sleep apnea. No acute exacerbation. Keep saturation over 88%. Status: Chronic (7) DVT (deep venous thrombosis): Significant DVT. Cannot rule out pulm embolism. Cannot do CTA given recent PENG. Continue with Lovenox 80 mg twice daily. Check D-dimer. If resolving can switch over to Eliquis. Patient has had over 7 days of parenteral anticoagulation. Status: Acute (8) Atrial fibrillation: Rate better controlled. Continue with amiodarone 200 mg twice daily. Continue with metoprolol 50 mg twice daily for now. Appreciate cardiology recommendations. Status: Chronic (9) Status post open reduction and internal fixation (ORIF) of fracture: Status: Acute (10) Closed intertrochanteric fracture of right hip: Comminuted. Post-ORIF during this admission. Getting anticoagulation through Lovenox for DVT. Hold off on physical therapy today given tachycardia and low blood pressure. Pain medication with [place] every 8 hours as needed. Monitor hemoglobin. Status: Acute Qualifiers: Encounter type: initial encounter Fracture alignment: displaced Qualified Code(s): S72.141A - Displaced intertrochanteric fracture of right femur, initial encounter for closed fracture (11) Fall as cause of accidental injury in home as place of occurrence: Accidental, occurring while reaching too far while using her walker, landed on right hip. Status: Acute Qualifiers: Encounter type: initial encounter Qualified Code(s): W19.XXXA - Unspecified fall, initial encounter; Y92.009 - Unspecified place in unspecified non-institutional (private) residence as the place of occurrence of the external cause (12) Physical deconditioning: Status: Acute (13) Hypernatremia: Status: Acute (14) Atherosclerosis of coronary artery of [place] heart without angina pectoris: Status: Acute (15) Sleep apnea: Diagnosed via sleep study, intolerant of CPAP/BiPAP, on nocturnal oxygen though admits that she does not necessarily use it every single night Status: Chronic Qualifiers: Sleep apnea type: unspecified type Qualified Code(s): G47.30 - Sleep apnea, unspecified (16) Chronic anticoagulation: Hold off on Eliquis for now. Currently on Lovenox. Status: Chronic (17) Hypertension: Chronically on amlodipine and lisinopril in addition to beta-blockade. Goal blood pressure less than 140/90 mmHg. Blood pressure slightly soft today. For now hold off on amlodipine and lisinopril. Status: Chronic (18) Goals of care, counseling/discussion: Status: Acute Plan Hypernatremia: Most likely secondary to dehydration from poor oral intake. Continue on D5W at 30 cc/h. Will encourage for more oral intake. Will plan for net negative fluid balance. Will continue to monitor BMP daily for now. Repeat in evening today. Severely guarded prognosis. Care discussed in detail with pulmonology. CODE STATUS: With patient in detail. Patient would not want CPR or intubation. She is okay with ICU admission. CODE STATUS changed to DNR/DNI. Regular lactose-free diet. Heparin drip will suffice for DVT prophylaxis. Protonix for PUD prophylaxis. Family updated by heavy equipment service technician today. Discharge planning: LTAC versus SNF depending on oxygen requirement and clinical recovery. If patient continues to require high oxygen supplementation she is a good candidate for LTAC for slow continuous rehabilitation. Family agreeable. Case management has been alerted. Attestations Medical Necessity Statement*: Requires further hospitalization for management of hypoxic respiratory failure in setting of COPD, congestive heart failure, recent hip fracture post-ORIF Critical Care Time: The high probability of a clinically significant, sudden or life threatening deterioration of the patient's [pulmonology, cardiac, renal system(s) required my full and direct attention, intervention and personal management. The critical care time is as shown. This time is in addition to time spent performing any reported procedures but includes the following: [x] Data and vital sign review and interpretation [x] Patient assessment, examination and intervention [x] Documentation [x] Medication orders and management Critical Care Time (min): 70 Coding Level of Care Code Acute Manufacturing Laborer for g Fwd Diagnoses Acute respiratory failure with hypoxia J96.01 DVT (deep venous thrombosis) I82.409 Atrial fibrillation I48.91 CHF (congestive heart failure) I50.9 Status post open reduction and internal fixation (ORIF) of fracture Z98.890; Z87.81 Closed intertrochanteric fracture of right hip S72.141A Encounter type: initial encounter Fracture alignment: displaced Fall as cause of accidental injury in home as place of occurrence W19.XXXA; Y92.009 Encounter type: initial encounter Chronic anticoagulation Z79.01 Hypertension I10 COPD (chronic obstructive pulmonary disease) J44.9 Sleep apnea G47.30 Sleep apnea type: unspecified type Atherosclerosis of coronary artery of [place] heart without angina pectoris I25.10 Goals of care, counseling/discussion Z71.89 Pulmonary hyperinflation R09.89 Nose colonized with MRSA Z22.322 Aspiration pneumonia J69.0 Physical deconditioning R53.81 Hypernatremia E87.0
[2021-06-24] MEDS: nystatin 100,000 unit/mL UDC 5 mL 200000 UNIT PO ×2 (17:40→20:11)
[2021-06-24 18:34] LABS: Anion Gap 13.4 (5-19); Blood Urea Nitrogen 25 mg/dL (8-23); Calcium 8.7 mg/dL (8.5-10.5); Carbon Dioxide 32 mmol/L (22-29); Chloride 100 mmol/L (98-107); Creatinine Clr Calc Pharmacy 56.3918; Glucose 124 mg/dL (65-115); Osmolality Calculated 300 mOsm/kg (285-295); Potassium 3.4 mmol/L (3.5-5.1); Sodium 142 mmol/L (136-145)
[2021-06-24] MEDS: ropinirole 0.25 mg Tablet PO (20:11)
[2021-06-24] MEDS: sennosides 8.6 mg Tablet 17.2 MG PO (20:11)
[2021-06-24] MEDS: ALPRAZolam 0.5 mg Tablet PO (22:10)
[2021-06-25] VITALS (35 sets, daily range): BP systolic 107–141; BP diastolic 54–97; PULSE 70–98; RESP 17–31; TEMP 36.4–36.7; O2SAT 86–97
[2021-06-25] MEDS: piperacillin-tazobactam 3.375 GM in sodium chloride 0.9% (plus) 50 ML IV ×3 (02:31→19:45)
[2021-06-25] MEDS: ipratropium-albuterol 3 mL Neb INHALATION ×5 (03:22→19:50)
[2021-06-25 03:58] LABS: Basophils % 0.1 %; Eosinophils # 0.1 10^3/uL (0.0-0.8); Eosinophils % 0.6 %; Hematocrit 33.8 % (37.0-47.0); Hemoglobin 10.1 g/dL (11.5-15.3); Lymphocytes # 0.4 10^3/uL (0.8-4.8); Lymphocytes % 2.5 %; Mean Corpuscular HGB Conc 29.9 g/dL (30.0-36.0); Mean Corpuscular Hemoglobin 27.2 pg (28.0-34.0); Mean Corpuscular Volume 90.9 fl (81-99); Mean Platelet Volume 12.4 fL (7.4-10.4); Monocytes # 0.6 10^3/uL (0.2-0.9); Monocytes % 3.5 %; Neutrophils # 14.76 10^3/uL (1.8-7.7); Neutrophils % 92.4 %; Nucleated Red Blood Cells % 0 %; Platelet Count 172 10^3/cmm (130-400); Red Blood Count 3.72 10^6/uL (4.1-5.3); Red Cell Distribution Width 16.6 % (12.1-15.1)
[2021-06-25 04:25] LABS: Alanine Aminotransferase 12 U/L (0-33); Albumin Level 2.9 g/dL (3.5-5.2); Alkaline Phosphatase 154 IU/L (35-105); Anion Gap 10.9 (5-19); Aspartate Amino Transferase 19 U/L (0-32); Blood Urea Nitrogen 23 mg/dL (8-23); Calcium 8.4 mg/dL (8.5-10.5); Carbon Dioxide 37 mmol/L (22-29); Chloride 97 mmol/L (98-107); Creatinine Clr Calc Pharmacy 56.3918; Globulin 2.4 g/dL (1.3-4.6); Glucose 99 mg/dL (65-115); Osmolality Calculated 298 mOsm/kg (285-295); Sodium 142 mmol/L (136-145); Total Bilirubin 0.6 mg/dL (0.15-1.2); Total Protein 5.3 g/dL (6.6-8.7)
[2021-06-25 05:06] LABS: Potassium 2.9 mmol/L (3.5-5.1)
[2021-06-25] MEDS: enoxaparin 80 mg/0.8 mL Syringe SUBCUT ×2 (05:13→16:37)
[2021-06-25] MEDS: potassium chloride premix 100 ML 25 MEQ IV ×2 (05:47→11:31)
[2021-06-25] MEDS: budesonide 0.5 mg/2 mL Neb INHALATION ×2 (07:22→19:50)
[2021-06-25] MEDS: BuSPIRONE 10 mg Tablet 5 MG PO ×2 (08:25→16:38)
[2021-06-25] MEDS: fluconazole 100 mg Tablet 200 MG PO (08:25)
[2021-06-25] MEDS: gabapentin 100 mg Capsule PO ×3 (08:25→20:33)
[2021-06-25] MEDS: nystatin 100,000 unit/mL UDC 5 mL 200000 UNIT PO ×4 (08:25→20:33)
[2021-06-25] MEDS: amlodipine 5 mg Tablet 10 MG PO (08:25)
[2021-06-25] MEDS: sertraline 100 mg Tablet PO ×2 (08:25→16:38)
[2021-06-25] MEDS: metoprolol tartrate 50 mg Tablet PO ×2 (08:25→20:33)
[2021-06-25] MEDS: levothyroxine 50 mcg Tablet PO (08:26)
[2021-06-25] MEDS: amiodarone 200 mg Tablet PO ×2 (08:26→16:38)
[2021-06-25] MEDS: pantoprazole DR 40 mg Tablet PO (08:26)
--- NOTE | 2021-06-25 13:07 | PC.OT ---
OT TREATMENT PLAN UPDATED THIS DATE DUE TO PATIENT STATUS AND LEVEL OF ASSIST NEEDED.
[2021-06-25] MEDS: vancomycin 1,250 MG/250 ML PIGGYBACK 200 MG IV (13:40)
--- NOTE | 2021-06-25 15:16 | PC.SOCIAL ---
IMM Updated Updated pt & family on IMM. No questions voiced. Provided pt a copy. Initialed, dated & timed copy in chart.
--- NOTE | 2021-06-25 15:54 | P.PN_ITS ---
Subjective Subjective: No acute events overnight. On examination today patient lying comfortably in bed. Looking tired today. Daughter at bedside. On 80% FiO2 saturating 92%. Desaturating on minimal ambulation. Wakes up to verbal cue. AOx3 on waking up. Extremely limited oral intake. Encourage patient to eat as much as possible. Vitals/I&O/Wt Last Vital Signs Temp 98.0 F 06/25/21 05:11 Pulse 88 06/25/21 15:29 Resp 20 H 06/25/21 15:29 BP 109/68 06/25/21 13:00 Pulse Ox 92 06/25/21 15:29 06/25/21 06/25/21 06/25/21 06:59 14:59 22:59 Intake Total 618.5 / 1795.655 150 / 150 Output Total 450 / 1450 Balance 168.5 / 345.655 150 / 150 Weight last 48 hrs Weight 80.739 kg Weight 81.647 kg Physical Exam Narrative: General: No acute distress, AO x3, sick appearing on heated high flow HEENT: PERRLA, pupils bilaterally equal and reactive Chest: Bilateral bronchial breath sounds, expiratory wheeze present, coarse crackles present on the right lung, decreased air entry right lung CVS: S1-S2 irregularly irregular, no murmurs, no tachycardia, no gallops, no rubs Abdomen: Soft, nontender, no organomegaly, bowel sounds present Neuro: No focal deficits, no facial deformity, AO x3, power 5/5 in all limbs, physically deconditioned Urinary Catheter Management: Noriega: Cath Placed During This Visit: yes, but has since been removed by the nurse Reason for Continuing Indwelling Catheter: Accurate Measurement of Urinary Output in Critically Ill Patients Urinary Catheter Date of Insertion: 06/24/21 Urinary Catheter Time of Insertion: 14:00 Date Urinary Catheter Removed: 06/24/21 Time Urinary Catheter Discontinued: 13:00 Data : 06/25/21 03:27 06/25/21 03:27 A&P Assessment and plan (1) Acute respiratory failure with hypoxia: Multifactorial. Most likely combination of aspiration pneumonia in setting of decompensated congestive heart failure, COPD exacerbation and obstructive sleep apnea. Cannot rule out pulmonary embolism given nonocclusive mobile DVTs bilaterally. Patient still requiring high oxygen supplementation with significant desaturation on minimal ambulation. Will restart vancomycin and Zosyn for now. Sputum culture. Will ask for sputum sample to be induced. Keep sats over 88%. Start on nystatin QID, fluconazole 200 mg QDx 7 days. For COPD: Budesonide twice daily, DuoNebs every 4 hour. Been on Solu-Medrol for over 10 days. Wean to Solu-Medrol 40 mg IV daily for now. For congestive heart failure: Echocardiogram done shows an EF of 30 to 35%, severe diffuse hypokinesis of septum, anteroseptum and LV apex, diffuse hypokinesia of right ventricular and moderate depression of ejection fraction, moderately increased LA and RA size. Overall 2 L positive since admission. IV Lasix 20 mg twice daily. Strict input output charting, daily weights. Repeat CT chest without contrast for further evaluation of consolidation. Given significant respiratory failure will consult pulmonology for further recommendations. Severely guarded prognosis. Status: Acute (2) Aspiration pneumonia: Status: Acute (3) Nose colonized with MRSA: Status: Acute (4) CHF (congestive heart failure): Treatment as above. Appreciate cardiology recommendations. Status: Chronic (5) Pulmonary hyperinflation: Status: Acute (6) COPD (chronic obstructive pulmonary disease): Related to former tobacco abuse, chronically on Stiolto Respimat, not on continuos oxygen for her COPD but does wear nocturnal oxygen for sleep apnea. No acute exacerbation. Keep saturation over 88%. Status: Chronic (7) DVT (deep venous thrombosis): Significant DVT. Cannot rule out pulm embolism. Cannot do CTA given recent A KI. Continue with Lovenox 80 mg twice daily. Check D-dimer. If resolving can switch over to Eliquis. Patient has had over 7 days of parenteral anticoagulation. Status: Acute (8) Atrial fibrillation: Rate better controlled. Continue with amiodarone 200 mg twice daily. Continue with metoprolol 50 mg twice daily for now. Appreciate cardiology recommendations. Status: Chronic (9) Status post open reduction and internal fixation (ORIF) of fracture: Status: Acute (10) Closed intertrochanteric fracture of right hip: Comminuted. Post-ORIF during this admission. Getting anticoagulation through Lovenox for DVT. Hold off on physical therapy today given tachycardia and low blood pressure. Pain medication with [place] every 8 hours as needed. Monitor hemoglobin. Status: Acute Qualifiers: Encounter type: initial encounter Fracture alignment: displaced Qualified Code(s): S72.141A - Displaced intertrochanteric fracture of right femur, initial encounter for closed fracture (11) Fall as cause of accidental injury in home as place of occurrence: Accidental, occurring while reaching too far while using her walker, landed on right hip. Status: Acute Qualifiers: Encounter type: initial encounter Qualified Code(s): W19.XXXA - Unspecified fall, initial encounter; Y92.009 - Unspecified place in unspecified non-institutional (private) residence as the place of occurrence of the external cause (12) Physical deconditioning: Status: Acute (13) Hypernatremia: Status: Acute (14) Atherosclerosis of coronary artery of [place] heart without angina pectoris: Status: Acute (15) Sleep apnea: Diagnosed via sleep study, intolerant of CPAP/BiPAP, on nocturnal oxygen though admits that she does not necessarily use it every single night Status: Chronic Qualifiers: Sleep apnea type: unspecified type Qualified Code(s): G47.30 - Sleep apnea, unspecified (16) Chronic anticoagulation: Hold off on Eliquis for now. Currently on Lovenox. Status: Chronic (17) Hypertension: Chronically on amlodipine and lisinopril in addition to beta-blockade. Goal blood pressure less than 140/90 mmHg. Blood pressure slightly soft today. For now hold off on amlodipine and lisinopril. Status: Chronic (18) Goals of care, counseling/discussion: Status: Acute Plan Hypernatremia: Most likely secondary to dehydration from poor oral intake. Continue on D5W at 30 cc/h. Will encourage for more oral intake. Will plan for net negative fluid balance. Will continue to monitor BMP daily for now. Repeat in evening today. Severely guarded prognosis. Care discussed in detail with pulmonology. CODE STATUS: With patient in detail. Patient would not want CPR or intubation. She is okay with ICU admission. CODE STATUS changed to DNR/DNI. Regular lactose-free diet. Heparin drip will suffice for DVT prophylaxis. Protonix for PUD prophylaxis. Plan for day: Goals of care discussion. Continue with oral fluconazole, nystatin swish and swallow, IV vancomycin and Zosyn. Hold off on Lasix. Continue with Solu-Medrol. We will not de-escalate or wean down Solu-Medrol today. Keep saturation over 92%. Wean down oxygen accordingly. Goals of care discussion: Discussed in detail with patient's DPOA Ms. Louis/patient's daughter at bedside today. We discussed that unfortunately patient is still requiring high oxygen supplementation. We discussed that if patient does not deteriorate further it will be a long road to recovery before she is on minimal oxygen supplementation but patient is already severely physically deconditioned and physical deconditioning is going to get worse. It is unlikely patient is going to go back to her baseline quality of life. Ms. Louis confirms that patient is DNR/DNI. States patient would have not wanted to have decreased quality of life. She will discuss with patient, patient's family regarding possible options of hospice. Requests to speak with case management to discuss about hospice options. Discharge planning: LTAC versus SNF depending on oxygen requirement and clinical recovery. If patient continues to require high oxygen supplementation she is a good candidate for LTAC for slow continuous rehabilitation. Family agreeable. Case management has been alerted. Attestations Medical Necessity Statement*: Requires further hospitalization for management of respiratory failure secondary to aspiration pneumonia leading to COPD exacerbation and congestive heart failure, hip fracture post-ORIF, goals of care discussion Critical Care Time: The high probability of a clinically significant, sudden or life threatening deterioration of the patient's [cardiac, pulmonary, renal, goals of care discussion system(s) required my full and direct attention, intervention and personal management. The critical care time is as shown. This time is in addition to time spent performing any reported procedures but includes the following: [x] Data and vital sign review and interpretation [x] Patient assessment, examination and intervention [x] Documentation [x] Medication orders and management Critical Care Time (min): 90 Coding Level of Care Code Acute Body Corporate Manager for [facility] Fwd Diagnoses Acute respiratory failure with hypoxia J96.01 Aspiration pneumonia J69.0 Nose colonized with MRSA Z22.322 CHF (congestive heart failure) I50.9 Pulmonary hyperinflation R09.89 COPD (chronic obstructive pulmonary disease) J44.9 DVT (deep venous thrombosis) I82.409 Atrial fibrillation I48.91 Status post open reduction and internal fixation (ORIF) of fracture Z98.890; Z87.81 Closed intertrochanteric fracture of right hip S72.141A Encounter type: initial encounter Fracture alignment: displaced Fall as cause of accidental injury in home as place of occurrence W19.XXXA; Y92.009 Encounter type: initial encounter Physical deconditioning R53.81 Hypernatremia E87.0 Atherosclerosis of coronary artery of [place] heart without angina pectoris I25.10 Sleep apnea G47.30 Sleep apnea type: unspecified type Chronic anticoagulation Z79.01 Hypertension I10 Goals of care, counseling/discussion Z71.89
[2021-06-25] MEDS: calcium carb-vit d 600mg/400unit 1 Tablet 1 EACH PO (16:37)
[2021-06-25] MEDS: trazodone 50 mg Tablet PO (20:33)
[2021-06-25] MEDS: ALPRAZolam 0.5 mg Tablet PO (20:33)
[2021-06-25] MEDS: ropinirole 0.25 mg Tablet PO (20:33)
[2021-06-26] VITALS (37 sets, daily range): BP systolic 97–136; BP diastolic 55–85; PULSE 67–91; RESP 13–32; TEMP 36.1–36.6; O2SAT 81–98
[2021-06-26] MEDS: ipratropium-albuterol 3 mL Neb INHALATION ×6 (00:05→21:12)
[2021-06-26] MEDS: piperacillin-tazobactam 3.375 GM in sodium chloride 0.9% (plus) 50 ML IV ×3 (04:28→19:59)
[2021-06-26] MEDS: enoxaparin 80 mg/0.8 mL Syringe SUBCUT (05:45)
[2021-06-26] MEDS: budesonide 0.5 mg/2 mL Neb INHALATION (08:14)
--- NOTE | 2021-06-26 08:45 | PC.NURSE ---
Addendum entered by Saundra Son RN 06/26/21 10:13: Pt just switched to HHF 97% [id number] from BiPap. Original Note: Bedside report completed with Zelda Johnston RN. Care assumed.
[2021-06-26] MEDS: calcium carb-vit d 600mg/400unit 1 Tablet 1 EACH PO (09:22)
[2021-06-26] MEDS: amiodarone 200 mg Tablet PO ×2 (09:22→17:50)
[2021-06-26] MEDS: fluconazole 100 mg Tablet 200 MG PO (09:22)
[2021-06-26] MEDS: amlodipine 5 mg Tablet 10 MG PO (09:22)
[2021-06-26] MEDS: pantoprazole DR 40 mg Tablet PO (09:23)
[2021-06-26] MEDS: sertraline 100 mg Tablet PO ×2 (09:23→17:50)
[2021-06-26] MEDS: BuSPIRONE 10 mg Tablet 5 MG PO ×2 (09:23→17:50)
[2021-06-26] MEDS: gabapentin 100 mg Capsule PO ×3 (09:23→20:00)
[2021-06-26] MEDS: nystatin 100,000 unit/mL UDC 5 mL 200000 UNIT PO ×4 (09:23→20:01)
[2021-06-26] MEDS: levothyroxine 50 mcg Tablet PO (09:23)
[2021-06-26] MEDS: metoprolol tartrate 50 mg Tablet PO ×2 (09:32→20:00)
[2021-06-26 10:04] LABS: Basophils % 0.1 %; Eosinophils # 0.1 10^3/uL (0.0-0.8); Eosinophils % 0.5 %; Hematocrit 35.7 % (37.0-47.0); Hemoglobin 10.4 g/dL (11.5-15.3); Lymphocytes # 0.3 10^3/uL (0.8-4.8); Lymphocytes % 1.9 %; Mean Corpuscular HGB Conc 29.1 g/dL (30.0-36.0); Mean Corpuscular Hemoglobin 27.2 pg (28.0-34.0); Mean Corpuscular Volume 93.5 fl (81-99); Mean Platelet Volume 12.5 fL (7.4-10.4); Monocytes # 0.5 10^3/uL (0.2-0.9); Monocytes % 3.3 %; Neutrophils # 14.28 10^3/uL (1.8-7.7); Neutrophils % 93.4 %; Nucleated Red Blood Cells % 0 %; Platelet Count 147 10^3/cmm (130-400); Red Blood Count 3.82 10^6/uL (4.1-5.3); Red Cell Distribution Width 16.6 % (12.1-15.1); White Blood Count 15.3 10^3/uL (4.0-10.0)
[2021-06-26 10:12] LABS: Alanine Aminotransferase 18 U/L (0-33); Albumin Level 2.9 g/dL (3.5-5.2); Alkaline Phosphatase 136 IU/L (35-105); Anion Gap 13.3 (5-19); Aspartate Amino Transferase 21 U/L (0-32); Blood Urea Nitrogen 22 mg/dL (8-23); Calcium 8.7 mg/dL (8.5-10.5); Carbon Dioxide 32 mmol/L (22-29); Chloride 101 mmol/L (98-107); Globulin 2.4 g/dL (1.3-4.6); Glucose 120 mg/dL (65-115); Osmolality Calculated 301 mOsm/kg (285-295); Potassium 3.3 mmol/L (3.5-5.1); Sodium 143 mmol/L (136-145); Total Bilirubin 0.5 mg/dL (0.15-1.2); Total Protein 5.3 g/dL (6.6-8.7)
--- NOTE | 2021-06-26 10:25 | PC.CHAP ---
Pastoral Care Encounter/Spiritual Assessment Type of Contact [] Declined director of provider relations visit [] Patient/Family/Request visit [] Outpatient visit [] Follow-up visit [] Physician referral [] Code/Alert [x] Routine visit [] Staff referral [] Actively dying [] Patient sleeping [x] Family support [] [] Out of room [] Palliative care [] [] Receiving care in room [] Pre-surgical visit [] Trauma [] Long length of stay [x] ICU visit [] Other: Relational/Emotional Strength [] Patient feels connected with others/family/visitors/staff [] Distress [] Loneliness/isolation [] Abandonment Spirituality of Patient [] Person of Dina [] Attends Jewish of their Dina [] Believes in Prayer [] Reads Bible or Scientologist materials [] There are Spiritual issues to be addressed Back Grinder Interventions [x] Prayer [] Active listening [] Non-anxious presence [] Spiritual/emotional support [] Crisis/trauma care [] Spiritual counseling [] Bereavement support [] Provided bereavement packet [] Provided Bible/devotional materials [] Provided toy/stuffed animal, coloring book to patient or family member [] Provided Communion [] Anointing/[place] [] Salvation [x] Completed spiritual assessment [] Other: Impact on Illness or Injury [] Angry [] Fearful [] Anxious [] Often cries [] Exhaustion [] Unable to work [] Unable to attend caodaism [] Unable to walk/stand [] Unable to read [] Unable to drive [] Unable to eat/drink [] Unable to sleep [] Unable to be with family [] Patient intubated [] Other: Summary Time spent with patient
--- NOTE | 2021-06-26 11:57 | PM.PN ---
Subjective Subjective: Patient seen with family at bedside. Patient continues to remain on 95% FiO2 to maintain saturation over 90%. Diet. Awake and alert. Denies any nausea, vomiting, headache. After our goals of care discussion yesterday family has decided about home hospice. As per the daughter/DPOA goals for now would be to get patient home if possible. We discussed that we can try to get patient home and ambulance on nonrebreather mask or BiPAP to achieve the goal. Family is agreeable. Vitals/I&O/Wt Last Vital Signs Temp 97.0 F L 06/26/21 07:00 Pulse 86 06/26/21 11:15 Resp 18 06/26/21 11:15 BP 124/81 06/26/21 10:00 Pulse Ox 91 06/26/21 11:15 06/25/21 06/26/21 06/26/21 22:59 06:59 14:59 Intake Total 110 / 260 50 / 310 1175 / 1175 Output Total 600 / 600 Balance 110 / 260 -550 / -290 1175 / 1175 Weight last 48 hrs Weight 81.193 kg Weight 80.739 kg Physical Exam Narrative: General: No acute distress, AO x3, sick appearing on heated high flow HEENT: PERRLA, pupils bilaterally equal and reactive Chest: Bilateral bronchial breath sounds, expiratory wheeze present, coarse crackles present on the right lung, decreased air entry right lung CVS: S1-S2 irregularly irregular, no murmurs, no tachycardia, no gallops, no rubs Abdomen: Soft, nontender, no organomegaly, bowel sounds present Neuro: No focal deficits, no facial deformity, AO x3, power 5/5 in all limbs, physically deconditioned Urinary Catheter Management: Noriega: Cath Placed During This Visit: yes, but has since been removed by the nurse Reason for Continuing Indwelling Catheter: Accurate Measurement of Urinary Output in Critically Ill Patients Urinary Catheter Date of Insertion: 06/24/21 Urinary Catheter Time of Insertion: 14:00 Date Urinary Catheter Removed: 06/24/21 Time Urinary Catheter Discontinued: 13:00 Data : 06/26/21 09:35 06/26/21 09:35 A&P Assessment and plan (1) Acute respiratory failure with hypoxia: Multifactorial. Most likely combination of aspiration pneumonia in setting of decompensated congestive heart failure, COPD exacerbation and obstructive sleep apnea. Cannot rule out pulmonary embolism given nonocclusive mobile DVTs bilaterally. Patient still requiring high oxygen supplementation with significant desaturation on minimal ambulation. Will restart vancomycin and Zosyn for now. Sputum culture. Will ask for sputum sample to be induced. Keep sats over 88%. Start on nystatin QID, fluconazole 200 mg QDx 7 days. For COPD: Budesonide twice daily, DuoNebs every 4 hour. Been on Solu-Medrol for over 10 days. Wean to Solu-Medrol 40 mg IV daily for now. For congestive heart failure: Echocardiogram done shows an EF of 30 to 35%, severe diffuse hypokinesis of septum, anteroseptum and LV apex, diffuse hypokinesia of right ventricular and moderate depression of ejection fraction, moderately increased LA and RA size. Overall 2 L positive since admission. IV Lasix 20 mg twice daily. Strict input output charting, daily weights. Repeat CT chest without contrast for further evaluation of consolidation. Given significant respiratory failure will consult pulmonology for further recommendations. Severely guarded prognosis. Status: Acute (2) Aspiration pneumonia: Status: Acute (3) Nose colonized with MRSA: Status: Acute (4) CHF (congestive heart failure): Treatment as above. Appreciate cardiology recommendations. Status: Chronic (5) Pulmonary hyperinflation: Status: Acute (6) COPD (chronic obstructive pulmonary disease): Related to former tobacco abuse, chronically on Stiolto Respimat, not on continuos oxygen for her COPD but does wear nocturnal oxygen for sleep apnea. No acute exacerbation. Keep saturation over 88%. Status: Chronic (7) DVT (deep venous thrombosis): Significant DVT. Cannot rule out pulm embolism. Cannot do CTA given recent PENG. Continue with Lovenox 80 mg twice daily. Check D-dimer. If resolving can switch over to Eliquis. Patient has had over 7 days of parenteral anticoagulation. Status: Acute (8) Atrial fibrillation: Rate better controlled. Continue with amiodarone 200 mg twice daily. Continue with metoprolol 50 mg twice daily for now. Appreciate cardiology recommendations. Status: Chronic (9) Status post open reduction and internal fixation (ORIF) of fracture: Status: Acute (10) Closed intertrochanteric fracture of right hip: Comminuted. Post-ORIF during this admission. Getting anticoagulation through Lovenox for DVT. Hold off on physical therapy today given tachycardia and low blood pressure. Pain medication with [place] every 8 hours as needed. Monitor hemoglobin. Status: Acute Qualifiers: Encounter type: initial encounter Fracture alignment: displaced Qualified Code(s): S72.141A - Displaced intertrochanteric fracture of right femur, initial encounter for closed fracture (11) Fall as cause of accidental injury in home as place of occurrence: Accidental, occurring while reaching too far while using her walker, landed on right hip. Status: Acute Qualifiers: Encounter type: initial encounter Qualified Code(s): W19.XXXA - Unspecified fall, initial encounter; Y92.009 - Unspecified place in unspecified non-institutional (private) residence as the place of occurrence of the external cause (12) Physical deconditioning: Status: Acute (13) Hypernatremia: Status: Acute (14) Atherosclerosis of coronary artery of [place] heart without angina pectoris: Status: Acute (15) Sleep apnea: Diagnosed via sleep study, intolerant of CPAP/BiPAP, on nocturnal oxygen though admits that she does not necessarily use it every single night Status: Chronic Qualifiers: Sleep apnea type: unspecified type Qualified Code(s): G47.30 - Sleep apnea, unspecified (16) Chronic anticoagulation: Hold off on Eliquis for now. Currently on Lovenox. Status: Chronic (17) Hypertension: Chronically on amlodipine and lisinopril in addition to beta-blockade. Goal blood pressure less than 140/90 mmHg. Blood pressure slightly soft today. For now hold off on amlodipine and lisinopril. Status: Chronic (18) Goals of care, counseling/discussion: Status: Acute Plan Hypernatremia: Most likely secondary to dehydration from poor oral intake. Continue on D5W at 30 cc/h. Will encourage for more oral intake. Will plan for net negative fluid balance. Will continue to monitor BMP daily for now. Repeat in evening today. Severely guarded prognosis. Care discussed in detail with pulmonology. CODE STATUS: With patient in detail. Patient would not want CPR or intubation. She is okay with ICU admission. CODE STATUS changed to DNR/DNI. Regular lactose-free diet. Heparin drip will suffice for DVT prophylaxis. Protonix for PUD prophylaxis. After goals of care discussion yesterday family have decided for home with hospice. Goal is to get patient home if possible. Hospice referral. Case management alerted. No further blood work. Vital check as per protocol Morphine 1 mg IV every 1 hour as needed for pain and air hunger. Continue oral fluconazole, metoprolol, DuoNebs, metoprolol, nystatin swish and swallow along with amiodarone as possible. Stop budesonide, Solu-Medrol. Attestations Medical Necessity Statement*: Requires further hospitalization for management of acute respiratory failure while hospice is arranged Time Spent in Patient Care: Greater than 35 minutes Coding Level of Care Code Acute Polysomnograph Tech for Chg Fwd Diagnoses Acute respiratory failure with hypoxia J96.01 Aspiration pneumonia J69.0 Nose colonized with MRSA Z22.322 CHF (congestive heart failure) I50.9 Pulmonary hyperinflation R09.89 COPD (chronic obstructive pulmonary disease) J44.9 DVT (deep venous thrombosis) I82.409 Atrial fibrillation I48.91 Status post open reduction and internal fixation (ORIF) of fracture Z98.890; Z87.81 Closed intertrochanteric fracture of right hip S72.141A Encounter type: initial encounter Fracture alignment: displaced Fall as cause of accidental injury in home as place of occurrence W19.XXXA; Y92.009 Encounter type: initial encounter Physical deconditioning R53.81 Hypernatremia E87.0 Atherosclerosis of coronary artery of [place] heart without angina pectoris I25.10 Sleep apnea G47.30 Sleep apnea type: unspecified type Chronic anticoagulation Z79.01 Hypertension I10 Goals of care, counseling/discussion Z71.89
[2021-06-26] MEDS: dextrose 5% 1,000 ML 30 ML IV (12:22)
[2021-06-26] MEDS: vancomycin 1,250 MG/250 ML PIGGYBACK 200 MG IV (12:30)
--- NOTE | 2021-06-26 17:59 | PC.NURSE ---
Shift Note: Pt alert, oreinted and very pleasant. Pt rested in bed throughout day. She started the day on BiPap. Used HHF 97% and 45liters since breakfast time. Daughter , Audrey , at bedside every meal to assist her mother with meals. Poor appetite noted, pt prefers the fruit and sweet foods. She does not care for the mashed potatoes,gravy and ground beef. Lungs sound rough on auscultation. Urine output adequate. Plan is to go home tomorrow, with care from [facility], she will require ambulance transport. Non-rebreather needs to be sent with her at discharge. Frequent safety and comfort rounds continue. Orders and/or nursing care completed as indicated. Patient monitored for response to intervention and treatment(s). Education provided includes Nystatin, amiodarone, gabapentin,vancomycin, zosyn and nectar thickened liquids. Patient and/or billing representative verbalized understanding of plan of care and ongoing care provided. Will continue to monitor.
[2021-06-26] MEDS: ropinirole 0.25 mg Tablet PO (20:00)
[2021-06-26] MEDS: trazodone 50 mg Tablet PO (20:00)
[2021-06-26] MEDS: ALPRAZolam 0.5 mg Tablet PO (21:56)
[2021-06-27] VITALS (20 sets, daily range): BP systolic 104–122; BP diastolic 63–65; PULSE 68–90; RESP 13–23; O2SAT 90–94
[2021-06-27] MEDS: ipratropium-albuterol 3 mL Neb INHALATION ×2 (03:22→08:34)
[2021-06-27] MEDS: piperacillin-tazobactam 3.375 GM in sodium chloride 0.9% (plus) 50 ML IV (03:35)
--- NOTE | 2021-06-27 08:54 | PC.SOCIAL ---
IMM Updated Updated pt on IMM. No questions voiced. Provided pt a copy. Initialed, dated & timed copy in chart.
[2021-06-27] MEDS: gabapentin 100 mg Capsule PO (09:11)
[2021-06-27] MEDS: BuSPIRONE 10 mg Tablet 5 MG PO (09:11)
[2021-06-27] MEDS: levothyroxine 50 mcg Tablet PO (09:11)
[2021-06-27] MEDS: amlodipine 5 mg Tablet 10 MG PO (09:11)
[2021-06-27] MEDS: amiodarone 200 mg Tablet PO (09:11)
[2021-06-27] MEDS: omega-3 fatty acids 1,000 mg Capsule 1000 MG PO (09:11)
[2021-06-27] MEDS: fluconazole 100 mg Tablet 200 MG PO (09:12)
[2021-06-27] MEDS: nystatin 100,000 unit/mL UDC 5 mL 200000 UNIT PO (09:12)
[2021-06-27] MEDS: sertraline 100 mg Tablet PO (09:12)
[2021-06-27] MEDS: pantoprazole DR 40 mg Tablet PO (09:12)
[2021-06-27] MEDS: metoprolol tartrate 50 mg Tablet PO (09:19)
--- NOTE | 2021-06-27 10:55 | PM.DCS ---
Discharge Providers Date of Admission: 06/10/21 15:23 Date of Discharge: June 27, 2021 Attending Provider at Admission: Che Ma MD Attending Provider at Discharge: Micky Crum MD Consults: Cardiology: Dr. Washington Orthopedics: Dr. Huizar Pulmonology: Dr. Mccain Diagnoses at Discharge Discharge Diagnosis (1) Acute respiratory failure with hypoxia: Status: Acute (2) Aspiration pneumonia: Status: Acute (3) Nose colonized with MRSA: Status: Acute (4) CHF (congestive heart failure): Status: Chronic (5) Pulmonary hyperinflation: Status: Acute (6) COPD (chronic obstructive pulmonary disease): Status: Chronic (7) DVT (deep venous thrombosis): Status: Acute (8) Atrial fibrillation: Status: Chronic (9) Status post open reduction and internal fixation (ORIF) of fracture: Status: Acute (10) Closed intertrochanteric fracture of right hip: Status: Acute Qualifiers: Encounter type: initial encounter Fracture alignment: displaced Qualified Code(s): S72.141A - Displaced intertrochanteric fracture of right femur, initial encounter for closed fracture (11) Fall as cause of accidental injury in home as place of occurrence: Status: Acute Qualifiers: Encounter type: initial encounter Qualified Code(s): W19.XXXA - Unspecified fall, initial encounter; Y92.009 - Unspecified place in unspecified non-institutional (private) residence as the place of occurrence of the external cause (12) Physical deconditioning: Status: Acute (13) Hypernatremia: Status: Acute (14) Atherosclerosis of coronary artery of [place] heart without angina pectoris: Status: Acute (15) Sleep apnea: Status: Chronic Qualifiers: Sleep apnea type: unspecified type Qualified Code(s): G47.30 - Sleep apnea, unspecified Permanent problem details: On nocturnal oxygen, intolerant of other therapies in past (16) Chronic anticoagulation: Status: Chronic (17) Hypertension: Status: Chronic (18) Goals of care, counseling/discussion: Status: Acute Reason for Visit Reason for Visit: FALL R HIP DEFORMITY Hospital Course Hospital Course Arelis Abdi is a 86 year old female with PMH hypertension, hyperlipidemia, hypothyroidism, atrial fibrillation on chronic anticoagulation, systolic CHF with EF 35%, moderate to severe pulmonary hypertension, COPD, KYELE(cannot tolerate CPAP), former smoker, s/p left upper lobectomy for atypical carcinoid 2007, history of of arthroplasty of left hip 2018, history of mitral valve repair and CABG 2009, on 06/10/2021 for right hip pain due to sustained ?comminuted intratrochanteric fracture s/p mechanical fall underwent s/p open reduction internal fixation right hip with intramedullary device on 06/12/2021. Postoperatively-she was monitored in the ICU for worsening events-her oxygen requirements went up-initially requiring 2 to 3 L and gradually was placed on BiPAP-currently she is on high flow nasal cannula 40 L 70% saturating 92%.? Her acute respiratory failure was thought to be a combination of aspiration pneumonia leading to COPD and congestive heart failure exacerbation. During hospitalization postoperatively she was also found to have elevated D-dimer after which she was found to have acute nonocclusive highly mobile DVT. It is possible that patient has pulmonary embolism as well. Due to PENG CTA could not be performed but was started on heparin drip which was later transitioned to full dose Lovenox.? Patient had a long protracted hospital stay. She continued to require high oxygen supplementation along with noninvasive ventilation with BiPAP. Even though patient was on high oxygen supplementation she would continue to desaturate significantly on minimal ambulation. Due to severe physical deconditioning, high oxygen requirements multiple goals of care discussions were done with patient and patient's DPOA Ms. Louis. We discussed that unfortunately patient is still requiring high oxygen supplementation.? We discussed that if patient does not deteriorate further it will be a long road to recovery before she is on minimal oxygen supplementation but patient is already severely physically deconditioned and physical deconditioning is going to get worse.? It is unlikely patient is going to go back to her baseline quality of life.? Ms. Louis confirms that patient is DNR/DNI.? States patient would have not wanted to have decreased quality of life.? Patient and family decided about home hospice with goals of reaching home. She is been discharged in hemodynamically stable condition in a comfortable state to home with hospice. Patient is to transport via ambulance to home on possibly BiPAP to achieve goal of care after reaching home. Physical Exam Narrative: General: No acute distress, AO x3, sick appearing on heated high flow HEENT: PERRLA, pupils bilaterally equal and reactive Chest: Bilateral bronchial breath sounds, expiratory wheeze present, coarse crackles present on the right lung, decreased air entry right lung CVS: S1-S2 irregularly irregular, no murmurs, no tachycardia, no gallops, no rubs Abdomen: Soft, nontender, no organomegaly, bowel sounds present Neuro: No focal deficits, no facial deformity, AO x3, power 5/5 in all limbs, physically deconditioned Urinary Catheter Management: Noriega: Cath Placed During This Visit: yes, but has since been removed by the nurse Reason for Continuing Indwelling Catheter: Accurate Measurement of Urinary Output in Critically Ill Patients Urinary Catheter Date of Insertion: 06/24/21 Urinary Catheter Time of Insertion: 14:00 Date Urinary Catheter Removed: 06/24/21 Time Urinary Catheter Discontinued: 13:00 Discharge Data Studies Completed and Pending Completed Studies During Hospitalization Category Date Time Status CT chest wo con 78762 Routine Cat Scan 06/15/21 12:[address] chest wo con [id number] Routine Cat Scan 06/24/21 10:49 Completed CXRP [XR chest 1V portable [id number]] Routine Exams 06/12/21 17:20 Completed XR chest 1V portable [id number] Routine Exams 06/13/21 10:46 Completed XR chest 1V portable 33238 Routine Exams 06/17/21 10:38 Completed XR chest 1V portable [id number] Routine Exams 06/19/21 12:23 Completed XR chest 1V portable 47959 Routine Exams 06/22/21 10:02 Completed XR chest 1V portable 20976 Stat Exams 06/10/21 14:51 Completed XR chest 1V portable 71392 Stat Exams 06/13/21 20:13 Completed XR hip RT 1V wo/w pel [id number] Routine Exams 06/12/21 15:49 Completed XR hip RT 2-3V wo/w pel* [id number] Stat Exams 06/10/21 14:34 Completed CV. echo complete* [id number] Routine Ultrasound 06/10/21 17:49 Completed CV. echo lmt w color 24468/25 Routine Ultrasound 06/14/21 10:31 Completed US venous duplex lower extremity bilat [CV venous Ultrasound 06/14/21 09:17 [place] [id number]] Routine Pending at discharge Category Date Time Status ABG FULL [Arterial Blood Gas Full] Stat Lab 06/12/21 17:11 Uncollected ABG FULL [Arterial Blood Gas Full] Stat Lab 06/17/21 11:46 Results Vancomycin Trough Timed Lab 06/28/21 11:00 Ordered Radiology Impressions Hip/Pelvis X-Ray 06/10/21 14:34 IMPRESSION: 1. Comminuted intertrochanteric fracture of the right hip. Degenerative changes. Hip X-Ray 06/12/21 15:49 IMPRESSION: Intraoperative imaging during RIGHT hip ORIF. Chest X-Ray 06/22/21 10:02 IMPRESSION: 1. Bilateral perihilar and lower lobe interstitial congestion increased since prior 2. Cardiomegaly for projection 3. A cardiac valve prosthesis is in place 4. Status post sternotomy CT chest IMPRESSION: 1.? Diffuse hazy pulmonary infiltrates throughout the RIGHT lung are slightly progressed and slightly more dense today. Differential considerations are unchanged. 2.? Small RIGHT pleural effusion is stable. 3.? Groundglass infiltrates in the LEFT lower lobe are slightly improved. New developing groundglass infiltrates LEFT upper lobe along the fissure 4.? Prior partial LEFT pneumonectomy 5.? Unchanged moderate esophageal hiatal hernia. 6.? Stable marked cardiomegaly. Dictated By: Daryl Mccoy MD Microbiology 06/17/21 11:35 Blood Blood Culture - Final NO GROWTH AFTER 5 DAYS 06/17/21 11:34 Blood Blood Culture - Final NO GROWTH AFTER 5 DAYS 06/14/21 10:25 Stool C.difficile Toxin B Gene (PCR) - Final 06/10/21 18:15 Urine,Clean Catch Urine Culture - Final Aerococcus urinae 06/11/21 Unknown Nose MRSA Culture - Final Laboratory Results WBC 15.3 10^3/uL (4.0-10.0) H 06/26/21 09:35 RBC 3.82 10^6/uL (4.1-5.3) L 06/26/21 09:35 Hgb 10.4 g/dL (11.5-15.3) L 06/26/21 09:35 Hct 35.7 % (37.0-47.0) L 06/26/21 09:35 MCV 93.5 fl (81-99) 06/26/21 09:35 MCH 27.2 pg (28.0-34.0) L 06/26/21 09:35 MCHC 29.1 g/dL (30.0-36.0) L 06/26/21 09:35 RDW 16.6 % (12.1-15.1) H 06/26/21 09:35 Plt Count 147 10^3/cmm (130-400) 06/26/21 09:35 MPV 12.5 fL (7.4-10.4) H 06/26/21 09:35 Neut % (Auto) 93.4 % 06/26/21 09:35 Lymph % (Auto) 1.9 % 06/26/21 09:35 [place] % (Auto) 3.3 % 06/26/21 09:35 Eos % (Auto) 0.5 % 06/26/21 09:35 Baso % (Auto) 0.1 % 06/26/21 09:35 Neut # (Auto) 14.28 10^3/uL (1.8-7.7) H 06/26/21 09:35 Lymph # (Auto) 0.3 10^3/uL (0.8-4.8) L 06/26/21 09:35 [place] # (Auto) 0.5 10^3/uL (0.2-0.9) 06/26/21 09:35 Eos # (Auto) 0.1 10^3/uL (0.0-0.8) 06/26/21 09:35 Baso # (Auto) 0.0 10^3/uL (0.0-0.1) 06/26/21 09:35 Nucleated RBC % (auto) 0 % 06/26/21 09:35 Nucleated RBCs # 0.0 /100WBC 06/26/21 09:35 PT 15.60 SECONDS (12.1-14.9) H 06/10/21 15:03 INR 1.20 (0.8-1.2) 06/10/21 15:03 APTT 44.0 SECONDS (23.9-36.7) H 06/17/21 11:34 D-Dimer 2.63 ug/mIFEU (0-0.59) H 06/24/21 11:25 Specimen Type Arterial 06/23/21 09:34 Sample Site Radial, left 06/23/21 09:34 ABG pH 7.46 (7.35-7.45) H 06/23/21 09:34 ABG pCO2 48.5 mmHg (35-45) H 06/23/21 09:34 ABG pO2 64.3 mmHg (80.0-100.0) L 06/23/21 09:34 ABG HCO3 34.3 mmol/L (22-26) H 06/23/21 09:34 ABG O2 Saturation 91.8 06/23/21 09:34 ABG Base Excess 9.2 mmol/L (-2.0-2.0) H 06/23/21 09:34 Tk Test Pos 06/23/21 09:34 A-a O2 Gradient 62.8 mmHg (5-10) H 06/23/21 09:34 Hematocrit 33.2 % (37-47) L 06/23/21 09:34 Hgb O2 Saturation 90.9 % (95-100) L 06/23/21 09:34 Carboxyhemoglobin 0.4 %THgb (0.4-20.1) 06/23/21 09:34 Methemoglobin 0.7 % (0.4-1.5) 06/23/21 09:34 Total Hemoglobin 10.8 g/dL (12-16) L 06/23/21 09:34 Sodium 148.0 mmol/L (131-143) H 06/23/21 09:34 Potassium 3.2 mmol/L (3.5-5.0) L 06/23/21 09:34 Glucose 152.0 mg/dL (70-115) H 06/23/21 09:34 Ionized Calcium 1.2 mmol/L (1.1-1.4) 06/23/21 09:34 O2 Delivery Device Nc 06/23/21 09:34 O2 Liters/Min 50.0 % 06/23/21 09:34 FiO2 85.0 % 06/23/21 09:34 Elevating Grader Operator ID [place] 06/23/21 09:34 Sodium 143 mmol/L (136-145) 06/26/21 09:35 Potassium 3.3 mmol/L (3.5-5.1) L 06/26/21 09:35 Chloride 101 mmol/L (98-107) 06/26/21 09:35 Carbon Dioxide 32 mmol/L (22-29) H 06/26/21 09:35 Anion Gap 13.3 (5-19) 06/26/21 09:35 BUN 22 mg/dL (8-23) 06/26/21 09:35 Creatinine 0.7 mg/dL (0.5-0.9) 06/26/21 09:35 GFR Calculation Not Reportable 06/26/21 09:35 Glucose 120 mg/dL (65-115) H 06/26/21 09:35 Estimat Average Glucose 108 06/12/21 04:45 Hemoglobin A1c 5.4 % (4.0-6.0) 06/12/21 04:45 Calculated Osmolality 301 mOsm/kg (285-295) H 06/26/21 09:35 Calcium 8.7 mg/dL (8.5-10.5) 06/26/21 09:35 Phosphorus 4.9 mg/dL (2.5-4.5) H 06/11/21 01:30 Magnesium 1.9 mg/dL (1.7-2.3) 06/24/21 11:25 Iron 47 ug/dL (37-145) 06/11/21 01:30 TIBC 329 mcg/dl 06/11/21 01:30 % Saturation 14.2 % (20-50) L 06/11/21 01:30 Unsat Iron Binding 282 ug/dL (112-347) 06/11/21 01:30 Total Bilirubin 0.5 mg/dL (0.15-1.2) 06/26/21 09:35 AST 21 U/L (0-32) 06/26/21 09:35 ALT 18 U/L (0-33) 06/26/21 09:35 Alkaline Phosphatase 136 IU/L (35-105) H 06/26/21 09:35 Troponin T Gen 5 ng/L 18 ng/L (0-10) H 06/11/21 01:30 NT-Pro-B Natriuret Pep 84283 pg/mL (0-450) H 06/13/21 03:21 Total Protein 5.3 g/dL (6.6-8.7) L 06/26/21 09:35 Albumin 2.9 g/dL (3.5-5.2) L 06/26/21 09:35 Globulin 2.4 g/dL (1.3-4.6) 06/26/21 09:35 Triglycerides 83 mg/dL (0-150) 06/12/21 04:45 Cholesterol 249 mg/dL (0-200) H 06/12/21 04:45 LDL Cholesterol, Calc 170 mg/dL (50-129) H 06/12/21 04:45 Total VLDL Cholesterol 17 mg/dL (0-30) 06/12/21 04:45 HDL Cholesterol 62 mg/dL (60-100) 06/12/21 04:45 Cholesterol/HDL Ratio 4.02 mg/dL (0.0-4.40) 06/12/21 04:45 Procalcitonin 0.06 ng/mL (0-0.5) 06/10/21 15:03 TSH 1.17 uIU/mL (0.27-4.20) 06/11/21 01:30 Urine Color Yellow (Yellow) 06/10/21 18:15 Urine Appearance Cloudy (CLEAR) 06/10/21 18:15 Urine pH 6 (5-7) 06/10/21 18:15 Ur Specific [place] 1.030 (1.005-1.030) 06/10/21 18:15 Urine Protein Neg (Negative) 06/10/21 18:15 Urine Glucose (UA) Norm (Normal) 06/10/21 18:15 Urine Ketones 1+ (Negative) H 06/10/21 18:15 Urine Blood Neg (Negative) 06/10/21 18:15 Urine Nitrate Negative (Negative) 06/10/21 18:15 Urine Bilirubin Neg (Negative) 06/10/21 18:15 Urine Urobilinogen 1 mg/dL (Negative) H 06/10/21 18:15 Ur Leukocyte Esterase Negative (Negative) 06/10/21 18:15 Urine RBC None /hpf (0-2) 06/10/21 18:15 Urine WBC Rare /hpf (0-5) 06/10/21 18:15 Ur Squamous Epith Cells Rare /hpf (0-5) 06/10/21 18:15 Amorphous Sediment Not Reportable 06/10/21 18:15 Urine Bacteria 4+ /hpf (NONE) H 06/10/21 18:15 Nasal Influ A H1 2008 PCR Not detected (NOT DETECT) 06/15/21 15:15 Vancomycin Trough 8.9 ug/mL (10-15) L 06/21/21 12:28 Random Vancomycin 5.3 ug/mL (20.0-40.0) L 06/18/21 03:07 Digoxin 1.1 ng/mL (0.6-1.2) 06/14/21 02:48 Coronavirus 229E (PCR) Not detected (NOT DETECT) 06/15/21 15:15 Influenza A (H1) PCR Not detected (NOT DETECT) 06/15/21 15:15 Influenza A (H3) PCR Not detected (NOT DETECT) 06/15/21 15:15 Influenza Type A Ag Cancelled 06/15/21 15:15 Influenza Type A (PCR) Not detected (NOT DETECT) 06/15/21 15:15 Influenza Type B Ag Cancelled 06/15/21 15:15 Influenza Type B (PCR) Not detected (NOT DETECT) 06/15/21 15:15 SARS-CoV-2 (PCR) Not detected (NOT DETECT) 06/15/21 15:15 Imaging Echo: Radiologist's impression: CONCLUSIONS ?Severe diffuse hypokinesia of the septum, anteroseptum and LV?apex.? ?LV ejection fraction around 30 to 35%. ?Moderate concentric left tubular hypertrophy ?Moderate biatrial enlargement ?Thickened mitral valve. Moderate mitral annular calcification. ?Thickened aortic valve. ?Mild tricuspid valve regurgitation. ?Trace pulmonary valve regurgitation. ?Estimated pulmonary artery peak systolic pressure of 28 mm of Hg?(Compared to the study from 08/26/2018, there is some worsening of ?the LV systolic function.? The LVEF was 38% at that time.? The?RV systolic function has significantly reduced since 08/26/2018.? ?The tricuspid rotation appears to be less severe, but it could?be due to technical issues.) ?Dr Jimmy Washington MD FACC ?(Electronically Signed) ?Final Date:? ? ? 11 June 2021 ? 16:07 CONCLUSIONS ?This is a follow-up study to concentrate on the valve Doppler ?Normal LV size with diminished ejection fraction of around 35%.? ?Dyskinetic interventricular septum. ?Moderately severe eccentric tricuspid regurgitation. ?Moderately severe pulmonary hypertension-estimated PA pressure?of 71 mmHg. ?Thickened mitral valve. Moderate mitral annular calcification. ?Moderate left-sided pleural effusion. ?Moderate biatrial enlargement ?There is no pericardial effusion. ?There are no intracardiac masses. ?Dr Jimmy Washington MD [facility]ACC ?(Electronically Signed) ?Final Date:? ? ? 14 June 2021 ? 15:33 Vitals Last Vital Signs Temp 97.0 F L 06/26/21 07:00 Pulse 90 06/27/21 08:37 Resp 20 H 06/27/21 08:30 BP 122/64 06/27/21 03:00 Pulse Ox 91 06/27/21 08:30 Discharge Plan Discharge Patient Disposition: Hospice - Home Condition: Stable Prescriptions: Continued alprazolam 0.5 mg tablet 0.5 mg PO TID PRN (Reason: anxiety) 0RF metoprolol succinate 25 mg tablet extended release 24 hr 25 mg PO DAILY 0RF ropinirole 0.25 mg tablet 0.25 mg PO DAILY 0RF potassium chloride 10 mEq tablet extended release 10 meq PO DAILY 0RF buspirone 5 mg tablet 5 mg PO BID 0RF Eliquis 5 mg tablet 5 mg PO BID 0RF trazodone 50 mg tablet 50 mg PO DAILY 0RF lisinopril 20 mg tablet 20 mg PO DAILY 0RF gabapentin 100 mg capsule 100 mg PO TID 0RF levothyroxine 50 mcg tablet 50 mcg PO DAILY 0RF coenzyme Q10 [Co Q-10] 10 mg capsule 10 mg PO DAILY 0RF Stiolto Respimat 2.5-2.5 mcg/actuation mist 2 puff inhalation DAILY 0RF amiodarone 200 mg tablet 200 mg PO DAILY 0RF sertraline 100 mg tablet 100 mg PO BID 0RF acetaminophen 500 mg Tablet 500 mg PO Q6H PRN (Reason: Pain) 0RF amlodipine 10 mg tablet 10 mg PO DAILY 0RF ascorbic acid (vitamin C) [Vitamin C] 500 mg Capsule, Extended Release 500 mg PO DAILY 0RF glucosamine-chondroitin [Osteo Bi-Flex] 250-200 mg Tablet 2 tab PO TID 0RF Rx Instructions: give after food/meal omega 0-dbr-gux-fish oil [Fish Oil] 1,000 mg (120 mg-180 mg) Capsule 1 cap PO DAILY 0RF jmvtsky-eofn-auglp-oreg-capryl 100 mg-150 mg- 50 mg-150 mg Capsule 1 cap PO DAILY 0RF Calcium 600 with Vitamin D3 600 mg-10 mcg (400 unit) Tablet,Chewable 1 tab PO DAILY 0RF Discharge Orders: Discharge Order (Routine); Ordered 06/27/21 Ordered By: Micky Crum Referrals: [facility] [Outside] ([facility] [phone] WILL FOLLOW UPON DISCHARE TO HOME) [facility] [Referring] - (HOSPICE WILL FOLLOW WITH THIS APPOINTMENT /OR WITH [facility] . ) Discharge Diet: Advance as tolerated Discharge Activity: Increase activity as tolerated Patient Instructions: Hospice Care, ORIF of Hip Fracture (DC), Post Anesthesia Care Activity Restrictions/Additional Instructions: Home hospice Discharge Attestations Time Spent in Discharge Care*: greater than 30 min Specific Discharge Activities: educating and/or supporting family/caregiver, discussing with pcp/other providers, discussing with bilingual case manager/social workers/dc planners, documenting/other paperwork and evaluating patient/reviewing data Status at Discharge: Cognitive status at discharge: mildly impaired cognition, Behavioral status at discharge: cooperative, Functional status at discharge: bed bound, Overall status at discharge: patient has a new baseline Quality Metrics Clinical Quality Measures [ Venous Thromboembolism { Contraindication to Overlap Therapy: None; Overlap threrpy ordered; VTE Discharge Education: Education about anticoagulant therapy/Care Notes given, Education about treatment options/disease process; Deep Vein Thrombosis/Pulmonary Embolism Present on Admission: No; Contraindication to Pharm VTE Prophylaxis: None; Pharmacological prophylaxis given;}] Coding Level of Care Code Acute Chg FW DC note Diagnoses Acute respiratory failure with hypoxia J96.01 Aspiration pneumonia J69.0 Nose colonized with MRSA Z22.322 CHF (congestive heart failure) I50.9 Pulmonary hyperinflation R09.89 COPD (chronic obstructive pulmonary disease) J44.9 DVT (deep venous thrombosis) I82.409 Atrial fibrillation I48.91 Status post open reduction and internal fixation (ORIF) of fracture Z98.890; Z87.81 Closed intertrochanteric fracture of right hip S72.141A Encounter type: initial encounter Fracture alignment: displaced Fall as cause of accidental injury in home as place of occurrence W19.XXXA; Y92.009 Encounter type: initial encounter Physical deconditioning R53.81 Hypernatremia E87.0 Atherosclerosis of coronary artery of [place] heart without angina pectoris I25.10 Sleep apnea G47.30 Sleep apnea type: unspecified type Chronic anticoagulation Z79.01 Hypertension I10 Goals of care, counseling/discussion Z71.89
--- NOTE | 2021-06-27 12:22 | PC.NURSE ---
daughter her arangments being made to send home on hospice bed is at home medications to pharmacy and hospice nurse preparing to meet them at home
== END 2021-06-27 14:00 | disposition expired | DRG 480 ==
LOC: ER 14:51 → MEDSURG 15:42 → ICU 06-12 18:31
PROVIDERS: Internal Medicine; Orthopaedic Surgery; Admitting Provider Hospitalist; Emergency Provider Family Medicine; Visit Provider Student in an Organized Health Care Education/Training Program
PROC: 0QS606Z Reposition Right Upper Femur with Intramedullary Internal Fixation Device, Open Approach (ICD-10-PCS; CPT 27245; principal; 2021-06-12 13:30)
DX: M80.851A Other osteoporosis with current pathological fracture, right femur, initial encounter for fracture (principal); I26.99 Other pulmonary embolism without acute cor pulmonale; I50.23 Acute on chronic systolic (congestive) heart failure; J69.0 Pneumonitis due to inhalation of food and vomit; J96.01 Acute respiratory failure with hypoxia; I48.20 Chronic atrial fibrillation, unspecified; J44.1 Chronic obstructive pulmonary disease with (acute) exacerbation; I13.0 Hypertensive heart and chronic kidney disease with heart failure and stage 1 through stage 4 chronic kidney disease, or unspecified chronic kidney disease; E87.0 Hyperosmolality and hypernatremia; N17.9 Acute kidney failure, unspecified; I82.411 Acute embolism and thrombosis of right femoral vein; W07.XXXA Fall from chair, initial encounter; I25.10 Atherosclerotic heart disease of native coronary artery without angina pectoris; Z95.1 Presence of aortocoronary bypass graft; Z87.891 Personal history of nicotine dependence; E78.5 Hyperlipidemia, unspecified; N18.30 Chronic kidney disease, stage 3 unspecified; E03.9 Hypothyroidism, unspecified; Z85.118 Personal history of other malignant neoplasm of bronchus and lung; G25.81 Restless legs syndrome; Z90.2 Acquired absence of lung [part of]; H00.013 Hordeolum externum right eye, unspecified eyelid; G47.33 Obstructive sleep apnea (adult) (pediatric); M15.9 Polyosteoarthritis, unspecified; E86.0 Dehydration; Z66 Do not resuscitate; Z79.01 Long term (current) use of anticoagulants; Z79.891 Long term (current) use of opiate analgesic; Z96.642 Presence of left artificial hip joint; R13.10 Dysphagia, unspecified; B95.62 Methicillin resistant Staphylococcus aureus infection as the cause of diseases classified elsewhere; D69.6 Thrombocytopenia, unspecified; R01.1 Cardiac murmur, unspecified; D64.9 Anemia, unspecified; R00.0 Tachycardia, unspecified; I95.9 Hypotension, unspecified; I27.20 Pulmonary hypertension, unspecified; I08.1 Rheumatic disorders of both mitral and tricuspid valves; F41.8 Other specified anxiety disorders; E87.6 Hypokalemia
CPT/HCPCS: 36415; 36592; 36600; 51702; 71045; 71250; 73501; 73502; 76000; 80048; 80051; 80053; 80061; 80162; 80202; 81001; 82330; 82803; 82805; 83036; 83540; 83550; 83735; 83880; 84100; 84145; 84443; 84484; 85025; 85378; 85610; 85730; 87040; 87077; 87086; 87493; 87631; 87635; 87641; 92523; 92526; 92610; 93005; 93306; 93308; 93325; 93970; 94640; 94660; 96372; 97110; 97161; 97167; 97530; 97535; 99285; A4570; C1713; C1776; C9113; J0282; J0690; J0743; J1100; J1160; J1200; J1644; J1650; J1940; J2405; J2543; J2920; J2930; J3010; J3370; J3475; J3480; J7030; J7060; J7512; J7608; J7611; J7626; P9047; Q3014